=== PATIENT | female | born 1970 | race Caucasian/White ===

== ENCOUNTER → 2018-02-02 | Outpatient (REF) | payer OTHER ==
[2018-02-02 13:44] LABS: APPEARANCE, URINE CLEAR (CLEAR); BACTERIA, URINE AUTO NEGATIVE (NEGATIVE); BILIRUBIN, URINE AUTO NEGATIVE (NEGATIVE); BLOOD, URINE BLOOD 2+ (NEGATIVE); COLOR, URINE STRAW (YELLOW); GLUCOSE, URINE (UA) AUTO NEGATIVE (NEGATIVE); KETONE, URINE AUTO NEGATIVE (NEGATIVE); LEUKOCYTE ESTERASE, URINE AUTO 1+ (NEGATIVE); MUCUS, URINE SMALL (NEGATIVE); NITRITE, URINE AUTO NEGATIVE (NEGATIVE); PROTEIN, URINE AUTO NEGATIVE (NEGATIVE); RBC, URINE AUTO 1 /HPF (0-3); SPECIFIC GRAVITY URINE AUTO 1.004 (1.002-1.035); SQUAMOUS EPITHELIAL CELL UR AU 0 /HPF (0-6); UROBILINOGEN, URINE AUTO 0.2 mg/dL (0.0-2.0); WBC, URINE AUTO 7 /HPF (0-3)
== END ==
LOC: M SMT 13:16
DX: R10.30 Lower abdominal pain, unspecified (principal)

== ENCOUNTER → 2018-09-07 | Outpatient (REF) | payer BC | LOC: M LAB LCGH 15:10 | PROVIDERS: ATTEND Surgery | DX: D50.9 Iron deficiency anemia, unspecified (principal) ==

== ENCOUNTER → 2019-01-19 | Outpatient (REF) | payer BC ==
[2019-01-19 18:24] LABS: APPEARANCE, URINE CLEAR (CLEAR); BACTERIA, URINE AUTO NEGATIVE (NEGATIVE); BILIRUBIN, URINE AUTO NEGATIVE (NEGATIVE); BLOOD, URINE BLOOD 3+ (NEGATIVE); CALCIUM OXALATE CRYSTALS SMALL; COLOR, URINE YELLOW (YELLOW); GLUCOSE, URINE (UA) AUTO NEGATIVE (NEGATIVE); KETONE, URINE AUTO NEGATIVE (NEGATIVE); LEUKOCYTE ESTERASE, URINE AUTO 1+ (NEGATIVE); MUCUS, URINE SMALL (NEGATIVE); NITRITE, URINE AUTO NEGATIVE (NEGATIVE); PROTEIN, URINE AUTO NEGATIVE (NEGATIVE); RBC, URINE AUTO 30 /HPF (0-3); SPECIFIC GRAVITY URINE AUTO 1.006 (1.002-1.035); SQUAMOUS EPITHELIAL CELL UR AU 0 /HPF (0-6); UROBILINOGEN, URINE AUTO 0.2 mg/dL (0.0-2.0); WBC, URINE AUTO 25 /HPF (0-3)
== END ==
LOC: M SMT 16:54
PROVIDERS: ATTEND Nurse Practitioner Family
DX: R10.9 Unspecified abdominal pain (principal)

== ENCOUNTER → 2019-01-26 | Outpatient (CLI) | payer BC ==
--- NOTE | 2019-01-26 09:54 | REP ---
CT abdomen and pelvis without IV or oral contrast: Renal stone protocol. History: Flank pain. History of renal stones. No comparison imaging is available at this point in time. CT findings: Preliminary [facility] radiograph demonstrates an unremarkable bowel gas pattern. Pacemaker wires are noted in the heart. The lung bases are clear on axial CT images. The patient is status post gastric bypass procedure. Or the gallbladder and the uterus are also surgically absent. There is no evidence of focal liver lesion or spleen lesion. The liver is not enlarged. No abnormalities noted in the pancreas. No adrenal lesion is observed. Small and large intestinal bowel loops are unremarkable. No bony lesion is seen. There is no evidence of mass or adenopathy. There are multiple bilateral intrarenal calculi noted. There is hydronephrosis on the left due to a proximal ureteral stone at the level of the lower pole of the left kidney. This calculus measures 8 mm in greatest diameter. There is some periureteral edema. No other ureteral calculus is seen. No right-sided hydronephrosis is noted. The largest intrarenal calculus in the left kidney is in the lower pole measuring 14 mm in diameter. The largest intrarenal calculus in the right kidney is in the lower pole measuring 13 mm in greatest diameter. There are several 1 cm stones in the lower pole on the right. There is a 4 mm calculus in the mid position of the left kidney. There is some mild cortical scarring in the left mid kidney. Impression: Bilateral intrarenal nephrolithiasis. Mild to moderate left-sided hydronephrosis due to a proximal ureteral 8 mm partially obstructive calculus. The patient is status post cholecystectomy, gastric bypass, hysterectomy, and cardiac pacemaker. Electronically Signed by Mani Duque MD 01/26/2019 04:00 P
== END ==
LOC: M RAD 07:40
PROVIDERS: ATTEND Nurse Practitioner Family
DX: N20.0 Calculus of kidney (principal)

== ENCOUNTER 2019-03-16 07:17 | Day surgery (SDC) | payer BC ==
[~2019-03-16] VITALS: Ht 154.9 cm; Wt 76.1 kg
[~2019-03-16 07:17] MED LIST: CARV6.25 PO; CIPROFLOXACIN 400 MG in IV 1 EA IV ONE; FLOM0.4C39 PO; LASI20TA3 PO; LISI10TA4 PO; LR 1,000 ML IV ONE; METF-791 PO; ROSU20TA5 PO; VENTAER INH
[2019-03-16] MEDS ORDERED: ZOFR8TAB24 PO (07:38)
[2019-03-16] MEDS ORDERED: KETO10TAB PO (07:38)
[2019-03-16] MEDS ORDERED: PROPOFOL 200 MG/20 ML VIAL As Ordered ONE (08:03)
[2019-03-16] MEDS ORDERED: LIDOCAINE 2% INJ 100 MG/5 ML SDV (FOR ANES.) As Ordered ONE (08:03)
[2019-03-16] MEDS ORDERED: CONRAY-60 60% 50ML VIAL (Q9961) As Ordered ONE (08:03)
[2019-03-16] MEDS ORDERED: dexameTHASONE 4 MG/ML 1ML VIAL (J1100) As Ordered ONE (08:04)
[2019-03-16] MEDS ORDERED: ONDANSETRON 4MG/2ML VIAL (J2405) As Ordered ONE (08:04)
[2019-03-16] MEDS ORDERED: MIDAZOLAM INJ 2 MG/2 ML VIAL (J2250) As Ordered ONE (08:06)
[2019-03-16] MEDS ORDERED: fentaNYL 100 MCG/2 ML INJECTION (J3010) As Ordered ONE (08:06)
[2019-03-16] MEDS ORDERED: PHENYLephrine HCL 500 MCG/5 ML (100MCG/ML) SYRINGE (J2370) As Ordered ONE (08:42)
[2019-03-16] MEDS ORDERED: ACETAMINOPHEN 1000MG 100ML IV BTL (OFIRMEV) (J0131 PER 10MG) As Ordered ONE (08:47)
[2019-03-16] MEDS ORDERED: ePHEDrine SULFATE 25 MG/5 ML(5MG/ML) SYRINGE As Ordered ONE (08:51)
[2019-03-16] MEDS ORDERED: PERCOCET PO (10:25)
[2019-03-16] MEDS ORDERED: PERCOCET 5MG/325MG TAB PO PRN ×2 (10:30→11:00)
--- NOTE | 2019-03-16 10:34 | ROOPDOC ---
[facility] Report Of Operation Report of Operation DATE OF PROCEDURE: 03/16/19 PREPROCEDURE DIAGNOSES: Left ureteral calculus, bilateral renal calculi. POSTPROCEDURE DIAGNOSES: Same. PROCEDURE: Cystoscopy, left ureteroscopy, left retrograde pyelogram, laser lithotripsy, left double-J stent, right ureteroscopy, right retrograde pyelogram, laser lithotripsy, right double-J stent. SURGEON: Serafin Augustin MD ANESTHESIA: Gen. LMA. ESTIMATED BLOOD LOSS: Approximately less than 20 mL. COMPLICATIONS: None. REMARKS: Bilateral 6 [place] double-J stents. PROCEDURE NOTE: Patient was brought to the operating room and following administration of general anesthesia was placed in the dorsal lithotomy position and prepped and draped in usual sterile fashion. A 22 [place] cystoscope was inserted. The bladder was normal. There were no stones seen. A 5 [place] open-ended catheter was placed into the left ureteral orifice and a 0.038 guidewire was advanced the renal pelvis. The catheter was advanced the renal pelvis and wire was removed. Retrograde pyelogram was performed revealing left hydronephrosis with no filling defects seen. Wire was replaced and the open- ended catheter was removed. A 10 [place] dual-lumen catheter was inserted and a second Glidewire was inserted. A ureteral access sheath was placed over the Glidewire and the Glidewire was removed. A flexible ureteroscope was then introduced into the access sheath and ureteroscopy was performed of the renal collecting system. A stone was present in the lower pole laser lithotripsy was performed utilizing a 274 fiber. Laser lithotripsy was performed between 8 and 14 W and complete fragmentation of the stone was achieved. The stone fragments were small and left to pass spontaneously. The ureteroscope was then removed under direct vision. There was no stones seen in the proximal ureter. However a stone was present in the distal ureter. Using laser lithotripsy the stone was completely fragmented into small fragments to pass spontaneously. The remainder of the ureter was unremarkable no further stones were seen. Ureteroscope was removed with the ureteral access sheath. A 5 [place] opening catheter was reinserted and retrograde pyelogram was repeated. There was no evidence of extravasation. Cystoscope was reinserted over the wire and a 6 [place] double-J stent was inserted under direct vision using fluoroscopy guidance. Once good position was confirmed the wires removed leaving the stent in place. A wire was then placed into the right ureteral orifice and advanced the renal pelvis. A 5 [place] open-ended catheter was inserted over the wire and the wire was removed. Retrograde pyelogram was performed revealing a normal right collecting system with no evidence of hydronephrosis or filling defects. The wire was replaced and the open-ended cath was removed. A 10 [place] dual-lumen catheter was easily passed the renal pelvis. A second Glidewire was inserted in the dual-lumen catheter was removed. Ureteral access sheath was then inserted and the Glidewire was removed. A flexible ureteroscope was inserted into the ureteral access sheath and advanced the renal pelvis. Renal pelvis was unrem arkable with no stones seen. Stones were seen in the lower pole calyx. Laser lithotripsy was performed on the 2 stones seen. Complete fragmentation was achieved. The remainder of the calyces was inspected and no further stones were seen. The ureteroscope was removed under direct vision and the entire ureter was inspected and no stones were seen. The open-ended catheter was inserted over the wire and the wire was removed and retrograde pyelogram was repeated and was no evidence of extravasation. The wires replaced and the open-ended cath was removed. The cystoscope was inserted over the wire and a 6 [place] double-J stent was inserted under direct vision using fluoroscopy guidance. Once good position was confirmed by fluoroscopy the wires removed leaving the stent in place. The bladder was empty and the cystoscope was removed. Patient tolerated procedure well returned to recovery room in satisfactory condition. Serafin Augustin MD Mar 16, 2019 10:34
[2019-03-16 10:46] VITALS: BP 128/78
[2019-03-16] MEDS ORDERED: fentaNYL 100 MCG/2 ML INJECTION (J3010) IV PRN (11:00)
[2019-03-16] MEDS ORDERED: LR 1,000 ML IV SCH (11:00)
[2019-03-16] MEDS ORDERED: ONDANSETRON 4MG/2ML VIAL (J2405) IV PRN (11:00)
[2019-03-16] MEDS ORDERED: HYDROMORPHONE HCL 0.5 MG/ 0.5 ML SYRINGE (J1170 PER 1) IV PRN (11:00)
[2019-03-16] MEDS ORDERED: CIPROFLOXACIN 500 MG TAB PO SCH (18:00)
--- NOTE | 2019-03-16 18:10 | REP ---
Retrograde pyelogram: Five views. History: Cystoscopy. Bilateral laser lithotripsy. Stent. 3 minutes 59 seconds of fluoroscopy time is reported. Findings: A sequence of five last image hold fluoroscopically obtained spot radiographs of the abdomen document ureteral cannulation, contrast injection, and double pigtail stent placement bilaterally. Electronically Signed by Mani Duque MD 03/16/2019 06:01 P
== END 2019-03-16 11:02 | disposition home or self-care (01) ==
LOC: M SDC 07:17
PROVIDERS: ATTEND Urology
DX: N20.2 Calculus of kidney with calculus of ureter (principal); I48.91 Unspecified atrial fibrillation; I10 Essential (primary) hypertension; E78.5 Hyperlipidemia, unspecified; J45.909 Unspecified asthma, uncomplicated; E11.9 Type 2 diabetes mellitus without complications; Z79.84 Long term (current) use of oral hypoglycemic drugs; Z79.899 Other long term (current) drug therapy; Z88.0 Allergy status to penicillin; Z88.8 Allergy status to other drugs, medicaments and biological substances; Z95.810 Presence of automatic (implantable) cardiac defibrillator; Z95.0 Presence of cardiac pacemaker
CPT/HCPCS: 52356; 74420; C1769; C1894; C2617; J0131; J0744; J1100; J2250; J2370; J2405; J3010; Q9961

== ENCOUNTER → 2019-03-22 | Outpatient (REF) | payer BC ==
[~2019-03-22] MED LIST changes: -CIPROFLOXACIN 400 MG in IV 1 EA IV ONE; +KETO10TAB PO; -LR 1,000 ML IV ONE; +PERCOCET PO; +ZOFR8TAB24 PO
== END ==
LOC: M SMT 12:50
PROVIDERS: ATTEND Urology
DX: N20.0 Calculus of kidney (principal)

== ENCOUNTER → 2019-04-19 | Outpatient (CLI) | payer BC ==
--- NOTE | 2019-04-20 09:32 | REP ---
RENAL ULTRASOUND: Real-time sonographic evaluation of the kidneys performed. Kidneys normal in size and echotexture, right kidney measuring 9.9 x 5.2 x 4.5 cm and left kidney 10.5 x 5.1 x 5.3 cm. There is mild to moderate right hydronephrosis with no left hydronephrosis. Right ureter is mildly dilated with mild wall thickening of the ureter. The hydronephrosis on the right does not change after voiding. There is mild prominence of the left renal pelvis which does resolve after voiding. In the lower pole of the right kidney there are three echogenic foci likely representing calculi measuring 8 mm, 9 mm, and 12 mm in maximum diameter respectively. Simple appearing cyst is seen in the upper pole of the left kidney 1 cm in diameter. Urinary bladder demonstrates no definite mass or calculus with bilateral ureteral jets noted with Doppler color evaluation. IMPRESSION: Mild to moderate right hydronephrosis and mild hydroureter. No left hydronephrosis. There appear to be three calculi in the lower pole of the right kidney ranging in size between 8 and 12 mm. Bilateral ureteral jets in the urinary bladder. Electronically Signed by Ronny Duval MD 04/23/2019 09:05 A
== END ==
LOC: M RAD 17:37
PROVIDERS: ATTEND Urology
DX: N20.0 Calculus of kidney (principal); N13.2 Hydronephrosis with renal and ureteral calculous obstruction; N13.4 Hydroureter

== ENCOUNTER → 2019-04-30 | Outpatient (REF) | payer BC ==
[2019-04-30 19:40] LABS: APPEARANCE, URINE CLEAR (CLEAR); BACTERIA, URINE AUTO NEGATIVE (NEGATIVE); BILIRUBIN, URINE AUTO NEGATIVE (NEGATIVE); BLOOD, URINE BLOOD NEGATIVE (NEGATIVE); CALCIUM OXALATE CRYSTALS SMALL; COLOR, URINE STRAW (YELLOW); GLUCOSE, URINE (UA) AUTO NEGATIVE (NEGATIVE); KETONE, URINE AUTO NEGATIVE (NEGATIVE); LEUKOCYTE ESTERASE, URINE AUTO NEGATIVE (NEGATIVE); NITRITE, URINE AUTO NEGATIVE (NEGATIVE); PROTEIN, URINE AUTO NEGATIVE (NEGATIVE); RBC, URINE AUTO 0 /HPF (0-3); SPECIFIC GRAVITY URINE AUTO 1.011 (1.002-1.035); SQUAMOUS EPITHELIAL CELL UR AU 0 /HPF (0-6); UROBILINOGEN, URINE AUTO 0.2 mg/dL (0.0-2.0); WBC, URINE AUTO 2 /HPF (0-3)
== END ==
LOC: M SMT 17:39
PROVIDERS: ATTEND Nurse Practitioner Family
DX: R35.0 Frequency of micturition (principal)

== ENCOUNTER → 2019-12-11 | Outpatient (REF) | payer BC ==
[~2019-12-11] MED LIST changes: -METF-791 PO; +METF-838 PO
[2019-12-11 20:03] LABS: APPEARANCE, URINE CLEAR (CLEAR); BACTERIA, URINE AUTO NEGATIVE (NEGATIVE); BILIRUBIN, URINE AUTO NEGATIVE (NEGATIVE); BLOOD, URINE BLOOD NEGATIVE (NEGATIVE); COLOR, URINE YELLOW (YELLOW); GLUCOSE, URINE (UA) AUTO NEGATIVE (NEGATIVE); KETONE, URINE AUTO NEGATIVE (NEGATIVE); LEUKOCYTE ESTERASE, URINE AUTO TRACE (NEGATIVE); NITRITE, URINE AUTO NEGATIVE (NEGATIVE); PROTEIN, URINE AUTO NEGATIVE (NEGATIVE); RBC, URINE AUTO 0 /HPF (0-3); SPECIFIC GRAVITY URINE AUTO 1.014 (1.002-1.035); SQUAMOUS EPITHELIAL CELL UR AU 0 /HPF (0-6); UROBILINOGEN, URINE AUTO 0.2 mg/dL (0.0-2.0); WBC, URINE AUTO 5 /HPF (0-3)
== END ==
LOC: M SMT 17:08
PROVIDERS: ATTEND Nurse Practitioner Family
DX: N20.0 Calculus of kidney (principal)

== ENCOUNTER 2020-07-07 02:03 | Emergency (ER) | payer BC ==
[~2020-07-07] VITALS: Ht 154.9 cm; Wt 94.8 kg
[~2020-07-07 02:03] MED LIST changes: +LISI10TA22 PO; -LISI10TA4 PO
[2020-07-07] MEDS ORDERED: ARIM1TAB5 PO (02:31)
[2020-07-07] MEDS ORDERED: CALC500T68 PO (02:31)
[2020-07-07] MEDS ORDERED: NEUR100C PO (02:31)
[2020-07-07] MEDS ORDERED: MIRA0.12 PO (02:31)
[2020-07-07] MEDS ORDERED: PROC10TA4 PO (02:31)
[2020-07-07] MEDS ORDERED: POTA10808 PO (02:31)
[2020-07-07] MEDS ORDERED: TUMS500C PO (02:31)
[2020-07-07 04:36] LABS: BASO # 0.1 10^3/uL (0.0-0.2); BASO % 0.8 % (0.0-1.0); EOS # 0.1 10^3/uL (0.0-0.5); EOS % 0.6 % (0.0-3.0); HEMATOCRIT 35.9 % (36.0-47.0); LYMPH # 1.5 10^3/uL (1.5-5.0); LYMPH % 10.5 % (24.0-44.0); MEAN CORPUSCULAR HEMOGLOBIN 24.4 pg (27.0-33.0); MEAN CORPUSCULAR HGB CONC 30.6 g/dl (32.0-36.5); MEAN CORPUSCULAR VOLUME 79.6 fl (80.0-96.0); MONO % 7.2 % (0.0-5.0); NEUTROPHILS # 11.5 10^3/uL (1.5-8.5); NEUTROPHILS % 80.4 % (36.0-66.0); PLATELET COUNT, AUTOMATED 264 10^3/uL (150-450); RED BLOOD COUNT 4.51 10^6/uL (4.00-5.40)
[2020-07-07 04:37] LABS: WHITE BLOOD COUNT 14.2 10^3/uL (4.0-10.0)
[2020-07-07] MEDS ORDERED: MORPHINE 4 MG/ML 1ML VIAL/SYRINGE (J2270) IV PRN (05:00)
[2020-07-07] MEDS ORDERED: ONDANSETRON 4MG/2ML VIAL IV ONE (05:00)
[2020-07-07] MEDS ORDERED: KETOROLAC 30 MG/ML 1ML VIAL IV ONE (05:00)
[2020-07-07 05:06] LABS: ALBUMIN 3.7 GM/DL (3.2-5.2); ALT/SGPT 39 U/L (12-78); BILIRUBIN,DIRECT < 0.1 MG/DL (0.0-0.2); BILIRUBIN,TOTAL 0.3 MG/DL (0.2-1.0); LIPASE 149 U/L (73-393)
--- NOTE | 2020-07-07 05:30 | REPVR ---
PROCEDURE INFORMATION: Exam: CT Abdomen And Pelvis Without Contrast Exam date and time: 07/07/2020 5:06 AM Age: 50 years old Clinical indication: Abdominal pain; Additional info: Right flank pain, HX of stones TECHNIQUE: Imaging protocol: Computed tomography of the abdomen and pelvis without contrast. Radiation optimization: All CT scans at this facility use at least one of these dose optimization techniques: automated exposure control; mA and/or kV adjustment per patient size (includes targeted exams where dose is matched to clinical indication); or iterative reconstruction. COMPARISON: CT ABD PELVIS W/O CONTRAST 01/26/2019 7:55 AM FINDINGS: Lungs: There are partially imaged some peripheral interstitial changes in the upper right middle lobe. Liver: Normal. No mass. Gallbladder and bile ducts: The patient is status post cholecystectomy. There is no biliary ductal dilatation. Pancreas: Normal. No ductal dilation. Spleen: Normal. No splenomegaly. Adrenal glands: Normal. No mass. Kidneys and ureters: There are nonobstructing left renal stones the largest measuring 4 mm. There is no left ureteral stones or hydronephrosis. There is multiple right renal stones including a large early staghorn like calculus formation in the right lower renal pole measuring around 1.4 centimetres. There are multiple stones in the mid to distal right ureter the largest measuring 1 cm with moderate to severe right-sided hydronephrosis and hydroureter with significant surrounding stranding and edema. Stomach and bowel: The patient is status post gastric bypass with grossly intact proximal and distal anastomoses. There are no abnormally dilated small bowel loops to suggest bowel obstruction. Appendix: No evidence of appendicitis. Intraperitoneal space: Unremarkable. No free air. No significant fluid collection. Vasculature: Unremarkable. No abdominal aortic aneurysm. Lymph nodes: There is questionable thickened small bowel loops with small shotty mesenteric lymph nodes. Urinary bladder: Unremarkable as visualized. Reproductive: The patient is status post hysterectomy. There is no adnexal mass. Bones/joints: There is the mid to lower lumbar spine facet arthrosis. Soft tissues: There is thickening of the skin overlying the right breast with overall asymmetric increased stranding in the right breast tissue as compared to the left. IMPRESSION: 1. Multiple mid to distal right ureteral obstructing stones the largest measuring 1 cm with moderate to severe proximal hydronephrosis with significant perinephric stranding and edema. Underlying infection cannot be excluded. 2. Bilateral nephrolithiasis including early small staghorn like calculus formation in the right lower renal pole measuring 1.4 centimetres. 3. Status post cholecystectomy, hysterectomy and gastric bypass. 4. No bowel obstruction seen. 5. Suggestion of small bowel wall thickening with some shotty mesenteric lymph nodes. Correlate clinically for enteritis. 6. Inflammatory changes in the right breast with thickened skin could be secondary to mastitis, radiation changes however underlying inflammatory neoplastic process cannot be excluded. Correlate with patient's clinical history and recent mammography. Electronically signed by: Bruce Stephenson On 07/07/2020 05:29:53 AM
[2020-07-07] MEDS ORDERED: PERC5TAB12 PO (06:22)
[2020-07-07] MEDS ORDERED: PERCOCET 5MG/325MG TAB PO ONE (06:30)
[2020-07-07 07:19] VITALS: BP 127/56
--- NOTE | 2020-07-08 12:01 | ED PDOC ---
Post-Departure Follow-Up dr bullard faxed formal report of c abd/p for fu April Calvo MD Jul 08, 2020 12:01
== END 2020-07-07 07:25 | disposition home or self-care (01) ==
LOC: M ED 02:03
DX: N20.1 Calculus of ureter (principal); I50.9 Heart failure, unspecified; I44.69 Other fascicular block; Z95.0 Presence of cardiac pacemaker; Z79.899 Other long term (current) drug therapy; Z79.84 Long term (current) use of oral hypoglycemic drugs; Z88.0 Allergy status to penicillin; Z88.1 Allergy status to other antibiotic agents; Z88.8 Allergy status to other drugs, medicaments and biological substances; Z91.048 Other nonmedicinal substance allergy status
CPT/HCPCS: 74176; 80047; 80076; 81001; 83690; 85025; 96374; 96375; 99284; J1885; J2405

== ENCOUNTER → 2020-07-16 | Outpatient (CLI) | payer BC ==
[~2020-07-16] MED LIST changes: +ARIM1TAB5 PO; +CALC500T68 PO; +MIRA0.12 PO; +NEUR100C PO; +PERC5TAB12 PO; +POTA10808 PO; +PROC10TA4 PO; +TUMS500C PO
== END ==
LOC: M LABSMTC 12:39
PROVIDERS: ATTEND Anesthesiology
DX: Z01.812 Encounter for preprocedural laboratory examination (principal); Z20.822 Contact with and (suspected) exposure to COVID-19

== ENCOUNTER 2020-07-21 11:40 | Day surgery (SDC) | payer BC ==
[~2020-07-21] VITALS: Ht 154.9 cm; Wt 72.5 kg
[~2020-07-21 11:40] MED LIST changes: +CIPROFLOXACIN 400 MG in IV 1 EA IV ONE; +LR 1,000 ML IV ONE
--- OUTSIDE RECORDS SUMMARY | 2020-07-21 11:47 | CCD ---
Author Author [facility] Organization [facility] Address Unknown Phone Unavailable Care Team Providers Care Bullard Operator Name Role Phone Obinna Dias Unavailable PROBLEMS Type Condition ICD9-CM Code [id number] Code Onset Dates Condition S tatus W/U Status Risk SNOMED Code Notes Problem Lower abdominal pain R10.30 Active confirmed 76900233 Problem Kidney stone N20.0 Active confirmed [id number] ALLERGIES Allergen (clinical drug ingredient) Drug/Non Drug Allergy do cumented on EMR Reaction Allergy Type Onset Date Status sertraline Zoloft([facility] Code:[address]-95) HIVES Drug Allergy Active Penicillin (For Allergies Use Only) HIVES Drug Allerg y Active azithromycin Zithromax([facility] Code:[address]-39) HIVES Drug Allerg y Active ZERO FORM BLISTERS Non Drug Allergy Active clindamycin Clindamycin HCl([facility] Code:[address]-91) HIVES Drug A llergy Active Adhesive Tape HIVES Drug Allergy Active ENCOUNTERS from 1969 to 2020-07-07 Encounter Location Date Provider Diagnosis [facility] Urology [address] [place] [address] Jun Obinna Dias IMMUNIZATIONS No Information SOCIAL HISTORY Tobacco Use: Social History Observation Description Date Details (start date - stop date) Never Smoker Sex Assigned At : Social History Observation Description Sex Assigned At Unknown Education: Question Answer Notes Level of Education: Finished High School Holiness: Question Answer Notes Holiness 21 Latter Day No mu-ism beliefs that would impact health care. Sexual Hx: Question Answer Notes Had sex in the last 12 months (vaginal, oral, or anal)? Yes Have you ever had an STD? No with Men only Use protection? No Alcohol Screening: Question Answer Notes Did you have a drink containing alcohol in the past year? Ye s Points 1 Interpretation Negative How often did you have six or more drinks on one occas ion in the past year? Never (0 points) How many drinks did you have on a typica l day when you were drinking in the past year? 1 or 2 (0 points) How often did you have a drink containing alcohol in t he past year? Monthly or less (1 point) Tobacco Use: Question Answer Notes Are you a: never smoker REASON FOR REFERRAL No Information VITAL SIGNS No information MEDICATIONS Medication SIG (Take, Route, Frequency, Duration) Notes Start Da te End Date Status Hydrocodone-Acetaminophen 5-325 MG 1 tablet as needed Orally every 6 hrs Not-Taking Oxybutynin Chloride 5 MG 1 tablet Orally Twice a day for 30 day( s) Apr, Active Herceptin 150 MG as directed Intravenous Active Zofran 8 MG 1 tablet as needed Orally twice daily as needed for 30 day(s) Jan, Active Metformin 1 tab Oral 1 tab in am 2 tabs pm Active Taxol Active Perjeta 420 MG/14ML as directed Intravenous Active Lisinopril 10 MG 1 tablet Orally Once a day Active Calcium 1000 + D 1000-800 MG-UNIT 1 tablet with a meal Orally Once a day for 30 day(s) Active Hydrocodone-Acetaminophen 5-325 MG 1 tablet as needed Orally every 6 hrs, MDD 4 for 7 days Jan, Active Flomax 0.4 MG 1 capsule Orally Once a day for 30 day(s) Active Advair Diskus 250-50 MCG/DOSE 1 puff Inhalation Twice a day Active Potassium Citrate-Citric Acid 1100-334 MG/5ML [address] meals and at bedtime Orally Four times a day Active Flomax 0.4 MG 1 capsule Orally Once a day for 30 day(s) Active Percocet 5-325 MG 1 tablet as needed Orally every 6 hrs, MDD 4 f or 7 days Jan, Not-Taking Requip 0.5 MG 1 tablet 1 to 3 hours before bedtime Orally QHS Active Urocit-K 10 10 MEQ (1080 MG) 2 tablets with meals Orally bid for 30 day(s) Feb, Active Albuterol Sulfate (2.5 MG/3ML) 0.083% 3 ml as needed I nhalation Three times a day Active Cipro 500 MG 1 tablet Orally every 12 hrs for 10 day(s) Feb, Not-Taking Ketorolac Tromethamine 10 MG 1 tablet with food or mil k as needed Orally every 6 hrs for 5 day(s) Jan, Not-Taking Lasix 20 MG 1 tablet Orally PRN Acti ve Ventolin HFA 108 (90 Base) MCG/ACT 2 puffs as needed Inhalation jodi ry 6 hrs Active Pramipexole Dihydrochloride 0.125 MG 1 tablet Orally Once a day for 30 day(s) Active Cephalexin 500 MG 4 capsule Orally 1 HR PRIOR TO DDS Not-Taking Qvar 80 MCG/ACT 1 puff Inhalation Twice a day Active Vitamin B Complex - as directed Orally Active Anastrozole 1 MG 1 tablet Orally Once a day for 30 day(s) Active Carvedilol 6.25 MG Orally BID Activ e OxyCODONE HCl ER 10 MG 1 tablet Orally every 12 hrs Active Rosuvastatin Calcium 20 MG 1 tablet Orally Once a day Active PROCEDURES No Information RESULTS No Results REASON FOR VISIT ER over weekend MEDICAL (GENERAL) HISTORY Type Description Date Medical History 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 Medical History ESOPHAGEAL REFLUX Medical History ATRIAL FLUTTER Medical History NEPHROLITHIASIS = KIDNEY STONES Medical History CHF Medical History 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 Medical History PACEMAKER ADN DEFIBRILLATOR Medical History ASTHMA Medical History HX DEPRESSION/ANXIETY Medical History VITAMIN D DEFICIENCY Medical History breast cancer Surgical History CHOLECYSTECTOMY 06/2004 Surgical History HYSTERECTOMY 04/2010 Surgical History SALPINGOO-OOPHORECTOMY Surgical History UMBILICAL HERNIA REPAIR 07/2004 Surgical History LEFT URETERAL LITHOTRIPSY 05/2016 Surgical History PACEMAKER AND DEFIBRILLATOR Surgical History APPENDECTOMY Surgical History Surgical History D&C Surgical History BILATERAL KNEE 01/2000 Surgical History GASTRIC BYPASS 01/2014 Surgical History SINUS SX Surgical History ESWL, LITHOTRIPSY, STENT PLACEMENTS, CYS TOSCOPY Surgical History LEFT KNEE REPLACEMENT 09/13/2017 Surgical History cysto with taylor stent removal 03/22/2019 Surgical History breast biopsy Surgical History lumpectomy and 3 lymp nodes removed 02/27 Surgical History port placed 10/2019 Hospitalization History SX RELATED Hospitalization History KIDNEY STONES Hospitalization History CHF YEARS AGO Goals Section No Information Health Concerns No Information MEDICAL EQUIPMENT No Information MENTAL STATUS No Information FUNCTIONAL STATUS No Information ASSESSMENTS No Information PLAN OF TREATMENT No Information Insurance Providers Payer Name Payer Address Payer Phone Insured Name Patient Relati onship to Insured Coverage Start Date Coverage End Date [facility] [address] [facility] [id number] [place]
--- OUTSIDE RECORDS SUMMARY | 2020-07-21 11:47 | CCD ---
Author Author [facility] Organization [facility] Address Unknown Phone Unavailable Care Team Providers Care Assembly Line Leader Name Role Phone Obinna Dias Unavailable PROBLEMS Type Condition ICD9-CM Code [id number] Code Onset Dates Condition S tatus W/U Status Risk SNOMED Code Notes Problem Lower abdominal pain R10.30 Active confirmed 82073220 Problem Kidney stone N20.0 Active confirmed [id number] 7 ALLERGIES Allergen (clinical drug ingredient) Drug/Non Drug Allergy do cumented on EMR Reaction Allergy Type Onset Date Status sertraline Zoloft([facility] Code:[address]-29) HIVES Drug Allergy Active Penicillin (For Allergies Use Only) HIVES Drug Allerg y Active azithromycin Zithromax([facility] Code:[address]-80) HIVES Drug Allerg y Active ZERO FORM BLISTERS Non Drug Allergy Active clindamycin Clindamycin HCl([facility] Code:[address]-19) HIVES Drug A llergy Active Adhesive Tape HIVES Drug Allergy Active ENCOUNTERS from 1969 to 2020-07-01 Encounter Location Date Provider Diagnosis [facility] Urology [address] [place] [address] Jun Obinna Dias IMMUNIZATIONS No Information SOCIAL HISTORY Tobacco Use: Social History Observation Description Date Details (start date - stop date) Never Smoker Sex Assigned At : Social History Observation Description Sex Assigned At Unknown Education: Question Answer Notes Level of Education: Finished High School Restoration: Question Answer Notes Restoration 21 Nondenominational No buddhism beliefs that would impact health care. Sexual [...] Notes Start Da te End Date Status Ventolin HFA 108 (90 Base) MCG/ACT 2 puffs as needed Inhalation jodi ry 6 hrs Not-Taking Ketorolac Tromethamine 10 MG 1 tablet with food or mil k as needed Orally every 6 hrs for 5 day(s) Jan, Not-Taking Percocet 5-325 MG 1 tablet as needed Orally every 6 hrs, MDD 4 f or 7 days Jan, Not-Taking Cipro 500 MG 1 tablet Orally every 12 hrs for 10 day(s) Feb, Not-Taking Hydrocodone-Acetaminophen 5-325 MG 1 tablet as needed Orally every 6 hrs Not-Taking Flomax 0.4 MG 1 capsule Orally Once a day for 30 day(s) Not-Taking Lasix 20 MG 1 tablet Orally PRN Acti ve Hydrocodone-Acetaminophen 5-325 MG 1 tablet as needed Orally every 6 hrs, MDD 4 for 7 days Jan, Not-Taking Calcium 1000 + D 1000-800 MG-UNIT 1 tablet with a meal Orally Once a day for 30 day(s) Active Rosuvastatin Calcium 20 MG 1 tablet Orally Once a day Active Advair Diskus 250-50 MCG/DOSE 1 puff Inhalation Twice a day Active Vitamin B Complex - as directed Orally Active Potassium Citrate-Citric Acid 1100-334 MG/5ML [address] meals and at bedtime Orally Four times a day Not-Taki ng Zofran 8 MG 1 tablet as needed Orally twice daily as needed for 30 day(s) Jan, Not-Taking Herceptin 150 MG as directed Intravenous Active Qvar 80 MCG/ACT 1 puff Inhalation Twice a day Not-Taking Carvedilol 6.25 MG Orally BID Activ e Oxybutynin Chloride 5 MG 1 tablet Orally Twice a day for 30 day( s) Apr, Not-Taking Metformin 1 tab Oral 1 tab in am 2 tabs pm Active Cephalexin 500 MG 4 capsule Orally 1 HR PRIOR TO DDS Not-Taking Requip 0.5 MG 1 tablet 1 to 3 hours before bedtime Orally QHS Not-Taking Perjeta 420 MG/14ML as directed Intravenous Active Albuterol Sulfate (2.5 MG/3ML) 0.083% 3 ml as needed I nhalation Three times a day Not-Taking Urocit-K 10 10 MEQ (1080 MG) 2 tablets with meals Orally bid for 30 day(s) Feb, Active Taxol Not-Taking Flomax 0.4 MG 1 capsule Orally Once a day for 30 day(s) Active Pramipexole Dihydrochloride 0.125 MG 1 tablet Orally Once a day for 30 day(s) Active Anastrozole 1 MG 1 tablet Orally Once a day for 30 day(s) Active Lisinopril 10 MG 1 tablet Orally Once a day Active PROCEDURES No Information RESULTS No Results REASON FOR VISIT kidney stones MEDICAL (GENERAL) HISTORY Type Description Date Medical [...] Information ASSESSMENTS No Information PLAN OF TREATMENT Next Appt Details Provider Name:Obinna Dias, 2020-07-07 03:15:00 PM, [address], [place], [address], Insurance Providers Payer Name Payer Address Payer Phone Insured Name Patient Relati onship to Insured Coverage Start Date Coverage End Date [facility] [address] [facility] [id number] [address]
--- OUTSIDE RECORDS SUMMARY | 2020-07-21 11:47 | CCD ---
Author Author [facility] Organization [facility] Address Unknown Phone Unavailable Care Team Providers Care Millwright Instructor Name Role Phone Obinna Dias Unavailable PROBLEMS Type Condition ICD9-CM Code [id number] Code Onset Dates Condition S tatus W/U Status Risk SNOMED Code Notes Problem Lower abdominal pain R10.30 Active confirmed 40602169 Problem Kidney stone N20.0 Active confirmed [id number] ALLERGIES Allergen (clinical drug ingredient) Drug/Non Drug Allergy do cumented on EMR Reaction Allergy Type Onset Date Status sertraline Zoloft([facility] Code:[address]-21) HIVES Drug Allergy Active Penicillin (For Allergies Use Only) HIVES Drug Allerg y Active azithromycin Zithromax([facility] Code:[address]-84) HIVES Drug Allerg y Active ZERO FORM BLISTERS Non Drug Allergy Active clindamycin Clindamycin HCl([facility] Code:[address]-02) HIVES Drug A llergy Active Adhesive Tape HIVES Drug Allergy Active ENCOUNTERS from 1969 to 2020-07-10 Encounter Location Date Provider Diagnosis [facility] Urology [address] [place] [address] Jun Obinna Dias Kidney stone N20.0 IMMUNIZATIONS No Information SOCIAL HISTORY Tobacco Use: Social History Observation Description Date Details (start date - stop date) Never Smoker Sex Assigned At : Social History Observation Description Sex Assigned At Unknown Education: Question Answer Notes Level of Education: Finished High School Yarsanism: Question Answer Notes Yarsanism 20 Gnosticism No holiness beliefs that would impact health care. Sexual [...] Notes Start Da te End Date Status Tamsulosin HCl 0.4 MG Take 1 capsule by mouth once daily for 30 day s for 30 Active Oxybutynin Chloride 5 MG 1 tablet Orally Twice a day for 30 day( s) Apr, Active Hydrocodone-Acetaminophen 5-325 MG 1 tablet as needed Orally every 6 hrs Not-Taking Zofran 8 MG 1 tablet as needed Orally twice daily as needed for 30 day(s) Jan, Active Ventolin HFA 108 (90 Base) MCG/ACT 2 puffs as needed Inhalation jodi ry 6 hrs Active Metformin 1 tab Oral 1 tab [...] 1 puff Inhalation Twice a day Active Cipro 500 MG 1 tablet Orally every 12 hrs for 10 day(s) Feb, Not-Taking Potassium Citrate-Citric Acid 1100-334 MG/5ML [address] meals and at bedtime Orally Four times a day Active Pramipexole Dihydrochloride 0.125 MG 1 tablet Orally Once a day for 30 day(s) Active Cephalexin 500 MG 4 capsule Orally 1 HR PRIOR TO DDS Not-Taking Urocit-K 10 10 MEQ (1080 MG) 2 tablets with meals Orally bid for 30 day(s) Feb, Active Qvar 80 MCG/ACT 1 puff Inhalation Twice a day Active Requip 0.5 MG 1 tablet 1 to 3 hours before bedtime Orally QHS Active Ketorolac Tromethamine 10 MG 1 tablet with food or mil k as needed Orally every 6 hrs for 5 day(s) Jan, Not-Taking Lasix 20 MG 1 tablet Orally PRN Acti ve Percocet 5-325 MG 1 tablet as needed Orally every 6 hrs, MDD 4 f or 7 days Jun, Active Albuterol Sulfate (2.5 MG/3ML) 0.083% 3 ml as needed I nhalation Three times a day Active Herceptin 150 MG as directed Intravenous Active Flomax 0.4 MG 1 capsule Orally Once a day for 30 day(s) Active Vitamin B Complex - as directed Orally Active Anastrozole 1 MG 1 tablet Orally Once a day for 30 day(s) Active Carvedilol 6.25 MG Orally BID Activ e OxyCODONE HCl ER 10 MG 1 tablet Orally every 12 hrs Active Rosuvastatin Calcium 20 MG 1 tablet Orally Once a day Active PROCEDURES No Information RESULTS No Results REASON FOR VISIT pain meds MEDICAL (GENERAL) HISTORY Type Description Date Medical [...] No Information FUNCTIONAL STATUS No Information ASSESSMENTS Encounter Date Diagnosis Assessment Notes Treatment Notes Treatm ent Clinical Notes Jun, Kidney stone (ICD-10 - N20.0) PLAN OF TREATMENT Medication Medication Name Sig Start Date Stop Date Percocet 5-325 MG 1 tablet as needed Orally every 6 hrs, M DD 4 for 7 days Jun, Tamsulosin HCl 0.4 MG Take 1 capsule by mouth once daily for 30 days for 30 Next Appt Details Provider Name:Shanti Curry Cody, 01:45:00 PM, [address], [place], [address], Insurance Providers Payer Name Payer Address Payer Phone Insured Name Patient Relati onship to Insured Coverage Start Date Coverage End Date [facility] [address] [facility] [id number] [place]
--- OUTSIDE RECORDS SUMMARY | 2020-07-21 11:47 | CCD | Continuity of Care Document ---
Author Author [facility] Address [address] [place] [address] Phone Support Name Relationship Address Phone Patricio BrodyYossi Hung PRS [address] [place] [address] Naman Wells PRS [facility] [address] Hung Justin PRS [address] [place] [address] Cisco Still PRS [address] [place] [address] Naman [place] [address] Kasia Cuevas PRS [address] [place] [address] ANGIE DAVIS PRS [address] [place] [address] Geovanny Mcfadden PRS [address] [place] [address] Allergies, Adverse Reactions, Alerts Allergen Type Severity Reaction Last Updated Verified Status alcohol Allergy Severe Rash February 26, 2020 10:18am Yes Active gum mastic Allergy Severe Rash February 26, 2020 10:18am Yes Active methyl salicylate Allergy Severe Rash February 26, 2020 10:18am Yes Active storax Allergy Severe Rash February 26, 2020 10:18am Yes Active clindamycin Allergy Mode rate Hives February 26, 2020 10:18am Yes Active glimepiride Allergy Mode rate palpitations upset stomach fatigue S eptember 2019 10:18am Yes Active Penicillins Allergy Mode rate Hives February 26, 2020 10:18am Yes Active sertraline Allergy Moder ate Hives February 26, 2020 10:18am Yes Active azithromycin Allergy Unk nown February 26, 2020 10:18am Yes Active Xerofoam Gauze Allergy M ild Erythema, Bullae August 25, 2018 8:46am No Active steri-strips Adverse Reaction August 25, 2018 8:46am No Active Medications Medication Status Dose Units Route Directions Qty Days Start Date End Date Instructions Lisinopril Discontinued PO daily 30 January 03, 2019 3:09pm July 04, 2020 2:45pm Paclitaxel Active IV January 17, 2020 2:57pm Trastuzumab (Herceptin) 150 mg recon soln Active IV January 17, 2020 2: 57pm Pertuzumab (Perjeta) 420 mg/14 mL (30 mg/mL) solution Active IV January 17, 2020 3: 08pm Potassium Citrate (Urocit-K 10) 10 mEq ( 1,080 mg) tablet extended release Active 2160 MG PO 2 Times Per Day May 25, 2019 2:14pm Calcium Carbonate (Tums) 200 mg calcium (500 mg) tablet,chewable Active 200 MG PO 2 Times Per Day May 25, 2019 2:15pm Lisinopril Active 2.5 MG PO daily July 04, 2020 2:45pm Anastrozole (Arimidex) 1 mg tablet Active 1 MG PO daily July 04, 2020 2 :48pm Carvedilol Active 6.25 MG PO 2 Times Per Day December 08, 2013 2:28pm Insulin Glargine (Lantus Insulin) 100 UNITS/ML solutio n Discontinued 70 UNITS SC At Bedtime December 08, 2013 2:28pm March 14, 2016 12:36pm Lisinopril (Prinivil) 20 MG tablet D iscontinued 20 MG PO O nce Per Day December 08, 2013 2:28 pm March 14, 2016 12:36pm Moxifloxacin (Avelox) 400 MG tablet Discontinued 400 MG PO Once Per Day December 08, 2013 2:28 pm March 14, 2016 12:36pm Fenofibrate Micronized Discontinued 134 MG PO Once Per Day December 08, 2013 2:28 pm March 14, 2016 12:36pm Albuterol Sulfate (Proventil Hfa) 6.7 GM HFA aerosol i nhaler Discontinued 1 PUFFS INH NEEDED December 08, 2013 2:28pm June 08, 2017 11:52am Omeprazole-Sodium Bicarbonate (Zegerid 2 0 Mg Capsule) 20-1.1 mg-gram capsule Discontinued 20 MG PO Once Per Day December 08, 2013 2:28pm March 14, 2016 12:36pm Liraglutide (Victoza 2-Morales ^) 0.6 MG/0.1 ML pen inject or Discontinued 1.2 MG SC Once Per Day December 08, 2013 2:28pm March 14, 2016 12:36pm Metformin Discontinued 5 00 MG PO 2 Times Per Day March 14, 2016 12:36pm June 08, 2017 11:52am Potassium Citrate (Urocit-K 10) 10 MEQ t ablet extended release Discontinued 1080 MCG PO Three times a day March 14, 2016 12:36pm August 9:44am Calcium Citrate Discontinued 1 TAB PO Three times a day March 14, 2016 1 2:36pm June 19, 2016 7:14pm Cholecalciferol (Vitamin D3) Discontinued 6000 UNIT PO Once Per Day March 14, 2016 12:36pm June 19, 2016 7:08pm Vitamin S91-Fikma Acid Discontinued 500 MCG PO Once Per Day March 14, 2016 1 2:36pm June 19, 2016 7:18pm Multivitamin (Multi-Day) tablet Disc ontinued 2 TAB PO O nce Per Day June 19, 2016 7 :07pm January 17, 2020 2:56pm Venlafaxine (Effexor Xr) 75 MG capsule,extended releas e 24hr Discontinued 75 MG PO Once Per Day June 19, 2016 7:07pm June 222016 11:42am Cholecalciferol (Vitamin D3) (Vitamin D3) 1,000 UNIT c apsule Discontinued 1000 UNITS PO Once Per Day June 19, 2016 7:07pm August 5:04pm Rosuvastatin Discontinued 20 MG PO Once Per Day June 19, 2016 7:07pm September 13, 2017 7:50am Calcium Citrate-Vitamin D3 (Calcet Cream y Bites) 500 mg calcium -400 unit tablet,chewable Discontinued 1 TAB PO Three times a day June 19, 2016 7 :07pm September 13, 2017 5:04pm Vitamin R40-Cbbpx Acid Discontinued 1 TAB PO Once Per Day June 19, 2016 7 :07pm September 13, 2017 5:04pm Ciprofloxacin Hcl Discontinued 1 TAB PO 2 Times Per Day June 19, 2016 7 :19pm June 22, 2016 11:40am Albuterol Sulfate (Ventolin Hfa) 60 PUFF S/8 GM HFA aerosol inhaler Active 2 PUFFS IH NEEDED June 19, 2016 7:19pm Hydrocodone-Acetaminophen (Vicodin) 5-300 mg tablet Discontinued 1 - 2 TAB PO NEEDED June 19, 2016 7:19pm June 082017 11:52am Linezolid (Zyvox) 600 MG tablet Disc ontinued 600 MG PO Every 12 Hours 14 June 22, 2016 9:21am June 08, 2017 11:52am Furosemide Discontinued 1 TAB PO NEEDED September 12, 2017 9:45am August 11, 2018 8:39am Albuterol Sulfate Active 1 INH IH Q4H September 13, 2017 7:49am Aspirin Discontinued 81 MG PO 2 Times Per Day 40 September 15, 2017 11:28am August 11, 2018 8:39am Tramadol Discontinued 100 MG PO Every 4-6 hours 40 September 15, 2017 11:30am October 06, 2017 9:18am Dr. Jimenez supervising physician Oxycodone-Acetaminophen Discontinued 1 - 2 TAB PO Every 4-6 hours 40 September 15, 2017 11 :30am September 27, 2017 3:57pm Hydrocodone-Acetaminophen Discontinued 1 EACH PO Every 4 hours 40 May 01, 2018 2:24pm July 06, 2018 3:35pm Metformin Hcl Discontinued 1 TAB PO Once Per Day August 11, 2018 8:39am January 17, 2020 2:59pm Metformin Hcl Discontinued 1 TAB PO Once Per Day January 17, 2020 2:55pm July 04, 2020 2:48pm Take one tab in AM and two in PM Metformin Hcl Active 1 TAB PO Once Per Day July 04, 2020 2:45pm Take one tab in AM and two in PM Tamsulosin Discontinued 1 CAP PO Once Per Day June 08, 2017 11:52am September 12, 2017 9:45am Rosuvastatin (Crestor) 20 MG tablet Discontinued 20 MG PO O nce Per Day June 08, 2017 11:52am August 11, 2018 8:35am Conjugated Estrogens (Premarin Vaginal*) 30 GM cream Discontinued 30 GM VG 2 Times Per Week June 08, 2017 12:17pm May 302017 3:36pm Apply chocolate chip sized amount to vul vovaginal area once daily x 1 week, then 2x weekly Estradiol (Estrace*) 0.01% cream Dis continued 1 APPLIC VG 2 Times Per Week June 08, 2017 3:36pm September 13, 2017 5:02pm Apply chocolate chip sized amount to vulvovaginal area daily x 2 weeks, then 2x weekly. Fluconazole Discontinued 150 MG PO ONE TIME June 15, 2017 9:03am September 12, 2017 9:44am Ropinirole Discontinued 0.5 MG PO Once Per Day June 30, 2017 3:12pm July 04, 2020 2:46pm Doxycycline Hyclate Discontinued 100 MG PO 2 Times Per Day September 22, 2017 12 :43pm October 04, 2017 12:14pm Take one pill by mouth twice daily x 10 days Triamcinolone Acetonide Discontinued 1 APPLIC TP 2 Times Per Da y September 22, 2017 12: 43pm October 04, 2017 12:16pm (please dispen se 1lb jar) Apply to affected areas of right leg and trunk twice daily x 2 weeks (avoid incision site) Hydroxyzine Pamoate Discontinued 25 MG PO At Bedtime September 22, 2017 12:43pm August 11, 2018 8:39am Take one pil l nightly as needed for itch Levocetirizine Discontinued 5 MG PO Once Per Day September 22, 2017 12:43pm August 11, 2018 8:39am Take one pill daily Fluconazole Discontinued 150 MG PO ONE TIME September 27, 2017 2:42pm M 2017 12:14pm Take one pill by mouth x 1 Oxycodone-Acetaminophen Discontinued 1 - 2 TAB PO Every 4-6 hours September 27, 2017 3:58p m October 10, 2017 4:03pm Oxycodone-Acetaminophen Discontinued 1 - 2 TAB PO Every 4-6 hours October 10, 2017 4:04 pm October 28, 2017 3:27pm Cephalexin (Keflex) 500 MG capsule D iscontinued 500 MG PO ONE TIME October 20, 2017 10:56 am February 02, 2018 2:14pm Oxycodone-Acetaminophen Discontinued 1 - 2 TAB PO Every 4-6 hours October 28, 2017 3:27 pm December 02, 2017 8:11am Oxycodone-Acetaminophen Discontinued 1 - 2 TAB PO Every 4-6 hours November 09, 2017 7:2 9am January 19, 2018 3:47pm Oxycodone-Acetaminophen Discontinued 1 - 2 TAB PO Every 4-6 hours 40 December 02, 2017 8:15 am January 19, 2018 3:47pm Hydrocodone-Acetaminophen Discontinued 1 TAB PO Every 4 Hours 40 December 21, 2017 1: 56pm January 19, 2018 3:47pm Hydrocodone-Acetaminophen ([place]ays 5-325 Tablet) 1 EACH tablet Discontinued 1 TAB PO Every 6 hours 40 January 16, 2018 10:20am April 292017 2:00pm Tamsulosin (Flomax) 0.4 MG capsule Active 0.4 MG PO Once Per Day August 15, 2018 8: 12am Furosemide (Lasix) 20 MG tablet Active 1 TAB PO Once Per Day August 15, 2018 8: 12am Albuterol Sulfate (Ventolin Hfa) 18 GM HFA aerosol inh aler Active 2 PUFFS IH Every 4 hours August 15, 2018 8:12am Rosuvastatin (Crestor) 20 MG tablet Active 20 MG PO Once Per Day August 15, 2018 8: 12am Problems Active Problems Medical Problem Onset Date Status Acute abdominal pain A ctive Fever Active Anemia Active Breast cancer Active Pyelonephritis Active Asthma Active Procedures Procedure Date Performed Status CT Abd/pel w/o contrast May 12:27pm completed Influenza-Like Illness (PCR) June 02, 2020 completed June 02, 2020 comp leted Bone density (DEXA) May 21 020 10:12am completed Xray Chest One View February 26, 2020 10:30am completed Xray Knee comp 4 or more LT January 15, 2020 2:00pm completed US Breast - Limited Unilat December 9:18am completed 3D DIG MAMMO DIAG DENICE October 12, 2019 8:25a m completed US Breast - Limited Unilat October 12, 2019 8:50am completed Relevant Diagnostic Tests and/or Laboratory Data Laboratory Results Test Date/Time Result Interpretation Reference Range Result Comment Performing Site White Blood Count February 25 10:35am 12.8 10e3/uL 4.45-10.7 1 [facility], [address] [facility] [address] Red Blood Count February 26, 2020 10:35am 4.01 10e6/uL 4.20-5.40 [facility], [address] [place] [address] Hemoglobin February 26, 2020 10:35am 11.5 g/dL 10.7-15.4 [facility], [address] [place] [address] Hematocrit February 26, 2020 10:35am 36.3 % 37-47 [facility], [address] [place] [address] Mean Corpuscular Volume February 252019 10:35am 90.5 fl 80-96 [facility], [address] [place] [address] Mean Corpuscular Hemoglobin Septembe r 2019 10:35am 28.7 pg 27-31 [facility], [address] [place], [place] [id number] Mean Corpuscular Hemoglobin Concent February 26, 2020 10:35am 31.7 g/dl 33-37 [facility], [address] [place] [address] Red Cell Distribution Width Septembe r 2019 10:35am 14 % 11-15 [facility], [address] [place] [address] Platelet Count February 26, 2020 10:35a m 290 10e3/ul 130-472 [facility], [address] [place] [address] Mean Platelet Volume February 26, 2020 10:35am 10.0 fl 9.1-13.1 [facility], [address] [place] [address] Neutrophils (%) (Auto) January 10:35am 61.7 % 41-77 [facility], [address] [place] [address] Absolute Neutrophil February 26, 2020 10:35am 7.9 # 1.7-7.6 [facility], [address] [place] [address] Lymphocytes (%) (Auto) January 10:35am 24.6 % 14-46 [facility], [address] [place] [address] Lymphocytes # (Auto) February 26, 2020 10:35am 3.2 # 0.6-4.6 [facility], [address] [place] [address] Monocytes (%) (Auto) February 26, 2020 10:35am 9.3 % 4-12 [facility], [address] [place] [address] Monocytes # February 26, 2020 10:35am 1.2 # 0.2-1.2 [facility], [address] [place] [address] Eosinophils (%) (Auto) January 10:35am 2.2 % 0-7 [facility], [address] [place] [address] Absolute Eosinophils (CBC) February 26, 2020 10:35am 0.3 # 0.0-0.5 [facility], [address] [place] [address] Basophils (%) (Auto) February 26, 2020 10:35am 1.2 % 0.4-1.3 [facility], [address] [place] [address] Absolute Basophils (CBC) January 292019 10:35am 0.2 # 0.0-0.2 [facility], [address] [place] [address] Immature Granulocyte % (Auto) Sept2019 10:35am 1.0 % 0-2 [facility], [address] [place] [address] Absolute Immature Granulocyte (auto February 26, 2020 10:35am 0.1 # 0-0.1 [facility], [address] [place] [address] Add Manual Differential February 252019 10:35am No [facility], [address] [place] [address] Prothrombin Time February 25 0 10:35am 10.6 SECONDS 9.6-12.3 [facility], [address] [place] [address] INR International Normalized Ratio S 2019 10:35am 1.0 0.9-1.1 THE INR IS OPERATIONALLY DEFINED FOR GAY SH PLASMA FROMPATIENTS STABILIZED ON ORAL ANTICOAGULANTS. ROUTINE ANTICOAGULANT THERAPY 2.0- 3.0RECURRENT SYSTEMIC EMBOLISM/HEART VALVE REPLACEMENT 2.5-3.5 [facility], [address] [place] [address] Partial Thromboplastin Time - [place] S 2019 10:35am 25.4 SECONDS 22.7-31.6 [facility], [address] [place] [address] Blood Urea Nitrogen February 26, 2020 10:35am 9 mg/dL 9-23 [facility], [address] [place] [address] Sodium Level February 26, 2020 10:35am 141 mmol/L 132-146 [facility], [address] [place] [address] Potassium Level February 26, 2020 10:35am 3.5 mmol/L 3.5-5.5 [facility], [address] [place] [address] Chloride Level February 26, 2020 10:35a m 107 mmol/l 99-109 [facility], [address] [place] [address] Carbon Dioxide Level February 26, 2020 10:35am 29 mmol/l 20-31 [facility], [address] [place] [address] Anion Gap February 26, 2020 10:35am 9 mmol/l 8-16 [facility], [address] [place] [address] Glucose Level February 26, 2020 10:35am 121 mg/dL 74-106 [facility], [address] [place] [address] Creatinine February 26, 2020 10:35am 0.6 mg/dL 0.5-1.1 [facility], [address] [place] [address] Glomerular Filtration Rate Calc Sept emb2019 10:35am Greater than 60 ml/min ABOVE 60 [facility], [address] [place] [address] Alanine Aminotransferase (ALT/SGPT) February 26, 2020 10:35am 27 U/L 10-49 [facility], [address] [place] [address] Aspartate Amino Transf (AST/SGOT) Se ptember 2019 10:35am 19 U/L 0-33 [facility], [address] [place] [address] Alkaline Phosphatase February 26, 2020 10:35am 71 U/L 45-129 [facility], [address] [place] [address] Calcium Level February 26, 2020 10:35am 8.3 mg/dL 8.5-10.1 [facility], [address] [place] [address] Total Bilirubin February 26, 2020 10:35am 0.4 mg/dL 0.3-1.2 [facility], [address] [place] [address] Albumin February 26, 2020 10:35am 3.7 g/dL 3.2-4.8 [facility], [address] [place] [address] Serum Total Protein February 26, 2020 10:35am 6.7 g/dL 5.7-8.2 [facility], [address] [place] [address] Troponin I February 26, 2020 10:35am Less than 0.015 ng/mL 0.00-0.09 Less than 0.09 NG/ML Negative0.10 - 0.77 NG/ML High Risk0.78 NG/ML or Greater Positive The WHO defined the cutoff (definition for diagnosis of ND)for this method as 0.78 ng/ml. [facility], [address] [place] [address] Pro-B-Type Natriuretic Peptide Septe [facility] 2019 10:35am 79.00 pg/mL 0.00-175 [facility], [address] [place] [address] Microbiology Results Procedure Source Result Collection Date/Time Result Date/Time Result Comment Performing Site Influenza-Like Illness (PCR) Nasopharyngea l No Organisms Detected June 02, 2020 5:00pm June 02, 2020 8:48pm [facility], [address] [place], [place] [id number] Nasopharyngeal June 02, 2020 5:00pm June 02, 2020 8:48pm [facility], [address] [place] [address] Diagnostic Imaging Reports Report Dictated Date/Time Dictated By Status Radiology Report October 12, 2019 11:05am Master Townsend MD completed [place] [address] [place] [address] [phone] NAME SEX PT STATUS ACCOUNT NUMBER IRMA AVILA REG REF [id number] ORDERING PHYSICIAN LOCATION MEDICAL RECORD NO. Hung Brody MD MAMMO [id number] ATTENDING PHYSICIAN DATE OF DATE OF EXAM/TIME Hung Brody MD 1970 10/12[birth year]1925 TYPE / EXAM 3D DIG MAMMO DIAG DENICE REASON FOR EXAM RT BREAST LUMP LAST CLINICAL BREAST EXAM: 10/02/2019 F[age] YEAR RISK: 1.5% LIFETIME RISK: 13.3% FAMILY HISTORY OF BREAST CARCINOMA: Aunt COMPARISON: September 25, 2018 and August 10, 2017 2D bilateral digital mammogram in the CC and MLO projections was performed with supplemental 3D tomosynthesis of both breasts. FINDINGS: Cardiac pacemaker projects over the axillary region of the left breast. Craniocaudad and oblique lateral views of the breasts were obtained. The breasts are composed of scattered areas of fibroglandular density. Benign type calcifications are seen in both breasts. There is no dominant mass, suspicious clustered microcalcification or architectural distortion. IMPRESSION: No mammographic evidence of malignancy. Specifically, there is no abnormality in the region of lump in the right breast. Yearly screening recommended. OVERALL FINAL ASSESSMENT OF FINDINGS BI-RADS 2 - Benign findings OVERALL FINAL ASSESSMENT OF THE BREAST COMPOSITION Breast Density Classification: B Description: The breasts are composed of scattered areas of fibroglandular density. This mammogram was read with the assistance of M-Vu, an FDA-approved computer- aided detection system for mammography. Reported By Master Townsend MD on 10/12/19 1105 Signed By Master Townsend MD on 10/12/19 1110 Date Time CC: Master Townsend MD; Hung Brody MD Techn: BAKLE Trans Dt/Tm: Trans by: DT Prt Dt/Tm: : Total DLP = 0.00 mGy-cm : Total Radiation Dose = 0.0000 mSv Lifetime Dose: 12.1950 mSv Radiology Report October 12, 2019 11:10am Master Townsend MD completed [facility] [address] [place] [address] [phone] NAME SEX PT STATUS ACCOUNT NUMBER IRMA AVILA REG REF [id number] ORDERING PHYSICIAN LOCATION MEDICAL RECORD NO. Hung Brody MD MAMMO [id number] ATTENDING PHYSICIAN DATE OF DATE OF EXAM/TIME Hung Brody MD 1970 10/12/1951 TYPE / EXAM US Breast - Limited Unilat REASON FOR EXAM RT BREAST LUMP COMPARISON: None Multiple images of the right breast at the periareolar location were obtained, encompassing the area of clinical concern. FINDINGS: At irregularly marginated hypoechoic lesion measuring approximately 2.3 x 1.4 x 1.9 cm is seen in the periareolar right breast at the 11:30 position. Ultrasound-guided breast biopsy advised. IMPRESSION: Irregularly marginated hypoechoic lesion, right breast, as described. Biopsy advised. OVERALL FINAL ASSESSMENT OF FINDINGS BI-RADS 4 - Suspicious Abnormality Reported By Master Townsend MD on 10/12/19 1110 Signed By Master Townsend MD on 10/12/19 1112 Date Time CC: Master Townsend MD; Hung Brody MD Techn: BUSMI Trans Dt/Tm: Trans by: DT Prt Dt/Tm: : Total DLP = 0.00 mGy-cm : Total Radiation Dose = 0.0000 mSv Lifetime Dose: 12.1950 mSv Radiology Report January 01, 2020 2:28pm Master Townsend MD completed [id number] [place] [address] [phone] NAME SEX PT STATUS ACCOUNT NUMBER IRMA AVILA REG REF [id number] ORDERING PHYSICIAN LOCATION MEDICAL RECORD NO. Naman Wells M.D. [id number] ATTENDING PHYSICIAN DATE OF DATE OF EXAM/TIME Hung Brody MD 1970 12/31/19 / 8 TYPE / EXAM US Breast - Limited Unilat REASON FOR EXAM R BREAST CANCER ASSESS RESPONSE TO CHEMO COMPARISON: October 12, 2019 Multiple images of the right breast at the 11:30 location were obtained, encompassing the area of clinical concern. FINDINGS: A heterogeneously hypoechoic lesion is seen in the 11:30 position of the right breast. It measures approximately 1.9 x 0.8 x 1.5 cm. This compares to approximately 2.3 x 1.4 x 1.9 cm, previously. Findings are consistent with response to chemotherapy. The area appears smaller. IMPRESSION: Probable decrease in the size of a heterogeneously hypoechoic lesion in the 11:30 position of the right breast. Find ings consistent with response to chemotherapy. OVERALL FINAL ASSESSMENT OF FINDINGS BI-RADS 3 - Probably benign findings Reported By Master Townsend MD on 01/01/20 1428 Signed By Master Townsend MD on 01/01/20 1431 Date Time CC: Master Townsend MD; Hung Brody MD Techn: BUSMI Trans Dt/Tm: Trans by: DT Prt Dt/Tm: : Total DLP = 0.00 mGy-cm : Total Radiation Dose = 0.0000 mSv Lifetime Dose: 12.1950 mSv Radiology Report January 15, 2020 4:22pm Master Townsend MD completed [facility] [address] [id number] [phone] NAME SEX PT STATUS ACCOUNT NUMBER IRMA AVILA REG REF [id number] ORDERING PHYSICIAN LOCATION MEDICAL RECORD NO. Hung Justin MD RAD [id number] ATTENDING PHYSICIAN DATE OF DATE OF EXAM/TIME Hung Brody MD 1970 01/15/201499 TYPE / EXAM Xray Knee comp 4 or more LT REASON FOR EXAM Post Left knee replacement COMPARISON: January 03, 2019 FINDINGS: The patient is recently post knee arthroplasty on the left. Relatively prominent space between the femoral component and the anterior femoral alignment is seen. Clinical correlation advised for possibility of hardware loosening. This finding is grossly stable compared to the prior study. A small suprapatellar effusion is seen. The tibial prosthesis is normal in appearance. There is no fracture or dislocation. IMPRESSION: 1. Total knee arthroplasty on the left. Possibly increased space between the prosthesis and the anterior tibial line. Clinical correlation advised. 2. Small suprapatellar effusion. Reported By Master Townsend MD on 01/15/20 162 Signed By Master Townsend MD on 01/15/20 162 Date Time CC: Master Townsend MD; Hung Brody MD Techn: BAIAB Trans Dt/Tm: Trans by: DT Prt Dt/Tm: : Total DLP = 0.00 mGy-cm Fluoroscopy Time (in secs): Radiology Report February 25 12:21pm Herberth Majano MD completed [place] [id number] [phone] NAME SEX PT STATUS ACCOUNT NUMBER IRMA AVILA [facility] ER [id number] ORDERING PHYSICIAN LOCATION MEDICAL RECORD NO. Cisco Still MD ER [id number] ATTENDING PHYSICIAN DATE OF DATE OF EXAM/TIME Hung Brody MD 1970 02/26/20 / 1129 TYPE / EXAM Xray Chest One View REASON FOR EXAM L sided chest pain Clinical History/Indication for Exam: L sided chest pain Chest, Single View: Indications: Chest pain Comparison study: None Findings: Lungs: The lung volumes are normal. No focal consolidation. Pulmonary vasculature is within normal limits. Pleura: No pneumothorax. No pleural effusion. Heart and Mediastinum: The cardiomediastinal silhouette is normal in size and contour. The great vessels are normal. Right-sided vascular line tip at the distal SVC. Multiple lead electrical pack, left chest. Osseous structures: Visualized osseous structures are intact. Impression: No acute cardiopulmonary process. REPORT SIGNATURE ON FILE 02/26/2020 (12:21 Eastern Time ) Signed by: Herberth Majano M.D. Reported By Herberth Majano MD on 02/26/20 1221 Signed By Herberth Majano MD on 02/26/20 1221 Date Time CC: Herberth Majano MD; Hung Brody MD Techn: [facility] Trans Dt/Tm: Trans by: DT Prt Dt/Tm: [id number]: Total DLP = 0.00 mGy-cm Fluoroscopy Time (in secs): Radiology Report May 22, 2020 9:01a m Master Townsend MD completed [facility] [address] [facility] [[email or web address]] [place] [id number] [phone] NAME SEX PT STATUS ACCOUNT NUMBER IRMA AVILA REG REF [id number] ORDERING PHYSICIAN LOCATION MEDICAL RECORD NO. Naman Mejia M.D. RAD [id number] ATTENDING PHYSICIAN DATE OF DATE OF EXAM/TIME Hung Brody MD 1970 05/21/201011 TYPE / EXAM Bone density (DEXA) REASON FOR EXAM ASYMPTOMATIC MENOPAUSAL STATE Age: 49 years Evaluation was performed using a Dual Energy X-ray Absorption densitometer. COMPARISON: None FINDINGS: AP Spine BMD as determined from the AP Spine is 1.076g/cm2 with a T-score of -0.9 which is considered normal. Left Femur BMD as determined from the Left Femur Neck is 0.722g/cm2 with a T-Score of -2.3 which is considered osteopenia. Right Femur BMD as determined from the Right Femur Neck is 0.715g/cm2 with a T-score of - 2.3 which is considered osteopenia. IMPRESSION: Osteopenia 10-year Probability of Fracture: Major Osteoporotic: 11.8% Hip: 2.4% Note: * Mild to aggressive therapies are available in the form of Hormone replacement therapy (HRT), Bisphosphonates, Calcitonin, and SERMs. Additionally, all patients should ensure an adequate intake of dietary calcium (1200mg/d) and vitamin D (400-800 IU daily). * People with diagnosed cases of osteoporosis or osteopenia should be regularly tested for bone mineral density. For patients eligible for Medicare, routine testing is allowed once every 2 years. Testing frequency can be increased for patients who have rapidly progressing disease, or for those who are receiving medical therapy to restore bone mass. Reported By Master Townsend MD on 05/22/20900 Signed By Master Townsend MD on 05/22/20906 Date Time CC: Master Townsend MD; Hung Brody MD Techn: [facility] Trans Dt/Tm: Trans by: DT Prt Dt/Tm: [phone]: Total DLP = 0.00 mGy-cm Fluoroscopy Time (in secs): Radiology Report June 27, 2020 1:09pm Chula Kothari MD completed [place] [address] [place] [id number] [phone] NAME SEX PT STATUS ACCOUNT NUMBER IRMA AVILA REG REF [id number] ORDERING PHYSICIAN LOCATION MEDICAL RECORD NO. ANGIE DAVIS CT [id number] ATTENDING PHYSICIAN DATE OF DATE OF EXAM/TIME Hung Brody MD 1970 06/27/201226 TYPE / EXAM CT Abd/pel w/o contrast REASON FOR EXAM KIDNEY STONES COMPARISON: None available. TECHNIQUE: CT images through the abdomen and pelvis obtained without intravenous contrast. FINDINGS: LUNG BASES: Unremarkable LIVER: No focal mass lesions. No intrahepatic biliary ductal dilatation. GALLBLADDER: CT appearance is unremarkable. SPLEEN: Unremarkable. PANCREAS: Normal CT appearance. ADRENALS: No nodules. KIDNEYS: No solid lesions. There is a proximal right-sided ureteral calculus measuring approximately 7.8 x 6.8 cm with moderate right-sided hydronephrosis. Additional spot small calculi are seen within the right-sided collecting system largest measuring approximately 5.46 mm in greatest diameter. Two3 mm upper and left lower pole nonobstructing calculus is also seen. BOWEL: Nondilated. MESENTERY/PERITONEUM: Unremarkable. NODES: Nondilated. PELVIS: Unremarkable. BONE WINDOWS: No aggressive osseous abnormalities. VASCULATURE: Normal, without aneurysm or significant atherosclerotic disease. SOFT TISSUES: Unremarkable. IMPRESSION: There is a nonobstructing right upper ureteral calculus with moderate right- sided hydronephrosis.. Reported By Chula Kothari MD on 06/27/20 1309 Signed By Chula Kothari MD on 06/27/20 1320 Date Time CC: Chula Kothari MD; Hung Brody MD Techn: [facility] Trans Dt/Tm: Trans by: DT Prt Dt/Tm: : Total DLP = 426.00 mGy-cm : Total Radiation Dose = 6.3900 mSv Lifetime Dose: 18.5850 mSv Health Concerns Health Concerns may be documented in an alternate section. Advance Directives Advance Directive Response Recorded Date/Time Advanced Directive No Se ptember 2019 10:13am Advance Directives on File or in chart? No July 04, 2020 2:58pm Does Patient have a DNR? 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-Mammography October 12, 2019 7:55am Hung Brody MD Registered Referred [facility]-Ultrasound December 31, 2019 9:01am Naman Wells Registered Referred [facility]-Radiology January 15, 2020 1:58pm Hung Justin MD Departed Physician/Provider Office Visit [facility] Orthopedics January 17, 2020 2:43pm January 17, 2020 3:24pm Hung lawler MD Departed Emergency [facility]-Emergency Room ER February 26, 2020 9:50am February 26, 2020 11:56am null Registered Referred [facility]-Radiology May 21, 2020 9:01am Naman Mejia Registered Referred [facility]-Lab Drop Off June 02, 2020 5:00pm Kasia Cuevas MD Registered Referred [facility]-Cat Scan June 27, 2020 12:04pm ANGIE DAVIS NP Departed Physician/Provider Office Visit [facility] Women's Health July 04, 2020 2:13pm July 04, 2020 3:39pm Nima Mcfadden MD Assessments No Assessments Information Available Family History Relationship Condition A ge at Onset Recorded Date/Time Not Specified Diabetes mellitus Unknown Cardiac disease Unknown Kidney disorder Unknown Hypertension Unknown Not Specified Cardiac disease Unknown Hyperlipidemia Unknown Hypertension Unknown Functional Status No Functional Status information available Goals Goals may be documented in an alternate section. Immunizations No Immunization Information Available Mental Status Observation Response Eric e Recorded Impairments No impairments or barriers February 26, 2020 9:51am Medical Equipment No Medical Equipment Information available Insurance Providers Guarantor IRMA AVILA Address [address] [place], [place] [address] Contact Info. Home Phone: Payer Policy Id Coverage Id Subscriber's Name Subscriber Id Effective Date Expiration Date BC/BS OTHER [id number] Sheldon Shaffer [place] [id number] BC/BS OF [facility] [id number] Sheldon Edmund Avila [id number] Self Pay Self N/A Plan of Treatment Patient is doing well following left total knee arthroplasty. She has no symptomatic complaints regards to the left knee. X-rays obtained today show excellent position alignme nt of prosthetic components. Patient will continue with activity to tolerance and will follow-up with us on a as needed basis. All questions were answered. Future Tests Future scheduled test information is unavailable Pending Tests Pending diagnostic test information is unavailable Future Visits Future appointment information is unavailable Referrals to Other Providers Referral information is unavailable Future Procedures Future procedure information is unavailable Future Medications Future medication information is unavailable Patient Instructions Patient instructions are unavailable Social History Smoking Status Status Date of Observation Never smoker July 04, 2020 2:58 pm Observation Status Date of Observation Not March 14, 2016 Observation Status Observation Response Eric e of Response Smoking Status Never smoker July 04, 2020 2:58pm Alcohol Use Yes Septembe r 2019 10:27am Substance Use No Septemb er 2019 10:27am Inhalant Use No June 19, 2016 11:57pm Assigned Sex Female Vital Signs Vital Reading Result Ref erence Range Collection Date/Time Height 61 [in_i] January 17, 2020 3:51pm Weight 164.00 [lb_av] January 17, 2020 3:51pm Heart Rate 86 /min 60-100 January 17, 2020 3:51pm Respiratory rate 18 /min 12-January 17, 2020 3:51pm Oxygen saturation by Pulse oximetry 98 % 95- 100 January 17, 2020 3:51pm BP Systolic 112 mm[Hg] January 17, 2020 3:51pm BP Diastolic 78 mm[Hg] January 17, 2020 3:51pm BMI (Body Mass Index) 30.9 kg/m2 January 17, 2020 3:51pm Height 61 [in_i] February 26, 2020 11:13am Weight 161.00 [lb_av] February 26, 2020 11:13am Body Temperature 97.7 [degF] 97.6-99.5 February 26, 2020 10:51am Heart Rate 80 /min 60-100 February 26, 2020 10:51am Respiratory rate 16 /min -February 26, 2020 10:51am Oxygen saturation by Pulse oximetry 100 % 95-100 February 26, 2020 10:51am BP Systolic 123 mm[Hg] February 26, 2020 10:51am BP Diastolic 90 mm[Hg] February 26, 2020 10:51am Height 61 [in_i] July 04, 2020 2:41pm Weight 165.12 [lb_av] July 04, 2020 2:41pm Body Temperature 99 [degF] 97.6-99.5 July 04, 2020 2:41pm Heart Rate 87 /min 60-100 July 04, 2020 2:41pm Respiratory rate 18 /min 12-July 04, 2020 2:41pm Oxygen saturation by Pulse oximetry 99 % 95- 100 July 04, 2020 2:41pm BP Systolic 138 mm[Hg] July 04, 2020 2:41pm BP Diastolic 82 mm[Hg] July 04, 2020 2:41pm BMI (Body Mass Index) 31.1 kg/m2 July 04, 2020 2:41pm
--- OUTSIDE RECORDS SUMMARY | 2020-07-21 11:47 | CCD ---
Author Author [facility] Organization [facility] Address Unknown Phone Unavailable Care Team Providers Care Anchorman Name Role Phone Obinna Dias Unavailable PROBLEMS Type Condition ICD9-CM Code [id number] Code Onset Dates Condition S tatus W/U Status Risk SNOMED Code Notes Problem Lower abdominal pain R10.30 Active confirmed 83152273 Problem Kidney stone N20.0 Active confirmed 0971580 7 ALLERGIES Allergen (clinical drug ingredient) Drug/Non Drug Allergy do cumented on EMR Reaction Allergy Type Onset Date Status sertraline Zoloft([facility] Code:[address]-68) HIVES Drug Allergy Active Penicillin (For Allergies Use Only) HIVES Drug Allerg y Active azithromycin Zithromax([facility] Code:[address]-00) HIVES Drug Allerg y Active ZERO FORM BLISTERS Non Drug Allergy Active clindamycin Clindamycin HCl([facility] Code:[address]-33) HIVES Drug A llergy Active Adhesive Tape HIVES Drug Allergy Active ENCOUNTERS from 1970 to 2020-07-09 Encounter Location Date Provider Diagnosis [facility] Urology [address] [address] Jun Obinna Dias Kidney stone N20.0 and Preop testing Z01 .818 IMMUNIZATIONS No Information SOCIAL HISTORY Tobacco Use: Social History Observation Description Date Details (start date - stop date) Never Smoker Sex Assigned At : Social History Observation Description Sex Assigned At Unknown Education: Question Answer Notes Level of Education: Finished High School Muslim: Question Answer Notes Muslim 21 Judaism No zoroastrianism beliefs that would impact health care. Sexual [...] REASON FOR REFERRAL No Information VITAL SIGNS Weight 163.2 lbs Jun, Height 61 in Jun, BMI 30.83 kg/m2 Jun, Heart Rate 76 /min Jun, Respiratory Rate 18 /min Jun, Oximetry 96 Jun, Blood pressure systolic 114 mm Hg Jun, Blood pressure diastolic 70 mm Hg Jun, MEDICATIONS Medication SIG (Take, Route, Frequency, Duration) Notes Start Da te End Date Status Hydrocodone-Acetaminophen 5-325 MG 1 tablet as needed Orally every 6 hrs Not-Taking Zofran 8 MG 1 tablet as needed Orally twice daily as needed for 30 day(s) Jan, Active Herceptin 150 MG as directed Intravenous Active Lasix 20 MG 1 tablet Orally PRN Acti ve Ventolin HFA 108 (90 Base) MCG/ACT 2 puffs as needed Inhalation jodi ry 6 hrs Active Perjeta 420 MG/14ML as directed Intravenous Active Lisinopril 10 MG 1 tablet Orally Once a day Active Tamsulosin HCl 0.4 MG Take 1 capsule by mouth once daily for 30 day s for 30 Active Oxybutynin Chloride 5 MG 1 tablet Orally Twice a day for 30 day( s) Apr, Active Flomax 0.4 MG 1 capsule Orally Once a day for 30 day(s) Active Metformin 1 tab Oral 1 tab in am 2 tabs pm Active Taxol Active Calcium 1000 + D 1000-800 MG-UNIT 1 tablet with a meal Orally Once a day for 30 day(s) Active Potassium Citrate-Citric Acid 1100-334 MG/5ML 10 [...] 6 hrs for 5 day(s) Jan, Not-Taking Albuterol Sulfate (2.5 MG/3ML) 0.083% 3 ml as needed I nhalation Three times a day Active Cipro 500 MG 1 tablet Orally every 12 hrs for 10 day(s) Feb, Not-Taking Hydrocodone-Acetaminophen 5-325 MG 1 tablet as needed Orally every 6 hrs, MDD 4 for 7 days Jan, Active Urocit-K 10 10 MEQ (1080 MG) 2 tablets with meals Orally bid for 30 day(s) Feb, Active Advair Diskus 250-50 MCG/DOSE 1 puff Inhalation Twice a day Active Pramipexole Dihydrochloride 0.125 MG [...] Information RESULTS No Results REASON FOR VISIT sign consent for sx MEDICAL (GENERAL) HISTORY Type Description Date Medical [...] Notes Jun, Kidney stone (ICD-10 - N20.0) Discussed removing stones with a right ureterscopy. Her two CT's report different size stones in the kidney, discussed if the stone burden is too much she may need a second procedure. Procedure and consent reviewed and signed. She will need preop urine, blood work, chest x-ray, EKG, and medical clearance. Preop orders given to pt today, she will wait to do them until she hears from our office. Continue Percocet and Flomax, call for refills, go back to the ER if Percocet isn't helping. Jun, Preop testing (ICD-10 - Z01.818) PLAN OF TREATMENT Medication Medication Name Sig Start Date Stop Date Tamsulosin HCl 0.4 MG Take 1 capsule by mouth once daily for 30 days for 30 Treatment Notes Assessment Notes Clinical Notes Kidney stone Discussed removing s tones with a right ureterscopy. Her two CT's report different size stones in the kidney, discussed if the stone burden is too much she may need a second procedure. Procedure and consent reviewed and signed. She will need preop urine, blood work, chest x-ray, EKG, and medical clearance. Preop orders given to pt today, she will wait to do them until she hears from our office.Continue Percocet and Flomax, call for refills, go back to the ER if Percocet isn't helping. Treatment Notes Test Name Order Date CBC - Complete Blood Count 2020-07-07 Basic Metabolic Profile (BMP) 2020-07-07 PT & APTT 2020-07-07 UA URINALYSIS 2020-07-07 URINE CULTURE 2020-07-07 Electrocardiogram (EKG) 2020-07-07 [facility] CHEST 2 VIEW 2020-07-07 Next Appt Details OR Reason: Provider Name:Shanti Curry Cody, 01:45:00 PM, [address], [place], [address], Insurance Providers Payer Name Payer Address Payer Phone Insured Name Patient Relati onship to Insured Coverage Start Date Coverage End Date [address] [id number] CEDRICK MOLINA
--- OUTSIDE RECORDS SUMMARY | 2020-07-21 11:47 | CCD ---
Author Author [facility] Organization [facility] Address Unknown Phone Unavailable Care Team Providers Care Backend Python Developer Name Role Phone To, Luis Unavailable PROBLEMS Type Condition ICD9-CM Code [id number] Code Onset Dates Condition S tatus W/U Status Risk SNOMED Code Notes Problem Lower abdominal pain R10.30 Active confirmed 37774581 Problem Kidney stone N20.0 Active confirmed 6069041 7 ALLERGIES Allergen (clinical drug ingredient) Drug/Non Drug Allergy do cumented on EMR Reaction Allergy Type Onset Date Status sertraline Zoloft([facility] Code:[address]-58) HIVES Drug Allergy Active Penicillin (For Allergies Use Only) HIVES Drug Allerg y Active azithromycin Zithromax([facility] Code:[address]-64) HIVES Drug Allerg y Active ZERO FORM BLISTERS Non Drug Allergy Active clindamycin Clindamycin HCl([facility] Code:[address]-75) HIVES Drug A llergy Active Adhesive Tape HIVES Drug Allergy Active ENCOUNTERS from 1970 to 2020-07-08 Encounter Location Date Provider Diagnosis [facility] Urology [address] [place] [address] 08 Jun Luis Ariza IMMUNIZATIONS No Information SOCIAL HISTORY Tobacco Use: Social History Observation Description Date Details (start date - stop date) Never Smoker Sex Assigned At : Social History Observation Description Sex Assigned At Unknown Education: Question Answer Notes Level of Education: Finished High School Roman Catholic: Question Answer Notes Roman Catholic 21 Mosque No judaism beliefs that would impact health care. Sexual [...] Information RESULTS No Results REASON FOR VISIT Surgery DRAKE MEDICAL (GENERAL) HISTORY Type Description Date Medical [...] Insured Coverage Start Date Coverage End Date [facility] [address] [facility] [id number] CEDRICK MOLINA
--- OUTSIDE RECORDS SUMMARY | 2020-07-21 11:48 | CCD ---
Author Author [facility] Organization [facility] Address Unknown Phone Unavailable Care Team Providers Care Reference Librarian Name Role Phone PerezDoreen whitt Unavailable PROBLEMS Type Condition ICD9-CM Code [id number] Code Onset Dates Condition S tatus SNOMED Code Notes Problem Lower abdominal pain R10.30 Active 00094907 Problem Kidney stone N20.0 Active 41021504 ALLERGIES Allergen (clinical drug ingredient) Drug/Non Drug Allergy do cumented on EMR Reaction Allergy Type Onset Date Status sertraline Zoloft([facility] Code:[address]-79) HIVES Drug Allergy Active Penicillin (For Allergies Use Only) HIVES Drug Allerg y Active azithromycin Zithromax([facility] Code:[address]-38) HIVES Drug Allerg y Active ZERO FORM BLISTERS Non Drug Allergy Active clindamycin Clindamycin HCl([facility] Code:[address]-69) HIVES Drug A llergy Active Adhesive Tape HIVES Drug Allergy Active ENCOUNTERS from 1970 to 2020-04-21 Encounter Location Date Provider Diagnosis [facility] Urology [address] [place] [address] Mar Doreen Servin IMMUNIZATIONS No Information SOCIAL HISTORY Tobacco Use: Social History Observation Description Date Details (start date - stop date) Never Smoker Sex Assigned At : Social History Observation Description Sex Assigned At Unknown Education: Question Answer Notes Level of Education: Finished High School Buddhism: Question Answer Notes Buddhism 21 Mosque No synagogue beliefs that would impact health care. Sexual [...] MDD 4 for 7 days Jan, Not-Taking Lasix 20 MG 1 tablet Orally PRN Acti ve Potassium Citrate-Citric Acid 1100-334 MG/5ML [address] meals and at bedtime Orally Four times a day Not-Taki ng Perjeta 420 MG/14ML as directed Intravenous Active Ventolin HFA 108 (90 Base) MCG/ACT 2 puffs as needed Inhalation jodi ry 6 hrs Active Carvedilol 6.25 MG Orally BID Activ e Metformin 1 tab Oral for 14 days Ac tive Albuterol Sulfate (2.5 MG/3ML) 0.083% 3 ml as needed I nhalation Three times a day Not-Taking Oxybutynin Chloride 5 MG 1 tablet Orally Twice a day for 30 day( s) Apr, Active Percocet 5-325 MG 1 tablet as needed Orally every 6 hrs, MDD 4 f or 7 days Jan, Not-Taking Hydrocodone-Acetaminophen 5-325 MG 1 tablet as needed Orally every 6 hrs Not-Taking Lisinopril 20 MG 1 tablet Orally Once a day for 30 day(s) Active Ketorolac Tromethamine 10 MG 1 tablet with food or mil k as needed Orally every 6 hrs for 5 day(s) Jan, Not-Taking Requip 0.5 MG 1 tablet 1 to 3 hours before bedtime Orally QHS Not-Taking Rosuvastatin Calcium 20 MG 1 tablet Orally Once a day Active Qvar 80 MCG/ACT 1 puff Inhalation Twice a day Not-Taking Cephalexin 500 MG 4 capsule Orally 1 HR PRIOR TO DDS Not-Taking Cipro 500 MG 1 tablet Orally every 12 hrs for 10 day(s) Feb, Not-Taking Herceptin 150 MG as directed Intravenous Active Taxol Active Urocit-K 10 10 MEQ (1080 MG) 2 tablets with meals Orally bid for 30 day(s) Feb, Active Zofran 8 MG 1 tablet as needed Orally twice daily as needed for 30 day(s) Jan, Active Flomax 0.4 MG 1 capsule Orally Once a day for 30 day(s) Not-Taking PROCEDURES No Information RESULTS No Results REASON FOR VISIT right flank discomfort MEDICAL (GENERAL) HISTORY Type Description Date Medical [...] stent removal 03/22/2019 Surgical History breast biopsy Hospitalization History SX RELATED Hospitalization History KIDNEY STONES Hospitalization History CHF YEARS AGO Goals Section No Information Health Concerns No Information MEDICAL EQUIPMENT No Information MENTAL STATUS No Information FUNCTIONAL STATUS No Information ASSESSMENTS No Information PLAN OF TREATMENT Next Appt Details Provider Name:Obinna Dias, 2020-06-11 02:45:00 PM, [address], [place], [address], Insurance Providers Payer Name Payer Address Payer Phone Insured Name Patient Relati onship to Insured Coverage Start Date Coverage End Date [facility] [address] [facility] [id number] CEDRICK MOLINA
--- OUTSIDE RECORDS SUMMARY | 2020-07-21 11:48 | CCD | Summary of Care ---
Author Author [facility] Organization [facility] Address Unknown Phone Unavailable Care Team Providers Care Bowling Ball Patcher Name Role Phone Hung Brody MD PCP Encounter Details Care Team Description Date Type Department Sabi Tamayo MD [address] [facility] 1st [place] [address] Cancer of central portion of right breas t (Primary Dx) 04/28/2020 Procedure visit [facility] [address] [place] [address] Allergies Comments Active Allergy Reactions Severity Noted Date Amoxicillin Hives 12/18/2012 Penicillins Hives 12/18/2012 Blister Adhesive Tape 12/18/2012 Azithromycin Hives 12/18/2012 documented as of this encounter (statuses as of 04/28/2020) Medications End Date Status Medication Sig Dispensed Refills Start Date Active LISINOPRIL PO Take by 0 mouth. Active Carvedilol (COREG PO) Take by 0 mouth. Active Furosemide (LASIX PO) Take by 0 mouth. Active Fenofibrate (TRICOR PO) Take by 0 mouth. Active Prochlorperazine Maleate 0 10 MG Oral Tablet 0 (COMPAZINE) Active Tamsulosin HCl 0.4 MG 0 Oral Capsule (Flomax) 0 Active Rosuvastatin Calcium 20 0 MG Oral Tablet (Crestor) 0 Active Pramipexole 0 Dihydrochloride 0.125 MG 0 Oral Tablet (MIRAPEX) Active Potassium Citrate ER 10 0 MEQ (1080 MG) Oral Tablet 0 Extended Release (UROCIT-K) Active metFORMIN HCl 500 MG Oral 0 Tablet (GLUCOPHAGE) 0 Active Loperamide HCl 2 MG Oral 0 07/28/202 Tablet (Imodium A-D) 0 Active Calcium Carbonate Antacid 0 500 MG Oral Tablet 0 Chewable (Tums) Active Albuterol Sulfate HFA 108 0 (90 Base) MCG/ACT 0 Inhalation Aerosol Solution (Proventil HFA) documented as of this encounter (statuses as of 04/28/2020) Active Problems Problem Noted Date Cancer of central portion of right breast 04/14/2020 Cancer Staging: Clinical: cT2, cN0, cM0 , ER+, OH-, HER2+ - Unsigned Pathologic: No Stage Recommended (ypT1c , pN0, cM0, G2, ER+, OH-, HER2+) - Unsigned Acute meniscal tear of knee 12/19/2012 documented as of this encounter (statuses as of 04/28/2020) Social History Date Tobacco Use Types Packs/Day Years Used Never Smoker Smokeless Tobacco: Never Used Drinks/Week oz/Week Comments Alcohol Use OCCATIONALLY Yes Sex Assigned at Date Recorded Not on file Date Recorded COVID-19 Exposure Response 04/28/2020 2:02 PM EST In the last month, have you been in contact with No / Unsure someone who was confirmed or suspected to have Coronavirus / COVID-19? documented as of this encounter Last Filed Vital Signs Not on filedocumented in this encounter Progress Notes * Sabi Tamayo MD - 04/28/2020 2:30 PM EST Radiation Oncology On-Treatment Visit Note Nazia is currently undergoing a course of Radiation Therapy. She was seen by me after treatment today. Image Guided Radiation Therapy imaging reviewed. Diagnosis: Cancer Staging Cancer of central portion of right breast Staging form: Breast, AJCC 8th Edition - Clinical: cT2, cN0, cM0, ER+, OH-, HER2+ - Unsigned - Pathologic: No Stage Recommended (ypT1c, pN0, cM0, G2, ER+, OH-, HER2+) - Unsi gned ECOG Performance Status: 0 - Asymptomatic Prior Therapy: BCT+SN Treatment Site: Right breast Treatment intent: Adjuvant Dose in cGy No. of fractions Current Dose 267 1 Prescribed Dose 5005 19 There is a planned External beam boost boost. She is not receiving concurrent systemic therapy. No flowsheet data found. LABS: No results found for: WBC, HGB, HCT, MCV, PLT No results found for: BICARBONATE, CL, CREATININE, GLUCOSE, K, NA, BUN, ANIONGAP , OSMOLALITY, BCR, CALCIUM, GFRNONAA, GFRAA Vitals: Vitals - 1 value per visit 12/18/2012 04/14/2020 SYSTOLIC 136 - DIASTOLIC 93 - PULSE 82 - Weight (kg) - 75.841 kg HEIGHT 154.9 cm - BODY MASS INDEX - 31.59 kg/m2 PAIN SCALE - SCORE - 0 Some recent data might be hidden Medications: Current Outpatient Medications Medication Sig Dispense Refill Albuterol Sulfate HFA 108 (90 Base) MCG/ACT Inhalation Aerosol Solution ( Proventil HFA) Calcium Carbonate Antacid 500 MG Oral Tablet Chewable (Tums) Carvedilol (COREG PO) Take by mouth. Fenofibrate (TRICOR PO) Take by mouth. Furosemide (LASIX PO) Take by mouth. LISINOPRIL PO Take by mouth. Loperamide HCl 2 MG Oral Tablet (Imodium A-D) metFORMIN HCl 500 MG Oral Tablet (GLUCOPHAGE) Potassium Citrate ER 10 MEQ (1080 MG) Oral Tablet Extended Release (UROCI T-K) Pramipexole Dihydrochloride 0.125 MG Oral Tablet (MIRAPEX) Prochlorperazine Maleate 10 MG Oral Tablet (COMPAZINE) Rosuvastatin Calcium 20 MG Oral Tablet (Crestor) Tamsulosin HCl 0.4 MG Oral Capsule (Flomax) No current facility-administered medications for this visit. Clinical Evaluation: Subjective She is tolerating therapy without difficulty. She reports no reaction to radiat ion therapy. Energy level is good . . Objective Weight is stable. The skin in the irradiated area is in good condition. . Image Review Reviewed images have been satisfactory. Changes made as necessary. Impression and Plan: Nazia is tolerating radiation therapy as expected. We reviewed what to expect from ongoing treatment. She was counseled, encourage d, and questions were addressed. We will continue radiation therapy as planned. Sabi Tamayo M.D. Kindergartners Helper Radiation Oncology documented in this encounter Plan of Treatment Health Maintenance Due Date Last Done Comments Pneumococcal Vaccine: 1975 Pediatrics (0 to 5 Years) and At-Risk Patients (6 to 64 Years) (1 of 3 - PCV13) DTaP,Tdap,and Td Vaccines 1976 (1 - Tdap) HIV Screening 1982 Cervical Cancer Screening 1990 5 years Varicella Vaccines (1 of 02/10/2018 2 - 2-dose childhood series) Colon Cancer Screening 10 2019 yrs Breast Cancer Screening 2 04/16/2022 04/16/2020, years 04/15/2020, 04/14/2020, Additional history exists Pneumococcal Vaccine: 65+ 2034 Years (1 of 1 - PPSV23) MMR Vaccines Completed 01/13/2018 Influenza Vaccine Completed 03/04/2020, 03/30/2019, 03/05/2019, Additional history exists HIB Vaccines Aged Out No longer eligible based on patient's age to complete this topic Hepatitis A Vaccines Aged Out No longer eligibl e based on patient's age to complete this topic Hepatitis B Vaccines Aged Out No longer eligibl e based on patient's age to complete this topic IPV Vaccines Aged Out No longer eligible based on patient's age to complete this topic documented as of this encounter Procedures Comments Procedure Name Priority Date/Time Associated Diag nosis CARDIOLOGY REPORT Routine 04/28/2020 (OUTSIDE/HISTORICAL) documented in this encounter Results Not on filedocumented in this encounter Visit Diagnoses Diagnosis Cancer of central portion of right [place] - Primary documented in this encounter
--- OUTSIDE RECORDS SUMMARY | 2020-07-21 11:48 | CCD | Summary of Care ---
Author Author [facility] Organization [facility] Address Unknown Phone Unavailable Care Team Providers Care Sand Drier Name Role Phone Hung Brody MD PCP Encounter Details Care Team Description Date Type Department Sabi Tamayo MD [address] [facility] 1st [place] [address] Cancer of central portion of right breas t (Primary Dx) 05/12/2020 Procedure visit [facility] [address] [place] [address] Allergies Comments Active Allergy Reactions Severity Noted Date Amoxicillin Hives 12/18/2012 Penicillins Hives 12/18/2012 Blister Adhesive Tape 12/18/2012 Azithromycin Hives 12/18/2012 documented as of this encounter (statuses as of 05/13/2020) Medications End Date Status Medication Sig Dispensed [...] as of this encounter (statuses as of 05/13/2020) Active Problems Problem Noted Date Cancer of central portion of right breast 04/14/2020 Cancer Staging: Clinical: cT2, cN0, cM0 , ER+, [place]-, HER2+ - Unsigned Pathologic: No Stage Recommended (ypT1c , pN0, cM0, G2, ER+, CO-, HER2+) - Unsigned Acute meniscal tear of knee 12/19/2012 documented as of this encounter (statuses as of 05/13/2020) Social History Date Tobacco Use Types Packs/Day Years Used Never Smoker Smokeless Tobacco: Never Used Drinks/Week oz/Week Comments Alcohol Use OCCATIONALLY Yes Sex Assigned at Date Recorded Not on file Date Recorded COVID-19 Exposure Response 05/12/2020 2:17 PM EST In the last month, have you been in contact with No / Unsure someone who was confirmed or suspected to have Coronavirus / COVID-19? documented as of this encounter Last Filed Vital Signs Reading Time Taken Comments Vital Sign - - Blood Pressure - - Pulse - - Temperature - - Respiratory Rate - - Oxygen Saturation - - Inhaled Oxygen Concentration 73.9 kg (163 lb) 05/12/2020 2:24 PM EST Weight - - Height 30.8 12/18/2012 1:26 PM EDT Body Mass Index documented in this encounter Progress Notes * Sabi Tamayo MD - 05/12/2020 2:15 PM EST Radiation Oncology On-Treatment Visit Note Nazia is currently undergoing a course of Radiation Therapy. She was seen by me after treatment today. Image Guided Radiation Therapy imaging reviewed. Diagnosis: Cancer Staging Cancer of central portion of right breast Staging form: Breast, AJCC 8th Edition - Clinical: cT2, cN0, cM0, ER+, [place]-, HER2+ - Unsigned - Pathologic: No Stage Recommended (ypT1c, pN0, cM0, G2, ER+, CO-, HER2+) - Unsi gned ECOG Performance Status: 0 - Asymptomatic Prior Therapy: BCT+SN Treatment Site: Right breast Treatment intent: Adjuvant Dose in cGy No. of fractions Current Dose 2937 11 Prescribed Dose 5005 19 There is a planned External beam boost boost. She is not receiving concurrent systemic therapy. No flowsheet data found. LABS: No results found for: WBC, HGB, HCT, MCV, PLT No results found for: BICARBONATE, CL, CREATININE, GLUCOSE, K, NA, BUN, ANIONGAP , OSMOLALITY, BCR, CALCIUM, GFRNONAA, GFRAA Vitals: Vitals - 1 value per visit 04/14/2020 05/05/2020 05/12/2020 SYSTOLIC - - - DIASTOLIC - - - PULSE - - - Weight (kg) 75.841 kg 76.114 kg 73.936 kg HEIGHT - - - BODY MASS INDEX 31.59 kg/m2 31.71 kg/m2 30.8 kg/m2 PAIN SCALE - SCORE 0 - 0 Some recent data might be [...] radiation therapy as planned. Sabi Tamayo M.D. Automatic Pad Making Machine Operator Radiation Oncology documented in this encounter Nursing Notes * Hugo Grover LPN - 05/12/2020 2:15 PM EST Radiation Oncology Nursing Documentation Skin Reaction: no Fatigue Level: yes Mucositis: no Eating/Drinking: yes Nausea/Vomiting: no Constipation: no Diarrhea: yes Urinary Difficulty: no Recent Falls: no Referral to Nutrition: no Patient Education: Other: Narrative documented in this encounter Plan of Treatment [...] 10 2019 yrs Breast Cancer Screening 2 05/05/2022 05/05/2020, years 04/28/2020, 04/16/2020, Additional history exists Pneumococcal Vaccine: 65+ 2034 [...] this topic documented as of this encounter Results Not on filedocumented in this encounter Visit Diagnoses Diagnosis Cancer of central portion of right [place] - Primary documented in this encounter
--- OUTSIDE RECORDS SUMMARY | 2020-07-21 11:48 | CCD ---
Author Author [facility] Organization [facility] Address Unknown Phone Unavailable Care Team Providers Care Cp Bleacher Operator Name Role Phone Obinna Dias Unavailable PROBLEMS Type Condition ICD9-CM Code CCF91-DS Code Onset Dates Condition S tatus SNOMED Code Notes Problem Lower abdominal pain R10.30 Active 80665228 Problem Kidney stone N20.0 Active 79925935 ALLERGIES Allergen (clinical drug ingredient) Drug/Non Drug Allergy do cumented on EMR Reaction Allergy Type Onset Date Status sertraline Zoloft([facility] Code:[address]-76) HIVES Drug Allergy Active Penicillin (For Allergies Use Only) HIVES Drug Allerg y Active azithromycin Zithromax([facility] Code:[address]-28) HIVES Drug Allerg y Active ZERO FORM BLISTERS Non Drug Allergy Active clindamycin Clindamycin HCl([facility] Code:[address]-31) HIVES Drug A llergy Active Adhesive Tape HIVES Drug Allergy Active ENCOUNTERS from 1969 to 2020-06-16 Encounter Location Date Provider Diagnosis [facility] Urology [address] [place] [address] May Obinna Dias Kidney stone N20.0 IMMUNIZATIONS No Information SOCIAL HISTORY Tobacco Use: Social History Observation Description Date Details (start date - stop date) Never Smoker Sex Assigned At : Social History Observation Description Sex Assigned At Unknown Education: Question Answer Notes Level of Education: Finished High School Presybeterian: Question Answer Notes Presybeterian 20 Presybeterian No anabaptist beliefs that would impact health care. Sexual [...] FOR REFERRAL No Information VITAL SIGNS Weight 163.4 lbs May, Height 61 in May, BMI 30.87 kg/m2 May, Heart Rate 77 /min May, Respiratory Rate 18 /min May, Oximetry 97 May, Blood pressure systolic 112 mm Hg May, Blood pressure diastolic 62 mm Hg May, MEDICATIONS Medication SIG (Take, Route, Frequency, Duration) [...] Notes Treatment Notes Treatm ent Clinical Notes May, Kidney stone (ICD-10 - N20.0) Pt has had intermintent pain in right back, no recent imaging. Will do a CT A/P to better evaluate stones and see if she needs surgery. Of note, ESWL's don't work well the for pt, she always gets ureteroscopies. We will try to add on the CT A/P to her CT of lungs on 06/16 at [facility] in [place], . We will call her with the results. PLAN OF TREATMENT Treatment Notes Assessment Notes Clinical Notes Kidney stone Pt has had intermint ent pain in right back, no recent imaging. Will do a CT A/P to better evaluate stones and see if she needs surgery. Of note, ESWL's don't work well the for pt, she always gets ureteroscopies.We will try to add on the CT A/P to her CT of lungs on 06/16 at [facility] in [place], .We will call her with the results. Treatment Notes Test Name Order Date CT ABD & Pelvis w/o Contrast 2020-06-16 Next Appt Details will call Reason: Insurance Providers Payer Name Payer Address Payer Phone Insured Name Patient Relati onship to Insured Coverage Start Date Coverage End Date [facility] [address] [facility] [id number] [phone] CEDRICK MOLINA
--- OUTSIDE RECORDS SUMMARY | 2020-07-21 11:48 | CCD | Summary of Care ---
Author Author [facility] Organization [facility] Address Unknown Phone Unavailable Care Team Providers Care Manager Audio Name Role Phone Hung Brody MD PCP Encounter Details Care Team Description Date Type Department Sabi Tamayo MD [address] [facility] 1st [place] [address] Cancer of central portion of right breas t (Primary Dx) 05/05/2020 Procedure visit [facility] [address] [place] [address] Allergies Comments Active Allergy Reactions Severity Noted Date Amoxicillin Hives 12/18/2012 Penicillins Hives 12/18/2012 Blister Adhesive Tape 12/18/2012 Azithromycin Hives 12/18/2012 documented as of this encounter (statuses as of 05/05/2020) Medications End Date Status Medication Sig Dispensed [...] Active Loperamide HCl 2 MG Oral 0 Tablet (Imodium A-D) 0 Active Calcium Carbonate Antacid 0 500 MG Oral Tablet 0 Chewable (Tums) Active Albuterol Sulfate HFA 108 0 (90 Base) MCG/ACT 0 Inhalation Aerosol Solution (Proventil HFA) documented as of this encounter (statuses as of 05/05/2020) Active Problems Problem Noted Date Cancer of central portion of right breast 04/14/2020 Cancer Staging: Clinical: cT2, cN0, cM0 , ER+, CT-, HER2+ - Unsigned Pathologic: No Stage Recommended (ypT1c , pN0, cM0, G2, ER+, CT-, HER2+) - Unsigned Acute meniscal tear of knee 12/19/2012 documented as of this encounter (statuses as of 05/05/2020) Social History Date Tobacco Use Types Packs/Day Years Used Never Smoker Smokeless Tobacco: Never Used Drinks/Week oz/Week Comments Alcohol Use OCCATIONALLY Yes Sex Assigned at Date Recorded Not on file Date Recorded COVID-19 Exposure Response 05/05/2020 1:58 PM EST In the last month, have [...] Oxygen Saturation - - Inhaled Oxygen Concentration 76.1 kg (167 lb 12.8 oz) 05/05/2020 2:16 PM EST Weight - - Height 31.71 12/18/2012 1:26 PM EDT Body Mass Index documented in this encounter Progress Notes * Sabi Tamayo MD - 05/05/2020 2:15 PM EST Radiation Oncology On-Treatment Visit Note Nazia is currently undergoing a course of Radiation Therapy. She was seen by me after treatment today. Image Guided Radiation Therapy imaging reviewed. Diagnosis: Cancer Staging Cancer of central portion of right breast Staging form: Breast, AJCC 8th Edition - Clinical: cT2, cN0, cM0, ER+, CT-, HER2+ - Unsigned - Pathologic: No Stage Recommended (ypT1c, pN0, cM0, G2, ER+, CT-, HER2+) - Unsi nate ECOG Performance Status: 0 - Asymptomatic Prior Therapy: BCT+SN Treatment Site: Right breast Treatment intent: Adjuvant Dose in cGy No. of fractions Current Dose 1602 6 Prescribed Dose 5005 19 There is a planned External beam boost boost. She is not receiving concurrent systemic therapy. No flowsheet data found. LABS: No results found for: WBC, HGB, HCT, MCV, PLT No results found for: BICARBONATE, CL, CREATININE, GLUCOSE, K, NA, BUN, ANIONGAP , OSMOLALITY, BCR, CALCIUM, GFRNONAA, GFRAA Vitals: Vitals - 1 value per visit 12/18/2012 04/14/2020 05/05/2020 SYSTOLIC 136 - - DIASTOLIC 93 - - PULSE 82 - - Weight (kg) - 75.841 kg 76.114 kg HEIGHT 154.9 cm - - BODY MASS INDEX - 31.59 kg/m2 31.71 kg/m2 PAIN SCALE - SCORE - 0 - Some recent data might be hidden Medications: [...] radiation therapy as planned. Sabi Tamayo M.D. Power Equipment Mechanics Instructor Radiation Oncology documented in this encounter Nursing Notes * Hugo Grover LPN - 05/05/2020 2:15 PM EST Radiation Oncology Nursing Documentation Skin Reaction: no Fatigue Level: yes Mucositis: no Eating/Drinking: yes Nausea/Vomiting: no Constipation: no Diarrhea: no Urinary Difficulty: no Recent Falls: no Referral [...] 10 2019 yrs Breast Cancer Screening 2 04/28/2022 04/28/2020, years 04/16/2020, 04/15/2020, Additional history exists Pneumococcal Vaccine: 65+ 2034 [...]
--- OUTSIDE RECORDS SUMMARY | 2020-07-21 11:48 | CCD | Summary of Care ---
Author Author [facility] Organization [facility] Address Unknown Phone Unavailable Care Team Providers Care Enterprise Architect Name Role Phone Hung Brody MD PCP Encounter Details Care Team Description Date Type Department Nolan Falcon MD [facility] [place] [address] Cancer of central portion of right breas t (Primary Dx) 05/20/2020 Procedure visit [facility] [address] [place] [address] Allergies Comments Active Allergy Reactions Severity Noted Date Amoxicillin Hives 12/18/2012 Penicillins Hives 12/18/2012 Blister Adhesive Tape 12/18/2012 Azithromycin Hives 12/18/2012 documented as of this encounter (statuses as of 05/20/2020) Medications End Date Status Medication Sig Dispensed [...] as of this encounter (statuses as of 05/20/2020) Active Problems Problem Noted Date Cancer of central portion of right breast 04/14/2020 Cancer Staging: Clinical: cT2, cN0, cM0 , ER+, [place]-, HER2+ - Unsigned Pathologic: No Stage Recommended (ypT1c , pN0, cM0, G2, ER+, [place]-, HER2+) - Unsigned Acute meniscal tear of knee 12/19/2012 documented as of this encounter (statuses as of 05/20/2020) Social History Date Tobacco Use Types Packs/Day Years Used Never Smoker Smokeless Tobacco: Never Used Drinks/Week oz/Week Comments Alcohol Use OCCATIONALLY Yes Sex Assigned at Date Recorded Not on file Date Recorded COVID-19 Exposure Response 05/20/2020 2:03 PM EST In the last month, have [...] Inhaled Oxygen Concentration 73.9 kg (163 lb) 05/20/2020 2:31 PM EST Weight - - Height 30.8 12/18/2012 1:26 PM EDT Body Mass Index documented in this encounter Progress Notes * Nolan Falcon MD - 05/20/2020 2:15 PM EST Radiation Oncology On-Treatment Visit Note Nazia Avila is currently undergoing a course of Radiation Therapy. Diagnosis: Right breast IDC, ypT1 cN0 cM0, s/p NACT followed by BCS/SLNB ECOG Performance Status: 1 - Symptomatic but completely ambulatory Treatment Site: Right breast Treatment intent: PostOp Dose in cGy No. of fractions Current Dose including boost 4505 17 Prescribed Dose including boost 5005 19 She's note receiving concurrent chemotherapy. Vitals: Vitals - 1 value per visit 05/05/2020 05/12/2020 05/20/2020 SYSTOLIC - - - DIASTOLIC - - - PULSE - - - Weight (kg) 76.114 kg 73.936 kg 73.936 kg HEIGHT - - - BODY MASS INDEX 31.71 kg/m2 30.8 kg/m2 30.8 kg/m2 PAIN SCALE - SCORE - 0 0 Some recent data might be hidden [...] facility-administered medications for this visit. Clinical Evaluation: She is tolerating therapy without significant difficulty. She has mild reaction to radiation therapy. Complains of skin discomfort and breast fold. Does not use any creams. Energy level is unchanged. Weight is relatively stable. The s kin in the irradiated area is in good condition. There is mild radiation-induc ed erythema. There is no evidence of dry or moist desquamation IGRT Review Reviewed images have been satisfactory. Changes made as necessary. Impression and Plan: Nazia Avila is tolerating radiation therapy as expec cristy. We reviewed what to expect from ongoing treatment. She was provided with sample s of Aquaphor to use daily and I also prescribed her Lidex. She will area her s kin and can take acetaminophen as needed. She was counseled, encouraged, and qu estions were addressed. We will continue radiation therapy as planned. Maurice Falcon MD, FRCPC documented in this encounter Nursing Notes * Hugo Grover LPN - 05/20/2020 2:15 PM EST Radiation Oncology Nursing Documentation Skin Reaction: yes Fatigue Level: yes Mucositis: no Eating/Drinking: yes Nausea/Vomiting: no Constipation: no Diarrhea: yes Urinary Difficulty: no Recent Falls: no Referral to Nutrition: no Patient Education: Other: Narrative Patient states that she does have a red, sore area under her breast. She is not using any lotion. She is also having diarrhea from the chemo and is t aking imodium. documented in this encounter Plan of Treatment [...] 10 2019 yrs Breast Cancer Screening 2 05/12/2022 05/12/2020, years 05/05/2020, 04/28/2020, Additional history exists Pneumococcal Vaccine: 65+ 2034 [...]
--- OUTSIDE RECORDS SUMMARY | 2020-07-21 11:48 | CCD ---
Author Author [facility] Organization [facility] Address Unknown Phone Unavailable Care Team Providers Care Chromosomal Disorders Counselor Name Role Phone Obinna Dias Unavailable PROBLEMS Type Condition ICD9-CM Code GLT38-HV Code Onset Dates Condition S tatus SNOMED Code Notes Problem Lower abdominal pain R10.30 Active 63075446 Problem Kidney stone N20.0 Active 67030979 ALLERGIES Allergen (clinical drug ingredient) Drug/Non Drug Allergy do cumented on EMR Reaction Allergy Type Onset Date Status sertraline Zoloft([facility] Code:[address]-80) HIVES Drug Allergy Active Penicillin (For Allergies Use Only) HIVES Drug Allerg y Active azithromycin Zithromax([facility] Code:[address]-52) HIVES Drug Allerg y Active ZERO FORM BLISTERS Non Drug Allergy Active clindamycin Clindamycin HCl([facility] Code:[address]-13) HIVES Drug A llergy Active Adhesive Tape HIVES Drug Allergy Active ENCOUNTERS from 1969 to 2020-06-26 Encounter Location Date Provider Diagnosis [facility] Urology [address] [place] [address] May Obinna Dias IMMUNIZATIONS No Information SOCIAL HISTORY Tobacco Use: Social History Observation Description Date Details (start date - stop date) Never Smoker Sex Assigned At : Social History Observation Description Sex Assigned At Unknown Education: Question Answer Notes Level of Education: Finished High School Restorationist: Question Answer Notes Restorationist 21 Mormon No jehovah's witness beliefs that would impact health care. Sexual [...] Information RESULTS No Results REASON FOR VISIT CT auth- issues MEDICAL (GENERAL) HISTORY Type Description Date Medical [...] Insured Coverage Start Date Coverage End Date [facility] [address] [facility] [address] [phone] CEDRICK MOLINA
--- OUTSIDE RECORDS SUMMARY | 2020-07-21 11:49 | CCD ---
Author Author [facility] Address Unknown Phone Unavailable Care Team Providers Care Cell Repairer Name Role Phone Couch Angélica PA Unavailable Unavailable Couch, Angélica PA Unavailable Unavailable Couch, Angélica PA Unavailable Unavailable Couch, Angélica PA Unavailable Unavailable Couch, Angélica PA Unavailable Unavailable Couch, Angélica PA Unavailable Unavailable Couch, Angélica PA Unavailable Unavailable Couch, Angélica PA Unavailable Unavailable Couch, Angélica PA Unavailable Unavailable Couch, Angélica PA Unavailable Unavailable Couch, Angélica PA Unavailable Unavailable Couch, Angélica PA Unavailable Unavailable Couch, Angélica PA Unavailable Unavailable Couch, Angélica PA Unavailable Unavailable Couch, Angélica PA Unavailable Unavailable Couch, Angélica PA Unavailable Unavailable Couch, Angélica PA Unavailable Unavailable Couch, Angélica PA Unavailable Unavailable Couch, Angélica PA Unavailable Unavailable Couch, Angélica PA Unavailable Unavailable Couch, Angélica PA Unavailable Unavailable Couch, Angélica PA Unavailable Unavailable Couch, Angélica PA Unavailable Unavailable Couch, Angélica PA Unavailable Unavailable Couch, Angélica PA Unavailable Unavailable Couch, Angélica PA Unavailable Unavailable Couch, Angélica PA Unavailable Unavailable Couch, Angélica PA Unavailable Unavailable Couch, Angélica PA Unavailable Unavailable Couch, Angélica PA Unavailable Unavailable Couch, Angélica PA Unavailable Unavailable Couch, Angélica PA Unavailable Unavailable Couch, Angélica PA Unavailable Unavailable Couch, Angélica PA Unavailable Unavailable Couch, Angélica PA Unavailable Unavailable Couch, Angélica PA Unavailable Unavailable Couch, Angélica PA Unavailable Unavailable Mai PATEL MD Unavailable Unavailable Mai PATEL MD Unavailable Unavailable Mai PATEL MD Unavailable Unavailable Mai PATEL MD Unavailable Unavailable Mai PATEL MD Unavailable Unavailable Mai PATEL MD Unavailable Unavailable Mai PATEL MD Unavailable Unavailable Mai PATEL MD Unavailable Unavailable Mai PATEL MD Unavailable Unavailable Mai PATEL MD Unavailable Unavailable Mai PATEL MD Unavailable Unavailable Mai PATEL MD Unavailable Unavailable Mai PATEL MD Unavailable Unavailable Mai PATEL MD Unavailable Unavailable Mai PATEL MD Unavailable Unavailable Mai PATEL MD Unavailable Unavailable Mai PATEL MD Unavailable Unavailable Mai PTAEL MD Unavailable Unavailable Mai PATEL MD Unavailable Unavailable Mai PATEL MD Unavailable Unavailable Mai PATEL MD Unavailable Unavailable Mai PATEL MD Unavailable Unavailable Mai PATEL MD Unavailable Unavailable Mai PATEL MD Unavailable Unavailable Mai PATEL MD Unavailable Unavailable Mai PATEL MD Unavailable Unavailable Mai PATEL MD Unavailable Unavailable Mai PATEL MD Unavailable Unavailable Mai PATEL MD Unavailable Unavailable Mai PATEL MD Unavailable Unavailable Mai PATEL MD Unavailable Unavailable Mai PATEL MD Unavailable Unavailable Mai PATEL MD Unavailable Unavailable Mai PATEL MD Unavailable Unavailable Mai PATEL MD Unavailable Unavailable Mai PATEL MD Unavailable Unavailable CHERMai ROMAN MD Unavailable Unavailable CHERMai ROMAN MD Unavailable Unavailable CHERMai ROMAN MD Unavailable Unavailable CHERMai ROMAN MD Unavailable Unavailable CHERMai ROMAN MD Unavailable Unavailable CHERMai ROMAN MD Unavailable Unavailable CHERMai ROMAN MD Unavailable Unavailable CHERMai ROMAN MD Unavailable Unavailable CHERMai ROMAN MD Unavailable Unavailable CHERMai ROMAN MD Unavailable Unavailable CHERMai ROMAN MD Unavailable Unavailable CHERMai ROMAN MD Unavailable Unavailable CHERMai ROMAN MD Unavailable Unavailable CHERMai ROMAN MD Unavailable Unavailable CHERMai ROMAN MD Unavailable Unavailable CHERMai ROMAN MD Unavailable Unavailable CHERMai ROMAN MD Unavailable Unavailable CHERMai ROMAN MD Unavailable Unavailable CHERMai ROMAN MD Unavailable Unavailable CHERMai ROMAN MD Unavailable Unavailable CHERMai ROMAN MD Unavailable Unavailable CHERMai ROMAN MD Unavailable Unavailable CHERMai ROMAN MD Unavailable Unavailable CHERMai ROMAN MD Unavailable Unavailable CHERMai ROMAN MD Unavailable Unavailable CHERMai ROMAN MD Unavailable Unavailable CHERMai ROMAN MD Unavailable Unavailable CHERMai ROMAN MD Unavailable Unavailable CHERMai ROMAN MD Unavailable Unavailable CHERMai ROMAN MD Unavailable Unavailable CHERMai ROMAN MD Unavailable Unavailable CHERMai ROMAN MD Unavailable Unavailable CHERMai ROMAN MD Unavailable Unavailable Mai PATEL MD Unavailable Unavailable Mai PATEL MD Unavailable Unavailable Mai PATEL MD Unavailable Unavailable Mai PATEL MD Unavailable Unavailable Mai PATEL MD Unavailable Unavailable Mai PATEL MD Unavailable Unavailable Mai PATEL MD Unavailable Unavailable Mai PATEL MD Unavailable Unavailable Mai PATEL MD Unavailable Unavailable Mai PATEL MD Unavailable Unavailable Mai PATEL MD Unavailable Unavailable Mai PATEL MD Unavailable Unavailable Mai PATEL MD Unavailable Unavailable Mai PATEL MD Unavailable Unavailable Mai PATEL MD Unavailable Unavailable Mai PATEL MD Unavailable Unavailable Mai PATEL MD Unavailable Unavailable Mai PATEL MD Unavailable Unavailable Mai PATEL MD Unavailable Unavailable Mai PATEL MD Unavailable Unavailable Mai PATEL MD Unavailable Unavailable Mai GOODE MD Unavailable Unavailable Mai GOODE MD Unavailable Unavailable KORMai Butt MD Unavailable Unavailable KORMai Butt MD Unavailable Unavailable KORMai Butt MD Unavailable Unavailable KORT, C AUDREY MD Unavailable Unavailable KORT, C AUDREY MD Unavailable Unavailable KORT, C AUDREY MD Unavailable Unavailable KORT, C AUDREY MD Unavailable Unavailable KORT, C AUDREY MD Unavailable Unavailable KORT, C AUDREY MD Unavailable Unavailable KORT, C AUDREY MD Unavailable Unavailable KORT, C AUDREY MD Unavailable Unavailable KORT, C AUDREY MD Unavailable Unavailable KORT, C AUDREY MD Unavailable Unavailable KORT, C AUDREY MD Unavailable Unavailable KORT, C AUDREY MD Unavailable Unavailable KORT, C AUDREY MD Unavailable Unavailable KORT, C AUDREY MD Unavailable Unavailable KORT, C AUDREY MD Unavailable Unavailable KORT, C AUDREY MD Unavailable Unavailable KORT, C AUDREY MD Unavailable Unavailable KORT, C AUDREY MD Unavailable Unavailable KORT, C AUDREY MD Unavailable Unavailable KORT, C AUDREY MD Unavailable Unavailable KORT, C AUDREY MD Unavailable Unavailable KORT, C AUDREY MD Unavailable Unavailable KORT, C AUDREY MD Unavailable Unavailable KORT, C AUDREY MD Unavailable Unavailable KORT, C AUDREY MD Unavailable Unavailable KORT, C AUDREY MD Unavailable Unavailable KORT, C AUDREY MD Unavailable Unavailable KORT, C AUDREY MD Unavailable Unavailable KORT, C AUDREY MD Unavailable Unavailable KORT, C AUDREY MD Unavailable Unavailable KORT, C AUDREY MD Unavailable Unavailable KORT, C AUDREY MD Unavailable Unavailable KORT, C AUDREY MD Unavailable Unavailable KORT, C AUDREY MD Unavailable Unavailable KORT, C AUDREY MD Unavailable Unavailable KORT, C AUDREY MD Unavailable Unavailable KORT, C AUDREY MD Unavailable Unavailable KORT, C AUDREY MD Unavailable Unavailable KORT, C AUDREY MD Unavailable Unavailable KORT, C AUDREY MD Unavailable Unavailable KORT, C AUDREY MD Unavailable Unavailable KORT, C AUDREY MD Unavailable Unavailable KORT, C AUDREY MD Unavailable Unavailable KORT, C AUDREY MD Unavailable Unavailable KORT, C AUDREY MD Unavailable Unavailable KORT, C AUDREY MD Unavailable Unavailable KORT, C AUDREY MD Unavailable Unavailable KORT, C AUDREY MD Unavailable Unavailable KORT, C AUDREY MD Unavailable Unavailable KORT, C AUDREY MD Unavailable Unavailable KORT, C AUDREY MD Unavailable Unavailable KORT, C AUDREY MD Unavailable Unavailable KORT, C AUDREY MD Unavailable Unavailable KORT, C AUDREY MD Unavailable Unavailable KORT, C AUDREY MD Unavailable Unavailable KORT, C AUDREY MD Unavailable Unavailable KORT, C AUDREY MD Unavailable Unavailable KORT, C AUDREY MD Unavailable Unavailable KORT, C AUDREY MD Unavailable Unavailable KORT, C AUDREY MD Unavailable Unavailable KORT, C AUDREY MD Unavailable Unavailable KORT, C AUDREY MD Unavailable Unavailable KORT, C AUDREY MD Unavailable Unavailable KORT, C AUDREY MD Unavailable Unavailable KORT, C AUDREY MD Unavailable Unavailable KORT, C AUDREY MD Unavailable Unavailable KORT, C AUDREY MD Unavailable Unavailable KORT, C AUDREY MD Unavailable Unavailable KORT, C AUDREY MD Unavailable Unavailable KORT, C AUDREY MD Unavailable Unavailable KORT, C AUDREY MD Unavailable Unavailable KORT, C AUDREY MD Unavailable Unavailable KORT, C AUDREY MD Unavailable Unavailable KORT, C AUDREY MD Unavailable Unavailable KORT, C AUDREY MD Unavailable Unavailable KORT, C AUDREY MD Unavailable Unavailable KORT, C AUDREY MD Unavailable Unavailable KORT, C AUDREY MD Unavailable Unavailable KORT, C AUDREY MD Unavailable Unavailable KORT, C AUDREY MD Unavailable Unavailable KORT, C AUDREY MD Unavailable Unavailable KORT, C AUDREY MD Unavailable Unavailable KORT, C AUDREY MD Unavailable Unavailable KORT, C AUDREY MD Unavailable Unavailable KORT, C AUDREY MD Unavailable Unavailable KORT, C AUDREY MD Unavailable Unavailable KORT, C AUDREY MD Unavailable Unavailable KORT, C AUDREY MD Unavailable Unavailable KORT, C AUDREY MD Unavailable Unavailable KORT, C AUDREY MD Unavailable Unavailable KORT, C AUDREY MD Unavailable Unavailable KORT, C AUDREY MD Unavailable Unavailable KORT, C AUDREY MD Unavailable Unavailable KORT, C AUDREY MD Unavailable Unavailable KORT, C AUDREY MD Unavailable Unavailable KORT, C AUDREY MD Unavailable Unavailable KORT, C AUDREY MD Unavailable Unavailable KORT, C AUDREY MD Unavailable Unavailable KORT, C AUDREY MD Unavailable Unavailable KORT, C AUDREY MD Unavailable Unavailable KORT, C AUDREY MD Unavailable Unavailable KORT, C AUDREY MD Unavailable Unavailable KORT, C AUDREY MD Unavailable Unavailable KORT, C AUDREY MD Unavailable Unavailable KORT, C AUDREY MD Unavailable Unavailable KORT, C AUDREY MD Unavailable Unavailable KORT, C AUDREY MD Unavailable Unavailable KORT, C AUDREY MD Unavailable Unavailable KORT, C AUDREY MD Unavailable Unavailable KORT, C AUDREY MD Unavailable Unavailable KORT, C AUDREY MD Unavailable Unavailable KORT, C AUDREY MD Unavailable Unavailable KORT, C AUDREY MD Unavailable Unavailable KORT, C AUDREY MD Unavailable Unavailable KORT, C AUDREY MD Unavailable Unavailable KORT, C AUDREY MD Unavailable Unavailable KORT, C AUDREY MD Unavailable Unavailable KORT, C AUDREY MD Unavailable Unavailable KORT, C AUDREY MD Unavailable Unavailable KORT, C AUDREY MD Unavailable Unavailable KORT, C AUDREY MD Unavailable Unavailable KORT, C AUDREY MD Unavailable Unavailable KORT, C AUDREY MD Unavailable Unavailable KORT, C AUDREY MD Unavailable Unavailable KORT, C AUDREY MD Unavailable Unavailable KORT, C AUDREY MD Unavailable Unavailable KORT, C AUDREY MD Unavailable Unavailable KORT, C AUDREY MD Unavailable Unavailable KORT, C AUDREY MD Unavailable Unavailable KORT, C AUDREY MD Unavailable Unavailable KORT, C AUDREY MD Unavailable Unavailable KORT, C AUDREY MD Unavailable Unavailable KORT, C AUDREY MD Unavailable Unavailable KORT, C AUDREY MD Unavailable Unavailable KORT, C AUDREY MD Unavailable Unavailable KORT, C AUDREY MD Unavailable Unavailable KORT, C AUDREY MD Unavailable Unavailable KORT, C AUDREY MD Unavailable Unavailable KORT, C AUDREY MD Unavailable Unavailable KORT, C AUDREY MD Unavailable Unavailable KORT, C AUDREY MD Unavailable Unavailable KORT, C AUDREY MD Unavailable Unavailable KORT, C AUDREY MD Unavailable Unavailable KORT, C AUDREY MD Unavailable Unavailable KORT, C AUDREY MD Unavailable Unavailable KORT, C AUDREY MD Unavailable Unavailable KORT, C AUDREY MD Unavailable Unavailable KORT, C AUDREY MD Unavailable Unavailable KORT, C AUDREY MD Unavailable Unavailable KORT, C AUDREY MD Unavailable Unavailable KORT, C AUDREY MD Unavailable Unavailable KORT, C AUDREY MD Unavailable Unavailable KORT, C AUDREY MD Unavailable Unavailable KORT, C AUDREY MD Unavailable Unavailable KORT, C AUDREY MD Unavailable Unavailable KORT, C AUDREY MD Unavailable Unavailable KORT, C AUDREY MD Unavailable Unavailable KORT, C AUDREY MD Unavailable Unavailable KORT, C AUDREY MD Unavailable Unavailable KORT, C AUDREY MD Unavailable Unavailable KORT, C AUDREY MD Unavailable Unavailable KORT, C AUDREY MD Unavailable Unavailable KORT, C AUDREY MD Unavailable Unavailable KORT, C AUDREY MD Unavailable Unavailable KORT, C AUDREY MD Unavailable Unavailable KORT, C AUDREY MD Unavailable Unavailable KORT, C AUDREY MD Unavailable Unavailable KORT, C AUDREY MD Unavailable Unavailable KORT, C AUDREY MD Unavailable Unavailable KORT, C AUDREY MD Unavailable Unavailable KORT, C AUDREY MD Unavailable Unavailable KORT, C AUDREY MD Unavailable Unavailable KORT, C AUDREY MD Unavailable Unavailable KORT, C AUDREY MD Unavailable Unavailable KORT, C AUDREY MD Unavailable Unavailable KORT, C AUDREY MD Unavailable Unavailable KORT, C AUDREY MD Unavailable Unavailable KORT, C AUDREY MD Unavailable Unavailable KORT, C AUDREY MD Unavailable Unavailable KORT, C AUDREY MD Unavailable Unavailable KORT, C AUDREY MD Unavailable Unavailable KORT, C AUDREY MD Unavailable Unavailable KORT, C AUDREY MD Unavailable Unavailable KORT, C AUDREY MD Unavailable Unavailable KORT, C AUDREY MD Unavailable Unavailable Cisco Still MD Unavailable Unavailable Mason, E Kasia MD Unavailable Unavailable Mason, E Kasia MD Unavailable Unavailable Mason, E Kasia MD Unavailable Unavailable Mason, E Kasia MD Unavailable Unavailable Mason, E Kasia MD Unavailable Unavailable Mason, E Kasia MD Unavailable Unavailable Mason, E Kasia MD Unavailable Unavailable aMson, E Kasia MD Unavailable Unavailable Mason, E Kasia MD Unavailable Unavailable Mason, E Kasia MD Unavailable Unavailable Mason, E Kasia MD Unavailable Unavailable Mason, E Kasia MD Unavailable Unavailable Mason, E Kasia MD Unavailable Unavailable Mason, E Kasia MD Unavailable Unavailable Mason, E Kasia MD Unavailable Unavailable Mason, E Kasia MD Unavailable Unavailable Mason, E Kasia MD Unavailable Unavailable Mason, E Kasia MD Unavailable Unavailable Mason, E Kasia MD Unavailable Unavailable Mason, E Kasia MD Unavailable Unavailable Mason, E Kasia MD Unavailable Unavailable Mason, E Kasia MD Unavailable Unavailable Mason, E Kasia MD Unavailable Unavailable Mason, E Kasia MD Unavailable Unavailable Mason, E Kasia MD Unavailable Unavailable Mason, E Kasia MD Unavailable Unavailable Mason, E Kasia MD Unavailable Unavailable Mason, E Kasia MD Unavailable Unavailable Mason, E Kasia MD Unavailable Unavailable Mason, E Kasia MD Unavailable Unavailable Mason, E Kasia MD Unavailable Unavailable Mason, E Kasia MD Unavailable Unavailable Mason, E Kasia MD Unavailable Unavailable Mason, E Kasia MD Unavailable Unavailable Mason, Tavon Pedroza MD Unavailable Unavailable Mason, Tavon Pedroza MD Unavailable Unavailable Mason, E Kasia TREVINO Unavailable Unavailable Mason, E Kasia TREVINO Unavailable Unavailable Mason, E Kasia TREVINO Unavailable Unavailable Mason, Tavon Pedroza MD Unavailable Unavailable Mason, E Kasia TRVEINO Unavailable Unavailable Mason, Tavon Pedroza MD Unavailable Unavailable Mason, E Kasia TREVINO Unavailable Unavailable Mason, E Kasia TREVINO Unavailable Unavailable Mason, E Kasia TREVINO Unavailable Unavailable Mason, Tavon Pedroza MD Unavailable Unavailable LynPatricio bourne MD Unavailable Unavailable LynPatricio bourne MD Unavailable Unavailable LynPatricio bourne MD Unavailable Unavailable LynPatricio bourne MD Unavailable Unavailable LynPatricio bourne MD Unavailable Unavailable Patricio Brody MD Unavailable Unavailable Patricio Brody MD Unavailable Unavailable LynPatricio buorne MD Unavailable Unavailable LynPatricio bourne MD Unavailable Unavailable LynPatricio bourne MD Unavailable Unavailable LynPatricio bourne MD Unavailable Unavailable LynPatricio bourne MD Unavailable Unavailable LynPatricio bourne MD Unavailable Unavailable LynPatricio bourne MD Unavailable Unavailable LynPatricio bourne MD Unavailable Unavailable LynPatricio bourne MD Unavailable Unavailable Patricio Brody MD Unavailable Unavailable LynPatricio bourne MD Unavailable Unavailable Patricio Brody MD Unavailable Unavailable LynPatricio bourne MD Unavailable Unavailable LynPatricio bourne MD Unavailable Unavailable LynPatricio bourne MD Unavailable Unavailable LynPatricio bourne MD Unavailable Unavailable LynPatricio bourne MD Unavailable Unavailable LynPatricio bourne MD Unavailable Unavailable LynPatricio bourne MD Unavailable Unavailable LynPatricio bourne MD Unavailable Unavailable LynPatricio bourne MD Unavailable Unavailable LynPatricio bourne MD Unavailable Unavailable LynPatricio bourne MD Unavailable Unavailable LynPatricio bourne MD Unavailable Unavailable LynPatricio bourne MD Unavailable Unavailable LynPatricio bourne MD Unavailable Unavailable LynPatricio bourne MD Unavailable Unavailable LynPatricio bourne MD Unavailable Unavailable LynPatricio bourne MD Unavailable Unavailable LynPatricio bourne MD Unavailable Unavailable LynPatricio bourne MD Unavailable Unavailable LyndaPatricio rice MD Unavailable Unavailable LyndakerPatricio MD Unavailable Unavailable LyndakerPatricio MD Unavailable Unavailable LyndakerPatricio MD Unavailable Unavailable LyndakerPatricio MD Unavailable Unavailable LyndakerPatricio MD Unavailable Unavailable LyndaPatricio rice MD Unavailable Unavailable LyndakerPatricio MD Unavailable Unavailable LyndaPatricio rice MD Unavailable Unavailable LyndakerPatricio MD Unavailable Unavailable LyndakerPatricio MD Unavailable Unavailable LyndakerPatricio MD Unavailable Unavailable LyndaPatricio rice MD Unavailable Unavailable LyndaPatricio rice MD Unavailable Unavailable LyndaPatricio rice MD Unavailable Unavailable LyndakerPatricio MD Unavailable Unavailable LyndaPatricio rice MD Unavailable Unavailable LyndaPatricio rice MD Unavailable Unavailable LyndaPatricio rice MD Unavailable Unavailable LyndaPatricio rice MD Unavailable Unavailable LyndaPatricio rice MD Unavailable Unavailable LyndaPatricoi rice MD Unavailable Unavailable LyndaPatricio rice MD Unavailable Unavailable LyndaPatricio rice MD Unavailable Unavailable LyndaPatricio rice MD Unavailable Unavailable LyndaPatricio rice MD Unavailable Unavailable LyndaPatricio rice MD Unavailable Unavailable LyndaPatricio rice MD Unavailable Unavailable LyndaPatricio rice MD Unavailable Unavailable LyndaPatricio rice MD Unavailable Unavailable LyndaPatricio rice MD Unavailable Unavailable LyndaPatricio rice MD Unavailable Unavailable LyndaPatricio rice MD Unavailable Unavailable LyndaPatricio rice MD Unavailable Unavailable LyndaPatricio rice MD Unavailable Unavailable LyndaPatricio rice MD Unavailable Unavailable LyndaPatricio rice MD Unavailable Unavailable LyndaPatricio rice MD Unavailable Unavailable LyndaPatricio rice MD Unavailable Unavailable LynPatricio bourne MD Unavailable Unavailable LyndaPatricio rice MD Unavailable Unavailable LyndaPatricio rice MD Unavailable Unavailable LyndaPatricio rice MD Unavailable Unavailable LyndaPatricio rice MD Unavailable Unavailable LyndaPatricio riec MD Unavailable Unavailable LyndaPatricio rice MD Unavailable Unavailable LyndaPatricio rice MD Unavailable Unavailable LyndaPatricio rice MD Unavailable Unavailable LyndaPatricio rice MD Unavailable Unavailable LyndaPatricio rice MD Unavailable Unavailable Lyndaker, L Hung MD Unavailable Unavailable Ronn, Patricio Persaud MD Unavailable Unavailable Patricio Brody MD Unavailable Unavailable Al Mudamgha, Elissa Steven MD Unavailable Unavailable Al Mudamgha, A Tenisha TREVINO Unavailable Unavailable Al Mudamgha, A Tenisha TREVINO Unavailable Unavailable Al Mudamgha, A Tenisha TREVINO Unavailable Unavailable Al Mudamgha, A Tenisha TREVINO Unavailable Unavailable Al Mudamgha, A Tenisha TREVINO Unavailable Unavailable Al Mudamgha, A Tenisha TREVINO Unavailable Unavailable Al Mudamgha, A Tenisha TREVINO Unavailable Unavailable Al Mudamgha, A Tenisha TREVINO Unavailable Unavailable Al Mudamgha, A Tenisha TREVINO Unavailable Unavailable Al Mudamgha, A Tenisha TREVINO Unavailable Unavailable Al Mudamgha, A Tenisha TREVINO Unavailable Unavailable Al Mudamgha, A Tenisha TREVINO Unavailable Unavailable Al Mudamgha, A Tenisha TREVNIO Unavailable Unavailable Al Mudamgha, A Tenisha TREVINO Unavailable Unavailable Al Mudamgha, A Tenisha TREVINO Unavailable Unavailable Al Mudamgha, A Tenisha TREVINO Unavailable Unavailable Al Mudamgha, A Tenisha TREVINO Unavailable Unavailable Al Mudamgha, A Tenisha TREVINO Unavailable Unavailable Al Mudamgha, A Tenisha TREVINO Unavailable Unavailable Al Mudamgha, A Tenisha TREVINO Unavailable Unavailable Al Mudamgha, A Tenisha TREVINO Unavailable Unavailable Al Mudamgha, A Tenisha TREVINO Unavailable Unavailable Al Mudamgha, A Tenisha TREVINO Unavailable Unavailable Al Mudamgha, A Tenisha TREVINO Unavailable Unavailable Al Mudamgha, A Tenisha TREVINO Unavailable Unavailable Al Mudamgha, A Tenisha TREVINO Unavailable Unavailable Al Mudamgha, A Tenisha TREVINO Unavailable Unavailable Al Mudamgha, A Tenisha TREVINO Unavailable Unavailable Al Mudamgha, A Tenisha TREVINO Unavailable Unavailable Al Mudamgha, A Tenisha TREVINO Unavailable Unavailable Al Mudamgha, A Tenisha TREVINO Unavailable Unavailable Al Mudamgha, A Tenisha TREVINO Unavailable Unavailable Al Mudamgha, A Tenisha TREVINO Unavailable Unavailable Al Mudamgha, A Tenisha TREVINO Unavailable Unavailable Al Mudamgha, A Tenisha TREVINO Unavailable Unavailable Al Mudamgha, A Tenisha TREVINO Unavailable Unavailable Al Mudamgha, A Tenisha TREVINO Unavailable Unavailable Al Mudamgha, A Tenisha TREVINO Unavailable Unavailable Al Mudamgha, A Tenisha TREVINO Unavailable Unavailable Al Mudamgha, A Tenisha TREVINO Unavailable Unavailable Al Mudamgha, A Tenisha TREVINO Unavailable Unavailable Al Mudamgha, A Tenisha TREVINO Unavailable Unavailable Al Mudamgha, A Tenisha TREVINO Unavailable Unavailable Al Mudamgha, A Tenisha TREVINO Unavailable Unavailable Al Mudamgha, A Tenisha TREVINO Unavailable Unavailable Al Mudamgha, A Tenisha TREVINO Unavailable Unavailable Al Mudamgha, A Tenisha TREVINO Unavailable Unavailable Al Mudamgha, A Tenisha TREVINO Unavailable Unavailable Al Mudamgha, A Tenisha TREVINO Unavailable Unavailable Al Mudamgha, A Tenisha TREVINO Unavailable Unavailable Al Mudamgha, A Tenisha TREVINO Unavailable Unavailable Al Mudamgha, A Tenisha TREVINO Unavailable Unavailable Al Mudamgha, A Tenisha TREVINO Unavailable Unavailable Al Mudamgha, A Tenisha TREVINO Unavailable Unavailable Al Mudamgha, A Tenisha TREVINO Unavailable Unavailable Al Mudamgha, A Tenisha TREVINO Unavailable Unavailable Al Mudamgha, A Tenisha TREVINO Unavailable Unavailable Al Mudamgha, A Tenisha TREVINO Unavailable Unavailable Al Mudamgha, A Tenisha TREVINO Unavailable Unavailable Al Mudamgha, A Tenisha TREVINO Unavailable Unavailable Al Mudamgha, A Tenisha TREVINO Unavailable Unavailable Al Mudamgha, A Tenisha TREVINO Unavailable Unavailable Al Mudamgha, A Tenisha TREVINO Unavailable Unavailable Al Mudamgha, A Tenisha TREVINO Unavailable Unavailable Al Mudamgha, A Tenisha TREVINO Unavailable Unavailable Al Mudamgha, A Tenisha TREVINO Unavailable Unavailable Al Mudamgha, A Tenisha TREVINO Unavailable Unavailable Al Mudamgha, Elissa Steven MD Unavailable Unavailable Al Mudamgha, A Tenisha TREVINO Unavailable Unavailable Al Mudamgha, A Tenisha TREVINO Unavailable Unavailable Al Mudamgha, A Tenisha TREVINO Unavailable Unavailable Al Mudamgha, A Tenisha TREVINO Unavailable Unavailable Al Mudamgha, Elissa Steven MD Unavailable Unavailable Al Mudamgha, Elissa Steven MD Unavailable Unavailable Al Mudamgha, A Tenisha TREVINO Unavailable Unavailable Al Mudamgha, A Tenisha TREVINO Unavailable Unavailable Al Mudamgha, A Tenisha TREVINO Unavailable Unavailable Al Mudamgha, A Tenisha TREVINO Unavailable Unavailable Al Mudamgha, Elissa Steven MD Unavailable Unavailable Patricio Brody MD Unavailable Unavailable Patricio Brody MD Unavailable Unavailable Patricio Brody MD Unavailable Unavailable Patricio Brody MD Unavailable Unavailable Patricio Brody MD Unavailable Unavailable Patricio Brody MD Unavailable Unavailable Patricio Brody MD Unavailable Unavailable Patricio Brody MD Unavailable Unavailable Patricio Brody MD Unavailable Unavailable LyndaPatricio rice MD Unavailable Unavailable LyndakerPatricio MD Unavailable Unavailable LyndakerPatricio MD Unavailable Unavailable LyndakerPatricio MD Unavailable Unavailable LyndakerPatricio MD Unavailable Unavailable LyndakerPatricio MD Unavailable Unavailable LyndaPatricio rice MD Unavailable Unavailable LyndakerPatricio MD Unavailable Unavailable LyndaPatricio rice MD Unavailable Unavailable LyndakerPatricio MD Unavailable Unavailable LyndakerPatricio MD Unavailable Unavailable LyndakerPatricio MD Unavailable Unavailable LyndaPatricio rice MD Unavailable Unavailable LyndaPatricio rice MD Unavailable Unavailable LyndaPatricio rice MD Unavailable Unavailable LyndakerPatricio MD Unavailable Unavailable LyndaPatricio rice MD Unavailable Unavailable LyndaPatricio rice MD Unavailable Unavailable LyndaPatricio rice MD Unavailable Unavailable LyndaPatricio rice MD Unavailable Unavailable LyndaPatricio rice MD Unavailable Unavailable LyndaPatricio rice MD Unavailable Unavailable LyndaPatricio rice MD Unavailable Unavailable LyndaPatricio rice MD Unavailable Unavailable LyndaPatricio rice MD Unavailable Unavailable LyndaPatricio rice MD Unavailable Unavailable LyndaPatricio rice MD Unavailable Unavailable LyndaPatricio rice MD Unavailable Unavailable LyndaPatricio rice MD Unavailable Unavailable LyndaPatricio rice MD Unavailable Unavailable LyndaPatricio rice MD Unavailable Unavailable LyndaPatricio rice MD Unavailable Unavailable LyndaPatricio rice MD Unavailable Unavailable LyndaPatricio rice MD Unavailable Unavailable LyndaPatricio rice MD Unavailable Unavailable LyndaPatricio rice MD Unavailable Unavailable LyndaPatricio rcie MD Unavailable Unavailable LyndaPatrciio rice MD Unavailable Unavailable LyndaPatricio rice MD Unavailable Unavailable LynPatricio bourne MD Unavailable Unavailable LyndaPatricio rice MD Unavailable Unavailable LyndaPatricio rice MD Unavailable Unavailable LyndaPatricio rice MD Unavailable Unavailable LyndaPatricio rice MD Unavailable Unavailable LyndaPatricio rice MD Unavailable Unavailable LyndaPatricio rice MD Unavailable Unavailable LyndaPatricio rice MD Unavailable Unavailable LyndaPatricio rice MD Unavailable Unavailable LyndaPatricio rice MD Unavailable Unavailable LyndaPatricio rice MD Unavailable Unavailable Lyndaker, L Hung MD Unavailable Unavailable LynPatricio bourne MD Unavailable Unavailable LynPatricio bourne MD Unavailable Unavailable LynPatricio bourne MD Unavailable Unavailable LynPatricio bourne MD Unavailable Unavailable LynPatricio bourne MD Unavailable Unavailable LynPatricio bourne MD Unavailable Unavailable LynPatricio bourne MD Unavailable Unavailable LynPatricio bourne MD Unavailable Unavailable LynPatricio bourne MD Unavailable Unavailable LynPatricio bourne MD Unavailable Unavailable LynPatricio bourne MD Unavailable Unavailable LynPatricio bourne MD Unavailable Unavailable LynPatricio bourne MD Unavailable Unavailable LynPatricio bourne MD Unavailable Unavailable LynPatricio bourne MD Unavailable Unavailable Patricio Brody MD Unavailable Unavailable Patricio Brody MD Unavailable Unavailable Patricio Brody MD Unavailable Unavailable Patricio Brody MD Unavailable Unavailable Patricio Brody MD Unavailable Unavailable Patricio Brody MD Unavailable Unavailable Patricio Brody MD Unavailable Unavailable Patricio Brody MD Unavailable Unavailable Patricio Brody MD Unavailable Unavailable Patricio Brody MD Unavailable Unavailable Patricio Brody MD Unavailable Unavailable Patricio Brody MD Unavailable Unavailable Patricio Brody MD Unavailable Unavailable Patricio Brody MD Unavailable Unavailable Patricio Brody MD Unavailable Unavailable Patricio Brody MD Unavailable Unavailable Mai PATEL MD Unavailable Unavailable Mai PATEL MD Unavailable Unavailable Mai PATEL MD Unavailable Unavailable Mai PATEL MD Unavailable Unavailable Mai PATEL MD Unavailable Unavailable Mai PATEL MD Unavailable Unavailable Mai PATEL MD Unavailable Unavailable Mai PATEL MD Unavailable Unavailable Mai PATEL MD Unavailable Unavailable Mai PATEL MD Unavailable Unavailable Mai PATEL MD Unavailable Unavailable Mai PATEL MD Unavailable Unavailable Mai PATEL MD Unavailable Unavailable Mai PATEL MD Unavailable Unavailable Mai PATEL MD Unavailable Unavailable Mai PATEL MD Unavailable Unavailable Mai PATEL MD Unavailable Unavailable Mai PATEL MD Unavailable Unavailable Mai PATEL MD Unavailable Unavailable Mai PATEL MD Unavailable Unavailable Mai PATEL MD Unavailable Unavailable Mai PATEL MD Unavailable Unavailable Mai PATEL MD Unavailable Unavailable CHERMai ROMAN MD Unavailable Unavailable CHERMai ROMAN MD Unavailable Unavailable CHERMai ROMAN MD Unavailable Unavailable CHERMai ROMAN MD Unavailable Unavailable CHERMai ROMAN MD Unavailable Unavailable CHERMai ROMAN MD Unavailable Unavailable CHERMai ROMAN MD Unavailable Unavailable CHERMai ROMAN MD Unavailable Unavailable CHERMai ROMAN MD Unavailable Unavailable CHERMai ROMAN MD Unavailable Unavailable CHERMai ROMAN MD Unavailable Unavailable CHERNYMai MD Unavailable Unavailable CHERNYMai MD Unavailable Unavailable CHERNYMai MD Unavailable Unavailable CHERNYMai MD Unavailable Unavailable CHERNYMai MD Unavailable Unavailable CHERNYMai MD Unavailable Unavailable CHERNYMai MD Unavailable Unavailable CHERNYMai MD Unavailable Unavailable CHERNYMai MD Unavailable Unavailable CHERNYMai MD Unavailable Unavailable CHERNYMai MD Unavailable Unavailable CHERNYMai MD Unavailable Unavailable CHERMai ROMAN MD Unavailable Unavailable CHERMai ROMAN MD Unavailable Unavailable CHERMai ROMAN MD Unavailable Unavailable CHERMai ROMAN MD Unavailable Unavailable CHERMai ROMAN MD Unavailable Unavailable CHERNYMai MD Unavailable Unavailable CHERMai ROMAN MD Unavailable Unavailable CHERMai ROMAN MD Unavailable Unavailable CHERMai ROMAN MD Unavailable Unavailable CHERaMi ROMAN MD Unavailable Unavailable CHERMai ROMAN MD Unavailable Unavailable CHERMai ROMAN MD Unavailable Unavailable CHERMai ROMAN MD Unavailable Unavailable CHERMai ROMAN MD Unavailable Unavailable CHERMai ROMAN MD Unavailable Unavailable CHERMai ROMAN MD Unavailable Unavailable Mai PATEL MD Unavailable Unavailable Mai PATEL MD Unavailable Unavailable Mai PATEL MD Unavailable Unavailable Mai PATEL MD Unavailable Unavailable Mai PATEL MD Unavailable Unavailable Mai PATEL MD Unavailable Unavailable Mai PATEL MD Unavailable Unavailable Mai PATEL MD Unavailable Unavailable Mai PATEL MD Unavailable Unavailable Mai PATEL MD Unavailable Unavailable Mai PATEL MD Unavailable Unavailable Mai PATEL MD Unavailable Unavailable Mai PATEL MD Unavailable Unavailable Mai PATEL MD Unavailable Unavailable Mai PATEL MD Unavailable Unavailable Mai PATEL MD Unavailable Unavailable Mai PATEL MD Unavailable Unavailable Mai PATEL MD Unavailable Unavailable Mai PATEL MD Unavailable Unavailable Mai PATEL MD Unavailable Unavailable Mai PATEL MD Unavailable Unavailable Mai PATEL MD Unavailable Unavailable Mai PATEL MD Unavailable Unavailable CHERJESSIE C LAURENT MD Unavailable Unavailable Mai PATEL MD Unavailable Unavailable Mai PATEL MD Unavailable Unavailable Mai PATEL MD Unavailable Unavailable Mai PATEL MD Unavailable Unavailable Elissa Justin MD Unavailable Unavailable Elissa Justin MD Unavailable Unavailable Elissa Justin MD Unavailable Unavailable Elissa Justin MD Unavailable Unavailable IFEOMA RICH MD Unavailable Unavailable IFEOMA RICH MD Unavailable Unavailable IFEOMA RICH MD Unavailable Unavailable IFEOMA RICH MD Unavailable Unavailable IFEOMA RICH MD Unavailable Unavailable IFEOMA RICH MD Unavailable Unavailable IFEOMA RICH MD Unavailable Unavailable IFEOMA RICH MD Unavailable Unavailable IFEOMA RICH MD Unavailable Unavailable IFEOMA RICH MD Unavailable Unavailable IFEOMA RICH MD Unavailable Unavailable IFEOMA RICH MD Unavailable Unavailable IFEOMA RICH MD Unavailable Unavailable IFEOMA RICH MD Unavailable Unavailable IFEOMA RICH MD Unavailable Unavailable IFEOMA RICH MD Unavailable Unavailable IFEOMA RICH MD Unavailable Unavailable IFEOMA RICH MD Unavailable Unavailable IFEOMA RICH MD Unavailable Unavailable IFEOMA RICH MD Unavailable Unavailable IFEOMA RICH MD Unavailable Unavailable IFEOMA RICH MD Unavailable Unavailable IFEOMA RICH MD Unavailable Unavailable IFEOMA RICH MD Unavailable Unavailable IFEOMA RICH MD Unavailable Unavailable IFEOMA RICH MD Unavailable Unavailable IFEOMA RICH MD Unavailable Unavailable IFEOMA RICH MD Unavailable Unavailable IFEOMA RICH MD Unavailable Unavailable IFEOMA RICH MD Unavailable Unavailable IFEOMA RICH MD Unavailable Unavailable IFEOMA RICH MD Unavailable Unavailable IFEOMA RICH MD Unavailable Unavailable IFEOMA RICH MD Unavailable Unavailable IEFOMA RICH MD Unavailable Unavailable IFEOMA RICH MD Unavailable Unavailable IFEOMA RICH MD Unavailable Unavailable Seng Suarez MINE ENGINEER Unavailable Unavailable Suarez, D Kelly MINE ENGINEER Unavailable Unavailable Suarez, D Kelly MINE ENGINEER Unavailable Unavailable Suarez, D Kelly MINE ENGINEER Unavailable Unavailable Suarez, D Kelly MINE ENGINEER Unavailable Unavailable Suarez, D Kelly MINE ENGINEER Unavailable Unavailable Suarez, D Kelly MINE ENGINEER Unavailable Unavailable Suarez, D Kelly MINE ENGINEER Unavailable Unavailable Suarez, D Kelly MINE ENGINEER Unavailable Unavailable Suarez, D Kelly MINE ENGINEER Unavailable Unavailable Suarez, D Kelly MINE ENGINEER Unavailable Unavailable Suarez, D Kelly MINE ENGINEER Unavailable Unavailable Suarez, D Kelly MINE ENGINEER Unavailable Unavailable Suarez, D Kelly MINE ENGINEER Unavailable Unavailable Suarez, D Kelly MINE ENGINEER Unavailable Unavailable Suarez, D Kelly MINE ENGINEER Unavailable Unavailable Suarez, D Kelly MINE ENGINEER Unavailable Unavailable Suarez, D Kelly MINE ENGINEER Unavailable Unavailable Suarez, D Kelly MINE ENGINEER Unavailable Unavailable Suarez, D Kelly MINE ENGINEER Unavailable Unavailable Suarez, D Kelly MINE ENGINEER Unavailable Unavailable Suarez, D Kelly MINE ENGINEER Unavailable Unavailable Suarez, D Kelly MINE ENGINEER Unavailable Unavailable Suarez, D Kelly MINE ENGINEER Unavailable Unavailable Suarez, D Kelly MINE ENGINEER Unavailable Unavailable Suarez, D Kelly MINE ENGINEER Unavailable Unavailable Suarez, D Kelly MINE ENGINEER Unavailable Unavailable Suarez, D Kelly MINE ENGINEER Unavailable Unavailable Suarez, D Kelly MINE ENGINEER Unavailable Unavailable Suarez, D Kelly MINE ENGINEER Unavailable Unavailable Suarez, D Kelly MINE ENGINEER Unavailable Unavailable Suarez, D Kelly MINE ENGINEER Unavailable Unavailable Suarez, D Kelly MINE ENGINEER Unavailable Unavailable Suarez, D Kelly MINE ENGINEER Unavailable Unavailable Suarez, D Kelly MINE ENGINEER Unavailable Unavailable Suarez, D Kelly MINE ENGINEER Unavailable Unavailable Suarez, D Kelly MINE ENGINEER Unavailable Unavailable Suarez, D Kelly MINE ENGINEER Unavailable Unavailable Suarez, D Kelly MINE ENGINEER Unavailable Unavailable Suarez, D Kelly MINE ENGINEER Unavailable Unavailable Suarez, D Kelly MINE ENGINEER Unavailable Unavailable Suarez, D Kelly MINE ENGINEER Unavailable Unavailable Suarez, D Kelly MINE ENGINEER Unavailable Unavailable Suarez, D Kelly MINE ENGINEER Unavailable Unavailable Suarez, D Kelly MINE ENGINEER Unavailable Unavailable Suarez, D Kelly MINE ENGINEER Unavailable Unavailable Suarez, D Kelly MINE ENGINEER Unavailable Unavailable Suarez, D Kelly MINE ENGINEER Unavailable Unavailable Suarez, D Kelly MINE ENGINEER Unavailable Unavailable Suarez, D Kelly MINE ENGINEER Unavailable Unavailable Suarez, D Kelly MINE ENGINEER Unavailable Unavailable SUSAN, E ANGIE MINE ENGINEER Unavailable Unavailable SUSAN, E ANGIE MINE ENGINEER Unavailable Unavailable SUSAN, E ANGIE MINE ENGINEER Unavailable Unavailable SUSAN, E ANGIE MINE ENGINEER Unavailable Unavailable SUSAN, E ANGIE MINE ENGINEER Unavailable Unavailable SUSAN, E ANGIE MINE ENGINEER Unavailable Unavailable SUSAN, E ANGIE MINE ENGINEER Unavailable Unavailable SUSAN, E ANGIE MINE ENGINEER Unavailable Unavailable SUSAN, E ANGIE MINE ENGINEER Unavailable Unavailable SUSAN, E ANGIE MINE ENGINEER Unavailable Unavailable SUSAN, E ANGIE MINE ENGINEER Unavailable Unavailable SUSAN, E ANGIE MINE ENGINEER Unavailable Unavailable SUSAN, E ANGIE MINE ENGINEER Unavailable Unavailable SUSAN, E ANGIE MINE ENGINEER Unavailable Unavailable SUSAN, E ANGIE MINE ENGINEER Unavailable Unavailable SUSAN, E ANGIE MINE ENGINEER Unavailable Unavailable SUSAN, E ANGIE MINE ENGINEER Unavailable Unavailable SUSAN, E ANGIE MINE ENGINEER Unavailable Unavailable SUSAN, E ANGIE MINE ENGINEER Unavailable Unavailable SUSAN, E ANGIE MINE ENGINEER Unavailable Unavailable SUSAN, E ANGIE MINE ENGINEER Unavailable Unavailable SUSAN, E ANGIE MINE ENGINEER Unavailable Unavailable SUSAN, E ANGIE MINE ENGINEER Unavailable Unavailable LAURENT MEJIA MD Unavailable Unavailable LAURENT MEJIA MD Unavailable Unavailable LAURENT MEJIA MD Unavailable Unavailable LAURENT MEJIA MD Unavailable Unavailable LAURENT MEJIA MD Unavailable Unavailable LAURENT MEJIA MD Unavailable Unavailable LAURENT MEJIA MD Unavailable Unavailable LAURENT MEJIA MD Unavailable Unavailable LAURENT MEJIA MD Unavailable Unavailable LAURENT MEJIA MD Unavailable Unavailable LAURENT MEJIA MD Unavailable Unavailable LAURENT MEJIA MD Unavailable Unavailable LAURENT MEJIA MD Unavailable Unavailable LAURENT MEJIA MD Unavailable Unavailable LAURENT MEJIA MD Unavailable Unavailable LAURENT MEJIA MD Unavailable Unavailable LAURENT MEJIA MD Unavailable Unavailable LAURENT MEJIA MD Unavailable Unavailable LAURENT MEJIA MD Unavailable Unavailable LAURENT MEJIA MD Unavailable Unavailable LAURENT MEJIA MD Unavailable Unavailable LAURENT MEJIA MD Unavailable Unavailable LAURENT MEJIA MD Unavailable Unavailable LAURENT MEJIA MD Unavailable Unavailable LAURENT MEJIA MD Unavailable Unavailable LAURENT MEJIA MD Unavailable Unavailable LAURENT MEJIA MD Unavailable Unavailable LAURENT MEJIA MD Unavailable Unavailable LAURENT MEJIA MD Unavailable Unavailable LAURENT MEJIA MD Unavailable Unavailable LAURENT MEJIA MD Unavailable Unavailable LAURENT MEJIA MD Unavailable Unavailable LAURENT MEJIA MD Unavailable Unavailable LAURENT MEJIA MD Unavailable Unavailable LAURENT MEJIA MD Unavailable Unavailable LAURENT MEJIA MD Unavailable Unavailable LAURENT MEJIA MD Unavailable Unavailable LAURENT MEJIA MD Unavailable Unavailable LAURENT MEJIA MD Unavailable Unavailable LAURENT MEJIA MD Unavailable Unavailable LAURENT MEJIA MD Unavailable Unavailable LAURENT MEJIA MD Unavailable Unavailable LAURENT MEJIA MD Unavailable Unavailable LAURENT MEJIA MD Unavailable Unavailable LAURENT MEJIA MD Unavailable Unavailable Khai Rodriguez MD Unavailable Unavailable Geovanny Mcfadden MD Unavailable Unavailable Mai PATEL MD Unavailable Unavailable Mai PATEL MD Unavailable Unavailable Mai PATEL MD Unavailable Unavailable Mai PATEL MD Unavailable Unavailable Mai PATEL MD Unavailable Unavailable Mai PATEL MD Unavailable Unavailable Mai PATEL MD Unavailable Unavailable Mai PATEL MD Unavailable Unavailable Mai PATEL MD Unavailable Unavailable Mai PATEL MD Unavailable Unavailable Mai PATEL MD Unavailable Unavailable Mai PATEL MD Unavailable Unavailable Mai PATEL MD Unavailable Unavailable Mai PATEL MD Unavailable Unavailable Mai PATEL MD Unavailable Unavailable Mai PATEL MD Unavailable Unavailable CHERMai ROMAN MD Unavailable Unavailable CHERMai ROMAN MD Unavailable Unavailable CHERMai ROMAN MD Unavailable Unavailable Mai PATEL MD Unavailable Unavailable Mai PATEL MD Unavailable Unavailable Mai PATEL MD Unavailable Unavailable Mai PATEL MD Unavailable Unavailable Mai PATEL MD Unavailable Unavailable Mai PATEL MD Unavailable Unavailable Mai PATEL MD Unavailable Unavailable Mai PATEL MD Unavailable Unavailable Mai PATEL MD Unavailable Unavailable Mai PATEL MD Unavailable Unavailable Mai PATEL MD Unavailable Unavailable Mai PATEL MD Unavailable Unavailable Mai PATEL MD Unavailable Unavailable Mai PATEL MD Unavailable Unavailable Mai PATEL MD Unavailable Unavailable Mai PATEL MD Unavailable Unavailable Mai PATEL MD Unavailable Unavailable Mai PATEL MD Unavailable Unavailable Mai PATEL MD Unavailable Unavailable Mai PATEL MD Unavailable Unavailable Mai PATEL MD Unavailable Unavailable Mai PATEL MD Unavailable Unavailable Mai PATEL MD Unavailable Unavailable Mai PATEL MD Unavailable Unavailable Mai PATEL MD Unavailable Unavailable Mai PATEL MD Unavailable Unavailable Mai PATEL MD Unavailable Unavailable Mai PATEL MD Unavailable Unavailable Mai PATEL MD Unavailable Unavailable Mai PATEL MD Unavailable Unavailable Mai PATEL MD Unavailable Unavailable Mai PATEL MD Unavailable Unavailable Mai PATEL MD Unavailable Unavailable Mai PATEL MD Unavailable Unavailable Mai PATEL MD Unavailable Unavailable Mai PATEL MD Unavailable Unavailable Mai PATEL MD Unavailable Unavailable Mai PATEL MD Unavailable Unavailable Mai PATEL MD Unavailable Unavailable Mai PATEL MD Unavailable Unavailable Mai PATEL MD Unavailable Unavailable Mai PATEL MD Unavailable Unavailable Mai PATEL MD Unavailable Unavailable Mai PATEL MD Unavailable Unavailable Mai PATEL MD Unavailable Unavailable Mai PATEL MD Unavailable Unavailable Mai PATEL MD Unavailable Unavailable Mai PATEL MD Unavailable Unavailable Mai PATEL MD Unavailable Unavailable Mai PATEL MD Unavailable Unavailable Mai PATEL MD Unavailable Unavailable Mai PATEL MD Unavailable Unavailable Mai PATEL MD Unavailable Unavailable Mai PATEL MD Unavailable Unavailable Mai PATEL MD Unavailable Unavailable Mai PATEL MD Unavailable Unavailable Mai PATEL MD Unavailable Unavailable Mai PATEL MD Unavailable Unavailable Mai PATEL MD Unavailable Unavailable Mai PATEL MD Unavailable Unavailable Mai PATEL MD Unavailable Unavailable Mai PATEL MD Unavailable Unavailable Mai PATEL MD Unavailable Unavailable Mai PATEL MD Unavailable Unavailable Mai PATEL MD Unavailable Unavailable Mai PATEL MD Unavailable Unavailable Mai PATEL MD Unavailable Unavailable Mai PATEL MD Unavailable Unavailable Mai PATEL MD Unavailable Unavailable Mai PATEL MD Unavailable Unavailable Mai PATEL MD Unavailable Unavailable Nolan Falcon MD Unavailable Unavailable Nolan Falcon MD Unavailable Unavailable Nolan Falcon MD Unavailable Unavailable Nolan Falcon MD Unavailable Unavailable Nolan Falcon MD Unavailable Unavailable Nolan Falcon MD Unavailable Unavailable Nolan Falcon MD Unavailable Unavailable Nolan Falcon MD Unavailable Unavailable Nolan Falcon MD Unavailable Unavailable Nolan Falcon MD Unavailable Unavailable Nolan Falcon MD Unavailable Unavailable Nolan Falcon MD Unavailable Unavailable Nolan Falcon MD Unavailable Unavailable Nolan Falcon MD Unavailable Unavailable Nloan Falcon MD Unavailable Unavailable Nolan Falcon MD Unavailable Unavailable Nolan Falcon MD Unavailable Unavailable Nolan Falcon MD Unavailable Unavailable Nolan Falcon MD Unavailable Unavailable Nolan Falcon MD Unavailable Unavailable Nolan Falcon MD Unavailable Unavailable Nolan Falcon MD Unavailable Unavailable Nolan Falcon MD Unavailable Unavailable Nolan Falcon MD Unavailable Unavailable Nolan Falcon MD Unavailable Unavailable Nolan Falcon MD Unavailable Unavailable Nolan Falcon MD Unavailable Unavailable Banashkevich, Nolan MD Unavailable Unavailable Banashkevich, Nolan MD Unavailable Unavailable Banashkevich, Nolan MD Unavailable Unavailable Banashkevich, Nolan MD Unavailable Unavailable Banashkevich, Nolan MD Unavailable Unavailable Banashkevich, Nolan MD Unavailable Unavailable Banashkevich, Nolan MD Unavailable Unavailable Banashkevich, Nolan MD Unavailable Unavailable Banvinodkevich, Nolan MD Unavailable Unavailable Banvinodkejaneth, Nolan MD Unavailable Unavailable Banvinodkejaneth, Nolan MD Unavailable Unavailable Banlianeth, Nolan MD Unavailable Unavailable Re-disclosure Warning The records that you are about to access may contain information from federally-assisted alcohol or drug abuse programs. If such information is present, then the following federally mandated warning applies: This information has been disclosed to you from records protected by federal confidentiality rules (42 CFR part 2). The federal rules prohibit you from making any further disclosure of this information unless further disclosure is expressly permitted by the written consent of the person to whom it pertains or as otherwise permitted by 42 CFR part 2. A general authorization for the release of medical or other information is NOT sufficient for this purpose. The Federal rules restrict any use of the information to criminally investigate or prosecute any alcohol or drug abuse patient.The records that you are about to access may contain highly sensitive health information, the redisclosure of which is protected by Article 27-F of the [facility] Public Health law. If you continue you may have access to information: Regarding HIV / AIDS; Provided by facilities licensed or operated by the [facility] Office of Mental Health; or Provided by the [facility] Office for People With Developmental Disabilities. If such information is present, then the following [facility] mandated warning applies: This information has been disclosed to you from confidential records which are protected by state law. State law prohibits you from making any further disclosure of this information without the specific written consent of the person to whom it pertains, or as otherwise permitted by law. Any unauthorized further disclosure in violation of state law may result in a fine or prison sentence or both. A general authorization for the release of medical or other information is NOT sufficient authorization for further disc losure. Allergies and Adverse Reactions Type Description Substance Reaction Status Data Source(s ) Drug allergy gum mastic gum mastic Rash [facility] Drug allergy glimepiride glimepiride palpitations upset stomach fatig ue [facility] Drug allergy storax storax Rash SV [facility] Drug allergy sertraline sertraline Hives MO [facility] Drug allergy azithromycin Azithromycin [facility] Drug allergy clindamycin Clindamycin Hives MO [facility] Drug allergy alcohol alcohol Rash SV [facility] Drug allergy methyl salicylate methyl salicylate Rash SV [facility] Drug allergy Penicillins Penicillin Hives MO [facility] Miscellaneous allergy Steri strips Steri strips Blister SV [facility] Drug allergy Penicillins Penicillins [facility]ematology [facility] Drug allergy azithromycin azithromycin Urticaria Hematolo gy [facility] Drug allergy adhesive tape adhesive tape Blister [facility]emat [facility] Drug intolerance Requip Requip GI upset Active [facility] ([facility]) Drug intolerance Requip Requip GI upset Active [facility] ([facility]) Drug intolerance Requip Requip GI upset Active [facility] ([facility]) Drug intolerance Requip 1 MG Oral Tablet Requip 1MG Oral Tablet GI upset Active [facility] ([facility]) Drug intolerance Requip 1 MG Oral Tablet Requip 1MG Oral Tablet GI upset Active [facility] ([facility]) Family History Family Member Name Family Member Gender Family Member Status Date o f Status Description Data Source(s) Unknown Condition [facility] Unknown Condition [facility] Unknown Condition [facility] Unknown Condition [facility] Unknown Condition [facility] Unknown Condition [facility] Unknown Condition [facility] Unknown Condition [facility] Unknown Condition [facility] Unknown Condition [facility] Unknown Condition [facility] Unknown Condition [facility] Unknown Condition [facility] Unknown Condition [facility] Unknown Condition [facility] Unknown Condition [facility] Encounters Encounter Providers Location Date Indications Data Source(s ) Outpatient Attender: ANGIE DAVIS NP 07/16/2020 03:5 1:00 PM EST PRE OP/N20.0,Z01.818 [facility] PRE OP/N20.0,Z01.818 Outpatient Attender: LAURENT PATEL MDReferrer: AUDREY Ellsworth [id number] 07/15/2020 12:04:24 PM EST [facility] Outpatient Attender: LAURENT PATEL MDReferrer: AUDREY Ellsworth [id number] 07/15/2020 11:28:34 AM EST [facility] Outpatient Attender: LAURENT PATEL MDReferrer: AUDREY Ellsworth [id number] 07/14/2020 10:49:41 AM EST [facility] Outpatient Attender: Tenisha Carpenter MD BF-BF 07/14/2020 12:00:0 0 AM EST [facility] Unknown [address] [facility] [id number] 07/10/2020 12:00:00 AM EST eCW1 ([facility]) Outpatient Attender: LAURENT PATEL MDReferrer: AUDREY Ellsworth [id number] 07/09/2020 04:09:33 PM EST [facility] Outpatient Attender: LAURENT PATEL MDReferrer: AUDREY Ellsworth [id number] 07/08/2020 02:31:08 PM EST [facility] Outpatient Attender: LAURENT PATEL MDReferrer: AUDREY Ellsworth [id number] 07/08/2020 01:51:18 PM EST [facility] Outpatient Attender: LAURENT PATEL MDReferrer: AUDREY Ellsworth [id number] 07/08/2020 01:18:34 PM EST [facility] Outpatient Attender: LAURENT PATEL MDReferrer: AUDREY Ellsworth [id number] 07/07/2020 04:51:34 PM EST [facility] Outpatient [address] [facility] [id number] 07/07/2020 12:00:00 AM EST eCW1 ([facility]) Unknown [address] [facility] [id number] 07/07/2020 12:00:00 AM EST eCW1 ([facility]) Unknown [address] [facility] [phone] 07/07/2020 12:00:00 AM EST eCW1 ([facility]) Outpatient Attender: Nima Mcfadden MD 07/04/2020 05:42: 00 PM EST [facility] Outpatient Attender: Nima Mcfadden MDReferrer: Hung ochoa MD 07/04/2020 02:13:00 PM EST - 07/04/2020 03:39:00 PM EST [facility] Outpatient Attender: LAURENT PATLE MDReferrer: AUDREY Ellsworth [id number] 07/03/2020 06:14:33 AM EST [facility] Unknown [address] [facility] [id number] 06/30/2020 12:00:00 AM EST eCW1 ([facility]) Outpatient Attender: ANGIE DAVIS NP 06/27/2020 12:0 4:00 PM EST FLANK PAIN N20.0 [facility] FLANK PAIN N20.0 Outpatient Attender: LAURENT PATEL MDReferrer: AUDREY Ellsworth [id number] 06/26/2020 12:14:19 PM EST [facility] Outpatient Attender: DAMON RICH MDReferrer: LAURENT ELLIOTT MD 07A-ERICKIDA 06/26/2020 12:00:00 AM EST Malignant neoplasm of central portion of right female breast [facility] Malignant neoplasm of central portion of right female breast Outpatient Attender: LAURENT PATEL MDReferrer: AUDREY Ellsworth [id number] 06/19/2020 08:36:15 AM EST [facility] Outpatient Attender: LAURENT Kocherrer: AUDREY Ellsworth [id number] 06/17/2020 02:12:06 PM EST [facility] Outpatient Attender: LAURENT PATEL MDReferrer: AUDREY Ellsworth [id number] 06/17/2020 01:40:57 PM EST [facility] Outpatient Attender: LAURENT PATEL MDReferrer: AUDREY Ellsworth [id number] 06/17/2020 01:35:58 PM EST [facility] Outpatient Attender: LAURENT PATEL MDReferrer: AUDREY Ellsworth [id number] 06/16/2020 12:32:59 PM EST [facility] Outpatient BF-BF 06/16/2020 10:29:08 AM EST - 021 11:26:13 AM EST [facility] Outpatient Attender: DAMON RICH MD [id number] 06/13/2020 03 :09:50 PM EST [facility] Outpatient Attender: LAURENT PATEL ARISTEOeferrer: AUDREY Ellsworth [id number] 06/13/2020 01:08:04 PM EST [facility] Unknown [address] [place] [phone] 06/13/2020 12:00:00 AM EST eCW1 ([facility]) Outpatient Attender: LAURENT SHEILAJESSIE Augusterrer: AUDREY Ellsworth [id number] 06/11/2020 06:15:45 AM EST [facility] Outpatient [address] [place] [phone] 06/11/2020 12:00:00 AM EST eCW1 ([facility]) Outpatient Attender: LAURENT JORGE MDReferrer: AUDREY Ellsworth [id number] 06/05/2020 10:10:24 AM EST [facility] Outpatient Attender: LAURENT SHEILAJESSIE MDReferrer: AUDREY Ellsworth [id number] 06/03/2020 03:33:45 PM EST [facility] Outpatient Attender: Kasia Cuevas MD 06/02/2020 05:00:00 PM EST J06.9 [facility] J06.9 Outpatient Attender: LAURENT PATEL MDReferrer: AUDREY Ellsworth [id number] 06/02/2020 04:39:31 PM EST [facility] Outpatient Attender: LAURENT PATEL MDReferrer: AUDREY Ellsworth [id number] 05/27/2020 01:26:45 PM EST [facility] Outpatient Attender: LAURENT PATEL MDReferrer: AUDREY Ellsworth [id number] 05/27/2020 12:45:40 PM EST [facility] Outpatient Attender: LAURENT MEJIA MD 05/21/2020 0 9:01:00 AM EST AROMABASE THERAPY C50.111 [facility] AROMABASE THERAPY C50.111 Outpatient Attender: Nolan ALBERTSefer rer: LAURENT PATEL MD IDA 05/20/2020 12:00:00 AM [facility] Outpatient Attender: LAURENT PATEL MD 05/19/2020 12:19:00 PM EST [facility] Outpatient BF-BF.[facility] 05/19/2020 09:50:05 AM EST - 05/19/2020 10:16:24 AM EST [facility] Outpatient Attender: LAURENT PATEL MDReferrer: AUDREY Ellsworth [id number] 05/16/2020 11:00:38 AM EST [facility] Attender: DAMON RICH MDReferrer: LAURENT ELLIOTT MD 05/12/2020 12:00:00 AM [facility] Outpatient Attender: LAURENT PATEL MDReferrer: AUDREY Ellsworth [id number] 05/06/2020 12:52:33 PM EST [facility] Outpatient Attender: DAMON RICH MDReferrer: LAURENT ELLIOTT MD IDA 05/05/2020 12:00:00 AM [facility] Outpatient Attender: LAURENT PATEL MDReferrer: AUDREY Ellsworth [id number] 05/01/2020 06:24:24 AM EST [facility] Outpatient Attender: DAMON RICH MDReferrer: LAURENT ELLIOTT MD lEissaERICKIDA 04/28/2020 12:00:00 AM [facility] Outpatient Attender: DAMON RICH MD 04/22/2020 12:00:00 AM [facility] Unknown [address] [facility] [address] 04/21/2020 12:00:00 AM EST eC ([facility]) Outpatient Attender: DAMON RICH MDReferrer: AUDREY Ellsworth [id number] 04/16/2020 12:00:00 AM EST - 04/16/2020 04:00:34 PM EST Malignant neoplasm of central portion of right female breast [facility] Malignant neoplasm of central portion of right female breast Outpatient Referrer: AUDREY GOODE MD 04/16/2020 12:00:00 AM E [facility] nurse Outpatient Attender: LAURENT PATEL MDReferrer: AUDREY Ellsworth [id number] 04/15/2020 01:11:32 PM EST [facility] Outpatient Attender: DAMON RICH MDReferrer: LAURENT ELLIOTT MD A-ROONEIDA 04/14/2020 12:00:00 AM [facility] Outpatient Attender: LAURENT PATEL MDReferrer: AUDREY Ellsworth [id number] 04/11/2020 12:48:59 PM EST [facility] Outpatient Attender: LAURENT PATEL MDReferrer: AUDREY Ellsworth [id number] 04/11/2020 08:08:16 AM EST [facility] Outpatient Attender: Tenisha Carpenter MD BF-BF 04/08/2020 12:00:0 0 AM EST [facility] Outpatient Attender: Kelly OMHAN-RORY 03/24 10:15:10 AM EDT - 03/24/2020 11:19:55 AM EDT [facility] Outpatient Attender: Kelly CAMPBELL 03/21/2020 0 1:16:07 PM EDT [facility] Outpatient Referrer: AUDREY GOODE MD 03/19/2020 10:06:[address] [facility] Outpatient Attender: AUDREY GOODE MDReferrer: AUDREY GOODE MD NEP EUC-NEPESUR 03/19/2020 09:15:15 AM EDT - 03/19/2020 10:07:06 AM EDT [facility] Outpatient Attender: AUDREY GOODE MDReferrer: AUDREY GOODE MD [facility] -MOB.PAT 03/10/2020 09:32:01 AM EDT - 03/10/2020 10:22:14 AM EDT [facility] Outpatient Referrer: AUDREY GOODE MD [facility].PAT 0 10:54:53 AM EDT - 03/07/2020 10:54:58 AM EDT [facility] Outpatient Referrer: AUDREY GOODE MD 03/06/2020 10:58:[address] [facility] Outpatient Referrer: AUDREY GOODE MD 03/05/2020 09:03:[address] [facility] Outpatient Attender: LAURENT PATEL MDReferrer: AUDREY Ellsworth [id number] 03/04/2020 01:50:55 PM EDT [facility] Outpatient Attender: LAURENT PATEL MDReferrer: AUDREY Ellsworth [id number] 03/04/2020 01:42:20 PM EDT [facility] SDC Attender: AUDREY GOODE MDAdmitter: AUDREY Butt MDReferrer: AUDREY GOODE MD NES-NES.NORMA 02/27/2020 12:30:41 PM EDT - 03/11/2020 01:53:00 PM EDT [facility] Patient discharged. Emergency Attender: Cisco Still MD 01/29 10:50:00 AM EDT - 02/26/2020 12:56:00 PM EDT CHEST PAIN [facility] l CHEST PAIN Patient discharged. Outpatient Attender: Tenisha Chanceerrer: Teinsha Randolph MD BF-BF.[facility] 02/15/2020 01:53:42 PM EDT - 02/15/2020 02:29:09 PM EDT [facility] Outpatient Attender: AUDREY MOHAN-RORY 0 01:06:07 PM EDT - 02/08/2020 01:53:06 PM EDT [facility] Outpatient<td ID="encounterTypeDescripti onID0">Problem visit - not contagious</td><td>Hung Brody MD</td><td>[facility], [facility]</td><td>01/24/2020</td><td>9:43AM</td><td> 10:12AM</td><td><content ID="encounterDiagnosisID0-0">Restless Legs Syndrome</content></td> Attender: Hung Brody MD [facility], [facility] 01/24/2020 09:43:00 AM EDT - 01/24/2020 10:12:00 AM ED T Restless Legs Syndrome [place] ([facility]) Restless Legs Syndrome Outpatient Attender: Hung Justin MDReferrer: Hung rice MD 01/17/2020 03:43:00 PM EDT - 01/17/2020 04:24:00 PM EDT [facility] Outpatient Attender: Hung Justin MD 01/15/2020 02: 58:00 PM EDT POST OP LEFT KNEE REPLACEMENT [facility] POST OP LEFT KNEE REPLACEMENT Outpatient<td ID="encounterTypeDescripti onID1">sick visit</td><td>Hung Brody MD</td><td>[facility]</td><td>01/05/2020</td><td>11:44AM</td><td>12:04PM</td><td><content ID="encounterDiagnosisID1-0">Sore Throat</content></td> Attender: Hung Brody MD [facility] 01/05/2020 11:44:00 A M EDT - 01/05/2020 12:04:00 PM EDT Sore ThroatSore Throat [place] ([facility]) Sore Throat Sore Throat Outpatient Attender: LAURENT PATEL MD 12/31/2019 10 :01:00 AM EDT RT BREAST F/U [facility] RT BREAST F/U Outpatient Attender: Tenisha Carpenter MD BF-BF 12/31/2019 12:00:0 0 AM EDT [facility] Outpatient<td ID="encounterTypeDescripti onID2">followup</td><td>Hung Brody MD</td><td>[facility], [facility]</td><td>12/26/2019</td><td>7:47AM</td><td>8:14AM</td><td><content ID="encounterDiagnosisID2-0">Diabetes Mellitus Type 2 - Uncomplicated, Controlled By Oral Hypoglycemics</content>, <content ID="encounterDiagnosisID2-1">Breast Neoplasm Malignant Female Primary Left</content></td> Attender: Hung Brody MD [facility] 12/26/2019 07:47:00 AM EDT - 12/26/2019 08:14:00 AM ED T Breast Neoplasm Malignant Female Primary LeftBreast Neoplasm Malignant Female Primary LeftBreast Neoplasm Malignant Female Primary LeftDiabetes Mellitus Type 2 - Uncomplicated, Controlled By Oral HypoglycemicsDiabetes Mellitus Type 2 - Uncomplicated, Controlled By Oral HypoglycemicsDiabetes Mellitus Type 2 - Uncomplicated, Controlled By Oral Hypoglycemics [place] ([facility]) Breast Neoplasm Malignant Female Primary Left Breast Neoplasm Malignant Female Primary Left Breast Neoplasm Malignant Female Primary Left Diabetes Mellitus Type 2 - Uncomplicated , Controlled By Oral Hypoglycemics Diabetes Mellitus Type 2 - Uncomplicated , Controlled By Oral Hypoglycemics Diabetes Mellitus Type 2 - Uncomplicated , Controlled By Oral Hypoglycemics Outpatient [address] [facility] [place] [address] 12/10/2019 12:00:00 AM EDT eC1 ([facility]) Outpatient Attender: LAURENT PATEL MD 11/20/2019 10:47:00 AM EDT [facility] Outpatient Attender: LAURENT PATEL MDReferrer: LAURENT ELLIOTT MD BF-BF 11/14/2019 08:08:51 AM EDT [facility] Outpatient Referrer: AUDREY GOODE MD 11/12/2019 10:24:40 AM E DT [facility] Outpatient Referrer: AUDREY GOODE MD 11/05/2019 01:28:[address] [facility] SDC Attender: AUDREY GOODE MDAdmitter: AUDREY GOODE MD JOSE ARMANDO C-NESC.NORMA 11/05/2019 11:55:01 AM EDT [facility] [address] [place] [phone] 11/05/2019 12:00:00 AM EDT eCW1 ([facility]) SDC Attender: AUDREY GOODE MDAdmitter: AUDREY Butt MDReferrer: AUDREY GOODE MD [email or web address].PERIOP 10/31/2019 03:19:54 PM EDT - 11/02/2019 02:44:00 PM EDT [facility] Patient discharged. 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</content></td> Attender: Hung Brody MD [facility], [facility] 10/25/2019 03:12:00 PM EDT - 10/25/2019 04:10:00 PM ED T Breast Neoplasm Malignant Female Upper Inner Quadrant PrimaryBreast Neoplasm Malignant Female Upper Inner Quadrant PrimaryBreast Neoplasm Malignant Female Upper Inner Quadrant PrimaryBreast Neoplasm Malignant Female Upper Inner Quadrant Primary [place] ([facility]) Breast Neoplasm Malignant Female Upper I nner Quadrant Primary Breast Neoplasm Malignant Female Upper I nner Quadrant Primary Breast Neoplasm Malignant Female Upper I nner Quadrant Primary Breast Neoplasm Malignant Female Upper I nner Quadrant Primary Outpatient Attender: Hung Brody MD 10/12/2019 0 8:55:00 AM EDT RIGHT BREAST MASS [facility] RIGHT BREAST MASS Outpatient<td ID="encounterTypeDescripti onID4">[Patient Encounter]</td><td>Hung Brody MD</td><td></td><td>10/11/2019</td><td>10/02/2019 9:27AM</td><td>10/02/2019 11:59PM</td><td></td> Attender: Hung Brody MD 0 09:27:00 AM EDT - 10/02/2019 11:59:00 PM EDT [place] ([facility]) Outpatient<td ID="encounterTypeDescripti onID5">ANNUAL PE-followup exam</td><td>Hung Brody MD</td><td>[facility], [facility]</td><td>10/02/2019</td><td>8:23AM</td><td>9:24AM</td><td><content ID="encounterDiagnosisID5-0">Breast Mass</content>, <content ID="encounterDiagnosisID5-1">Diabetes Mellitus Type 2 - Uncomplicated, Controlled By Oral Hypoglycemics</content>, <content ID="encounterDiagnosisID5- 2">Hyperlipoproteinemia Mixed</content>, <content ID="encounterDiagnosisID5- 3">Routine History and Physical Adult (18 - 64 Yrs)</content></td> Attender: Hung Brody MD [facility] 10/02/2019 08:23:00 A M EDT - 10/02/2019 09:24:00 AM EDT Routine History and Physical Adult (18 - 64 Yrs)Hyperlipoproteinemia MixedBreast MassRoutine History and Physical Adult (18 - 64 Yrs)Hyperlipoproteinemia MixedBreast MassRoutine History and Physical Adult (18 - 64 Yrs)Hyperlipoproteinemia MixedBreast MassRoutine History and Physical Adult (18 - 64 Yrs)Hyperlipoproteinemia MixedBreast MassRoutine History and Physical Adult (18 - 64 Yrs)Hyperlipoproteinemia MixedBreast MassDiabetes Mellitus Type 2 - Uncomplicated, Controlled By Oral HypoglycemicsDiabetes Mellitus Type 2 - Uncomplicated, Controlled By Oral HypoglycemicsDiabetes Mellitus Type 2 - Uncomplicated, Controlled By Oral HypoglycemicsDiabetes Mellitus Type 2 - Uncomplicated, Controlled By Oral HypoglycemicsDiabetes Mellitus Type 2 - Uncomplicated, Controlled By Oral Hypoglycemics [place] ([facility]) Routine History and Physical Adult (18 - 64 Yrs) Hyperlipoproteinemia Mixed Breast Mass Routine History and Physical Adult (18 - 64 Yrs) Hyperlipoproteinemia Mixed Breast Mass Routine History and Physical Adult (18 - 64 Yrs) Hyperlipoproteinemia Mixed Breast Mass Routine History and Physical Adult (18 - 64 Yrs) Hyperlipoproteinemia Mixed Breast Mass Routine History and Physical Adult (18 - 64 Yrs) Hyperlipoproteinemia Mixed Breast Mass Diabetes Mellitus Type 2 - Uncomplicated , Controlled By Oral Hypoglycemics Diabetes Mellitus Type 2 - Uncomplicated , Controlled By Oral Hypoglycemics Diabetes Mellitus Type 2 - Uncomplicated , Controlled By Oral Hypoglycemics Diabetes Mellitus Type 2 - Uncomplicated , Controlled By Oral Hypoglycemics Diabetes Mellitus Type 2 - Uncomplicated , Controlled By Oral Hypoglycemics Outpatient Attender: Tenisha HALEY-BF 09/19/2019 12:00:0 0 AM EDT [facility] Outpatient<td ID="encounterTypeDescripti onID6">sick visit</td><td>Angélica Couch [facility]</td><td>[facility]</td><td>08/17/2019</td><td>2:55PM</td><td>3:48PM</td><td><content ID="encounterDiagnosisID6-0">Acute Bronchitis</content></td> Attender: Angélica LUIS [facility] LLAmanda 08/17/2019 02:55:00 P M EDT - 08/17/2019 03:48:03 PM EDT Acute BronchitisAcute BronchitisAcute Br onchitisAcute BronchitisAcute BronchitisAcute Bronchitis [place] ([facility]) Acute Bronchitis Acute Bronchitis Acute Bronchitis Acute Bronchitis Acute Bronchitis Acute Bronchitis Outpatient<td ID="encounterTypeDescripti onID7">[Patient Encounter]</td><td>Hung Brody MD</td><td></td><td>07/24/2019</td><td>03/30/2019 9:32AM</td><td>03/30/2019 11:59PM</td><td></td> Attender: Hung Brody MD 0 09:32:00 AM EST - 03/30/2019 11:59:00 PM EDT [place] ([facility]) Outpatient Attender: Tenisha Carpenter MD BF-BF 06/11/2019 12:00:0 0 AM EST [facility] Outpatient Attender: Khai ALBERTSeferrer: Hung wallace MD 05/25/2019 01:56:00 PM EST - 05/25/2019 02:38:00 PM EST [facility] Medications Medication Brand Name Start Date Product Form Dose Route Admi nistrative Instructions Pharmacy Instructions Status Indications Reaction Description Data Source(s) Acetaminophen 325 MG / Oxycodone Hydroch loride 5 MG Oral Tablet [Percocet] Percocet 5-325 MG Percocet 5-325 MG 07/10/2020 12:00:00 AM EST 1 .0 {tablet_as_needed} active Percocet 5-32 5 MG eCW1 ([facility]) anastrozole 1 MG Oral Tablet Anastrozole (Arimidex) 1 mg tablet Anastrozole (Arimidex) 1 mg tablet 07/04/2020 02:48:31 PM EST 1 MG completed [facility] Metformin hydrochloride 500 MG Oral Tablet Metformin Hcl Met formin Hcl 07/04/2020 02:45:35 PM EST 1 TAB [facility] Lisinopril 2.5 MG Oral Tablet Lisinopril 07/04/2020 02:45:16 PM EST 2.5 MG completed [facility] Pramipexole dihydrochloride 0.125 MG Ora l Tablet Pramipexole Dihydrochloride 0.125 MG Oral Tablet (MIRAPEX) Pramipexole Dihydrochloride 0.125 MG Ora l Tablet (MIRAPEX) 01/29/2020 12:00:00 AM EDT active [facility] Pramipexole dihydrochloride 0.125 MG Ora l Tablet Pramipexole Dihydrochloride 0.125 MG Oral Tablet Pramipexole Dihydrochloride 0.125 MG Oral Tablet 01/23 12:00:00 AM EDT 1 active pramipexole dihydrochloride 0.125 MG Oral Tablet [place] ([facility]) 14 ML pertuzumab 30 MG/ML Injection Pert uzumab (Perjeta) 420 mg/14 mL (30 mg/mL) solution Pertuzumab (Perjeta) 420 mg/14 mL (30 mg/mL) solution 01/17/2020 04:08:49 PM EDT active [facility] 14 ML pertuzumab 30 MG/ML Injection Pert uzumab (Perjeta) 420 mg/14 mL (30 mg/mL) solution Pertuzumab (Perjeta) 420 mg/14 mL (30 mg/mL) solution 01/17/2020 04:08:49 PM EDT active [facility] 14 ML pertuzumab 30 MG/ML Injection Pert uzumab (Perjeta) 420 mg/14 mL (30 mg/mL) solution Pertuzumab (Perjeta) 420 mg/14 mL (30 mg/mL) solution 01/17/2020 04:08:49 PM EDT completed [facility] trastuzumab Trastuzumab (Herceptin) 150 mg recon soln Trastuzumab (Herceptin) 150 mg recon soln 01/17/2020 03:57:38 PM EDT activ e [facility] trastuzumab Trastuzumab (Herceptin) 150 mg recon soln Trastuzumab (Herceptin) 150 mg recon soln 01/17/2020 03:57:38 PM EDT compl eted [facility] trastuzumab Trastuzumab (Herceptin) 150 mg recon soln Trastuzumab (Herceptin) 150 mg recon soln 01/17/2020 03:57:38 PM EDT activ e [facility] Paclitaxel 6 MG/ML Injectable Solution Paclitaxel 01/17/2020 03:5 7:[address] [facility] Paclitaxel 6 MG/ML Injectable Solution Paclitaxel 01/17/2020 03:5 7:[address] [facility] Paclitaxel 6 MG/ML Injectable Solution Paclitaxel 01/17/2020 03:5 7:03 PM EDT completed [facility] Metformin hydrochloride 500 MG Oral Tablet Metformin Hcl Met formin Hcl 01/17/2020 03:55:59 PM EDT 1 TAB completed [facility] Metformin hydrochloride 500 MG Oral Tablet Metformin Hcl Met formin Hcl 01/17/2020 03:55:59 PM EDT 1 TAB active [facility] Metformin hydrochloride 500 MG Oral Tablet Metformin Hcl Met formin Hcl 01/17/2020 03:55:59 PM EDT 1 TAB completed [facility] Lisinopril 10 MG Oral Tablet Lisinopril 10 MG Oral Tablet 12:00:00 AM EDT 1 active lisinopril 10 MG Oral Tablet [place] ([facility]) potassium citrate 10 MEQ Extended Releas e Oral Tablet [Urocit-K] Urocit-K 10 10 MEQ (1080 MG) Oral Tablet Extended Release Urocit-K 10 10 MEQ (1080 MG) Oral Tablet Extended Release 12/28/2019 12:00:00 AM EDT 1 active potassium citrate 10 MEQ Extended Release Oral Tablet [Urocit-K] [place] ([facility]) Lisinopril 10 MG Oral Tablet Lisinopril 10 MG Oral Tablet 12:00:00 AM EDT 1 aborted lisinopril 10 MG Oral Tablet [place] ([facility]) Loperamide Hydrochloride 2 MG Oral Table t Loperamide HCl 2 MG Oral Tablet (Imodium A-D) Loperamide HCl 2 MG Oral Tablet (Imodium A-D) 12/25/19 12:00:[address] [facility] Tamsulosin hydrochloride 0.4 MG Oral Cap malachi Tamsulosin HCl 0.4 MG Oral Capsule (Flomax) Tamsulosin HCl 0.4 MG Oral Capsule (Flomax) 11/20/2019 12:00 :00 AM EDT active [facility] potassium citrate 10 MEQ Extended Releas e Oral Tablet Potassium Citrate ER 10 MEQ (1080 MG) Oral Tablet Extended Release (UROCIT-K) Potassium Citrate ER 10 MEQ (1080 MG) Oral Tablet Extended Release (UROCIT-K) 11/20/2019 12:00:[address] [facility] alginic acid 200 MG / Calcium Carbonate 80 MG / magnesium trisilicate 20 MG / Sodium Bicarbonate 70 MG Oral Tablet Calcium Carbonate Antacid 500 MG Oral Tablet Chewable (Tums) Calcium Carbonate Antacid 500 MG Oral Ta blet Chewable (Tums) 11/20/2019 12:00:00 AM EDT [facility] Prochlorperazine 10 MG Oral Tablet Proch lorperazine Maleate 10 MG Oral Tablet (COMPAZINE) Prochlorperazine Maleate 10 MG Oral Tablet (COMPAZINE) 11/09/2019 12:00:00 AM EDT [facility] Rosuvastatin calcium 20 MG Oral Tablet R osuvastatin Calcium 20 MG Oral Tablet (Crestor) Rosuvastatin Calcium 20 MG Oral Tablet (Crestor) 11/05 12:00:00 AM EDT [facility] Ondansetron 4 MG Disintegrating Oral Tab let Ondansetron 4 MG Oral Tablet Disintegrating (ZOFRAN-ODT) Ondansetron 4 MG Oral Tablet Disintegrat ing (ZOFRAN-ODT) 11/06/2019 12:00:00 AM EDT [facility] Metformin hydrochloride 500 MG Oral Tabl et metFORMIN HCl 500 MG Oral Tablet (GLUCOPHAGE) metFORMIN HCl 500 MG Oral Tablet (GLUCOPHAGE) 11/06/19 12:00:[address] [facility] Albuterol Sulfate HFA 108 (90 Base) MCG/ ACT Inhalation Aerosol Solution (Proventil HFA) [id number] 11/06/2019 12:00:00 AM EDT [facility] Acetaminophen 325 MG Oral Tablet acetaminophen (TYLENO L) 325 MG tablet 650 mg acetaminophen (TYLENOL) 325 MG tablet 650 mg 11/02/2019 02:25:11 PM EDT 650 mg Oral active 650 mg, Or al, Every 4 hours PRN, mild pain (1-3), Starting Tue11/02/19 at 1425
"Maximum dose of acetaminophen is 4,000 mg from all sources in 24 hours."
[facility] Medication administered onsite Acetaminophen 325 MG / Oxycodone Hydroch loride 5 MG Oral Tablet oxyCODONE- acetaminophen (PERCOCET) 5-325 MG 1 tablet oxyCODONE-acetaminophen (PERCOCET) 5- 325 MG 1 tablet 11/02/2019 02:25:01 PM EDT 1 {tbl} Oral a ctive 1 tablet, Oral, Every 4 hours PRN, severe pain (7-10), Starting Tue11/02/19 at 1425, For 7 days [facility] Medication administered onsite normal saline flush 0.9 % injection 3 mL [id number] 11/02/2019 02:00:00 PM EDT 3 mL Intravenous active 3 mL , Intravenous, Every 8 hours (scheduled), First dose on Tue11/02/19 at 1400, Pre-op
Rapid push positive pressure flushing shall be performed with a 10 cc normal saline syringe to check the PATENCY of a PIV site prior to any infusion therapy initiation unless resistance is met.
[facility] Medication administered onsite normal saline flush 0.9 % injection 3 mL [id number] 11/02/2019 02:00:00 PM EDT 3 mL Intravenous active 3 mL , Intravenous, Every 8 hours (scheduled), First dose on Tue11/02/19 at 1400, PACU (only)
flush per protocol, D/C Main IV fluid if appropriate
[facility] Medication administered onsite Magnesium Chloride 0.90238 MEQ/ML / Pota ssium Chloride 0.0497 MEQ/ML / Sodium Acetate 0.0163 MEQ/ML / Sodium Chloride 0.0899 MEQ/ML / Sodium gluconate 5.02 MG/ML Injectable Solution [Normosol-R] electrolyte-R (NORMOSOL-R/PLASMALYTE-R) solution electrolyte-R (NORMOSOL-R/PLASMALYTE-R) solution 11/01 01:00:00 PM EDT Intravenous active at 1 00 mL/hr, Intravenous, Continuous, Starting Tue11/02/19 at 1300, PACU (only) [facility] Medication administered onsite ondansetron (ZOFRAN) injection 4 mg [id number] 11/02/2019 12:28:5 5 PM EDT 4 mg Intravenous active 4 mg, In travenous, Once as needed, nausea, vomiting, if not given in last 4 hours, Starting Tue11/02/19 at 1228, For 1 dose, PACU & Post-op [facility] Medication administered onsite Albuterol 0.833 MG/ML / Ipratropium Brom bola 0.167 MG/ML Inhalant Solution ipratropium-albuterol (DUO-NEB) 0.5-2.5 mg/mL nebulizer solution 3 mL ipratropium-albuterol (DUO-NEB) 0.5-2.5 mg/mL nebulizer solution 3 mL 11/02/2019 12:28:50 PM EDT 3 mL Inhalation active 3 mL, Inhalation, Once as needed, shortness of breath, Starting Tue11/02/19 at 1228, For 1 dose, PACU (only) [facility] Medication administered onsite fentaNYL Citrate (PF) (SUBLIMAZE) injection 25 mcg [id number] 11/02/2019 12:28:50 PM EDT 25 ug Intravenous active 25 mcg, Intravenous, Every 5 min PRN, moderate pain (4 to 6), Starting Tue11/02/19 at 1228, For 8 doses, PACU (only) [facility] Medication administered onsite 10 ML Atropine Sulfate 0.1 MG/ML Prefill ed Syringe atropine sulfate injection 0.5 mg atropine sulfate injection 0.5 mg 11/02/2019 12:28:49 PM EDT 0.5 mg active 0.5 mg, Intrave nous Push, Every 5 min PRN, other, As needed, for heart rate less than 60 BPM and the patient is hemodynamically unstable and/or SBP is less than 90mmHg, Starting Tue11/02/19 at 1228, For 1 day, PACU (only)
Not to exceed a total of 3 mg or 0.04 mg/kg. Max of 6 doses
[facility] Medication administered onsite Magnesium Chloride 0.19825 MEQ/ML / Pota ssium Chloride 0.0497 MEQ/ML / Sodium Acetate 0.0163 MEQ/ML / Sodium Chloride 0.0899 MEQ/ML / Sodium gluconate 5.02 MG/ML Injectable Solution [Normosol-R] electrolyte-R (NORMOSOL-R/PLASMALYTE-R) solution electrolyte-R (NORMOSOL-R/PLASMALYTE-R) solution 11/01 12:00:00 PM EDT Intravenous active at 1 00 mL/hr, Intravenous, Continuous, Starting Tue11/02/19 at 1200, Pre-op [facility] Medication administered onsite 60 ACTUAT Fluticasone propionate 0.1 MG/ ACTUAT / salmeterol 0.05 MG/ACTUAT Dry Powder Inhaler [Advair] Advair Diskus 100-50 MCG/DOSE Inhalation Aerosol Powder Breath Activated Advair Diskus 100-50 MCG/DOSE Inhalation Aerosol Powder Breath Activated 10/11/2019 12:00:00 AM EDT 1 active 60 ACTUAT fluticasone propionate 0.1 MG/ACTUAT / salmeterol 0.05 MG/ACTUAT Dry Powder Inhaler [Advair] [place] ([facility]) 200 ACTUAT Albuterol 0.09 MG/ACTUAT Mete red Dose Inhaler [Ventolin] Ventolin HFA 108 (90 Base) MCG/ACT Inhalation Aerosol Solution Ventolin HFA 108 (90 Base) MCG/ACT Inhalation Aerosol Solution 10/02/2019 12:00:00 AM EDT 2 active [id number] 200 ACTUAT albuter ol 0.09 MG/ACTUAT Metered Dose Inhaler [Ventolin] [place] ([facility]) 24 HR Metformin hydrochloride 500 MG Ext ended Release Oral Tablet metFORMIN HCl ER 500 MG Oral Tablet Extended Release 24 Hour metFORMIN HCl ER 500 MG Oral Tablet Extended Release 24 Hour 10/02/2019 12:00:00 AM EDT active 24 HR metformin hydrochloride 500 MG Extended Release Oral Tablet [place] ([facility]) Furosemide 20 MG Oral Tablet Furosemide 20 MG Oral Tablet 12:00:00 AM EDT active furosemide 20 MG Oral Tablet [place] ([facility]) carvedilol 6.25 MG Oral Tablet Carvedilol 6.25 MG Oral Tablet Carvedilol 6.25 MG Oral Tablet 09/17/2019 12:00:00 AM EDT 1 activ e carvedilol 6.25 MG Oral Tablet [facility]) Lisinopril 10 MG Oral Tablet Lisinopril 10 MG Oral Tablet 12:00:00 AM EDT 1 aborted lisinopril 10 MG Oral Tablet [place] ([facility]) 12 HR CHLORPHENIRAMINE POLISTIREX 1.6 MG /ML / HYDROCODONE POLISTIREX 2 MG/ML Extended Release Suspension Hydrocod Polst-CPM Polst ER 10-8 MG/5ML Oral Suspension Extended Release Hydrocod Polst-CPM Polst ER 10-8 MG/5ML Oral Suspension Extended Release 08/17/2019 12:00:00 AM EDT aborted 12 HR chlorpheniramine polistirex 1.6 MG/ML / hydrocodone polistirex 2 MG/ML Extended Release Suspension [place] ([facility]) Levofloxacin 500 MG Oral Tablet [Levaquin] Levaquin 50 0 MG Oral Tablet Levaquin 500 MG Oral Tablet 08/17/2019 12:00:00 AM EDT 1 aborted levofloxacin 500 MG Oral Tablet [Levaquin] [facility]) Prednisone 20 MG Oral Tablet predniSONE 20 MG Oral Tab let predniSONE 20 MG Oral Tablet 08/17/2019 12:00:00 AM EDT 2 aborted prednisone 20 MG Oral Tablet [place] ([facility]) 24 HR Metformin hydrochloride 500 MG Ext ended Release Oral Tablet metFORMIN HCl ER 500 MG Oral Tablet Extended Release 24 Hour metFORMIN HCl ER 500 MG Oral Tablet Extended Release 24 Hour 07/31/2019 12:00:00 AM EST 2 aborted 24 HR metformin hydrochloride 500 MG Extended Release Oral Tablet [place] ([facility]) Rosuvastatin calcium 20 MG Oral Tablet Rosuvastatin Ca lcium 20 MG Oral Tablet Rosuvastatin Calcium 20 MG Oral Tablet 07/24/2019 12:00:00 AM EST 1 active rosuvastatin calcium 20 MG Oral Tablet [facility]) 24 HR Metformin hydrochloride 500 MG Ext ended Release Oral Tablet metFORMIN HCl ER 500 MG Oral Tablet Extended Release 24 Hour metFORMIN HCl ER 500 MG Oral Tablet Extended Release 24 Hour 07/18/2019 12:00:00 AM EST 2 aborted 24 HR metformin hydrochloride 500 MG Extended Release Oral Tablet [place] ([facility]) Calcium Carbonate 500 MG Chewable Tablet Calcium Carbonate (Tums) 200 mg calcium (500 mg) tablet,chewable Calcium Carbonate (Tums) 200 mg calcium (500 mg) tablet,chewable 05/25/2019 02:15:26 PM EST 200 MG comple cristy [facility] Calcium Carbonate 500 MG Chewable Tablet Calcium Carbonate (Tums) 200 mg calcium (500 mg) tablet,chewable Calcium Carbonate (Tums) 200 mg calcium (500 mg) tablet,chewable 05/25/2019 02:15:26 PM EST 200 MG active [facility] Calcium Carbonate 500 MG Chewable Tablet Calcium Carbonate (Tums) 200 mg calcium (500 mg) tablet,chewable Calcium Carbonate (Tums) 200 mg calcium (500 mg) tablet,chewable 05/25/2019 02:15:26 PM EST 200 MG active [facility] potassium citrate 10 MEQ Extended Releas e Oral Tablet Potassium Citrate (Urocit- K 10) 10 mEq (1,080 mg) tablet extended release Potassium Citrate (Urocit-K 10) 10 mEq (1,080 mg) tablet extended release 05/25/2019 02:14:53 PM EST 2160 MG active [facility] potassium citrate 10 MEQ Extended Releas e Oral Tablet Potassium Citrate (Urocit- K 10) 10 mEq (1,080 mg) tablet extended release Potassium Citrate (Urocit-K 10) 10 mEq (1,080 mg) tablet extended release 05/25/2019 02:14:53 PM EST 2160 MG active [facility] potassium citrate 10 MEQ Extended Releas e Oral Tablet Potassium Citrate (Urocit- K 10) 10 mEq (1,080 mg) tablet extended release Potassium Citrate (Urocit-K 10) 10 mEq (1,080 mg) tablet extended release 05/25/2019 02:14:53 PM EST 2160 MG completed [facility] carvedilol 6.25 MG Oral Tablet Carvedilol 6.25MG Oral Tablet Carvedilol 6.25MG Oral Tablet 01/30/2019 12:00:00 AM EDT 1 aborte d carvedilol 6.25 MG Oral Tablet [facility] ([facility]) Lisinopril 10 MG Oral Tablet Lisinopril 01/03/2019 04:09:[address] [facility] Lisinopril 10 MG Oral Tablet Lisinopril 10MG Oral Tabl et Lisinopril 10MG Oral Tablet 11/27/2018 12:00:00 AM EDT 1 aborted lisinopril 10 MG Oral Tablet [facility] ([facility]) Rosuvastatin calcium 20 MG Oral Tablet Rosuvastatin Ca lcium 20MG Oral Tablet Rosuvastatin Calcium 20MG Oral Tablet 11/27/2018 12:00:00 AM EDT 1 aborted rosuvastatin calcium 20 MG Oral Tablet [facility]) Furosemide 20 MG Oral Tablet Furosemide 20MG Oral Tabl et Furosemide 20MG Oral Tablet 11/27/2018 12:00:00 AM EDT aborted furosemide 20 MG Oral Tablet [facility]) 200 ACTUAT Albuterol 0.09 MG/ACTUAT Mete red Dose Inhaler [Ventolin] Ventolin HFA 108 (90 Base)MCG/ACT Inhalation Aerosol Solution Ventolin HFA 108 (90 Base)MCG/ACT Inhalation Aerosol Solution 10/24/2018 12:00:00 AM EDT 2 aborted [id number] 200 ACTUAT albuterol 0.09 MG/ACTUAT Metered Dose Inhaler [Ventolin] [facility]) Metformin hydrochloride 500 MG Oral Tablet Metformin Hcl Met formin Hcl 08/11/2018 09:39:31 AM EDT 1 TAB completed [facility] Metformin hydrochloride 500 MG Oral Tablet Metformin Hcl Met formin Hcl 08/11/2018 09:39:31 AM EDT 1 TAB completed [facility] Metformin hydrochloride 500 MG Oral Tablet Metformin Hcl Met formin Hcl 08/11/2018 09:39:31 AM EDT 1 TAB completed [facility] ropinirole 1 MG Oral Tablet [Requip] Requip 1MG Oral T ablet Requip 1MG Oral Tablet 04/27/2018 12:00:00 AM EST aborted ropinirole 1 MG Oral Tablet [Requip] [facility]) ropinirole 0.25 MG Oral Tablet Ropinirole Ropinirole 2017 03:12:00 PM EST 0.5 MG completed [facility] Multivitamin (Multi-Day) tablet 06/19/2016 07:07:17 PM EST [address] [facility] Multivitamin (Multi-Day) tablet 06/19/2016 07:07:17 PM EST [address] [facility] Multivitamin (Multi-Day) tablet 06/19/2016 07:07:17 PM EST [address] [facility] Liraglutide (VICTOZA SC) Subcutaneous aborted Inject into the skin. [facility] OMEPRAZOLE PO Oral aborted Take by mouth. [facility] Aspirin 325 MG Oral Tablet aspirin 325 MG tablet aspirin 325 MG tab let 325 mg Oral aborted Take 325 mg by mouth ryan saucedo. [facility] Acetaminophen 325 MG / Hydrocodone Claudia trate 7.5 MG Oral Tablet hydrocodone- acetaminophen (NORCO) 7.5-325 MG per tablet hydrocodone-acetaminophen (NORCO) 7.5-325 MG per tablet 1 {tbl} Oral aborted Take 1 tablet by mouth every 6 (six) hours as needed. [facility] Insurance Providers Payer name Policy type / Coverage type Policy ID Covered green party ID Covered green party's relationship to noyola Policy [place]ola Plan Information BC BS HIGHMARK [id number] [id number] BC BS HIGHMARK [id number] HU2 [id number] Blue Shield Out Of Area Primary [id number] INSURANCE COVID-19 COVID Nicole C OVID EXCELLUS BCBS [id number] Spo [id number] BCBS GENERIC C [id number] Spouse H [id number] EXCELLUS H [id number] Self [id number] BCBS of [facility] Other 0 Famil y Dependent Cedrick Rowsam 0 [facility] Other 0 Famil y Dependent Cedrick Rowsam 0 INSURANCE COVID-19 COVID [id number] Nicole COVID [id number] [facility] Other 0 Famil y Dependent Cedrick Rowsam 0 EXCELLUS BCBS BCBS of [facility] Other 0 Famil y Dependent Cedrick Rowsam 0 [facility] Other 0 Famil y Dependent Cedrick Rowsam 0 [facility] Other 0 Famil y Dependent Cedrick Rowsam 0 EXCELLUS BCBS B [id number] S H [id number] BC[facility] of [facility] Other 0 Famil y Dependent Cedrick Rowsam 0 EXCELLUS BCBS B [id number] P [id number] BCBS of [place] Other 0 Famil y Dependent Cedrick Rowsam 0 [facility] [id number] Spo [id number] BCBS of [place] Other 0 Famil y Dependent Cedrick Rowsam 0 [facility] [place] Other 0 Famil y Dependent Cedrick Rowsam 0 [facility] [place] Other 0 Famil y Dependent Cedrick Rowsam 0 [facility] [place] Other 0 Famil y Dependent Cedrick Rowsam 0 [facility] [facility] [place] Other 0 Famil y Dependent Cedrick Rowsam 0 ANSI-Commercial [id number] [facility] Health Plan Commercial Family Dependent BCBS [place] Medigap Part B Self ANSI-Commercial [id number] [employer] Other 0 Family Dependent Cedrick Rowsam 0 [facility] [id number] HU2 [id number] [facility] [id number] Spo [id number] [facility] [id number] Commerci al Insurance Co. [id number] [facility] [id number] HU2 [id number] ANSI-Commercial [id number] [employer] Other 0 Family Dependent Cedrick Rowsam 0 ANSI-Commercial [id number] ANSI-Commercial [id number] SELF PAY ONLY SP ANSI-Commercial [id number] [facility] [id number] HU2 [id number] BCBS [place] Medigap Part B [id number] Self [id number] [id number] [facility] Health Plan Commercial [id number] Family Dependent [id number] [employer] Other 0 Family Dependent Cedrick Rowsam 0 [employer] Other 0 Family Dependent Cedrick Rowsam 0 [employer] Other 0 Family Dependent Cedrick Rowsam 0 BCBS [place] Medigap Part B [id number] Self [id number] [id number] [facility] Health Plan Commercial [id number] Family Dependent [id number] [facility] [id number] SPOUSE [id number] [facility] [id number] SPOUSE [id number] [employer] Other 0 Family Dependent Cedrick Rowsam 0 [employer] Other 0 Family Dependent Cedrick Rowsam 0 [employer] Other 0 Family Dependent Cedrick Rowsam 0 [facility] [id number] Spouse [id number] BCBS [place] Medigap Part B [id number] Self VY [id number] [facility] Health Plan Commercial [id number] Family Dependent [id number] Excellus HMO/PPO [id number] Patient [id number] [facility] Health Maintenance Organization (HMO) Family Dependent EXCELLUS BCBS [id number] Nicole VYE [id number] [employer] [place] [id number] SELF [id number] BCBS Of [place] Commercial Self AETNA - NEIC [id number] SP [id number] EXCELLUS PPO [id number] PT [id number] Problems, Conditions, and Diagnoses Code Display Name Description Problem Type Effective Dates Data Source(s) 333.94 Restless Legs Syndrome Restless Legs Syndrome Problem 01/26/2020 12:00:00 AM EDT [facility] ([facility]) [id number] Breast Neoplasm Malignant Female Primary Left Breast Neoplasm Malignant Female Primary Left Problem 12/26/2019 07:57:00 AM EDT [facility] ([facility]) 6057172 Breast Neoplasm Malignant Female Primary Left Breast Neoplasm Malignant Female Primary Left Problem [facility] [id number] Breast Neoplasm Malignant Female Primary Left Breast Neoplasm Malignant Female Primary Left Problem 12/26/2019 07:57:00 AM [facility] ([facility]) C50.911 Breast carcinoma, female, right Breast carcinoma , female, right [id number] 10/30/2019 12:00:00 AM EDT [facility] [id number] Breast lump (finding) Breast Lump Subareolar Right Fin ding 10/02/2019 12:00:00 AM EDT [place] ([facility]) [id number] Breast lump (finding) Breast Lump Subareolar Right Fin ding 10/02/2019 12:00:00 AM EDT [place] ([facility]) [id number] Breast lump (finding) Breast Lump Subareolar Right Fin ding 10/02/2019 [facility] [id number] Breast lump (finding) Breast Lump Subareolar Right Fin ding 10/02/2019 12:00:00 AM EDT [facility] ([facility]) [id number] Breast lump (finding) Breast Lump Subareolar Right Fin ding 10/02/2019 12:00:00 AM [facility] ([facility]) I47.2 Ventricular tachycardia Ventricular tachycardia Diagno sis 07/14/2020 11:04:02 AM [facility] C50.911 Malignant neoplasm of unspecified site o f right female breast Malignant neoplasm of unspecified site o Diagnosis 06/16/2020 10:29:08 AM [facility] I10 Essential (primary) hypertension Essential (primary) h ypertension Diagnosis 06/16/2020 10:29:08 AM [facility] C50.919 Malignant neoplasm of unspecified site o f unspecified female breast Malignant neoplasm of unspecified site o Diagnosis 05/19/2020 09:50:05 AM [facility] nurse nurse Diagnosis 04/16/2020 09:56:12 AM [facility] sim sim Diagnosis 04/16/2020 08:33:41 AM [facility] C50.111 Malignant neoplasm of central portion of right female breast Malignant neoplasm of central portion of right female breast Diagnosis 07:02:36 PM [facility] I42.9 Cardiomyopathy, unspecified Cardiomyopathy, unspecifie d Diagnosis 04/08/2020 02:43:27 PM [facility] Z09 Encounter for follow-up exam ination after completed treatment for conditions other than malignant neoplasm Encounter for follow-up examination afte Diagnosis 03/24/2020 10:15:10 AM EDT [facility] U07.1 COVID-19 COVID-19 Diagnosis 03/07/2020 10:54:53 AM ED T [facility] C50.111 Malignant neoplasm of central portion of right female breast Malignant neoplasm of central portion of Diagnosis 11/14/2019 08:08:[address] [facility] C50.111 Malignant neoplasm of central portion of right female breast Malignant neoplasm of central portion of right female breast Diagnosis 12:00:00 AM EDT [facility] Surgeries/Procedures Procedure Description Date Indications Data Source(s) CT Abd/pel w/o contrast 06/27/2020 12:27:00 PM [facility] 06/02/2020 12:00:00 AM [facility] Influenza-Like Illness (PCR) 06/02/2020 12:00:00 AM [facility] Dual energy X-ray photon absorptiometry (procedure) 05/21/2020 10:12:[facility] (OUTSIDE/HISTORICAL) CARDIOLOGY REPORT (O UTSIDE/HISTORICAL) Routine 04/28/2020 04/28/2020 12:00:00 AM [facility] THER RAD SIMULAJ-AIDED FIELD SETTING COMPLEX CT SIMUL ATION AT RAD ONC (IN OFFICE) Routine 04/16/2020 9:15 AM EST Cancer of central portion of right breast 04/16/2020 09:15:0 0 AM EST Cancer of central portion of right breast [facility] Cancer of central portion of right breas t PATHOLOGY REPORT (OUTSIDE/HISTORICAL) PATHOLOGY REPORT (OUT SIDE/HISTORICAL) Routine 03/11/2020 03/11/2020 12:00:00 AM [facility] chest X-ray (procedure) 02/26/2020 11:30:00 AM E DT [facility] Plain chest X-ray (procedure) 02/26/2020 11:30:00 AM E [facility] X-ray of left knee (procedure) 01/15/2020 03:00:29 PM EDT [facility] X-ray of left knee (procedure) 01/15/2020 03:00:29 PM EDT [facility] X-ray of left knee (procedure) 01/15/2020 03:00:29 PM EDT [facility] Ultrasonography of breast (procedure) 12/31/2019 10:18 :00 AM EDT [facility] Ultrasonography of breast (procedure) 12/31/2019 10:18 :00 AM EDT [facility] Ultrasonography of breast (procedure) 12/31/2019 10:18 :00 AM [facility] ULTRASOUND REPORT (OUTSIDE/HISTORICAL) ULTRASOUND REPORT (O UTSIDE/HISTORICAL) Routine 12/31/2019 12/31/2019 12:00:[address] [facility] CT SCAN REPORT (OUTSIDE/HISTORICAL) CT SCAN REPORT (OUTSIDE /HISTORICAL) Routine 11/20/2019 11/20/2019 12:00:00 AM [facility] ULTRASOUND REPORT (OUTSIDE/HISTORICAL) ULTRASOUND REPORT (O UTSIDE/HISTORICAL) Routine 11/14/2019 11/14/2019 12:00:00 AM [facility] XR CHEST PORTABLE XR CHEST PORTABLE STAT 11/02/2019 1:04 PM EDT 11/02/2019 05:04:29 PM EDT [facility] FLUORO CENTRAL VENOUS ACCESS DEV PLACEMENT XR OR FLUORO MITCHEL OUS ACCESS DEVICE STAT 11/02/2019 12:47 PM EDT 11/02/2019 04:47:09 PM EDT [facility] GLUC BLD GLUC MNTR DEV CLEARED FDA SPEC HOME USE POCT GLUCOSE Routine 11/02/2019 12:36 PM EDT 11/02/2019 04:36:00 PM EDT [facility] GLUC BLD GLUC MNTR DEV CLEARED FDA SPEC HOME USE POCT GLUCOSE Routine 11/02/2019 10:11 AM EDT 11/02/2019 02:11:00 PM EDT [facility] PATHOLOGY REPORT (OUTSIDE/HISTORICAL) PATHOLOGY REPORT (OUT SIDE/HISTORICAL) Routine 11/01/2019 11/01/2019 12:00:00 AM [facility] History of a subareolar mass was found i n the right breast 1.5 cm in width and 2.5 cm in length. This is a clarification from previous note 10/02/19 History of a subareolar mass was found in the right breast 1.5 cm in width and 2.5 cm in length. This is a clarification from previous note 10/02/19 10/26/2019 12:00:00 AM [facility] MOLECULAR DIAGNOSTIC/GENETIC TESTING (OUTSIDE/HISTORIC AL) MOLECULAR DIAGNOSTIC/GENETIC TESTING (OUTSIDE/HISTORICAL) Routine 10/23/2019 10/23/2019 12:00:00 AM [facility] PATHOLOGY REPORT (OUTSIDE/HISTORICAL) PATHOLOGY REPORT (OUT SIDE/HISTORICAL) Routine 10/23/2019 10/23/2019 12:00:00 AM [facility] Ultrasonography of breast (procedure) 10/12/2019 09:50 :00 AM [facility] Ultrasonography of breast (procedure) 10/12/2019 09:50 :00 AM [facility] Ultrasonography of breast (procedure) 10/12/2019 09:50 :00 AM [facility] 3D DIG MAMMO DIAG DENICE 10/12/2019 09:25:00 AM [facility] 3D DIG MAMMO DIAG DENICE 10/12/2019 09:25:00 AM [facility] 3D DIG MAMMO DIAG DENICE 10/12/2019 09:25:00 AM [facility] MAMMOGRAM REPORT (OUTSIDE/HISTORICAL) MAMMOGRAM REPORT (OUT SIDE/HISTORICAL) Routine 10/12/2019 10/12/2019 12:00:00 AM [facility] ULTRASOUND REPORT (OUTSIDE/HISTORICAL) ULTRASOUND REPORT (O UTSIDE/HISTORICAL) Routine 10/12/2019 10/12/2019 12:00:00 AM [facility] Venipuncture (routine) Venipuncture (routine) 10/02/2019 12:00:00 A M ARVIND [place] ([facility]) CBC CBC 10/02/2019 12:00:00 AM ARVIND JONES ([facility]) CMP-Complete Metabolic Profile CMP-Complete Metabolic Profil e 10/02/2019 12:00:00 AM [facility] Fasting Lipid Profile Fasting Lipid Profile 10/02/2019 12:00:00 AM EDT [facility] ([facility]) HgbA1C HgbA1C 10/02/2019 12:00:00 AM EDT Delfina JONES ([facility]) Results ID Date Data Source [id number] 07/19/2020 01:26:30 PM EST [facility] INFORMATIONPatient MRN Name Date of Age Gend*PT [id number] Nazia Avila 1970 50 years F ---PT Location Admission Date/Time Visit ID Attending Provider --- --- --- --- EPI ID CSN Admitting Provider [id number] ---Name: Nazia AvilaDOB: 1970Date: 07/19/20CIED Remote CheckImplanted Device 09/19/2019Device Tissue Specialist MedtronicDevice type Bi-Ventricular ICDMRI Conditional Device -Device was remotely interrogated and the following were evaluated:Battery statusSummary arrhythmia logsNew observationsFidelity of the EGM signalIntegrity of leads and lead impendence were reevaluatedConclusion:Normal ICD function.No significant changes continue to monitor.Signature: Tenisha Cisneros MD, [facility], RSCardiac Electrophysiology and Arrhythmia ServiceDate: July 19, 2020Time: 1:26 PMThis document or parts of this document, were dictated using [employer]. A reasonable attempt at proofreading has been made to minimize errors.Please call with any questions or corrections. Name Value Range Interpretation Code Description Data Maribell rce(s) Supporting Document(s) ID Date Data Source [id number] 07/16/2020 04:37:00 PM EST [facility] [address] [place] [address] [phone] NAME SEX PT STATUS ACCOUNT NUMBER NAZIA AVILA REG REF [id number] ORDERING PHYSICIAN LOCATION MEDICAL RECORD NO. 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 A left-sided dual-chamber AICD is appreciated. A third lead is seen in the coronary sinus. The cardiac and mediastinal silhouettes are within normal limits. Lungs are essentially clear. There is no acute osseous mallet. IMPRESSION: No acute cardiopulmonary disease. Reported By Master Townsend MD on 07/16/201636 Signed By Master Townsend MD on 07/16/20 1640 Date Time CC: Master Townsend MD; Hung Brody MD Techn: CUMME Trans Dt/Tm: Trans by: DT Prt Dt/Tm: [id number]: Total DLP = 0.00 mGy-cm Fluoroscopy Time (in secs): Name Value Range Interpretation Code Description Data Maribell rce(s) Supporting Document(s) ID Date Data Source [id number] 07/16/2020 04:55:00 PM EST [facility] @07/16/20 1634: UA W/ MICRO added. RFLXG = UMIC.Method of Collection:: Clean Catch @07/16/20 1634: UA W/ MICRO added. RFLXG = UMIC.Method of Collection:: Clean Catch Name Value Range Interpretation Code Description Data Maribell rce(s) Supporting Document(s) Color of Urine [facility] Appearance of Urine CLEAR [facility] pH of Urine by Test strip 6.0 5-8 [facility] Specific gravity of Urine by Refractometry 1.017 1.005-1.030 [facility] Leukocyte esterase [Presence] in Urine by Test strip NEGATIVE Above high normal [facility] @DO MICRO!!!! Nitrite [Presence] in Urine by Test strip NEGATIVE [facility] Protein [Presence] in Urine by Test strip NEGATIVE [facility] Glucose [Mass/volume] in Urine by Automated test strip NEGATIVE NEG ATIVE [facility] Ketones [Presence] in Urine by Test strip NEGATIVE [facility] Urobilinogen [Presence] in Urine 0.2-1 EU/dl [facility] Bilirubin.total [Presence] in Urine by Automated test strip NEGATIVE [facility] Erythrocytes [#/volume] in Urine by Test strip NON-HEMOLYZED TRA CE NEGATIVE Above high normal [facility] @DO MICRO!!!! URINE MICROSCOPIC ADDED Microscopic Added [facility] ID Date Data Source [id number] 07/17/2020 01:28:00 PM EST [facility] @07/16/20 1634: UA W/ MICRO added. RFLXG = UMIC.Method of Collection:: Clean Catch @07/16/20 1634: UA W/ MICRO added. RFLXG = UMIC.Method of Collection:: Clean Catch Name Value Range Interpretation Code Description Data Maribell rce(s) Supporting Document(s) Bacteria identified in Urine by Culture [facility] ID Date Data Source [id number] 07/16/2020 04:55:00 PM EST [facility] @07/16/20 1634: UA W/ MICRO added. RFLXG = UMIC.Method of Collection:: Clean Catch @07/16/20 1634: UA W/ MICRO added. RFLXG = UMIC.Method of Collection:: Clean Catch Name Value Range Interpretation Code Description Data Maribell rce(s) Supporting Document(s) Erythrocytes [#/volume] in Urine by Manual count 3-5 /hpf 0-5 [facility] Leukocytes [#/volume] in Urine by Manual count 1-2 /hpf 0-5 [facility] Cells [Type] in Urine sediment by Light microscopy [facility] Bacteria [Presence] in Urine sediment by Light microscopy NEGATIVE Above high normal [facility] ID Date Data Source [id number] 07/16/2020 04:45:00 PM EST [facility] @07/16/20 1633: MANUAL DIFF added. RFLXG = DIFF. @07/16/20 1633: MANUAL DIFF added. RFLXG = DIFF. Name Value Range Interpretation Code Description Data Maribell rce(s) Supporting Document(s) Prothrombin Time (Patient) 10.6 s 9.6-12.3 N [facility] INR 1.0 0.9-1.1 N [facility] THE INR IS OPERATIONALLY DEFINED FOR GAY SH PLASMA FROMPATIENTS STABILIZED ON ORAL ANTICOAGULANTS.ROUTINE ANTICOAGULANT THERAPY 2.0-3.0RECURRENT SYSTEMIC EMBOLISM/HEART VALVE REPLACEMENT 2.5-3.5 aPTT.lupus sensitive (LA screen) 25.6 s 22.7-31.6 N [facility] ID Date Data Source [id number] 07/16/2020 04:50:00 PM EST [facility] @07/16/20 1633: MANUAL DIFF added. RFLXG = DIFF. @07/16/20 1633: MANUAL DIFF added. RFLXG = DIFF. Name Value Range Interpretation Code Description Data Maribell rce(s) Supporting Document(s) Leukocytes [#/volume] in Blood by Automated count 12.2 10*3/uL 4.45-10.71 Above high normal [facility] Erythrocytes [#/volume] in Blood by Automated count 4.26 10*6/uL 4.20 -5.40 [facility] Hemoglobin [Moles/volume] in Blood 10.4 g/dL 10.7-15.4 Below low no rmal [facility] Hematocrit [Volume Fraction] of Blood by Automated count 34.5 % 37-47 Below low normal [facility] Erythrocyte mean corpuscular volume [Ent itic volume] in Cord blood by Automated count 81.0 fL 80-96 [facility] ital Erythrocyte mean corpuscular hemoglobin [Entitic mass] by Automated count 24.4 pg 27-31 Below low normal [facility] pital Erythrocyte mean corpuscular hemoglobin concentration [Mass/volume] in Cord blood 30.1 g/dL 33-37 Below low normal [facility] Erythrocyte distribution width [Entitic volume] by Automated cou nt 16 % 11-15 Above high normal [facility] Platelets [#/volume] in Blood by Automated count 312 10*3/uL 130-472 [facility] Platelet mean volume [Entitic volume] in Blood 9.7 fL 9.1-13.1 [facility] Neutrophils/100 leukocytes in Blood by Automated count 73.1 % 41- 77 [facility] Neutrophils [#/volume] in Blood by Automated count 8.9 U 1.7-7.6 Above high normal [facility] Lymphocytes/100 leukocytes in Blood by Automated count 13.3 % 14-46 Below low normal [facility] Lymphocytes [#/volume] in Blood by Automated count 1.6 U 0.6-4.6 N [facility] Monocytes/100 leukocytes in Blood by Automated count 9.1 % 4-12 N [facility] Monocytes [#/volume] in Blood by Automated count 1.1 U 0.2-1.2 N [facility] Eosinophils/100 leukocytes in Blood by Automated count 3.0 % 0-7 N [facility] Eosinophils [#/volume] in Blood by Automated count 0.4 U 0.0-0.5 N [facility] Basophils/100 leukocytes in Blood by Automated count 1.0 % 0.4-1 .3 N [facility] Basophils [#/volume] in Blood by Automated count 0.1 U 0.0-0.2 N [facility] NUCLEATED RED BLOOD CELL 0 % [facility] NUCLEATED RED BLOOD CELL# 0 U [facility] Immature granulocytes [Presence] in Blood by Automated count 0-2 N [facility] Immature granulocytes [#/volume] in Blood by Automated count 0.1 U 0-0.1 N [facility] Manual Differential panel - Blood Manual Diff Added [facility] ID Date Data Source [id number] 07/16/2020 04:50:00 PM EST [facility] @07/16/20 1633: MANUAL DIFF added. RFLXG = DIFF. @07/16/20 1633: MANUAL DIFF added. RFLXG = DIFF. Name Value Range Interpretation Code Description Data Maribell rce(s) Supporting Document(s) Urea nitrogen [Mass/volume] in Serum or Plasma 14 mg/dL 9-23 N [facility] Sodium [Moles/volume] in Serum or Plasma 138 mmol/L 132-146 [facility] Potassium [Moles/volume] in Serum or Plasma 3.9 mmol/L 3.5-5.5 N [facility] Chloride [Moles/volume] in Serum or Plasma 101 mmol/L 99-109 [facility] Carbon dioxide, total [Moles/volume] in Serum or Plasma 30 mmol/L 20 -31 N [facility] Anion gap in Serum or Plasma 11 mmol/L 8-16 N [facility] Glucose [Mass/volume] in Serum or Plasma 174 mg/dL 74-106 Above high normal [facility] Creatinine 1.0 mg/dL 0.5-1.1 [facility] Glomerular filtration rate/1.73 sq M.pre dicted [Volume Rate/Area] in Serum or Plasma 58 ml/min ABOVE 60 [facility] ital Calcium [Mass/volume] in Serum or Plasma 8.6 mg/dL 8.5-10.1 N [facility] ID Date Data Source [id number] 07/16/2020 04:50:00 PM EST [facility] @07/16/20 1633: MANUAL DIFF added. RFLXG = DIFF. @07/16/20 1633: MANUAL DIFF added. RFLXG = DIFF. Name Value Range Interpretation Code Description Data Maribell rce(s) Supporting Document(s) Cells counted [#] 100 [facility] Neutrophils [#/volume] in Blood by Manual count 76 % 41-77 N [facility] Lymphocytes [#/volume] in Blood by Manual count 18 % 14-46 N [facility] Monocytes [#/volume] in Blood by Manual count 3 % 4-12 B elow low normal [facility] Eosinophils [#/volume] in Blood by Manual count 3 % 0-7 N [facility] Platelets [#/volume] in Blood by Estimate APPEARS NORMAL NORMAL [facility] Hypochromia [Presence] in Blood by Light microscopy NO RMAL Above high normal [facility] Poikilocytosis [Presence] in Blood by Light microscopy NORMAL Above high normal [facility] Anisocytosis [Presence] in Blood by Light microscopy N ORMAL Above high normal [facility] Microcytes [Presence] in Blood by Light microscopy NORMAL Above high normal [facility] Ovalocytes [Presence] in Blood by Light microscopy NORMAL Above high normal [facility] ID Date Data Source [id number] 07/16/2020 12:20:00 PM EST [facility] Name Value Range Interpretation Code Description Data Maribell rce(s) Supporting Document(s) SARS coronavirus 2 RNA Not Detected [facility] This lab was ordered by [facility] and reported by [facility]. ID Date Data Source [id number] 07/07/2020 10:52:00 AM EST [facility] Name Value Range Interpretation Code Description Data Maribell rce(s) Supporting Document(s) Trichomonas DNA Probe NOT DETECTED NOT DETECTED [facility] Gardnerella DNA Probe NOT DETECTED NOT DETECTED [facility] Vero species DNA Probe NOT DETECTED NOT DETECTED [facility] THIS TEST WAS PERFORMED AT:[email or web address] [address] [id number] MERATI,MD ID Date Data Source [id number] 07/04/2020 02:41:00 PM EST [facility] Patient Name: NAZIA AVILA : 1970 Sex: F Pt Unit #: [id number] Location:[facility] Provider: Visit Date/Time: 07/04/20 Primary Insurance: /[facility] Secondary Insurance: Self Pay Intake Vital Signs 07/04/20 14:41 Current Height 5 ft 1 in Current Weight 165 lb 2 oz Weight Measurement Method Standing Scale BMI 31.1 BP 138/82 Blood Pressure Location Lt brachial Position Sitting Respiration 18 Pulse 87 Pulse Strength Normal Pulse Source Pulse Oximeter Temp 99 F Temp Source Tympanic Pulse Oximetry (%) 99 Oxygen Delivery Method room air 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 She is here for painful intercourse. She had hysterectomy in 2009 for heavy bleeding. She has breast cancer and is on chemotherapy. She does havevaginal dryness. no other questions or concerns. 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 Accompanied by: Self / Same as Patient Is patient in pain?: No Allergies alcohol [From Mastisol Liquid Adhesive] Allergy (Severe, Verified 02/26/20 11:18) Rash gum mastic [From Mastisol Liquid Adhesive] Allergy (Severe, Verified 02/26/20 11:18) Rash methyl salicylate [From Mastisol Liquid Adhesive] Allergy (Severe, Verified 02/26/20 11:18) Rash storax [From Mastisol Liquid Adhesive] Allergy (Severe, Verified 02/26/20 11:18) Rash clindamycin Allergy (Intermediate, Verified 02/26/20 11:18) Hives glimepiride [From Amaryl] Allergy (Intermediate, Verified 02/26/20 11:18) palpitations upset stomach fatigue Penicillins Allergy (Intermediate, Verified 02/26/20 11:18) Hives sertraline Allergy (Intermediate, Verified 02/26/20 11:18) Hives azithromycin [Azithromycin] Allergy (Unknown, Verified 02/26/20 11:18) Xerofoam Gauze Allergy (Mild, Uncoded 08/25/18 09:46) Erythema, Bullae steri-strips Adverse Reaction (Uncoded 08/25/18 09:46) Is last menstrual period known: No Post menopausal: Yes (hysterectomy 2010) Patient : No Vision Wearing glasses?: Yes Fall Risk History of falls: No Ambulatory Aid:: None Gait/Transferring:: Normal Medications:: Antihypertensives HIV Testing Offer - ages 13-64 HIV testing Offer: No Requirement for HIV testing offer been met?: Patient reports past refusal SBIRT Annual Questionnaire Are you currently in recovery for alcohol or substance use?: No How many times in the past year have you had 4 or more drinks in a day?: None How many times in the past year have you used a recreational drug or used a prescription medication for nonmedical reasons?: None Do you need a note to return Do you need a note to return to daycare/school/sports/work: No Coronavirus Screening Screening Are you currently positive or on isolation for COVID ?: No Do you have any NEW signs of one or more of the following?: no symptoms Do you have NEW signs of at least two of the following?: no symptoms 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 Menstrual History Hx Age of Menarche: 8 Perimenopause/Menopause Menopause type: surgical (hysterectomy in 2010) Menopause concerns/symptoms: Reports vaginal dryness Urogynecologic symptoms: Reports continence Contraception control method: none Previous methods tried?: none Cervical and Vaginal Cytology Ever treated for STI: No STD Screening: No Data to Display HIV risk evaluation: low risk Hepatitis B risk evaluation: low risk Sexual History Sexually active: Yes Do you think of yourself as: straight/heterosexual Number of partners in last 3 months [.AM.PEHCOMP]: 1 Condom use: never Sexual concerns: Pain with intercourse Sexual abuse: No Ever a victim of rape/sexual assault: no History History 1 Number of Living Children 0 Hx # Term Pregnancies 1 Hx # Pregnancies 0 Hx Total # of Abortions (Spontaneous Elective) 0 Ectopic pregnancies 0 PFSH Medical History Asthma Diabetes Heart disease Hyperlipidemia Kidney stones Surgical History Appendectomy section Cholecystectomy H/O hernia repair History of - surgery History of - surgery History of gastric bypass History of hysterectomy History of lumpectomy of right breast Hx of sinus surgery kindey stone removal Presence of implantable cardioverter-defibrillator (ICD) Family History Mother Diabetes Heart disease Kidney disease Hypertension Father Heart disease Hyperlipidemia Hypertension Social History Does the Patient have a Hea lthcare Proxy: No Does Patient have a DNR?: No Does Patient have a Living Will?: No Advance Directives on File or in chart?: No adopted: No household members: spouse housing: house marital status: lives independently: Yes number of children: 1 number of grandchildren: 0 highest education level completed: high school graduate current occupational status: employed current occupation: [employer] in [place] pets and animals: Yes pets and animals: cat(s) Hx Recent Travel (where): No sexually active: Yes do you think of yourself as: straight/heterosexual current gender identity: female Smoking Status: Never smoker alcohol intake: current alcohol intake frequency: holidays/special occasions only substance use type: does not use angy/yarsanism: Baptist seatbelt use: always do you feel safe at home: Yes victim of physical abuse: No victim of emotional abuse: No victim of sexual abuse: No Female Reproductive History Menstrual Age of Menarche: 8 control method: none Menopause type: surgical (hysterectomy in 2010) Total pregnancies: 1 Full term: 1 Premature: 0 Ab induced: 0 Ab spontaneous: 0 Ectopics: 0 Multiple births: 0 HPI Additional HPI HPI Details: Painful intercourse 10 years post hysterectomy and now also status post breast cancer with with treatment ongoing with monoclonal's. 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 Review of Systems Const Reports system reviewed and no additional complaints, except as documented, Denies chills, Denies fever(s) and Denies headache(s) Eyes Denies blurry vision and Denies spots in vision ENT Denies dizziness and Denies headache(s) Card Denies chest pain and Denies palpitations Resp Denies cough and Denies wheezing GI Denies constipation, Denies diarrhea, Denies nausea and Denies vomiting Genitourinary: Reports vaginal dryness; Denies nipple discharge Details: Histo ry of prior yeast vaginoses. Musc Denies back pain and Denies arthralgias Skin/Breast Denies hirsutism, Denies alopecia, Denies nipple discharge and Denies rash Details: Trastuzumab and pertuzumab for breast ca managed at [facility]. Neuro Denies dizziness and Denies headache(s) Psych Denies anxiety and Denies depression Endo Denies cold intolerance, Denies heat intolerance and Denies palpitations Details: On metformin for DM II Kvng/Lymph Denies easy bleeding and Denies easy bruising Aller/Immun Denies wheezing Exam Const General: cooperative, healthy appearing, comfortable, no acute distress and well groomed Nutritional Appearance: overweight Orientation: alert and oriented x3 HENPR Head: normocephalic and atraumatic Eyes General: appearance normal, both eyes and all related structures Conjunctivae: conjunctivae normal Sclera: sclerae normal Neck Neck: full ROM and trachea midline Resp Effort Inspection: normal respiratory effort, able to speak in complete sentences, no audible wheezes and no cough Cardio Jugular venous pressure: no JVD Rate: regular rate Other: The patient was allowed privacy to drape for an exam, after which the physician returned to the room accompanied by a nursing physical therapist clinic director. The patient was assisted into lithotomy position. A lighted and lubricated speculum was then used to perform a gentle exam. Somewhat surprisingly we noted that the patient has a cervix. This despite the fact that she was under the impression she had a complete hysterectomy and BSO 10 years ago. Swabs were taken for affirm test and for microscopy. In office wet mount revealed possible isolated yeast cells although there were no budding forms and no hyphae. This was all well-tolerated by the patient. [facility] Cervical Spine: cervical ROM normal Thoracic/Lumbar Spine: thoraco-lumbar ROM normal Skin Lesions: no lesions Rashes: no rashes Hair: normal Neuro General: patient alert and patient oriented x3 Cognition: normal cognition Speech: speech normal Gait: normal gait Sensory Exam: no sensory deficits noted Extrem General: normal to inspection, full ROM, no clubbing, cyanosis or edema and normal gait Psych Mental Status: mental status grossly normal Speech and Movement: speech and movement normal Mood: congruent mood Affect: normal affect Attitude: cooperative Thought Process: normal Thought Content: normal Insight: insight good Judgment: judgment good Assessment Plan Assessment Plan (1) Encounter to establish care with new doctor: Code(s): Z76.89 - Persons encountering health services in other specified circumstances Plan - Nima Mcfadden MD: Based on her history symptoms and provisional wet mount diagnosis the patient probably has yeast vaginosis exacerbating her dyspareunia. She has a degree of atrophy with pale flat tissue vaginally and a small urethral carbuncle developing. I spent a fair amount of time discussing the fact that if yeast is confirmed on PCR we can treat with a vaginal preparation rather than oral Diflucan and possibly provide some lubrication and vaginal relief while treating the yeast. If there is no yeast we can also provide recommendations for some nonhormonal lubricants and vaginal creams. Finally with the participation of her oncologist selected patients can certainly trial vaginal estrogen as long as they understand whether or not there is a risk of feeding a tumor promoter in an estrogen responsive breast tumor. There is literature supporting vaginal estrogen with and without monitoring for levels of estradiol in the bloodstream. I am currently unfamiliar with what the threshold level would be but that would be easily discovered. I suggested that we defer further discussion of this until after we know whether there is a vaginosis present that we can treat rather simply. Orders Other Orders: Orders: Vaginitis DNA Probe - Affirm Today N89.8 [place] [address] New Pt Extended Comp Patient Type New History Detailed Exam Detailed Medical Decision Making Moderate Complexity Diagnoses Encounter to establish care with new doctor Z76.89 Time Spent (min) 40 Comment >50% counseling <Electronically signed by Nima Mcfadden MD> 07/04/20 1659 Name Value Range Interpretation Code Description Data Maribell rce(s) Supporting Document(s) ID Date Data Source [id number] 06/27/2020 01:09:00 PM EST [facility] [address] [place] [address] [phone] NAME SEX PT STATUS ACCOUNT NUMBER NAZIA AVILA REG REF [id number] ORDERING PHYSICIAN LOCATION MEDICAL RECORD NO. ANGIE DAVIS CT [id number] ATTENDING PHYSICIAN DATE OF DATE OF EXAM/TIME Hung Brody MD 1970 06/27/20 / 1227 TYPE / EXAM CT Abd/pel w/o contrast [...] nonobstructing right upper ureteral calculus with moderate right-sided hydronephrosis.. Reported By Chula Kothari MD on 06/27/20 1309 Signed By Chula Kothari MD on 06/27/20 1320 Date Time CC: Chula Kothari MD; Hung Brody MD Techn: CUMME Trans Dt/Tm: Trans by: DT Prt Dt/Tm: : Total DLP = 426.00 mGy-cm : Total Radiation Dose = 6.3900 mSv Lifetime Dose: 18.5850 mSv Name Value Range Interpretation Code Description Data Maribell rce(s) Supporting Document(s) ID Date Data Source [id number] 06/26/2020 06:00:27 PM [facility] Name Value Range Interpretation Code Description Data Maribell rce(s) Supporting Document(s) Progress Note [facility] EZGNPx1bRgEGYxRv83/JTWlsXIEfq8UpLFvnTHn8REjvEKUxZ9XvHDK7rR1gUQH8XWkOOjVpAqOuBOQ7 lbm [file] YwYTMwZGJjYTFkNzkzMzlhZTNjMjBiMmZlYWVkYmY+ GUwjMbZiNnBoCiDzRGX6OCFxERVzK4IiUIRbEvHpCOZgMg1vKOTGWl7+SAszjSUxgBgwVCYREvW9QjGd YXxpSCPUQv3U ID Date Data Source [id number] 06/16/2020 02:59:00 PM EST [facility] CHEST WITHOUT IV CONTRAST INDICATION: Follow-up incidental left lower lobe noduleCOMPARISON: None. Correlation with CT 11/20/2019CONTRAST: none One or more of the following dose reduction techniques were utilized in effectively lowering the radiation dose for this examination: Automated Exposure Control, Adjustment of the mA and/or kV according to patient size, or Iterative reconstruction. FINDINGS: LUNGS: The 3 mm left lower lobe nodule prompting the follow-up likely has some degree of calcification favoring granuloma. Punctate right upper lobe granuloma is also noted. Punctate left lower lobe solid noncalcified costophrenic angle nodule on series 3 image 232. Solid noncalcified right lower lobe fissural margin nodule on image 86. This is above the area previously scanned. PLEURA AND PERICARDIUM: No pleural or pericardial effusions. MEDIASTINUM AND LISA: No adenopathy. Right chest port and left-sided pacing system. Coronary artery calcification. CHEST WALL: Heterogeneous thyroid not fully included. This may represent multiple small nodules. Consider also diffusely coarsened thyroid parenchyma such as with Mikaela's thyroiditis. There is asymmetric skin thickening of the right breast. No axillary adenopathy. Scarring in the right axilla. Mild degenerative disc change. UPPER ABDOMEN:Gastric bypass. IMPRESSION: Although the nodule prompting this exam is probably a granuloma there are additional small noncalcified lung nodules largest in the right lower lobe 3 mm. Follow-up should be determined based on clinical parameters given the chest findings suggestive of a breast cancer history. Professional interpretation performed at [facility] . Name Value Range Interpretation Code Description Data Maribell rce(s) Supporting Document(s) ID Date Data Source [id number] 06/16/2020 11:54:58 AM EST [facility] Name Value Range Interpretation Code Description Data Maribell rce(s) Supporting Document(s) &PDF [facility] DMEMAl5nFvNMGwTt23/QNGrtHFJzx5RnKPakLFn1UNdyTQAkR3JapQmrRJSGH5OORYiLEO5RUGAHJELH 0b3 [file] ICAgICAgICAgICAgICAgICAgICAgICAgICAgICAgIC RkGGHrCZWoLNEaMWQqBWCqVFNtSLBvPATiBNGnOMJdQCDjCKSkNLCbKOFiGJVuNOFxHXOaBDKoHC0MOH AgICAgICAgICAgICAgICAgICAgICAgICAgICAgICAgICAgICAgICAgICAgICAgICAgICAgICAgICAgIC AgICAgICAgICAgICAgICAgICAgICAgICAgICAgICAg DBGkDIMsBN7CXEJiSTDnDPRsCMEiCFCdLEUzBISlYRDaASBuHSDcHULtOWGlWWBvLOPxTIHoSAPlGFWc DUAjXUPfOGCaCCEcEZEvTJDxUQFkBJGaHPTuTZMnLEFbKZVyKILgZLNiFMKqLSZzXG7TQHPeNKIxPFQr ICAgICAgICAgICAgICAgICAgICAgICAgICAgICAgIC AgICAgICAgICAgICAgICAgICAgICAgICAgICAgICAgICAgICAgICAgICAgICAgICAgICAgICAgICAgIA 0KICAgICAgICAgICAgICAgICAgICAgICAgICAgICAgICAgICAgICAgICAgICAgICAgICAgICAgICAgIC AgICAgICAgICAgICAgICAgICAgICAgICAgICAgICAg REMdECMaLVPeWK4ZRVInUCPtRBJsXYNdSYExZJTfHPPcGHPwJITjSFNaPFVkMJVxYPNkHSMhXNQgLXMk QIHkRQIiQZDzYAZcCHKrJXKbMSKjFQKsNGOmGFSkOYLkWYVeERHbHIFwNLVfFUDeBBYdDA5GAZAmXJLu ICAgICAgICAgICAgICAgICAgICAgICAgICAgICAgIC AgICAgICAgICAgICAgICAgICAgICAgICAgICAgICAgICAgICAgICAgICAgICAgICAgICAgICAgICAgIC QmPK2OCVXuQOIoNFObRNGdUVFrNSWbIRYrYIMaCEGjNCUlNNAfUBVlQKLeJEQaQDTdXSQpGVZdIVBpWS AgICAgICAgICAgICAgICAgICAgICAgICAgICAgICAg ZUMaEKOlAKCuXXMsMQ8OWTZhNYReCUAsCVBxIHStXMVvETDcKUMjIMXoRDDrJHXjLQYzGNTaUVRzOGTo YJAlQDEgLSXsIJBiVIQtSSKsZIOmVCKxAUGmHTNzWFLwBFTxJIQkOUHjOJCeJJPcHNHqYBMbZK2HVJ25 oDTbw1K7ODRuMM7vaaj/Rh2ESHxnglLryJWcKH8DEe FdGQ4sfo9UBgGrFH4yas1WQCbLVbDkP1R5cFXrSXXcNGRNYsWtX71zWEtfUi74DYmjTFPeCrUeKEe3Ns 2DBsMmB6gpWBQxObX2OKChCcP2VHTcPsV0OXPmPoYfERgiYI6Ma3AvmPZmIMx+Sb7RCN4lt9QxHRbiCr BjRO2taj7BGYmHAuVvL8H4hRMbQ4F9EHbvNg1TZSMj EEPzUwJiKHICZUgfMY3LZD4lakG7UL0UwBRpFLMjUENvfLFxLEk8N18ogOUkTYwfET9MRMY+Rehan+Pg0K CIPwLLNsEQIsSzWtYPYOSdDzO40tnPWyXSGuPROnFGJtNv7LUTPkH7VcwjZqdNwtwfLaOARqXIBKGO7V CUaqlmYfrKRpbZcnXY62uKpwJW1IPn6JLfQvSK1ait 1FlDLxAs5MYZNaSD2OMCBoZVXjKXSzRIJ2WVSiRjCnDNgyTPQhGNCyPJK2GSXdOWPnSU2QQlMzGRDsHi Q6IsMqQXBxRTIsgi4BLPRcNYClGvP0YXQaOEFvOHYySEezHYPwQOHsEIe4RJWbRNEtJY2OJbRqQMCoLR D4LkBpCMQaNIOlsi3CLLUgRNGoQoO3ZQRxMUQdLDZo IIljLPPkZLS4Gbr7RZHzOCIoNE9KLuOhVZKbZMR1HBZhRSDlPAMqnz6MHWPyFIMuNjw2FaIiDZOuEXKy ODxrXPOrVON5IAjoZABdUCNdQV5NBiRcQOKoMHsbUaJoCOHrTWVfmj6OHFJwWDRqXYNzWgEjKLIrCXGf KDljNNDaRSS0EEPcANSuHSClSC3ZAmPnLHCwNOBcPz niAFOvTXMkur5NWXCsAPBaLWG2CMSgPQMeHLIdSGdfRSPeIQIsPrM4HUAbARJmLF2JRkIyBXLwBOD0RR skPLKeIMMitm2DVUHpFGXlQZcwEEHuRTWzOZRgGZubTLSuGEKaKCSwORJuUTSzMA0JGsSzRAAoSGd2XQ IgDVPdCHTaap1DKMSuADXwUGqvAYExDAKrLGFxDJhx JSJjYKHiOrJdQFDzVWTeYR5SYoEiZSVrEkR7ZZBoPTCnXAAejl2DvYPqzJsurx8XLVcOZd8NbLrjQXU1 XZxxFe6hlRTeDiIcOFAJIf2PalWrPMEcGFSBVNbpJBEhAHr8HXO9VVH8SnSmCzL5EBpxUphzOTmnTRDr GEenDgGjAzD7VRukQZztYlMkGQY6NkuiADWcKXUuFL S4SNEmEJD5SZI+PH8aTGe+Ww4De6HdruD3gxVzWIvwObn1UR4ZJGFAY2NBCt== ID Date Data Source [id number] 06/13/2020 03:09:50 PM [facility] Name Value Range Interpretation Code Description Data Maribell rce(s) Supporting Document(s) Progress Note [facility] TDKOLo7rHlDVVbZc58/SLMsaSUEbm7IuBBhnUPv0ILinEORkF6JeNQA0tT7xSNT3ZOxEIrAjOvEtPOW6 lbm [file] AgICAgICAgICAgICAgICAgICAgICAgICAgICAgICAgICAgICAgICAgICAgICAgICAgICAgICAgICAgIC AgICAgICAgICAgICAgICAgICANCiAgICAgICAgICAgICAgICAgICAgICAgICAgICAgICAgICAgICAgIC AgICAgICAgICAgICAgICAgICAgICAgICAgICAgICAg ICAgICAgICAgICAgICAgICAgICAgICAgICAgICANCiAgICAgICAgICAgICAgICAgICAgICAgICAgICAg ICAgICAgICAgICAgICAgICAgICAgICAgICAgICAgICAgICAgICAgICAgICAgICAgICAgICAgICAgICAg ICAgICAgICAgICANCiAgICAgICAgICAgICAgICAgIC AgICAgICAgICAgICAgICAgICAgICAgICAgICAgICAgICAgICAgICAgICAgICAgICAgICAgICAgICAgIC AgICAgICAgICAgICAgICAgICAgICANCiAgICAgICAgICAgICAgICAgICAgICAgICAgICAgICAgICAgIC AgICAgICAgICAgICAgICAgICAgICAgICAgICAgICAg ICAgICAgICAgICAgICAgICAgICAgICAgICAgICAgICANCiAgICAgICAgICAgICAgICAgICAgICAgICAg ICAgICAgICAgICAgICAgICAgICAgICAgICAgICAgICAgICAgICAgICAgICAgICAgICAgICAgICAgICAg ICAgICAgICAgICAgICANCiAgICAgICAgICAgICAgIC AgICAgICAgICAgICAgICAgICAgICAgICAgICAgICAgICAgICAgICAgICAgICAgICAgICAgICAgICAgIC AgICAgICAgICAgICAgICAgICAgICAgICANCiAgICAgICAgICAgICAgICAgICAgICAgICAgICAgICAgIC AgICAgICAgICAgICAgICAgICAgICAgICAgICAgICAg ICAgICAgICAgICAgICAgICAgICAgICAgICAgICAgICAgICANCiAgICAgICAgICAgICAgICAgICAgICAg ICAgICAgICAgICAgICAgICAgICAgICAgICAgICAgICAgICAgICAgICAgICAgICAgICAgICAgICAgICAg ICAgICAgICAgICAgICAgICANCiAgICAgICAgICAgIC AgICAgICAgICAgICAgICAgICAgICAgICAgICAgICAgICAgICAgICAgICAgICAgICAgICAgICAgICAgIC AgICAgICAgICAgICAgICAgICAgICAgICAgICANCjw/uEXmM2kxfUUrzwM3G2mcJl8LOs7OVX1gi3IrTO KsLYonykPfJywUXvPeBCYlIrtBBqz9AYtiQB4FrWCa P4PzR3RcPHhdWT4AKTSfFQTcoRIoCZDlFXFyQuC0TWDvMMqeQH1LoFVhKMlyUPZtUXQpEWJlCSUkBN0Y VJTsH670zzEpOj1LEb6KWlWvPU0mnb7DLbYtHQAgRlnQGan4XAvgIR6IrKRwxTEuJwVtWSKXKpWlZ1cl g2GmXgKvNXREKZnxEG6Mp0UflFJkRMz+Wh0QNB4rr0 TjQPesVhMzNO3mgg7DVTiZPtIlW1XkaEimFPQum6bzNEJjDF9yhKCzGFF5UBxejfJzVVqmO2WzwNVaLD ClAX5HVGO7GXYvHgI9EcNhDzXfXKF0OEfaZQ7lWQvhZO7KULE4JGbsQYKuMYYnE8lUEzNiIDUwMEPstW sfXS2ZXyZfZ3NsefOovHEyQAAmWVDPNn5+DQplbmRv OqzPEmYyTYIiNvpFBim1DGyzDJ1EeLLrWE2Lzf3ebLVvG2DvxKxsOCBnAWgwlvExDh1iUDNwDHejLTLg GI7bV8gqQ2tyM3OzKOVEEuYrI3OsZ4GzXdUuQLC5NYMmRElhPQH4Sl5uHRowOO8WLNl2B7VmZ2LYMDTg WTHXEBGqdEG6IETMQx6JA8LMQeuVWMCEUs1DCqDsD8 BNS1uIJ85TNY3PZLD+PiANCj4+VPqaorMdQowJUgH8XXLwy2IfXHw4NH8XYGEbSYgnII0GDEXltQ8yAS nwVA7PSfCnUeXbGHSIQbRuL08thVJfBWj4U9EsOlAgPXLeRvgbGQLfLVqoQsJvMFYcXbMuFHaqRY2+ID 4+CBhxFU9XOGqwgeQqXQDqTl9UJKLiKUMzOE0lEGGo CGQkE6P9gUmzXLGPEsLuV8badwtkIF1gAPXwS908jJrlhoZdUPA3FZTgCm4XXHFsWZB0LVYbjHMtXhYp UTUVGAxzOL8YcXFhNBR9rU2uHVjqAGQsSFPkB2nJCnNgqGzxLV80oBqogfByaRVwJDp+Hr0QVO6wa7Pe NTa0wlIuZKltRXV2ADueOFAaAUKtRDZoMGV8HTZ0EM BLEmFbLVRlYCAbEQtkAKTaYCZyev4PYEDmOYEgHSj2VVZrXRYfDBWqTJbiYEIvARRwIdH7ZPGuOPTyLT 9WFdVsAKJcPKQuYVozKGFvSLYdns0VFEHxYRKzUgqcPuGtTDUuUVLlTCsgIOVnIMBtKVIuSGBcZNKfYT 7SExErVDBmCCPnBcWeVTVuILFzfw6UMVDkPXXwUWP8 TEByDPFfPGNhQUurDJPsYRM5Lbl9MLOgWFWaAS0BJiKiJUVcEUU7DLaqQWIsXKNrep0BYNFzSVPsHXv8 KPVyQRMuJMZuDFceOYMrNHU3MML0XIEkCROkUJ3GBkQkNNSgQRY9KUSxQKQxSBWzgm1BJKXfMYTrMgZ1 VIRjDVJxXOLzOEzoBSUuCPK0Mva4ATNjAFZqJG9CKo FsDNXlJZj4MJVpBDNvLYIagw0OZWSxPMFpPOC1ScEuKTZfUFPnRDjlWLBwHNG9DfK0SDXoKWImEL9ZSp MpDKZwEFi4KPEaWXNgPRPhjh7SZNRzYIJiHDE0NmSnWHAnESJqJMtlLMYhUONoKIm3LIHbSPXhNG3GRs JmNJTeOaA7PeaaPXTpRONxvy7GHEFfMJQuXXs6GVSi LMKlUUBdZNbeOZRkFHMwZnP5YRRkWXQfMS2AUxZuNJIxKpV6WKlnLLIyNUEvvx3BHUZkFJZaBmy4VVYc UINrRSLjOQmuCKAwLYIyRvS2NIPiWXRvAJ4YGpHkBBiiPSREXta8XXxiQ9m4LNWyWB7IC4Gcs8FpVnpv CUDQQQcnCH8yucZtTVTsUc4DO6uSYla6D8W3RuN0S2 B9BWacXTE7MoU2XfljSzokMHA7GBIxJi4uWWVrDBArWgLsZGj8I0S2DdN7RKlzPME5RAWbICd6ZXGsQs TiBL9PWe4XNjB7BMG6qNPqWh3DCjB6ASETVqVhPI5MFTl= ID Date Data Source [id number] 06/02/2020 08:48:00 PM [facility] Katie Tj is a rapid, automated qualita tive anddifferentiation of Influenza type A,B and OLUE-QSD-9ILTJ-RT-PCR testNORMAL VALUE IS "NOT DETECTED".Limitations of the katie tj Influenza A/B & OPET-UQB-8oecvb method.Modifications to manufacturers recommendation and proceduresmay alter performance of the test.Negative results do not preclude Influenza A,B or SARS- BZG4gmifbeoxqt and should not be used as the sole basis fortreatment or other management decisions. Results from theCob[facility] T[facility] Influenza A/B & COV2 should be interpeted inconjunction with other laboratory and clinical dataavailable to the clinician.False negative results may occur if a specimen is improperlycollected, transported or handled. False negatives may occurif inadequate numbers of organisms are present in thespecimen.This test has not been evaluated for patients without signsand systoms of influenza and SARS-COV-2 infection.This assay has not been evaluated for patients receivingintranasal administered influenza vaccine.This assay has not been evaluated for immunocompromisedindividuals.This test cannot rule out diseases caused by other bacterialor viral pathogens.SARS-CoV-2 RNA Resp Ql [facility] Name Value Range Interpretation Code Description Data Maribell rce(s) Supporting Document(s) ID Date Data Source [id number] 06/02/2020 08:48:00 PM EST [facility] Katie Tj is a rapid, automated qualita tive anddifferentiation of Influenza type A,B and PGHE-AFH-3FRYK-RT-PCR testNORMAL VALUE IS "NOT DETECTED".Limitations of the katie tj Influenza A/B & YIMD-JLI-5svudp method.Modifications to manufacturers recommendation and proceduresmay alter performance of the test.Negative results do not preclude Influenza A,B or SARS- KFM3nwtspbdvgl and should not be used as the sole basis fortreatment or other management decisions. Results from the[facility] Influenza A/B & COV2 should be interpeted inconjunction with other laboratory and clinical dataavailable to the clinician.False negative results may occur if a specimen is improperlycollected, transported or handled. False negatives may occurif inadequate numbers of organisms are present in thespecimen.This test has not been evaluated for patients without signsand systoms of influenza and SARS-COV-2 infection.This assay has not been evaluated for patients receivingintranasal administered influenza vaccine.This assay has not been evaluated for immunocompromisedindividuals.This test cannot rule out diseases caused by other bacterialor viral pathogens.SARS-CoV-2 RNA Resp Ql [facility] Name Value Range Interpretation Code Description Data Maribell rce(s) Supporting Document(s) Extended hours FLU/COV2 NAAT L [facility] ID Date Data Source [id number] 06/02/2020 12:00:00 AM EST [facility] Name Value Range Interpretation Code Description Data [facility] rce(s) Supporting Document(s) SARS-CoV2 Rapid PCR [facility] This lab was ordered by [facility] kevin - YOANNA and reported by [facility]. ID Date Data Source [id number] 05/22/2020 09:01:00 AM [facility] [address] [place] [address] [phone] NAME SEX PT STATUS ACCOUNT NUMBER NAZIA AVILA REG REF [id number] ORDERING PHYSICIAN LOCATION MEDICAL RECORD NO. Laurent Mejia M.D. RAD [id number] ATTENDING PHYSICIAN DATE OF DATE OF EXAM/TIME [...] with a T-Score of -2.3 which is consideredosteopenia. Right Femur BMD as determined from the Right Femur Neck is 0.715g/cm2 with a T-score of -2.3 which is considered osteopenia. IMPRESSION: Osteopenia 10-year [...] Trans Dt/Tm: Trans by: DT Prt Dt/Tm: 4351-5284: Total DLP = 0.00 mGy-cm Fluoroscopy Time (in secs): Name Value Range Interpretation Code Description Data Maribell rce(s) Supporting Document(s) ID Date Data Source [id number] 05/20/2020 02:47:45 PM EST [facility] Name Value Range Interpretation Code Description Data Maribell rce(s) Supporting Document(s) Progress Note [facility] LLRKAp7vOkDXAnPg73/KAKmjVRNhs4PxLXzzXYb1WUxwYGTtP1DnRTZ5xH1fLPH0ZItUKrMfTgDgBiZv lbm [file] 1wPWTB/U5pmTw54+wn6pAtOxUAe7SbiErOeJfKakZed9g5FqLmoBn6lRTgzVYIlHxqOrx2s8w/0K+personal companion [file] nmGfYAmqZytwRs6VBEFAA4PRKu== ID Date Data Source [id number] 05/19/2020 10:54:18 AM EST [facility] Name Value Range Interpretation Code Description Data Maribell rce(s) Supporting Document(s) &PDF [facility] OJNPAb9wRpQWJlWt65/SRFugFYBpn8IaTEltEFt0YNzpMXMdW7BlpZpaXXVZA1HJYNyUOX8VBGGZGWMR hdG [file] uialdWBBJHU7X7R1GLT+EakcyJ7IDJiSC7UmkIk+MINE ENGINEER [file] /linux support engineer/KY1QTUJBTlbDRQjQXVO01VwQMOpRLlGkMZAaOpBP+gRg6EWOMXxBIhIKrNStcMR9ODbs0Z7/WI/h [file] AgICAgICAgICAgICAgICAgICAgICAgICAgICAgICAgICAgICAgICAgICAgICAgICAgICAgICAgICAgIC SiDWPjEVGhDXNvJCPbMF1MCEDwEOEgIRNeKWUtYDXsKDHjBQHcRSNcRVSsLZTuSACiGPDvAMChVXTvFE AgICAgICAgICAgICAgICAgICAgICAgICAgICAgICAg IHAhMOBxKGJxGBJpTJPsHNPnDEJbZJUqXZ0JARTaDPVbPXPdNQBdKQEgLODmLSTqPLMaVIDrTBVvAHAu ICAgICAgICAgICAgICAgICAgICAgICAgICAgICAgICAgICAgICAgICAgICAgICAgICAgICAgICAgICAg MJSoWRZdTF1MKVVlYVIiXYLbDKWgPQIyZIDqQGOeIR AgICAgICAgICAgICAgICAgICAgICAgICAgICAgICAgICAgICAgICAgICAgICAgICAgICAgICAgICAgIC WsSKLyACQuFRYmTNUyMAEhGA4STLRfTQHiZZSoCYJzVBMpAKVhEPUcKGKtBKWyOHJaUKZeFHXzHONdWP AgICAgICAgICAgICAgICAgICAgICAgICAgICAgICAg RIOdTKUfNBHtHGLpFBChPROsWUJaXJUxLZOxVR5TSXIbDCFrMYCzTPCvRXEpORGrPMPzMYCvVAMgEJIi ICAgICAgICAgICAgICAgICAgICAgICAgICAgICAgICAgICAgICAgICAgICAgICAgICAgICAgICAgICAg OANzAGAbCDAgXV8BLJMfRSOpUIIvEFOiHFAaGDBtUX AgICAgICAgICAgICAgICAgICAgICAgICAgICAgICAgICAgICAgICAgICAgICAgICAgICAgICAgICAgIC OrWVVcBFQwECKvQOObPAPhTVVxBQ7YPYZiEVVdMLQwTULfHVJfPDXtHCJpFJUzDKUhIFKhTZRmDAWsLU AgICAgICAgICAgICAgICAgICAgICAgICAgICAgICAg RHZtQOVaIFQwNAZhVNWlLEQsNKAsOCLzDBJxFVCmLX0KBLSbJIImPSIqVKUsAFTxYKAgCLXmDWIgODOy ICAgICAgICAgICAgICAgICAgICAgICAgICAgICAgICAgICAgICAgICAgICAgICAgICAgICAgICAgICAg QQVhRSVwXJYfOYUvHB6EGAQmQZXqCIAcLUUvGFZwAC AgICAgICAgICAgICAgICAgICAgICAgICAgICAgICAgICAgICAgICAgICAgICAgICAgICAgICAgICAgIC IwNBHqJOIaZXWvUWNxAWTzGSFfRVSwKL8YFB12oFNic2F3EDGgQY1ibod/Jx9ZTFppehUooPJhPH5NWz KwVO4yia2TIvYaZH5bsu3ZIXkXUyEpP0G8cTOqAHAu BRHKKuEvM38dNOgwEv72NBmpGQEhXyAbAKk8Bx4PJmEhQ8ylZQWvPzH7RAVePtQ0DBVxGhE6VOXoKsNm YAZpQRYjDU4KDQFpJ981ppLgPW4PNi2BRlWpAY8qxb6BQQYwYFWqMxaGIem7BDckRL2RaQPrB9IjkCJj z0jNAuEvP1UYZZJbGKEnQt6TRAEmUdZaKKGiBNyoVQ 2tJWDeDRWDxSzpldR5VB3TTQ6dhmOcWX8SXyWvRa5kWo0BIfOdJ4VfT1SfAKPnRQEKMDqoEV2ZGLQfCC S8EON1UKItHFQGHuCwD31dJO4RJ1Ptl60gGwJ2AFAfDiYmALxbTR02mPlazfRamIXqtZnaEA3WUr9+DQ plbmRvYmoNCnhyZWYNCjAgNDMNCjAwMDAwMDAwMDAg AxT0NtWuVe1UNGXeYGLrEWMxOvQbNUDmBNZwHAknRHSqHZA3ZLGbYEKeULOvXV9ZPaJmDTPhSbb9JHXo LAGdWOHdyx4IMYPxRYQkBDK0LXDiNPYaXXLjVXfhTWPcPUGfVHG9HUOgLFVoSJ1TYyEkJJXbQDL9YTFg CBOgEGNazz0WUPObKBVxTBNlURReVJGsJWQsDVktDU WvTUW9OWQlTDVjKKHgJB7IRwHhYSTsYLp4DhYdEECcAUWmqq1OFQVzKXLhWlp9BUCcOJYhYARhWRsaXE DvQGN9Ysn4ALTxXVGgTE4FWmMkLLFiAXpoFGNsXLXzROIrpd1KFCEhSWIlUYm1DnEnFVZpVILxGHccBE MhFMCpPAYvQDLhCPZtPT7RHcMmWBKlXBQfMWUeHHXe NKMeyi1ZPBTdPAOyOSFoVbDuCPRbNYEnIGgsRIDlQFYwBFE2ONPiNSMdPN4MDvSjAOXePUG4JDOxNBSx EHKpmr8BXAUoKBLfLiV7YYCbDDZqHUPaFWelQSNeCHPyBWR9ZADhAOMaSY0ZUoAoJXZeCEEbApHoONUa DTStuj9OFKZeIMWxGkl6PGQbLLTzZUUlBGlfYKWnYP Z3DUv3GRAyLUZrEQ8LJaIlHNBiBCYeIMOuMRHaWFAemg6UYBFdXNJnTHY5DiLnCCSfSXLwWFzkGQDdJK UjJZs1PLDdPWJyRZ6ZSiNvKFSnRqW4RcKnBFPuGSVuwy0VHYFaKUEdAqZ9HfXeFVPnZGVmMDktJTVzRU R8YuJ6SDKzYDRxKR2ARyIpTEIgExZiDKKiMNWnCMJa yh3AOMNdGLIdKLK9RIBzFUPzRNCkIPmgGGMqHTM3WOK9KHRgCUIxPZ7JZzSsIVEgMTX7RvAdWLZaLYMb zg9RRRByLCG0NbVeYlVoFWNrOZGzGPnkPLPmFRE5DNthAHNfQEIqVU5SMvCqMMGoPECeFEwxONRuGIMb qd3OGYBaRES0NUCuFQAhIDWbZYVlCNbeZMYwPFF8FT Q9QJWrTYCaWQ2NXhBcBKIySbS8YgWaGDIrMVXwbv8ZUKQnZNL6FVCvNZMbKTJjBTBgMDrdWHHoQMK4Xh C3MCKePSSmJM5NVlLuGTEyDgq4LsMtIXJgHFFafq2BeYQiaTrajk7ODIgYEj7UoPjoHJHvEAycOf5qnW N6YbOkJNOPZw2EetGqKZNwPAVLCYnwBXVmWAU4TIT3 PJF2WBXwVmL0QDL4XgN9MhB5AUviW4QbFsTyRqU7MRb9FmZlZiB6EOPhWNAhGppeNEjhXvx6CCQdTCWm M2U+UW8tGKi+Ws1Bj0BoklQ6idCjHRs5Yfa9MX7XUNCIO3EJNx== ID Date Data Source [id number] 05/13/2020 03:44:52 PM [facility] Name Value Range Interpretation Code Description Data [facility] rce(s) Supporting Document(s) Progress Note [facility] YEIWIu2zMpQBOgPd67/BEWqeWSNcw9XdGHkkXAl5NXzcZPOjG3BrFDA1kL7pPHB3ZYbKAbLmYvYkIhR8 lbm [file] YeyEObRdKI0ZLTx= ID Date Data Source [id number] 05/05/2020 04:50:20 PM [facility] Name Value Range Interpretation Code Description Data Maribell rce(s) Supporting Document(s) Progress Note [facility] UDXXYj4lJpQREmCw96/OYTcmBWOlk1IlFUkoAVg9BYczHFZhJ3ScAMS9pK1xNOI6UEyOGwCvRxNpZnD0 lbm [file] WVQFGzT8GMs5AZeuSWKQUr9Y ID Date Data Source [id number] 04/28/2020 03:18:26 PM EST [facility] Name Value Range Interpretation Code Description Data Maribell rce(s) Supporting Document(s) Progress Note [facility] HULECq3kPmSEHdGl33/VGFnwNAEkj0GzLYzfDWk8HDxbSXYmY0BeFEV1uR0sUIT5NGqUOkQeEgTiJGNl lbm [file] Parker/YlYkI2+9s9Vg5MiegJ36X3YR3uOA5/clNwEy4/w 5gPj/7L5UaUGkB/byvcnP1YWo+4SC0haK4vw9g/LxIuWCwAMnR0dbnEjDv/XxU7bYccAG/4/Io628kXk ItKPMkSd1qRb1cvl7ab3lelg9IaRRS8/7D0mW2fnqa3gGNDV/E4itVf76+lh3fMaFdHZa3BriIrViZuQ piBjw4p6TgWthJf3bQWisKXYeInjVzx3t0l/0K+personal companion [file] ICAgICAgICAgICAgICAgICAgICAgICAgICAgICAgICAgICAgICAgICAgICAgICAgICAgICAgICAgICAg ICAgICAgICAgICAgICAgICAgICAgICAgICAgDQogICAgICAgICAgICAgICAgICAgICAgICAgICAgICAg ICAgICAgICAgICAgICAgICAgICAgICAgICAgICAgIC AgICAgICAgICAgICAgICAgICAgICAgICAgICAgICAgICAgICAgDQogICAgICAgICAgICAgICAgICAgIC AgICAgICAgICAgICAgICAgICAgICAgICAgICAgICAgICAgICAgICAgICAgICAgICAgICAgICAgICAgIC AgICAgICAgICAgICAgICAgICAgDQogICAgICAgICAg ICAgICAgICAgICAgICAgICAgICAgICAgICAgICAgICAgICAgICAgICAgICAgICAgICAgICAgICAgICAg ICAgICAgICAgICAgICAgICAgICAgICAgICAgICAgDQogICAgICAgICAgICAgICAgICAgICAgICAgICAg ICAgICAgICAgICAgICAgICAgICAgICAgICAgICAgIC AgICAgICAgICAgICAgICAgICAgICAgICAgICAgICAgICAgICAgICAgDQogICAgICAgICAgICAgICAgIC AgICAgICAgICAgICAgICAgICAgICAgICAgICAgICAgICAgICAgICAgICAgICAgICAgICAgICAgICAgIC AgICAgICAgICAgICAgICAgICAgICAgDQogICAgICAg ICAgICAgICAgICAgICAgICAgICAgICAgICAgICAgICAgICAgICAgICAgICAgICAgICAgICAgICAgICAg ICAgICAgICAgICAgICAgICAgICAgICAgICAgICAgICAgDQogICAgICAgICAgICAgICAgICAgICAgICAg ICAgICAgICAgICAgICAgICAgICAgICAgICAgICAgIC AgICAgICAgICAgICAgICAgICAgICAgICAgICAgICAgICAgICAgICAgICAgDQogICAgICAgICAgICAgIC AgICAgICAgICAgICAgICAgICAgICAgICAgICAgICAgICAgICAgICAgICAgICAgICAgICAgICAgICAgIC AgICAgICAgICAgICAgICAgICAgICAgICAgDQogICAg ICAgICAgICAgICAgICAgICAgICAgICAgICAgICAgICAgICAgICAgICAgICAgICAgICAgICAgICAgICAg ZMKaADAlAAVkHXGqNICePDLfMMStPSLjPMPsSQRaWXSbLVMsAMx0Q9ddAWJdXCGrYX5fURj8Kx9+DQoN JdZzKUQ8jqRktP7IJZ6ef5ViRCtxIAReb4CaRMc5ZJ 7WLCWaRIbiYV5TOQhvye1IVYZoXLKqwJKAk1pkCiSgTEK1EUPvEobrDI5ZBYBeJ1gjuaSgRCMbUSBVOS pqFDPJADQpNOAnSnWaXBofBD3Ho7LjzELtUIh+Qd7CML5bl4XyTTztQERzZB0euu1OGLfDPyMcI6Uphz I5TCYiDLDzXc6VCOWoBPNblKRvWEPfLWANXaQbN6Ah tY32WBJEKx7+ZGzyblGrFtmAWmXqVVXpt2YtLJb7AK0XSBZhXVv8pCMtLRWiI8Vih1EdIj79KQBnVjkw ZLlgKXYcCLMDP4ijK1gzbzerQFWyLKPyTIWeClRcQcFdRIPzRjabXLEQVQfKKzTwE4Qyj9WyHrK2TRTq HkHtCUevZXHkCqG6AU67zBqxBF8DAPByDYXuRN85PY CrIZZeVw5QHt9KMeJoRK7syz9BZtJtCG7qyz0KLKmHZyDuR6F1dQIkB1Ogop70LC4MdEG8sYOsSH8ElU 1hYA1Dd4YrOVYoVuDoRYOnCZKsYRWsVUFiQtPtGK5XVHQpPnCcgZAwQRXhUWL1SXNgCsJ8ESBqHO6FJD PzZMU5II6ABI1YUlmsP7VTWIoauVrdNaYSGMR/QUNU YQAONNppAJJrS72MQ1URVUcRRuphOJrDSiyqVb1eCNq+Id0MXW6vx3XiDLosBnSvYG4mjp4LEKrVToVo G2E7pIDjM0G2EIicHy3XYYJfAUDdAngfNZAIWUerEG5ZFC2ajuW8JY9HtFYiPRZtHJWfsUFcFMt2R09p dCItQVwmKB9SBHN+Rehan+Rw4KFHZqWGQcASWpFyRcBG RULcJjX5EaT6LDg9CkE1RvFA83fIhgebNcGZkyFI3JDO3zIPBbRCVJEN3StDQyjP0qtyPeNYKzXLBVUi SvK92qmBUoRYZcKTJ9HSMkZq6CQEKsI9RuehSeoTjwyxSaTQMcLHPYKD9SDHtldhKoaMAqwAovPX98hA prYV5INv3KUpSdUE8rex3HmLCwHe3DXLYuDo5MMRPj HHSnVRFuFEU6QTQzXbYbYObwAMOkWTSjTUB5HLErYYGbAJ4YOpVjEVUsPoV2HxIoGYOuCIOory1BALRk YYBcLwvfZcOrKJQwFKGnIVfuTGGpGQYuVBH2JLExTIHgAY1CMuYrNWDmKQPmXzFcPRHxPMUqnc1KAKEh GNLmMGW5OhHnKNUpMVImNVwmFZClBPAiVaQ6WBTpBM QqOZ6KUyOeMXGlQPY5ViReFUYzPMHkfu2REECjBYSsMhqmVBPwGUWtNLSaGRkhVXMlOPY9SRylXYWwPX OgKG5LFcKdKIKtYTsvPIDbXCWdGKSloa1SPCGmJUOxOPN5ELInEGPuRZWuDAvqFZOvILM6NGPeLAWrSD VaAT5LIpGkQYMwUWr0QhGvBUYzHQEiqa4AHOWaQXPa ZSR8DOJdTIIwPMXjYPkbMYHqKQCrUfe4QRUeWMNzUZ2OLbFtJXTaKCU7UuSwUGHsUEMpmx3URWZkZQSj EiZxHPOzUYJjBILsKHjcQVDhHJTvQuQ6OEVbQCIfZZ1BKaYoZAKdQkC1WrvjFQIhJVSgtz1ELJUuDOUv GyR6ACEkFTUpQFVuUXkqCCPdGZGcDmX8SBAtTFScBF 8PSqMeXFTiZhZaNrsgVDTaBSVwge2FELKqUTMdAWG9QZLwEAYwDNGfAOnlEHGzKFP5RtPhRENyWHSgUQ 0TNwCjLDRkLmT8TiYfLMKtWPEesl9KKZIjBKNnAVp8VyHlOYYnCAUnDKytBQZqLGP9VBGvARGkBOVxBE 7VIhDnVVHcEkFyWmWyFKAlYQVqoi7YWBDiARMeDtvm KRFjUIHxHDImPQawCGFuAAG4MYy3KASvGDOnZE6NPpYxPLHwEbgkVmRsJYVzXAYxkc4BbXSwyWbinf5W CSiLQl4LvIvtTBUlEXbhMq1xyJQsFcPlSTMAAb6TcwMeUEYqIJYXINitWDUuFFylTeQdQeQyALS5QHHs YuqbUrJsECG1NUMzAKy2YNC9RnI4VgWwLyT9PhGvZK QsFJB3CESgKXW3NPl5OZJ4DnTlYwJ+VT3xXIh+De0Jn8FzbbZ4csHfPUevSYE4Ry6TBBFYJ0KSMi== ID Date Data Source [id number] 04/16/2020 03:11:27 PM [facility] Name Value Range Interpretation Code Description Data Maribell rce(s) Supporting Document(s) Progress Note [facility] BTUKGw9zNpCOLmAq25/HQUkyDPShg6PnIUxgHVx7QWljLBXjP9AhWNW7fI3uARI9MBnTAkXxJaCuFMS7 lbm WvYixBDiVrDQIsTtrLIpOoWLylIbjpoDOqRF7CnUP1CDNxP23nKJVxNBKhH4WtOXL3IBO+Pu9YDEJxjC DiGA6GEohU3Nrpk0uLTi5vpB2tvOA6LQXQ6ME7VDUDKBZamweePe88yOckvKq33PjWO0xC/p48rPX5dt xtKcYxTuZaC4oFRZ1oko1FUVpG2y8QpZuSqbDW3H/6 ZxRLMZqKr/4v5xufQQ+ym4LC7SPxQRbcVmG/PffpA6+GYv/DRNqeAF3vuUjeYy+7hO2QJYqG9k2Oq9+E 6/t1YJPmPfXqVwhWX5aUmVCqtQPLzcZyXPXnwfqIvvPCZBqdcEa0QOoIkUmPm4KCaxLYMRKqZnnDSMfx 4TDAYuSVAia7fBN8yBnmcN5MbZJDlF1TjmPy0KnKWZ 0+z+HXQ/War9K9Tsd2v0m9N59GTVP445eoOnwmH7XQmgqB83ijUUiZEaf1Ae+EBztkjTxqfyUyxMg8Gw kOXBbe0wNBxWWNGFjiKRGjTB1psb7WzBFZ/drpKT1e5Yf7CWdjfOcS9hvA9S71VionVxzTA0EMe0AZ36 ASZ9omXOEEOiX0y2AKGlTKKLolUQUohqJMkUj/uEym L8SPk+fIpaw4KII+VzKMeo3x2JJ1ed1BOnPhCVbvKOqolLYMOqUQMzJSRT25cxtNgufIjb9J/+PIOno/ GZuJ1RbeesTnfMhYvOgFkxS6rQLpwnh4VEc5+1aEPh25mDIfc+/Cayden/E0eD4+BJfobecgod2WLYa621E [file] AgICAgICAgICAgICAgICAgICAgICAgICAgICAgICAgICAgICAgICAgICAgICAgICAgICAgICAgICAgIC AgICAgICAgICAgICAgICAgICAgICAgICAgICAgDQogICAgICAgICAgICAgICAgICAgICAgICAgICAgIC AgICAgICAgICAgICAgICAgICAgICAgICAgICAgICAg ICAgICAgICAgICAgICAgICAgICAgICAgICAgICAgICAgICAgICAgDQogICAgICAgICAgICAgICAgICAg ICAgICAgICAgICAgICAgICAgICAgICAgICAgICAgICAgICAgICAgICAgICAgICAgICAgICAgICAgICAg ICAgICAgICAgICAgICAgICAgICAgDQogICAgICAgIC AgICAgICAgICAgICAgICAgICAgICAgICAgICAgICAgICAgICAgICAgICAgICAgICAgICAgICAgICAgIC AgICAgICAgICAgICAgICAgICAgICAgICAgICAgICAgDQogICAgICAgICAgICAgICAgICAgICAgICAgIC AgICAgICAgICAgICAgICAgICAgICAgICAgICAgICAg ICAgICAgICAgICAgICAgICAgICAgICAgICAgICAgICAgICAgICAgICAgDQogICAgICAgICAgICAgICAg ICAgICAgICAgICAgICAgICAgICAgICAgICAgICAgICAgICAgICAgICAgICAgICAgICAgICAgICAgICAg ICAgICAgICAgICAgICAgICAgICAgICAgDQogICAgIC AgICAgICAgICAgICAgICAgICAgICAgICAgICAgICAgICAgICAgICAgICAgICAgICAgICAgICAgICAgIC AgICAgICAgICAgICAgICAgICAgICAgICAgICAgICAgICAgDQogICAgICAgICAgICAgICAgICAgICAgIC AgICAgICAgICAgICAgICAgICAgICAgICAgICAgICAg ICAgICAgICAgICAgICAgICAgICAgICAgICAgICAgICAgICAgICAgICAgICAgDQogICAgICAgICAgICAg ICAgICAgICAgICAgICAgICAgICAgICAgICAgICAgICAgICAgICAgICAgICAgICAgICAgICAgICAgICAg ICAgICAgICAgICAgICAgICAgICAgICAgICAgDQogIC AgICAgICAgICAgICAgICAgICAgICAgICAgICAgICAgICAgICAgICAgICAgICAgICAgICAgICAgICAgIC MlVOGfEJWgZBMqXWUfOSFcYEFqPUJqXRZmJAFvUNUbDIPbITAjPQn8K4wtFYTiPDXhYW1nEKx8Ka4+DQ bKUiXdXVW6iyPyzU5CKR3og3LjKXkxGPUoc4ElPMx7 EM2TVYJsGAlmLG7KHPvmwh1SYGAvNFBlnHGVn6fhYnDdUQO1NWJpUjfzBS9ERVRsH0mcbkRsVMWbAFFN TQ7CBlWqP0FlmY97BTKNFz7+UVfkbjPtXvzLVtJ4LFTjj5GrYTo6EQ9WRWTuOtiht5GlGrYbTXTZAVef EM5JHDI1PUNsWBOnBy6ALEIoS316ifZxDF6BDk8WIc TlNN6zyn7PYzZzTOAoUjkBLxv3KDemQT3NrPQkEGpXan5tolYvqeCGr7TbeyQjmEPTwZ0rSQVPWWXasG cbi3QoIGMEJIIxbOFsBK4tKD2hAFRlBLU2UmYfDAFIWD3RVYWrVWUrxYYjSDYxHBEYIO1QUVsmUTI7AK AqmeYspOSzUByeHG9EKBHvtkAuKUmsKJMHASt+Pg0K NU9ft7UbNDjvOAWmHY0hat0BREjQGgFrY7Z5qLNrT7V5GWphGx7ANGScONRvQGxiFMINPPuqRF6XFE0z xuH3TO3ExLZaHOJrEXDghWVxVVu5T52zgWOdNHepNY2PCBM+Rehan+He0SOXGhDBAnTJFnSvCnTWIZInMg B4QmH6XJx9FrG6GzMS90zEafshKdIEgtWP8CXV8bHU UuJXTCUO0AaXCdzZ8hkaWiBKDcDVWNTnXfC08scMBhDVQoPSA0DBDmVc3BXEIyM7GawiPirPutouCyMG QeLUOQZJ9VWTiyfeWopYGijIsyXZ15wXvqNB4KUx6YSuMcUS6wto4WgSYbMw4XNJEzZe7PCAMcVTGvYQ BuHHN4XKSmXgXtIDspUBKyHFXuPXZ8FCVkEGYtPH6X FtFvOKLnXJn4QbzaDFKuTLVwsy5PILKuXRWzPVG0OTApFARdOYSnCFxgUVCfWWRqQDP5RRCsATQvFQ0U YkWbKWDdFRY5NUNyUKLmZVWixy3FLWBsISOyOsz9UsCuMBHiIQUvWNvgWTVnYQWvCTO0LHIrYWRrAV6T JmIkIDTuWTPiLTWpFOPeLLClqq9XRTVdMTJoREXbNw ZsTXXaXZIbLTaaXJIrWIV6JihqQQFzOLFeNR1WAfUxFHSdQUL0UBNfFYKqPPSasm6BWFFtSJLfOFC1SO FaBVKsJVKfEXwdDCTcEMO4QQS6VVHxHGAxJY1PJaUzNEZyUCjyVYDxPIHfFWNxlg1DBZSyINQqSfA5RQ QwLYAaWXRdPMhvPGVwJRD2Img2JLFbKHKpHL7UFcYm QSLgEVd3UQJwSBXrUYEuvs1JCJQrWJFdQTG3ZAQuKOEzQBMhEXxzJVGnPIG2XqbeKAPbNLQpFX3EItNw MKHzWZk0RFVtOKAfOTZnoi4ZNHFhBDXgTSQzTxKpDHJzLKQcKVo2urNmzYExZRu1ZD5OJ0GxskHaLbHM Kz7Wa413GGCiZBLyZx1KB2neMt0tETMmIUHLBx9ERU t2TgL6MkY4TOHwGUD7RlCfA1PaYMM8IWM1OpoyWACmUYO+TMk5HFbhVJQ1YvL1TSmuHLC7WmQ8YAEeHU AtALR1GHUwZg1qXHYJEn1+FZdtgMOumXeoTRLKRiChRfErCLkfOIYFRw0D ID Date Data Source [id number] 04/14/2020 07:42:19 PM [facility] Name Value Range Interpretation Code Description Data Maribell rce(s) Supporting Document(s) Progress Note [facility] SHNVVm9qOkGMOpYb79/GZTnqNSBzw0RsPThqNGo2YKkiXBPlQ0FlSXX6hZ1nIQY1ILzFPpZaInPzLFP3 lbm [file] kZmt+DEFENSE ATTORNEY++jcoehObzG27tnVJSeQXyvmZ0Ta/9o97Hq oUAhflyNqjnLeTKHsM0uznG8I6EA1cf1OqVgItUG1wQ8dgnM8HlUIAtvdgFyEd3AbdViXJYpq1fT6nlB TdFcNGETTcDB/SyahthtHxb1UHYhvAqwWkMesqCSBrA+0nc6jsu81fhAHonZFagG6BQV0oiygZcmMB06 Hq3UvXim6OVZm5evB8feUqVwoTTVm//SmJIkLxUw3Z AoZbiVHtrHYGvKRdTMG1ARMZJIm0GJF53WRV3jErZmcDOyQPYb2zvaWaExSIi9DArYCvUGS/cQ/EMUdM VJZulyy3cviT9cXMpegaPMZfKzlG/NcbDAdE1BGyJvxSY2ClzPQTMPHlFgzElwxbguiRjAVyFRMkqDKb U28VuutLKlUlojU7gMrEVZaglRBF6kc+53Tsx5VYJa 1eDEm98elOpYmS247jkVE5cTQ6TRBzBfgRzBfoUWkjTjfOrUStjEhPDB4lkgmOElA2yI39kia5eOpIdF Ax1pdeWtb44tsNN6IqoSoczeR5y3xzghYCr0TFj7DNv6WTlaAW+wthvo7XlqSzHtZore3gITrsWwA7bA bZb11oBvXSVMiMJNoSAIKtScbkNPDNlxIhTTEUFlY1 jf0y6Mgdga8hdZpT97uRO00h1CacHKlzIa4BS24iDuVqTeZwcuPLgNqWapMozC+GMGWXtfYOYJVrrMIb XWpeDVR/f1cTNSCdpXLhxlQzjBHXMyLDvx1cO2i7xCqI9dxq13wvVbSsaKPOo4+oveISPcDf66y9ZNIu tx7iqRCS15UtOCajxSnkRRJHiUot0RxPGJz81htNDp /k1MIlLj+p3JmArcqWMKV1qZeY2FB8OIf/0C20/uJoxm5PG1G5KeA7+9rnmHpwFyV3+o+RLbQ67M42x6 5XTZmHS0c4wI+It1FOChB8VewY8VWz6ET+2hkNGVOEGEU+8lW9E+I3ajyvk8CiwIeHLioegfFuUYjR6f pJkgJmX9m0s0TMPEvGNBK9416bMEwgOnUtgOufyoQP tDREY07nxh+L15a8Gy/oMg6eoQvbFxwq5dy5dRh0JF0/sv3MmYl+fNLkZK2he5up89YP2Qq51I+5rHg5 LgQp5QlinLFC3U6LrAy+T3QU83G5qXMWfK9Zaden/sFyhJUMZHEAGM78trRNMl58QICgUffbfChn0BIL u+Valencia+4PzSF9Uh3IJdiYG+vJJ412yVKHuKVhv+K+Carlos [file] AgICAgICAgICAgICAgICAgICAgICAgICAgICAgICAg ICAgICAgICAgICAgICAgICAgICAgICAgICAgICAgICAgICAgICAgICAgICAgICAgICAgICAgICAgICAg OEJuYLBzQR8JXAKwQFStZSFcWEYlNMFdOLTlSZEgLQMxMKDuQMVfNRDaIDBhIKSgSAQsWLTaJBYaFFHq ICAgICAgICAgICAgICAgICAgICAgICAgICAgICAgIC XfFAAmEKQkGYSoLMMhTAKlVN9DQXPjMEHdYQKdUZOjDOTfUAZbFEWjBAIfKFHkNVEjHWMpVKKrBJHsCH AgICAgICAgICAgICAgICAgICAgICAgICAgICAgICAgICAgICAgICAgICAgICAgICAgICAgICAgICAgIA 0KICAgICAgICAgICAgICAgICAgICAgICAgICAgICAg ICAgICAgICAgICAgICAgICAgICAgICAgICAgICAgICAgICAgICAgICAgICAgICAgICAgICAgICAgICAg GJToESUmRTVpFE0UVVQoNKBfWCTiENWcAYVgUNEpMQGoFKPqYZJdIFLqGRVxWZFsQBQpWTNyBFCmPIXw ICAgICAgICAgICAgICAgICAgICAgICAgICAgICAgIC XbHZPcBMHoNOInBEYvIVXqUKHyJF8LARPbZHEvOVDoNCEcHBZzMIGjDVUmAWDiLXVkSUFyJZWkNPXyFV AgICAgICAgICAgICAgICAgICAgICAgICAgICAgICAgICAgICAgICAgICAgICAgICAgICAgICAgICAgIC CyVW5QNLWgVLMyWGKvCUKpWGDfZJCqIBGlWTIxJHKm ICAgICAgICAgICAgICAgICAgICAgICAgICAgICAgICAgICAgICAgICAgICAgICAgICAgICAgICAgICAg EHYhAFBaDDCdGMEtVE1PXGSlGUQmWSTsWYDoDBItGJGgLYGoELMrIAVmFDHyMNPbQGMgBRBlNFDbXIPc ICAgICAgICAgICAgICAgICAgICAgICAgICAgICAgIC DqEJIdDXLxIIFaIFIeFQPrWKOsTHFxYF0PZKUrECPcLRClYGGjFXPaSCHvXUDmJJYrJTRgOKGiOXCiRN AgICAgICAgICAgICAgICAgICAgICAgICAgICAgICAgICAgICAgICAgICAgICAgICAgICAgICAgICAgIC EfSXUsGA8NUDKkCEQfNUBpBXFvORCjOMDfCKYfMQPk ICAgICAgICAgICAgICAgICAgICAgICAgICAgICAgICAgICAgICAgICAgICAgICAgICAgICAgICAgICAg CPPeDXLfGFRqILRzRADrEV7HWD59nYHqa6P0FOQiEW1lgjr/Wc6VEEvnyjTjwCCrXG0TToGmPP9sez7P PxFnCE9zwz9TPRqCNwQoZ4D7eQRkHOPxLKWPMnHlZ3 0qLHasQn86MCisUANtCtPtXRn7Jv1AAjZwD9ylQPTpPlW5PWUaMsE6XAEsHqQmKHEiNAXaLBLyAZDCHV 0XQoExB0IayM66BVIXVj7+ZKtkdzJwLbgNGkJ6AMLzr3JyQAq5UF3HBZUkLzgjo8DeXquwAKCIFBryDR 7TYED9IQZ2LNJqHy3EQQEhB331wiLhBA2OVg0RRkEx KR6izq4RPwjxUIFnLrhODww9OBbiBM1DxBHmMJtZam2zaaDlovDLz2PyqkPqyNDYzU0yBJEHTUVlxGsc i4JiSHYQPFUmeAFmJL4nBm7yECSsCYP5TeQxGRFQHW2APMNfARBqzYDfPJYkAODDTW5AVThzHHB7ETQb jyBkeFLgKGeoQE7DNFZentZdMeHgLDQNUTq+Pg0KZW 0ux1JqUUe5AQNbw3LaQPt9CA0NCYXkWZtpNHPhMR1sc9IbW5T4FpU4pWYjV9uuyzvyI8EdtdUlbvUrZL YiGAOmNQ3MVL8XBH3EYCPpHMqfPH8CODT9FHseLNBsSQZkUGG2FOB0KUZmLJ4SJGMdXND1CK4EHH2XCr hvG6HRECbpfDjgFpANXAP/YICSTBKNUUjeUZWsF24W B4OJYCnACdhmSRkBSlqrXs7nAFp+Tt1MWW7is5QkCBxuKWOzQD5bpx5MTJgWUqJdB3M0yHFrL3O0MZak Tm1GZPWbQFKmMwWpSYTIEBauPC3VDZ7vjqQ4UV3RzJDsRCVgAZMntEFrFNu7Y01ufDHwXGskOL0MFAL+ Rehan+Ja0ZNDFhAOSeCWSgIxDsESHHDzMxZ2XmM1HSo4 QfW8IjDB96gTiaomVxJMahFI7IRV0kYCNrVKLXGA9VlVTshL8fskEqPcKiABMWCpNoC13seSMgHSXhZD J9RHGtQl4QHOIjB5EhdyDwqBrucnLvIWYfLHULNN1MYXjkfpJyqDNmbDwhFL08iOnoTF3XWz8MHzSvDI 7rdf7BtXDkZc0VSSNqOU8AESIvFBUqBGXoZFX0YPUs KdNsIUjfVBBqAGAgAGQ7PIEjBBKcTA2DEeHdIFDuJpxeTBSgQLXqHAPnae8LAIUeIZMkAIxgGzUsWAFc HLEkRPmsHUMcWCBuLBQ0JTDnNPHhTK8YFfDvZNBiZSV9JCumEVBqFXWdij7XNOVpEIFjUII5MJMnCOQu ZYKlIYilTIXuYSN4ObV4ZIRrUPSuCX9CJvUhYYMkMV z1KcLvXPElVDMiey3ZNOVhDHJuHns4IxLzOGOuSJCmCZobGIWaIMFbIpB2HVIxNAZdBU6UUmMmSXHjOV J4BpCnSGJhCWSfcl2ZLDUwXPAgHadxQbYqRMCpCEWtPGleUVIsUCJdJGEqEYQoFMBiPU9FGyIsENLcWP Y2UZBlIQFkKIFxon2DQAXsGGCbFMT0ICBlMVRsKDTj NNqqJIMePRF6LeaiPCAzSODiAU3TLzGsGEGrXHTaJrJuIBXqEZPjkh4LLHGlHXDkIeHgODBjJSQnRQGq UMwcROSgLEE6KoYqKJYdZEKoBA3NAiKpCPNiYdblFRQbXUSsIDEiyx6FIQThOAPzOHL3GgEtOIUfMNSu WIicZULqGJR1OIg2YUZbVVOcLL5HVjKzTFUqLnd0Ux IbUHFgIYFecs4WQMJwNUWuXJp0XkEbBITdSMUmKRhiUIUuJCF2YyjxEXUuOZTbHK5JWgNlCBXhKdE4TR MfLUZbKNCqyu0MBOSyHCFiJEruJgPzCRQbRLRbBOnbJSNuYCIaRaYgXCRkXFBeFK5QZlNuFVblGOAQSh u9NGzpZ1t5BPKvZC0UV4Ewe6ZwVibvOCTENIenRM7u kuZyMXHeFg1ZR2fQImoaDaA2GRL9EzV4LFM2BTMnPLX8OqV8M2A9HjAfQQRjNW4eTJKaIMt0XhxrDXvg Usk1KONiNrtoAsIwOcMfLKHaSfUsFgHfUD6KId9AGtX1DQW6bEKwCz5ZUwG8GXFXBnFbNJ6IQXb= ID Date Data Source [id number] 04/12/2020 04:35:27 PM EST [facility] Name Value Range Interpretation Code Description Data Maribell rce(s) Supporting Document(s) *Follow Up Visit DANI v1 [facility] FUKNUy7lHjHGJxIea7ryJTcfGVXyk8SuXAw0BC8ON1G3wXSlH7BwxQByl0cBGg9FxHLzkSAIkxOsyfIk KL1 [file] sh0iptD6ms3Pf5qHwlf3V2wm+Oy02ymhwP+bl+rqU7MydptrO+NKIcGr8jIfj+huf7125t/amandeep/6Upip9 n57qPqBZ3+xi4ba8/bz5tcEk+lPG70m3o61is4ju3p F+NgFSbeyAI+xhXBtrUKp8BcFCSDCkda6Clo3jyJn6f0e3NKZ6kjBgnyr2o/eucQuBsNEghI0x8x4sbr 3yqM9X5JfYD+8yQhrfODeKEIcfK1Zwoqo3uYPwHck+JyzvGt5c37rmO+fsO9nX13xu8i48qqsz/z9r3q U/o31kZlk1ud2flAYqGIuYu2URdbFy6oWkvvCc87F2 vM4ruaXnZInK3aBqEC0ArJv49kuf1EnIi7NwRTctC8XlGEI02TvbZ3azWD4FY7ftZB3jFI7Hf/ar25K8 21evxbKrmqmTI+zZtbYSFQvfL+Xq9SYd/bhS/yx01U6i8sCb2asjvcmXPuqEoTKZv6jK/uuMpc+pHI1y cbkX535M/owz/n0i/ntgSfqQbWxQkW3vZr131tB/lb h7/a918HTq1aol/qJ5/+4WR05XthbmDbiJYZy6r4W1QTPyeBDlrxYZYZGSPkT8N1o60b9kEBb8EMXsBP n31exC3AzKI3q9u+2X27m9dj7/RcLTQ+Na8xqQf7KYZ0Tzy13rmA3+/eNO37z0tpJ/Zwg0QW81Foy6uy Y8SbGDu4KKSA4Z/5rGj9Hyt3DEy6TWCF0gCgYXZD/s 6sNWWEDLzhv7cUst/hrc62m2b10fRD9jZ/kXQmG476auJP/mqHFsudjO/sKyiqwNknDs8f5DB3cXqUmt +TzrImwygt+wqOdNC49u5y1vxeEPn0+mLXjcj+3lM2d3jnpDm75h+ExSniSib9ArxvUl3ZIrZK7jw/j+ WxXaWzpOsV4p7f2HIejePXWSxiCAtb0KF1rFoOmb2g Jke5040Y9iPMdADNtjGmVNaxpdFtar7bJ7ImKUjkveImnfD5KUwyRik73nQY3Ah2u62wcrRNwgYSm5c8 1rx1Epk6jdIb0/NoUHBj7u/Wk+4sCudN5GKWW/lk+case management coordinator/H7MNub1e0n4gYy+dp+qlH+fJlwNUj0yJS77 [file] yNO+B9uUtxmFdK8nnmup/[facility]+zfv1dYUCh8 [file] lOCcn0QPtf7CzLj325FJxda8hw+KR1ojG8e1YF+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 [file] oczjzjrpjjOghbtyKfuipFhv8Zr8jF10/zGbTdETrqu0kMMJM4tuna8hppsnyKPTyBEMLdw+6plSsvvf 9IkHtXv67u6tXQ5MJSgvVCcV+wZNSYjUUXyPuazgzs+vEec08jAxaf2fbNjBkf1cotXLmQ8ReeiklMif 1BYX9GJ76FbnGdHnjShc3XemUFLZwcQPal2DAyW9w3 cwA75ByDg4tjZ1823nKf4hiNjNPt1aYaHOsM80B9iIEhK9lAmNEA7SKNuzsT3lW9tUa1gHuj8khquImU HyGkttFpnZSnQ3kSQsC6V6EqAYY2AJGHbyhBaC88wgRLoKYIwu3oQYq4ENMUUNqa9szXXieszxdzEe3w mylUFM816Ancj6vpAexzHF62mzjM1KtEDN8+IyTqKs dugVRh2VWxW9GAgQWbMEiCqyXPCwNxZliU1lSslolwjBj1gHb3kibYu6i39OI4EZaHkZ25aUYPANs4M+ qsUHhgRX0vd5ZoUQT5fCUhELkZhtvh1k5Dd2kkTx8dv0s4YaFIhg+vm9ID3vxQ/oSX47qYbdo9ACXE/t 1LonnRd22f4tFLOQUM0P3OtIpHzm5ddLc1V2Bc4Vcc Shingle Cutter/7qBJn0y+2JzIL4Q772V6O88/EwOW77S5Q2j3Ywpu72qLN8393dpwIDJI56wOq42tuDa21JRGo/K0P e3pa/bQ4g25olJb9m1/hO+iR2IPtKt6H5hetAlHTY7PorS2alCkOsYvGQWDq8trDkuCooIUKijPLujj+ fMzuvgcBy8OGGLvC64VxOglvcHRNpHEPkeXKQJTEtD GJRKy6JwneSrQOfFQKS6uwArzQexLLUZstA2V4BQy+/d7/VCqD7qO7d/DE71SM/dKSMTiQE7sJaeXQ [file] W3NruNOpvkdqkfniJQybgo25loXIwTwrFjsVzltthD BE57nUbxhmx/0a7J5Hrl2NQJ0tz1EqLLUnUSoAWoMiMR4fwj1CfEPyDu3UJMY7PD3TSZNmYGApRLBnBD B1PPWhYAKeQKkoSVWsYIOeSCZ2PARfZFSdMX3HRoRtCPAqGYJ8UAZhAQKuEKJpgo1VEVEpEQYbXMU3QF QjFDGuFOPxNMxiJYClGXRoPcFnLGXcUTDuTD0EZjMd BGScTPJ8CLJwOSDcZZDczs1VHQBfULVwXPXfQlUqMQDaRQUsNLdnUGXmXKIqUZkbFMQoOORvXK5MRnUw DBItWOE7UONiSCAcMWXbap3WKCYnIXLzAGI3ZZSqAMZaIVAgCHjzWBFdXKR1BrJ8RVWvZICkAA7NVlQe VHEhZTD2RkBlIUYjFOVfuy4RUYFnNUPoPzT1VbDyUN AdFIMrZRraBMHqKWChPdAxTCBgPHVqRF8OQmEmHKTrSPZtXJQrIRSnTXKkeu3CECQpLCAaGXt5PlJxVS BtANImXNyfNGAxRYWmLPL7COZkGCDbFH7TEhIbIBVgEYE9ElRvIUOcHZRmua1TIVTiFFJlRfSoVtPuAS RjLRRqGDjaIKPaFJN8Crd5UXXgFEEeNN2RKvOwHTXg KuB2KlZeZNIaCPPmoe9KHZQjLXVcUtrqSiQvTKNbFVEeIRbaDGIiMLX0INFwNWXhDMHfEZ2RRrSdVWEo RiQaLbkeCZIaQEYpmp4ULYEbYPFmNQn5AXCpXGTbQRTzEDbmVUCfSRO8UJe7QSKdZDLeIW9NXlClYNCe SYBbWACdJKIzRNNzmc9MHLPwSZEsZDtyTUWjPSZnGF OeTLwpTDQwYIF7GGG2IDJeDXNmKS4ZZnUnQAYrZRn0QDKwLPOqRNKubv6MVOCmSVCfMfp4CEAxVHIfEC FgSIfyYKJxNPP5KPchYSXnTKDxXH4TKzRuIDTbMSYoOIikZLAhQHZtcv3OLBExFBStDLI8KESbCQPtVG KhJRltTQEaVHL4WZgoATYbZXUwYT3MSqHtHEXsQCpv WPzfDGFzHOCwhc4VSTQrQSDqJJZ6RRYnPCEzBZKmBEybVDYyHJX1LUX6YMHsILZpEL5SGcVqPCBaCCR7 UNZiCYEvKPIzvu0QWGMzBLWfMRJqOgRzEHWdYGUfFUvaKDWvKZM2RKokQFXhBSRiSD9GSfGrWYCeVjF4 XPAsPKGhNFVimf2DOZCtWIQeDNJoWTTbALPgAPJqCJ rqQNIzZCGdVZJ7LEGeHZFlST5JJnQlWUDuCcP8ZUfyMBTbZTOuox0ASUHtLTEgLmV4BOKkTVYdMBRuGJ vsGTGoOGQpFqE0ZPVeVCNtUS1XLiXwLMMvKyA2QFrrQJCeXOHtdk2GDPTiXTAqTBM3LwFjTBXvUXAaQS fiANRaDSA5CPN9TTHxACIdEX4ENmVdKOOrKfS6NYZn NCAyKUMkph4TLUHnHNMiWZQrAdNjJKJxZITrMAhoUIZmJFWaDHF0DKXvVRFsAA0YTkUiPGSiNKEjVAOl HQDjRZVqlh8BXQBuUPLcMGBjMtFkBRHeOZVkSFt2xdDtbDDfAPz1UU2RN7pgIp5yBRidHVVOCHcbF4v8 GDO4LG0EG4Mtw3RzIZJvEDFFKa0+MSqVPdB8TJC8iUMnDx8EBmEwDwlnSBoeIMEREz4V ID Date Data Source [id number] 04/10/2020 03:50:24 PM EST [facility] NT INFORMATIONPatient MRN Name Date of Age Gend*PT [id number] Nazia Avila 1970 49 years F ---PT Location Admission Date/Time Visit ID Attending Provider --- --- --- --- EPI ID CSN Admitting Provider [id number] ---Name: Nazia AvilaDOB: 1970Date: 04/10/20CIED Remote CheckImplanted Device 09/19/2019Device Tissue Specialist MedtronicDevice type Bi-Ventricular ICDMRI Conditional Device -Device was remotely interrogated and the following were evaluated:Battery statusSummary arrhythmia logsNew observationsFidelity of the EGM signalIntegrity of leads and lead impendence were reevaluatedConclusion:Normal ICD function.No significant changes continue to monitor.Signature: Tenisha Cisneros MD, [facility], [facility]ICCardiac Electrophysiology and Arrhythmia ServiceDate: April 10, 2020Time: 3:50 PMThis document or parts of this document, were dictated using [employer]. A reasonable attempt at proofreading has been made to minimize errors.Please call with any questions or corrections. Name Value Range Interpretation Code Description Data Maribell rce(s) Supporting Document(s) ID Date Data Source [id number] 04/10/2020 03:50:24 PM EST [facility] NT INFORMATIONPatient MRN Name Date of Age Gend*PT [id number] Nazia Avila 1970 49 years F ---PT Location Admission Date/Time Visit ID Attending Provider --- --- --- --- EPI ID CSN Admitting Provider [id number] ---Heart Failure Management ReportPatient has a history of dilated cardiomyopathy. According to this report,patient has not had VT/VF. There is not evidence of AT/AF. In regards toOptivol, patient has not crossed fluid threshold. Average ventricular responseat night is 60.Angel Smith document or parts of this document, were dictated using [employer]. A reasonable attempt at proofreading has been made to minimize errors.Please call with any questions or corrections. Name Value Range Interpretation Code Description Data Maribell rce(s) Supporting Document(s) ID Date Data Source [id number] 03/24/2020 12:36:45 PM EDT [facility] NT INFORMATIONPatient MRN Name Date of Age Gend*PT [id number] Nazia Avila 1970 49 years F ---PT Location Admission Date/Time Visit ID Attending Provider --- --- --- --- EPI ID CSN Admitting Provider [id number] ---03/24/20 Nazia Avila [id number] female 49 yearsKimberly Elissa Avila is a patient of Dr. Goode, who comes in today for a woundcheck. She was seen on Tuesday and had an axillary seroma drained, 90ccs. Shestates it filled up and is uncomfortable.Current Meds:Current Outpatient Medications: acetaminophen (TYLENOL) 500 MG tablet, Take 1,000 mg by mouth daily as neededfor pain , Disp: , Rfl: albuterol (PROVENTIL HFA;VENTOLIN HFA) 108 (90 BASE) MCG/ACT inhaler, Inhale2 puffs every 4 (four) hours as needed for shortness of breath , Disp: , Rfl: Calcium Carbonate Antacid (TUMS CALCIUM FOR LIFE BONE PO), Take 2 tablets bymouth 2 (two) times a day as needed, Disp: , Rfl: carvedilol (COREG) 6.25 MG tablet, Take 6.25 mg by mouth 2 (two) times a day,Disp: , Rfl: fluticasone-salmeterol (ADVAIR) 100-50 MCG/DOSE DISKUS, Inhale 1 puff 2 (two)times a day as needed (for shortness of breath), Disp: , Rfl: furosemide (LASIX) 20 MG tablet, Take 20 mg by mouth daily as needed (forswelling) , Disp: , Rfl: 3 lisinopril (PRINIVIL,ZESTRIL) 10 MG tablet, Take 10 mg by mouth nightly ,Disp: , Rfl: 11 loperamide (IMODIUM) 2 MG capsule, Take 4 mg by mouth 2 (two) times a day asneeded for diarrhea, Disp: , Rfl: loratadine (CLARITIN) 10 MG tablet, Take 10 mg by mouth daily as needed forallergies, Disp: , Rfl: metFORMIN (GLUCOPHATE-XR) 500 MG 24 hr tablet, Take 500 mg by mouth everymorning , Disp: , Rfl: 11 metFORMIN (GLUCOPHATE-XR) 500 MG 24 hr tablet, Take 1,000 mg by arcelia thnightly, Disp: , Rfl: PACLitaxel (TAXOL IV), Infuse into a venous catheter, Disp: , Rfl: PERTUZUMAB IV, Infuse into a venous catheter, Disp: , Rfl: potassium citrate (UROCIT-K) 10 MEQ (1080 MG) SR tablet, Take 10 mEq by mouth2 (two) times a day, Disp: , Rfl: pramipexole (MIRAPEX) 0.125 MG tablet, Take 0.125 mg by mouth nightly , Disp:, Rfl: pramipexole (MIRAPEX) 0.125 MG tablet, Take 0.125 mg by mouth nightly asneeded (for restless legs), Disp: , Rfl: prochlorperazine (COMPAZINE) 10 MG tablet, Take 10 mg by mouth every 6 (six)hours as needed (for nausea) , Disp: , Rfl: rosuvastatin (CRESTOR) 20 MG tablet, Take 20 mg by mouth nightly , Disp: ,Rfl: 11 TRASTUZUMAB IV, Infuse into a venous catheter, Disp: , Rfl:Allergies:AllergiesAllergen Reactions Adhesive Tape Other (See Comments) Blister Azithromycin Hives Other Steri strips - severe blisters Penicillins Hives Reaction occurred within 24 hours of first dose in 2014Exam:Const: Appears pleasant. No signs of acute distress present. Alert and oriented.Patient is a good historian.Head/Face: Atraumatic, normocephalic and no lesions or masses.Eyes: Conjunctivae clear. Sclerae are anicteric.Post-Op wound: Right axillary incision is/are well approximated. Erythema isnot present. Induration is not present. Drainage is not present. She has asignificant area of ballotable fluid extending high into her axilla. The patienthas a seroma. Using aseptic technique, a seroma cath was placed and secured inplace with tegaderm. She had 90cc of clear yellow fluid drain prior to leavingthe office. The patient tolerated it well.Skin: No jaundice, rash.Neuro: No focal deficits noted.Assessment: Patient has a well approximated incision, without signs or symptomsof infection. She had a successful seroma drainage.Plan:We told her she can pull it out after the drainage subsides. She will callif there are any problems or concerns. Name Value Range Interpretation Code Description Data Maribell rce(s) Supporting Document(s) ID Date Data Source [id number] 03/21/2020 01:32:29 PM [facility]T [facility] INFORMATIONPatient MRN Name Date of Age Gend*PT [id number] AustinAna RosaNazia A 1970 49 years F ---PT Location Admission Date/Time Visit ID Attending Provider --- --- --- --- EPI ID CSN Admitting Provider [id number] ---03/21/20 Nazia Avila [id number] female 49 yearsKizairaersheryl Avila is a patient of Dr. Goode, who comes in today for a woundcheck. She was seen on Tuesday and had an axillary seroma drained. She statesit filled up and is uncomfortable.Current Meds:Current Outpatient Medications: acetaminophen (TYLENOL) 500 MG tablet, Take 1,000 mg by mouth daily as neededfor pain , Disp: , Rfl: albuterol (PROVENTIL HFA;VENTOLIN HFA) 108 (90 BASE) MCG/ACT inhaler, Inhale2 puffs every 4 (four) hours as needed for shortness of breath , Disp: , Rfl: Calcium Carbonate Antacid (TUMS CALCIUM FOR LIFE BONE PO), Take 2 tablets bymouth 2 (two) times a day as needed, Disp: , Rfl: carvedilol (COREG) 6.25 MG tablet, Take 6.25 mg by mouth 2 (two) times a day,Disp: , Rfl: fluticasone-salmeterol (ADVAIR) 100-50 MCG/DOSE DISKUS, Inhale 1 puff 2 (two)times a day as needed (for shortness of breath), Disp: , Rfl: furosemide (LASIX) 20 MG tablet, Take 20 mg by mouth daily as needed (forswelling) , Disp: , Rfl: 3 lisinopril (PRINIVIL,ZESTRIL) 10 MG tablet, Take 10 mg by mouth nightly ,Disp: , Rfl: 11 loperamide (IMODIUM) 2 MG capsule, Take 4 mg by mouth 2 (two) times a day asneeded for diarrhea, Disp: , Rfl: loratadine (CLARITIN) 10 MG tablet, Take 10 mg by mouth daily as needed forallergies, Disp: , Rfl: metFORMIN (GLUCOPHATE-XR) 500 MG 24 hr tablet, Take 500 mg by mouth everymorning , Disp: , Rfl: 11 metFORMIN (GLUCOPHATE-XR) 500 MG 24 hr tablet, Take 1,000 mg by mouthya fatima, Disp: , Rfl: PACLitaxel (TAXOL IV), Infuse into a venous catheter, Disp: , Rfl: PERTUZUMAB IV, Infuse into a venous catheter, Disp: , Rfl: potassium citrate (UROCIT-K) 10 MEQ (1080 MG) SR tablet, Take 10 mEq by mouth2 (two) times a day, Disp: , Rfl: pramipexole (MIRAPEX) 0.125 MG tablet, Take 0.125 mg by mouth nightly , Disp:, Rfl: pramipexole (MIRAPEX) 0.125 MG tablet, Take 0.125 mg by mouth nightly asneeded (for restless legs), Disp: , Rfl: prochlorperazine (COMPAZINE) 10 MG tablet, Take 10 mg by mouth every 6 (six)hours as needed (for nausea) , Disp: , Rfl: rosuvastatin (CRESTOR) 20 MG tablet, Take 20 mg by mouth nightly , Disp: ,Rfl: 11 TRASTUZUMAB IV, Infuse into a venous catheter, Disp: , Rfl:Allergies:AllergiesAllergen Reactions Adhesive Tape Other (See Comments) Blister Azithromycin Hives Other Steri strips - severe blisters Penicillins Hives Reaction occurred within 24 hours of first dose in 2014Exam:Const: Appears pleasant. No signs of acute distress present. Alert and oriented.Patient is a good historian.Head/Face: Atraumatic, normocephalic and no lesions or masses.Eyes: Conjunctivae clear. Sclerae are anicteric.Post-Op wound: Right breast incision is/are well approximated. Erythema is notpresent. Induration is not present. Drainage is not present. Right axillaryincision has some ballotable fluid. The patient has a seroma. Using aseptictechnique, a 18 gauge needle and a 60cc syring was inserted and 90ccs of clearfluid was aspirated. The patient tolerated it well.Skin: No jaundice, rash.Neuro: No focal deficits noted.Assessment: She had a successful aspiration today in the office.Plan:The patient will follow up as scheduled. Name Value Range Interpretation Code Description Data Maribell rce(s) Supporting Document(s) ID Date Data Source [id number] 03/19/2020 05:43:09 PM EDT [facility]Patient MRN Name Date of Age Gend*PT [id number] Nazia Avila 1970 49 years F ---PT Location Admission Date/Time Visit ID Attending Provider --- --- --- --- EPI ID CSN Admitting Provider [id number] ---Breast cancer postoperative visitKimbersheryl returns as a postoperative visit this is a aissatou 49-year-old femalewho had been referred to me with a new diagnosis of a right breast carcinoma.It looked to be a T2 lesion. Her lesion was located in the subareolar positionshe had some puckering although be it subtle near the nipple her tumor wasestrogen positive the HER-2 had been pending for a while we thought it was go mesfin negative but it ended up being positive and so with that we discussed theconsideration of neoadjuvant chemotherapy to de crease the size of the primary [id number] in the hopes that she could undergo successful breast conservation.She received chemotherapy with my colleague Dr. Laurent N[place] did pretty well with it as noted below her final pathology shows negativenodes and a lesion that definitely decreased in size although obviously stillresidual diseaseShe returns today she is doing well she has some pain and swelling in her rightaxilla she has a seroma I said we would drain thatOther than that we discussed her follow-up from here no doubt she will go on toradiotherapy within the next month and then complete Herceptin and possiblyPerjeta. That is up to medical oncologyHer pathology from below states that the HER-2 was negative it was actuallypositive that is an error I will have them correct thatOther than that she is pleased with her outcome again to bring her back in 1years time with a bilateral diagnostic mammogramAccession #:[id number](s) ReceivedA: Right breast sentinel nodesB: Right breast needle localization (green - anterior, blue - inferior,orange - lateral, yellow - medial, black - posterior, red - superior)Clinical Diagnosis and HistoryBreast carcinoma female rightDIAGNOSISA. SENTINEL LYMPH NODES (3), RIGHT AXILLA, EXCISION: THREE BENIGN REACTIVE LYMPH NODES NEGATIVE FOR METASTASIS PANCYTOKERATIN IMMUNOSTAINS NEGATIVE ON BLOCKS A1, A2, A3, A4, A5,AND A6B. RIGHT BREAST, NEEDLE LOCALIZATION LUMPECTOMY: INVASIVE DUCTAL CARCINOMA, GRADE 2, 1.2 X 1.0 X 0.5 CM (PT1c) (SEE COMMENT AND SUMMARY)CommentsThe sections of the sentinel node show dermatopathic changes and foci oftattoo pigment. Dermatopathic changes are present but there is noevidence of metastasis, morphologically or by immunostain. The needlelocalization biopsy shows a central core with biopsy site changes andmarker with residual moderately differentiated ductal carcinoma, 12 x 10 x5 mm in dimension. Minimum clearance is 1 mm at anterior and inferiorinked margins. Calponin immunostains were performed on blocks B3 and B5and show no myoepithelial staining in association with tumor. Amyosin/p63 immunostain was performed on block B7 and shows nomyoepithelial staining in association with tumor. An S100 immunostain wasalso performed on block B7 and highlights nerve fascicles but noperineural invasion is demonstrated.Microscopic DescriptionPATHOLOGIC SUMMARY: 1. TUMOR SIZE: 12 x 10 x 5 mm (measured microscopically)2. HISTOLOGIC TYPE OF INVASIVE CARCINOMA: Invasive ductal carcinoma (nototherwise specified)3. HISTOLOGIC GRADE: Overall grade: Grade 2 Glandular (acinar)/tubular differentiation: Score: 3 Nuclear pleomorphism: Score: 3 Mitotic rate: Score: 14. DUCTAL CARCINOMA IN SITU: No DCIS present5. MICROCALCIFICATIONS: Present in non-neoplastic tissue6. ANGIOLYMPHATIC INVASION: Not identified7. MARGINS: Invasive carcinoma: Margins negative for invasive carcinoma Distance from closest margin: 1 mm (anterior and inferiormargins) 3 mm (superior margin) DCIS: DCIS not present8. LYMPH NODES: Number of sentinel nodes examined: 3 Total number of nodes (sentinel and non-sentinel): 3 Number with macrometastasis (> 2 mm): 0 Number with micrometastasis (> 0.2 mm to 2 mm or > 200 cells): 0 Number with isolated tumor cells (d 0.2 mm and d 200 cells): 0 Number of negative nodes: 39. ER/[place]J/HER2: Previously performed on core biopsy [id number] A. ESTROGEN RECEPTOR (ER): Positive (percentage of cells with nuclear positivity: 95%) Average intensity of staining: Strong B. PROGESTERONE RECEPTOR ([place]): Negative Internal controls present and stain as expected C. HER2 (by immunohistochemistry): (By FISH method) Not amplified(per outside report) Name Value Range Interpretation Code Description Data Maribell rce(s) Supporting Document(s) ID Date Data Source [id number] 05/06/2020 10:12:53 AM EST [facility] Name Value Range Interpretation Code Description Data Maribell rce(s) Supporting Document(s) CASE NUMBER [facility] Y [id number] RESULT [facility] PER[facility] [address] [place], [place] [address] ID Date Data Source [id number] 03/11/2020 12:40:26 PM EDT [facility] NT INFORMATIONPatient MRN Name Date of Age Gend*PT [id number] Nazia Avila 1970 49 years F SDCPT Location Admission Date/Time Visit ID Attending ProviderASNE AMBULATO* 03/11/20 0910 --- Audrey Goode MD([id number]) EPI ID CSN Admitting Provider [id number] Audrey Goode MD([id number])Needle Guided Breast Lumpectomy with Sentinal Node Biopsy Procedure Note RIGHTAttending Surgeon - Audrey Goode MDAssisting Resident or Physician Recruitment Advertising Manager - Fermin Spearsthesia - GeneralIndications: This patient presents with history of right breast cancer withclinically negative axillary lymph node exam. She presented with a subareolarbreast mass biopsy-proven estrogen positive invasive ductal carcinoma but it wasalso HER-2/batsheva positive and so that made us consider neoadjuvant chemotherapyher tumor was at least 2 cm episode of right under the nipple I thought thatbreast conservation was possible but would likely cause significant cosmeticdeformity and given the biologic nature of her tumor we thought neoadjuvanttreatment was not unreasonable she never had evidence of teresa disease withinthe axilla her tumor seems to have responded very nicely to neoadjuvanttreatment and so plan now is for breast conservationPre-operative Diagnosis: right breast cancer, as noted above estrogen positiveand HER-2/batsheva positivePost-operative Diagnosis: right breast cancerSurgeon: AUDREY GOODE MDAssistants: See aboveAnesthesia: General LMA anesthesiaASA Class: 2Procedure DetailsThe patient was seen in the Holding Room. The risks, benefits, complications,treatment options, were discussed with the patient in our initial consultationin the office in full detail . The patient concurred with the proposed plan,giving informed consent. The site of surgery properly noted/marked. The patientwas taken to Operating Room # 2, identified as Nazia Avila and theprocedure verified as Breast Lumpectomy and Sentinal Node Biopsy. A Time Out washeld and the above information confirmed.After induction of anesthesia, the right arm, breast, and chest were prepped anddraped in standard fashion. Using a hand-held gamma probe, axillary sentinelnodes were identified transcutaneously. A small oblique incision was createdbelow the axillary hairline in a natural skin crease . Dissection was carriedthrough the clavipectoral fascia. She had been injected earlier in the morningwith radiocolloid and so the Neoprobe was used once in the true axilla toidentify the sentinel node(s) . She has had 2 sentinel nodes. One was veryvery hot and the other one a little less so but clearly these were both sentinelnodes they were slightly enlarged did not really look malignant.The lumpectomy was performed by creating an oblique incision in front of thewire and then beginning to dissect down to the wire . I actually made acircumareolar incision given the almost subareolar location of the tumor oncethe wire was identified we pulled it out into the wound thru the incisionalopening . From here the breast tissue on either side of the wire was graspedwith 2 Kings[place] clamps and then the tissue surrounding the wire widely excisedusing all sharp dissection with a 10 scalpel . I literally dissected rightunderneath the skin of the areolar region.This specimen was then oriented in 6 planes for pathology. Specimen mammographywas obtained confirming the presence of the clip and lesion .From here we obtained perfect hemostasis with the Bovie and the wound was closedin 2 layers with vicryl and monocryl .Sterile dressings were applied. At the end of the operation, all sponge,instrument, and needle counts were correct.Findings:gross ly clear surgical margins, no adenopathy and Specimen x-ray showed the clipin the lesionEstimated Blood Loss: MinimalTotal IV Fluids: See the anesthesia record for fluids administeredSpecimens: Excised breast tissue and sentinel node(s)Complications: :none , patient tolerated the procedure well with no difficultiesDisposition: PACU - hemodynamically stable.Condition: stableAttending Attestation: I was present and scrubbed for the entire procedure. Name Value Range Interpretation Code Description Data Maribell rce(s) Supporting Document(s) ID Date Data Source [id number] 03/11/2020 11:30:00 AM EDT [facility] SENTINEL NODE INJECTION ONLYCLINICAL HISTORY: [place] node for breast cancerCOMPARISON: None available.TECHNIQUE: Informed written consent was obtained. Procedure as well as potential complications were explained to the patient.The right periareolar region was prepped in the usual sterile fashion. Local anesthesia was achieved using 1% lidocaine. 495 uCi of technetium 99 M filtered sulfur colloid was then injected intradermally without difficulty. No immediate complications.FINDINGS: Right sentinel node injection as described above.IMPRESSION: Right sentinel node injection as described above.During this public health emergency, we are using enhanced sterilization techniques and PPE for your protection.Dictated by: LATONIA CALI M.D. on 03/11/2020 Transcribed by: emely <<TranscriptionDateTime1>>CDS G Code: , ,CDS Modifier: , ,cc: Name Value Range Interpretation Code Description Data Maribell rce(s) Supporting Document(s) ID Date Data Source [id number] 03/11/2020 11:15:03 AM EDT [facility]FORMATIONPatient MRN Name Date of Age Gend*PT [id number] Nazia Avila 1970 49 years F SDCPT Location Admission Date/Time Visit ID Attending ProviderASNE AMBULATO* 03/11/20 0910 --- Audrey Goode MD([id number]) EPI ID CSN Admitting Provider [id number] Audrey Goode MD([id number])H&P reviewed. The patient was examined and there are no changes to the H&P.AUDREY GOODE MD11:14 AM Name Value Range Interpretation Code Description Data Maribell rce(s) Supporting Document(s) ID Date Data Source [id number] 03/11/2020 10:33:00 AM EDT [facility]HY LOCALIZATION PRE OP RIGHTCLINICAL HISTORY: [place] node for breast cancerCOMPARISON: 10/12/2019 and 09/25/2018.FINDINGS: The patient's prior 2-view mammogram was reviewed. A stereotactic clip is in place in the upper-outer retroareolar position of the right breast. It was decided to perform the localization from the lateral approach.PROCEDURESide and site protocol was utilized. The procedure, risks and benefits were explained to the patient. Material risks include, but are not limited to, bleeding and infection. The patient understood, her questions were answered and informed consent was obtained.MAMMOGRAPHIC LOCALIZATIONWith the compression grid in place, review of the images was performed and the appropriate coordinates were selected from the monitor and confirmed on the mammography unit and patient's breast. The skin was prepped in a sterile fashion. Local anesthesia was obtained utilizing lidocaine with sodium bicarbonate. An Argon needle and hook wire was used to localize the clip. Breast localization images demonstrate satisfactory placement with the clip adjacent to the mid to distal Argon needle. The patient tolerated the procedure well with no immediate post-procedure complication.Specimen radiograph demonstrates the clip and wire in place along with the adjacent tissue for which the localization was performed.The patient left in stable condition.IMPRESSION: Status-post successful mammographic localization with the specimen radiograph confirming the biopsy clip.During this public health emergency, we are using enhanced sterilization techniques and PPE for your protection.Dictated by: LATONIA CALI M.D. on 03/11/2020 Transcribed by: emely <<TranscriptionDateTime1>>CDS G Code: , ,CDS Modifier: , ,cc: Name Value Range Interpretation Code Description Data Maribell rce(s) Supporting Document(s) ID Date Data Source [id number] 03/11/2020 10:03:26 AM EDT [facility] Name Value Range Interpretation Code Description Data Maribell rce(s) Supporting Document(s) POC NOVA GLU 104 mg/dL (70-99) H [facility] PERFORMED BY [facility] CLINICAL STAFF ID Date Data Source [id number] 03/19/2020 12:42:08 PM EDT [facility] [place], [place] [address]Tel# Surgical Pathology Report* Amended * ReceivedA: Right breast sentinel nodesB: Right breast needle localization (green - anterior, blue - inferior,orange - lateral, yellow - medial, black - posterior, red - superior)Clinical Diagnosis and HistoryBreast carcinoma female rightDIAGNOSISA. SENTINEL LYMPH NODES (3), RIGHT AXILLA, EXCISION: THREE BENIGN REACTIVE LYMPH NODES NEGATIVE FOR METASTASIS PANCYTOKERATIN IMMUNOSTAINS NEGATIVE ON BLOCKS A1, A2, A3, A4, A5,AND A6B. RIGHT BREAST, NEEDLE LOCALIZATION LUMPECTOMY: INVASIVE DUCTAL CARCINOMA, GRADE 2, 1.2 X 1.0 X 0.5 CM (PT1c) (SEE COMMENT AND SUMMARY)CommentsThe sections of the sentinel node show dermatopathic changes and foci oftattoo pigment. Dermatopathic changes are present but there is noevidence of metastasis, morphologically or by immunostain. The needlelocalization biopsy shows a central core with biopsy site changes andmarker with residual moderately differentiated ductal carcinoma, 12 x 10 x5 mm in dimension. Minimum clearance is 1 mm at anterior and infer iorinked margins. Calponin immunostains were performed on blocks B3 and B5and show no myoepithelial staining in association with tumor. Amyosin/p63 immunostain was performed on block B7 and shows nomyoepithelial staining in association with tumor. An S100 immunostain wasalso performed on block B7 and highlights nerve fascicles but noperineural invasion is demonstrated.AmendmentsAmended: 03/19/2020 by Elsie Middleton: Typographical Error - Micro. descriptionPrevious Signout Date: 03/17/2020Microscopic DescriptionPATHOLOGIC SUMMARY: 1. TUMOR SIZE: 12 x 10 x 5 mm (measured microscopically)2. HISTOLOGIC TYPE OF INVASIVE CARCINOMA: Invasive ductal carcinoma (nototherwise specified)3. HISTOLOGIC GRADE: Overall grade: Grade 2 Glandular (acinar)/tubular differentiation: Score: 3 Nuclear pleomorphism: Score: 3 Mitotic rate: Score: 14. DUCTAL CARCINOMA IN SITU: No DCIS present5. MICROCALCIFICATIONS: Present in non-neoplastic tissue6. ANGIOLYMPHATIC INVASION: Not identified7. MARGINS: Invasive carcinoma: Margins negative for invasive carcinoma Distance from closest margin: 1 mm (anterior and inferiormargins) 3 mm (superior margin) DCIS: DCIS not present8. LYMPH NODES: Number of sentinel nodes examined: 3 Total number of nodes (sentinel and non-sentinel): 3 Number with macrometastasis (> 2 mm): 0 Number with micrometastasis (> 0.2 mm to 2 mm or > 200 cells): 0 Number with isolated tumor cells (d 0.2 mm and d 200 cells): 0 Number of negative nodes: 39. ER/[place]/HER2: Previously performed on core biopsy [id number] A. ESTROGEN RECEPTOR (ER): Positive (percentage of cells with nuclear positivity: 95%) Average intensity of staining: Strong B. PROGESTERONE RECEPTOR ([place]): Negative Internal controls present and stain as expected C. HER2 (by FISH method): Amplified (per outside report) HER 2 result scored using the ASCO/CAP guideline optimal scoringalgorithm. METHODS:Estrogen receptor: Primary antibody: SP1- Food and Drug Administration(FDA) Status: IVD Source: SemaConnectProgesterone receptor: Primary antibody: 1E2- Food and DrugAdministration (FDA) Status: IVD. Source: [place]/ZoopHER2 (by immunohistochemistry): Laboratory developed test Primaryantibody: SP3- Food and Drug Administration (FDA) Status: ASR (analytespecific reagent) Source: [facility] COLD ISCHEMIA TIME MEETS THE REQUIREMENTS SPECIFIED IN THE LATEST VERSIONOF THE ASCO/CAP GUIDELINES:Yes FIXATION TIME MEETS THE REQUIREMENTS SPECIFIED IN THE LATEST VERSION OFTHE ASCO/CAP GUIDELINES (6 to 72 hrs):Yes10. PATHOLOGIC STAGING: pT1cN0(i-)11. Oncotype Dx: Ordered on block B3 per NCCN Guidelines. A separate report will be issued by [facility]. Gross DescriptionPart A. Received in formalin labeled "right breast sentinel nodes" is a5.0 x 3.9 x 2.1 cm fragment of yellow lobulated adipose tissue containingthree alvarado-pink lymph nodes ranging from 2.0 x 1.2 x 0.5 cm to 3.2 x 2.2 x1.5 cm. Sectioning through the lymph nodes show alvarado-pink glistening cutsurfaces with moderate fat replacement. The lymph nodes are entirelysubmitted as labeled: A1. Smallest lymph node serially sectioned step level forpancytokeratin A2-A3. Second smallest lymph node serially sectioned step level forpancytokeratin each A4-A6. Largest serially sectioned lymph node step level forpancytokeratin each Part B. Received pinned to a wax block with accompanying radiographs informalin labeled "right breast needle localization see markings" is a 4.9cm medial to lateral x 3.8 cm anterior to posterior x 2.4 cm superior toinferior ovoid fragment of yellow lobulated fibrofatty tissue. Thespecimen displays a rivers flagged needle embedded within the superioraspect and a rivers metal guide wire embedded within the anterior aspect. The specimen is inked by the surgeon as follows: anterior green,posterior black, superior red, inferior blue, medial yellow, andlateral orange. The specimen is serially sectioned from lateral tomedial to show a 0.5 x 0.5 x 0.4 cm rivers-white focally hemorrhagicslightly stellate biopsy site centrally located within the specimen. Thisbiopsy site does display an embedded rivers metal clip. The biopsy site is0.3 cm from the anterior margin, 0.6 cm from the inferior margin, 1.2 cmfrom the posterior margin, 1.0 cm from the superior margin, 2.5 cm fromthe lateral margin, and 2.0 cm from the medial margin. No discrete massis grossly identified adjacent to the biopsy site however there isapproximately 40% rivers-white dense fibrous tissue admixed with 60% yellowlobulated fatty tissue. No additional lesions are identified. [employer] sections are submitted as labeled: B1. Lateral margin shaved submitted inked true margin down B2. Medial margin shaved submitted inked true margin down B3-B6. Biopsy cavity entirely submitted with nearest margin B7. Tissue immediately medial to biopsy cavity B8- B9. Tissue immediately lateral to biopsy cavity jgllmr/skl Reported: 03/19/2020Electronically Signed Out By Torsten Ulrich MD [facility] [place] [address] 53790vorDbfduhiwz component performed at [facility], Histopathology, [address] [place] [address], [phone].Reported at [facility], [address] [place] [address], [phone]. This report may includeimmunohistochemical or in-situ hybridization results. Testing wasdeveloped and the performance characteristics determined by [facility] as required by CLIA '88. The FDA hasdetermined that approval for specific use is not necessary for clinicaluse. The quality of Hematoxylin and Eosin stains and as applicable, forall immunohistochemical and/or special stains, including positive andnegative controls, were reviewed and considered appropriate.ICD codes C50.911CPT codesA: 33921U, 59011lY: 62103R, 63340r, 14728, 72619B Name Value Range Interpretation Code Description Data Maribell rce(s) Supporting Document(s) ID Date Data Source [id number] 03/10/2020 11:22:54 AM EDT [facility] NT INFORMATIONPatient MRN Name Date of Age Gend*PT [id number] [place] Nazia Bowers 1970 49 years F OPPT Location Admission Date/Time Visit ID Attending Provider --- --- --- Audrey Goode MD([id number]) EPI ID CSN Admitting Provider [id number] ---OUTPATIENT / OBSERVATIONAL SURGICAL OR INVASIVE PROCEDUREName: Nazia Avila : 1970 Sex: female Care Provider: [facility] Physician: Dr. Goode.HISTORY OF PRESENT ILLNESS: 49 years old white female who discovered a rightbreast lump in September. She has since undergone diopsy and was diagnosed with rightbreast cancer. Patient began chemotherapy on November 23, 2019 and completed 12weeks. She states she now gets chemo every 3 weeks[address] Patient met with Dr. Goode,options were discussed, and she has now elected to undergo surgicalintervention.PAST MEDICAL HISTORY:Past Medical History:Diagnosis Date Asthma Breast carcinoma, female, right 10/30/2019 Added automatically from request for surgery [id number] CHF (congestive heart failure) Diabetes mellitus, type II Insulin-dependent prior to gastric bypass. Currently on Metformin. Dilated cardiomyopathy Followed by Dr Cisneros Heart block Hypertension Implantable cardioverter-defibrillator (ICD) generator end of life 03/18/2015 Kidney stone PONV (postoperative nausea and vomiting) Presence of almond huller-recalled implantable cardioverter-defibrillator (ICD)lead 03/18/2015 VT (ventricular tachycardia) 01/26/2017PAST SURGICAL HISTORY:Past Surgical History:Procedure Laterality Date APPENDECTOMY CENTRAL VENOUS CATHETER INSERTION Left 11/02/2019 Procedure: RIGHT INSERTION, CENTRAL VENOUS ACCESS DEVICE, TUNNELED; Surgeon:Audrey Goode MD; Laterality: Left; SECTION CHOLECYSTECTOMY ep study EXTRACTION LEAD N/A 03/18/2015 Procedure: LASER-EXTRACT CARDIOVERTER DEFIB LEAD PROLONG INSERTION OFIMPLANTABLE CARDIOVERTER DEFIBRILLATOR; Surgeon: Tenisha Cisneros MD, [facility]; Location: [facility]; Service: Pacemakers; Laterality: N/A; GASTRIC BYPASS N/A 01/30/2014 Procedure: [id number]-WWZZRN-[id number]-Y LAPARSCOPIC, LIVER BIOPSY; Surgeon:Ryan Casas MD; Location: [facility] [place]; Service: Bariatric; Laterality:N/A; HYSTERECTOMY INSERT / REPLACE / REMOVE PACEMAKER INSERT / REPLACE AICD LEAD KIDNEY STONE SURGERY N/A mulitple KNEE ARTHROPLASTY Left KNEE ARTHROSCOPY Bilateral SINUS SURGERY UMBILICAL HERNIA REPAIR with meshALLERGIES:AllergiesAllergen Reactions Adhesive Tape Other (See Comments) Blister Azithromycin Hives Other Steri strips - severe blisters Penicillins Hives Reaction occurred within 24 hours of first dose in 2014MEDICATIONS:Prior to Admission medicationsMedication Sig Start Date End Date Taking? Authorizing Provideracetaminophen (TYLENOL) 500 MG tablet Take 1,000 mg by mouth daily as needed forpain Historical Provider, Jaswinderlbuterol (PROVENTIL HFA;VENTOLIN HFA) 108 (90 BASE) MCG/ACT inhaler Inhale 2puffs every 4 (four) hours as needed for shortness of breath HistoricalProvider, KIMBERLYalciu m Carbonate Antacid (TUMS CALCIUM FOR LIFE BONE PO) Take 2 tablets bymouth 2 (two) times a day as needed Historical Provider, Kimberlyarvedilol (COREG) 6.25 MG tablet Take 6.25 mg by mouth 2 (two) times a dayHistorical Provider, fluticasone-salmeterol (ADVAIR) 100-50 MCG/DOSE DISKUS Inhale 1 puff 2 (two)times a day as needed (for shortness of breath) Historical Provider, furosemide (LASIX) 20 MG tablet Take 20 mg by mouth daily as needed (forswelling) 12/25/18 Historical Provider, lisinopril (PRINIVIL,ZESTRIL) 10 MG tablet Take 10 mg by mouth nightly 12/25/18Historical Provider, loperamide (IMODIUM) 2 MG capsule Take 4 mg by mouth 2 (two) times a day asneeded for diarrhea Historical Provider, loratadine (CLARITIN) 10 MG tablet Take 10 mg by mouth daily as needed forallergies Historical Provider, MDmetFORMIN (GLUCOPHATE-XR) 500 MG 24 hr tablet Take 500 mg by mouth every morning12/25/18 Historical Provider, MDmetFORMIN (GLUCOPHATE-XR) 500 MG 24 hr tablet Take 1,000 mg by mouth nightlyHistorical Provider, MDPACLitaxel (TAXOL IV) Infuse into a venous catheter Historical Provider, MDPERTUZUMAB IV Infuse into a venous catheter Historical Provider, MDpotassium citrate (UROCIT-K) 10 MEQ (1080 MG) SR tablet Take 10 mEq by mouth 2(two) times a day Historical Provider, MDpramipexole (MIRAPEX) 0.125 MG tablet Take 0.125 mg by mouth nightly 01/24/20Historical Provider, MDpramipexole (MIRAPEX) 0.125 MG tablet Take 0.125 mg by mouth nightly as needed(for restless legs) Historical Provider, MDprochlorperazine (COMPAZINE) 10 MG tablet Take 10 mg by mouth every 6 (six)hours as needed (for nausea) 11/09/19 Historical Provider, MDrosuvastatin (CRESTOR) 20 MG tablet Take 20 mg by mouth nightly 12/25/18Historical Provider, TRASTUZUMAB IV Infuse into a venous catheter Historical Provider, Kimberlyarvedilol (COREG CR) 80 MG 24 hr capsule TAKE 1 CAPSULE EVERY MORNING WITHFOOD. 05/02/07 03/10/20 Historical Provider, HYDROcodone-acetaminophen (NORCO) 5-325 MG per tablet 02/05/19 03/10/20Historical Provider, ondansetron (ZOFRAN) 8 MG tablet 02/27/19 03/10/20 Historical Provider, tamsulosin (FLOMAX) 0.4 MG CAPS TAKE 1 CAPSULE BY MOUTH ONCE DAILY FOR 30 DAYS02/15/19 03/10/20 Historical Provider, MDSocial HistoryTobacco Use Smoking status: Never Smoker Smokeless tobacco: Never UsedSubstance Use Topics Alcohol use: Yes Comment: 0-1/month Drug use: NoFamily HistoryProblem Relation Age of Onset Heart disease Mother Heart disease Father Malig Hyperthermia Neg HxREVIEW OF SYSTEMS:Testing Based on Symptoms:In the last six (6) weeks, has the patient experienced any of the followingsymptoms?Chest Pain? Yes (Need EKG & PCP or Curve Saw Operator Note) Seen by ER in [facility].Was found to have low calcium.Shortness of Breath? NoPalp itations? NoChange in ADLs (Frailty Scale)? NoHospitalization? NoChange in cardiac, respiratory or Neuro medications? NoAcute Antibiotic Therapy? NoRespiratory: Denies any shortness of breath, cough, yellow sputum production orwheezing.Cardiovascular: Denies any chest pain, pressure or tightness. Denies anyparoxysmal nocturnal dyspnea or orthopnea.GI: Denies nausea, vomiting, diarrhea, constipation or melena.Neurologic: Bilateral hand numbness. Denies any tremors or syncope.Vascular: Denies any edema. Denies claudication.PHYSICAL EXAM:GENERAL: She is a 49 years old, pleasant white female, in no acute distress attime of examination. Vitals on arrival to the office are BP 108/65 (BP Location:Left upper arm, Patient Position: Sitting) | Pulse 78 | Temp 96.6 F(Temporal) | Ht 1.588 m (5' 2.5") | Wt 75.2 kg (165 lb 12.8 oz) | SpO2 98% |BMI 29.84 kg/m Body mass index is 29.84 kg/m ..Skin is pink, warm, and dry.NECK: She has a grade 1 airway. Neck is supple, midline, without cervicaladenopathy. No thyromegaly. No carotid bruits.MENTAL / NEUROLOGICAL STATUS: [id number]: Clear to auscultation. No wheezes, rhonchi or crackles.HEART: Rate rhythm regular. S1, S2. No murmur, rub or gallop.ABDOMEN: Bowel sounds positive times four. Soft, non tender. No reboundtenderness. No hepatosplenomegaly. Negative CVAT.EXTREMITIES: Pulses are symmetrical. No edema.OPERATIVE SITE: Denies rash or lesion.Anesthesia complications: NauseaCSHA Frailty Scale :: 4/10 Vulnerable (while not dependent on others for dailyhelp, often symptoms limit activities. A common complaint is being "slowed up",and /or being tired during the day).Stop Bang Questionnaire - Total Score:STOP-Bang Total Score: 3ASSESSMENT: Primary Diagnosis/Indication: Breast carcinoma female right.PLAN: Procedure: Lumpectomy breast with needle localization with sentinel lymphnode biopsy with axillary lymphadenectomy if indicated right.03/10/2020 11:22 AMAngel Jacob document or parts of this document, were dictated using Jascha software. A reasonable attempt at proofreading has beenmade to minimize errors. Please call with any questions or corrections.* Name Value Range Interpretation Code Description Data Maribell rce(s) Supporting Document(s) ID Date Data Source [id number] 03/10/2020 10:49:22 AM EDT [facility] Name Value Range Interpretation Code Description Data Maribell rce(s) Supporting Document(s) EKG [facility] IFAZOp2aKfFFIaVqc3HvFuUcFENsQY2ojnw9M0X0zNAyK7ZhcCFio2uiE1CrQ7JbIHKtPNXVNI9QtVHa jb2 [file] SReJOIqdd8xyQVb6lN1qY3/Hhi7JNybb2FI9/m71c841/7n+tyv/ALIDA+hdgVoyGFblMFm1lqw/i0Dipqr 0S0Jp46lUbe2ra0Fjb89GZ/l0flPWYZ73ewoo+i+uJjeF1nq+k45v7jMiB2Jl5Mv+u1kmHS83v+V7qgD rmJ9t9Qfdl5bz0Ad+Rx81B7RlBUor4/TYLjiMqDn9F [id number]Cpdt2k/WQ4mOf0EZ9t12VLJUKoQ8rn35G0Ky4MNm8B3tqnzw+ q/SA0Uo1Gj2I6nlbiRak+T2nQ7gHbRbtjEt/6esUk7woD3jg5niKcL9Et6N0qKm9qGpTU+att15xd/r8 c13u+35Gmh4rvoETsqEeqfT05bqIjas5+44ig1PNs1 s06asi+xH4nuPpKr9mESul5QB/2l3n+3X8Cn/wbA6cRJ3fxwUWLYFU3+Vu4+yd38Tr7UN8R9/auubwq/ Mem/fBq4n5k8mGC5H08GgWDmW51gPzdZbWS6C0OvfUZ/3w2ONJ+POw768HZ43jc239yyNT3A9Wd8Qw6Y Dtpri40PIAVoD7xDfxh75dr7/bF3r45Cn4aHd+78d5 4LnUasffB+024gyCZuDDa73gXe6TX7LOfZ4SsrolWQvm+vWunWZ+nv0wm4f15dsBJ2I+cjAJwd26tFcL r4x2e+9WFr8iM+2C5KOSR9B/N5UXHdcyvm18/KOIQu9YvG+v74XoEq3kVd79uvXpoFpehFNo2d+PT+BY iI8C9rhvBZ+6nZFtchv0yMlNv8Xjcu3vP82u6ImV/K qJX/k+E/KCnPvfttHuLpADcoWc+wvn1U7odt6pUP6vkUNC9c0N/6+c399j+Pf7PXb/L6546M+cV/1Jnt Of1M9d/Mp/z/BrT00LurX4nD/3puiULsqirf8EG4/qZeL+C/rN1thktE8Iv2T/za/AuqUENi8dmmpLTK EyTiFxek6CM+XMSk66dcxmf7RmT7758cQ3S25UVI+y nzW/w20dhfkGL61f/bb8/xkF615zE+Meli/3arai5VjFudtV6v04l1qk8ix19718H1/Wi1etasn19rkm8 S1/73tre4l926Zoq9tpgnrI/G7lmVFxcs8r2VqZswzK5/Mjn16y5cPS/E/P37TtG+7/z9P2pc4hvi3/c X5Uyzq0ltzsw7swl4OnswS/xK7ljdhNt0Sm/6iv3+3 8h9qiwEM1Vq9XAJchp4At5Ig/fM5rCK2+OLB4Apg2Q4+kb73fj/v4GPPm672iUi+KeuS/rO/dlQ/yqST 4wHkhSZK3cfu3oj0HVJkzbhA1gN+qzJyCfQA27+zhRn6OuFkjqtUraolVe0ertJZ789FjdEUycG0aJSs 66QweCpu0Fa2keW66S196+6mdsh+hFP1iFYXP61iZf SYLk4ohh6/WvmXzy8uhxk/jS9op2oJy4X/hr2X7vbnvgZqlle4UUd19gJB9Vwxq5fQ07giOCl7XagKY9 MwzpqzMnh/SV+dE1LkyUWkkUavVmCB/IE3J+f0fL/iWTlnLeYTm9t/T87o+btsLD5k3uc5yM0+0Lctrb h/KL7gY8lgNNYMQ4f7uu61Bgq24bNG99LN/KG9Lqn2 Bw2CgL3k/91ml3RY2jfQEsgA0rgqXZ3bseF/n8/jKhWgdVNnaMptV11mPvcwkWqPl10MOEqsjr97UYtD ywv0O9HqntOK2z28QrtzW02cUobMMBox3vuH33r+dV98Y6HVBEcJTHdiq71Ydg4ae9UK8/bremtk9yOl 34eX9qmqw+zhKQK+MH7xZdy/EIhqH2wFpWkfBU+q2m /GG5YiFw/VFsAc3jqRcveB/IYKedJRanjX7pFiPez07azo5mAM/tkF2t5g9sctjAZi0lRnimiMv2u0Ql lXJvnw4pKardP31+R40xC3BjKPxy/IPT/aTMrdkl5K6P7PxVjXLypiu6s7QukfsFfC8C94nmD39TchGh kCvkBrlDHpDTLzlHfhfmwDqaD+SSzyV+petnxTVpN5 lm4psjEwkr5iQ4t7Ux80kdaN+V/t283t49Cz+asF/Adey6tLctyHyL/u6d33YguP+Salbador/cLU/Mpn1yfrP vtzxP+wSl+6JOJytwC8bsbt+3XFwUGnziJvVh11dJam/nb9l08cx4atpcH3WrqQMe/Tbbk+Vxt1FuOzD 21lebQL297fk/8qp13t+QfPGtniV+bc4HdFnx/XJfb /GqJX6k/1qgaKEa9ivv5c2ntYjbgvthr+JV+K/+fnnFhQ7pbjzrXAyij/FJb6k+IT+l26RiwxXn+hf3g trgOVkPkOFemHACwuttlv3gNyr0IKrVGholxMte00Yrzy1M/bElf+xtFcmPgQSpcPsXHucG51ivYL930 ieLupRij47tOmQbcG9jlwyZIi/iesfwB4E2dfW8A6b yl/fOJ19WQhCPiq26fCJ9sQkzsgeT0GcoHPDAJ3SfGhJwLZI17wB+WnrokF49gM9vuBt/bOqooj18vt0 OvyFqoc7DM6pF8O+0GnkYc7maa62J0l7nu3OJx/W68X/DakhKi24Z6LYZY3JAqKVe/+f8cM3hsGAk/E/ WRqPyytbzplWjHN5J0Y1AwUTEPx4/Niab2IjX+akfa j3ufKpZipkefEsi+rzk3Fx1Q5pS/2vWBnDxnI/7uE79vc042l/F1FG0974F0NPF5Scqxcfbvj1MM25K6 i54FQ9YkhEMxdeAqfcUgSI21L+HWi9qiIMOzd0vQbbH01iU33Fg5C4/X4S4n2Xe50qYw+8GN/eCWvrLc Iae+5qVoln1s5We94h9Fy/zsEzcTqlM82Prv8Ip683 Francisco J+nmv/G9bxeiIaQDkBzpNei9HQahB3ZvPkyXW5VSi6P2+vK9EadLFsv8k9myd0+21Te2d/qMN+9XeE/ [file] 9G ID Date Data Source [id number] 03/07/2020 09:45:00 AM EDT [facility] Name Value Range Interpretation Code Description Data Maribell rce(s) Supporting Document(s) SARS coronavirus 2 RNA [facility] This lab was ordered by [facility] and reported by [facility]. ID Date Data Source [id number] 03/08/2020 09:10:30 AM EDT [facility] Name Value Range Interpretation Code Description Data Maribell rce(s) Supporting Document(s) SARS-COV-2 BRUNIDLA [facility] Not DetectedReference range: Not Detecte d This nucleic acid amplification test was developed and its performance characteristics determined by [email or web address]. Nucleic acid amplification tests include PCR and TMA. This test has not been FDA cleared or approved. This test has been authorized by FDA under an Emergency Use Authorization (EUA). This test is only authorized for the duration of time the declaration that circumstances exist justifying the authorization of the emergency use of in vitro diagnostic tests for detection of SARS-CoV-2 virus and/or diagnosis of COVID-19 infection under section 564(b)(1) of the Act, 21 U.S.C. 360bbb-3(b) (1), unless the authorization is terminated or revoked sooner. When diagnostic testing is negative, the possibility of a false negative result should be considered in the context of a patient's recent exposures and the presence of clinical signs and symptoms consistent with COVID- 19. An individual without symptoms of COVID- 19 and who is not shedding SARS -CoV-2 virus would expect to have a negative (not detected) result in this assay. Performed At: [facility] [id number] Stanley Ponce MD Ph:[phone] ID Date Data Source [id number] 02/26/2020 12:21:00 PM EDT [facility] [address] [place] [address] [id number] [phone] NAME SEX PT STATUS ACCOUNT NUMBER NAZIA AVILA [facility] ER [id number] ORDERING PHYSICIAN LOCATION MEDICAL RECORD NO. Cisco Still MD ER [id number] ATTENDING PHYSICIAN DATE OF DATE OF EXAM/TIME Hung Brody MD 1970 02/26/201129 TYPE / EXAM Xray Chest One View [...] Reported By Herberth Majano MD on 02/26/20 122 Signed By Herberth Majano MD on 02/26/20 1221 Date Time CC: Herberth Majano MD; Hung Brody MD Techn: CARR Trans Dt/Tm: Trans by: DT Prt Dt/Tm: : Total DLP = 0.00 mGy-cm Fluoroscopy Time (in secs): Name Value Range Interpretation Code Description Data Maribell rce(s) Supporting Document(s) ID Date Data Source [id number] 02/26/2020 12:21:00 PM EDT [facility] Name Value Range Interpretation Code Description Data Maribell rce(s) Supporting Document(s) Troponin I.cardiac [Mass/volume] in Serum or Plasma Less Than 0.015 0.00-0.09 [facility] Less than 0.09 NG/ML Negative0.10 - 0.77 NG/ML High Risk0.78 NG/ML or Greater PositiveThe WHO defined the cutoff (definition for diagnosis of RI)for this method as 0.78 ng/ml. ID Date Data Source [id number] 02/26/2020 12:21:00 PM EDT [facility] Name Value Range Interpretation Code Description Data Maribell rce(s) Supporting Document(s) Natriuretic peptide.B prohormone N-Terminal [Mass/volu me] in Serum or Plasma 79.00 pg/mL 0.00-175 N [facility] l ID Date Data Source [id number] 02/26/2020 11:40:00 AM [facility] Name Value Range Interpretation Code Description Data Maribell rce(s) Supporting Document(s) Leukocytes [#/volume] in Blood by Automated count 12.8 10*3/uL 4.45-10.71 Above high normal [facility] Erythrocytes [#/volume] in Blood by Automated count 4.01 10*6/uL 4.20-5.40 Below low normal [facility] Hemoglobin [Moles/volume] in Blood 11.5 g/dL 10.7-15.4 N [facility] Hematocrit [Volume Fraction] of Blood by Automated count 36.3 % 37-47 Below low normal [facility] Erythrocyte mean corpuscular volume [Ent itic volume] in Cord blood by Automated count 90.5 fL 80-[address] [facility] Erythrocyte mean corpuscular hemoglobin [Entitic mass] by Automated count 28.7 pg 27-31 N [facility] Erythrocyte mean corpuscular hemoglobin concentration [Mass/volume] in Cord blood 31.7 g/dL 33-37 Below low normal [facility] Erythrocyte distribution width [Entitic volume] by Automated count 14 % 11-15 N [facility] Platelets [#/volume] in Blood by Automated count 290 10*3/uL 130-472 N [facility] Platelet mean volume [Entitic volume] in Blood 10.0 fL 9.1-13.1 N [facility] Neutrophils/100 leukocytes in Blood by Automated count 61.7 % 41- 77 N [facility] Neutrophils [#/volume] in Blood by Automated count 7.9 U 1.7-7.6 Above high normal [facility] Lymphocytes/100 leukocytes in Blood by Automated count 24.6 % 14- 46 N [facility] Lymphocytes [#/volume] in Blood by Automated count 3.2 U 0.6-4.6 N [facility] Monocytes/100 leukocytes in Blood by Automated count 9.3 % 4-12 N [facility] Monocytes [#/volume] in Blood by Automated count 1.2 U 0.2-1.2 N [facility] Eosinophils/100 leukocytes in Blood by Automated count 2.2 % 0-7 N [facility] Eosinophils [#/volume] in Blood by Automated count 0.3 U 0.0-0.5 N [facility] Basophils/100 leukocytes in Blood by Automated count 1.2 % 0.4-1 .3 N [facility] Basophils [#/volume] in Blood by Automated count 0.2 U 0.0-0.2 N [facility] NUCLEATED RED BLOOD CELL 0 % [facility] NUCLEATED RED BLOOD CELL# 0 [facility] Immature granulocytes [Presence] in Blood by Automated count 0-2 N [facility] Immature granulocytes [#/volume] in Blood by Automated count 0.1 U 0-0.1 N [facility] Manual Differential panel - Blood NO [facility] ID Date Data Source [id number] 02/26/2020 12:01:00 PM EDT [facility] Name Value Range Interpretation Code Description Data Maribell rce(s) Supporting Document(s) Urea nitrogen [Mass/volume] in Serum or Plasma 9 mg/dL 9-23 [facility] Sodium [Moles/volume] in Serum or Plasma 141 mmol/L 132-146 [facility] Potassium [Moles/volume] in Serum or Plasma 3.5 mmol/L 3.5-5.5 [facility] Chloride [Moles/volume] in Serum or Plasma 107 mmol/L 99-109 [facility] Carbon dioxide, total [Moles/volume] in Serum or Plasma 29 mmol/L 20 -31 [facility] Anion gap in Serum or Plasma 9 mmol/L 8-16 [facility] Glucose [Mass/volume] in Serum or Plasma 121 mg/dL 74-106 Above high normal [facility] Creatinine 0.6 mg/dL 0.5-1.1 [facility] Glomerular filtration rate/1.73 sq M.pre dicted [Volume Rate/Area] in Serum or Plasma Greater Than 60 ABOVE 60 [facility] Alanine aminotransferase [Enzymatic acti vity/volume] in Serum or Plasma by With P-5'-P 27 U/L 10-49 [facility] ital Aspartate aminotransferase [Enzymatic ac tivity/volume] in Serum or Plasma by With P-5'-P 19 U/L 0-33 [facility] pital Alkaline phosphatase [Enzymatic activity/volume] in Serum or Plasma 71 U/L 45-129 [facility] Calcium [Mass/volume] in Serum or Plasma 8.3 mg/dL 8.5-10.1 Below low normal [facility] Bilirubin.total [Mass/volume] in Serum or Plasma 0.4 mg/dL 0.3-1.2 [facility] Albumin [Mass/volume] in Serum or Plasma by Bromocresol purple (BCP) dye binding method 3.7 g/dL 3.2-4.8 [facility] ital Protein [Mass/volume] in Serum or Plasma 6.7 g/dL 5.7-8.2 [facility] ID Date Data Source [id number] 02/26/2020 12:13:00 PM EDT [facility] Name Value Range Interpretation Code Description Data Maribell rce(s) Supporting Document(s) Prothrombin Time (Patient) 10.6 s 9.6-12.3 N [facility] INR 1.0 0.9-1.1 [facility] THE INR IS OPERATIONALLY DEFINED FOR GAY SH PLASMA FROMPATIENTS STABILIZED ON ORAL ANTICOAGULANTS.ROUTINE ANTICOAGULANT THERAPY 2.0-3.0RECURRENT SYSTEMIC EMBOLISM/HEART VALVE REPLACEMENT 2.5-3.5 aPTT.lupus sensitive (LA screen) 25.4 s 22.7-31.6 [facility] ID Date Data Source [id number] 02/26/2020 11:26:00 AM EDT [facility] ED Physician Documentation NAME: NAZIA AVILA : 1970 AGE: 49 MR#: [id number] SERVICE DATE: 02/26/[address]: Cisco Still MD PRIMARY CARE DR: Hung Brody MD ROOM#: [facility] (Adult, General) General Chief Complaint: Cardiovascular Stated Complaint: CHEST PAIN Resident [facility], travel outisde home, exposure to hot tubs:: No Time Seen by Provider: 02/26/20 11:00 Source: patient Exam Limitations: no limitations History of Present Illness Narrative: 49 yo woman with h/o breast cancer, currently receiving chemotherapy, h/o cardiomyopathy, h/o PPM and defibrillator after ablation treatment for [id number] years ago, presents with multiple episodes of sharp L sided chest pain that occurred at rest while at work this morning. The episodes last 1-2 seconds each time. No trouble breathing, no fevers or chills, no cough. Allergies/Home Meds Allergies Allergy/AdvReac Type Severity Reaction Status Date / Time alcohol Allergy Severe Rash Verified 02/26/20 11:18 [From Mastisol Liquid Adhesive] gum mastic Allergy Severe Rash Verified 02/26/20 11:18 [From Mastisol Liquid Adhesive] methyl salicylate Allergy Severe Rash Verified 02/26/20 11:18 [From Mastisol Liquid Adhesive] storax Allergy Severe Rash Verified 02/26/20 11:18 [From Mastisol Liquid Adhesive] clindamycin Allergy Intermediate Hives Verified 02/26/20 11:18 glimepiride [From Amaryl] Allergy Intermediate palpitations Verified 02/26/20 11:18 upset stomach fatigue Penicillins Allergy Intermediate Hives Verified 02/26/20 11:18 sertraline Allergy Intermediate Hives Verified 02/26/20 11:18 azithromycin [Azithromycin] Allergy Unknown Verified 02/26/20 11:18 Xerofoam Gauze Allergy Mild Erythema, Uncoded 08/25/18 09:46 Bullae steri-strips AdvReac Uncoded 08/25/18 09:46 Home Medications Medication Instructions Recorded Confirmed Last Taken Type carvedilol 6.25 mg PO BID 12/08/13 01/17/20 09/07/18 07:00 History albuterol sulfate [Ventolin HFA] 2 puff INHALATION PRN PRN 06/19/16 01/17/20 09/05/18 07:00 History ropinirole 0.5 mg PO DAILY tab 06/30/17 01/17/20 09/05/18 07:00 History albuterol sulfate 1 inh INHALATION Q4H PRN 09/13/17 01/17/20 09/05/18 07:00 History albuterol sulfate [Ventolin HFA] 2 puff INHALATION Q4HPRN #1 ih 08/15/18 01/17/20 09/05/18 07:00 History furosemide [Lasix] 1 tab PO DAILY #30 tab 08/15/18 01/17/20 09/05/18 07:00 History rosuvastatin [Crestor] 20 mg PO DAILY #30 tab 08/15/18 01/17/20 09/05/18 07:00 History tamsulosin [Flomax] 0.4 mg PO DAILY #30 cap 08/15/18 01/17/20 09/05/18 07:00 History lisinopril 10 mg tablet PO QDAY #30 tab 01/03/19 01/17/20 Unknown History calcium carbonate 200 mg calcium 200 mg PO BID 05/25/19 01/17/20 Unknown History (500 mg) chewable tablet potassium citrate 10 mEq (1,080 2,160 mg PO BID 05/25/19 Unknown History mg) tablet,extended release Metformin Hcl 1 tab PO DAILY 01/17/20 01/17/20 Unknown History paclitaxel 6 mg/mL IV 01/17/20 01/17/20 Unknown History concentrate,intravenous pertuzumab 420 mg/14 mL (30 mg/mL) IV 01/17/20 01/17/20 Unknown History intravenous solution trastuzumab 150 mg intravenous IV 01/17/20 01/17/20 Unknown History solution PMH (from Triage) Patient Medical History PMH Reviewed/Updated as Needed: Yes PMH/PSH from Triage: Medical History (Updated 01/17/20 @ 16:00 by Karin Iverson) Asthma (Medical) Heart disease (Medical) Hyperlipidemia (Medical) Kidney stones (Medical) Surgical History (Updated 11/21/18 @ 11:50 by Teracent PR) Appendectomy (Surgical) 1991 section (Surgical) 1999 Cholecystectomy (Surgical) 2004 History of - surgery (Surgical) 2013- History of - surgery (Surgical) both knees rt 93, lt 2013 History of g astric bypass (Surgical) History of hysterectomy (Surgical) 2010 kindey stone removal (Surgical) several dates. Presence of implantable cardioverter-defibrillator (ICD) (Surgical) Hx Drug Resistant Infections Hx MRSA: (Methicillin-resistant Staphylococcus aureus): No Hx VRE (Vancomycin- resistant enterococci): No Hx C.Diff: No Hx CRKP: No Hx Other Resistant Infection?: No Isolation: Standard precautions Hx Recent Travel Out of the country within 10 days (where): No Hx Fever: No Hx Fever with a rash?: No Nurse screening for coronavirus: Recent Travel outside the No country (where) Has patient experienced No coronavirus symptoms Social History Does patient have suicidal/homicidal thoughts or ideation?: No Are you in a relationship with/Does anyone hit you, yell/swear at you, steal from you?: No Substance Use Hx Alcohol Use: Yes Hx Substance Use: No Hx Substance Use Treatment: No Second Hand Smoke Exposure: No Smoking Status: Never smoker Tobacco Use Hx Chewing Tobacco Use: No Vaccination History Hx/Date of Tetanus, Diphtheria Vaccination: No Hx/Date of Influenza Vaccination: Yes Hx/Date of Pneumococcal Vaccination: Yes Immunizations Up to Date: No PFSH Medical History Asthma Heart disease Hyperlipidemia Kidney stones Surgical History Appendectomy section Cholecystectomy History of - surgery History of - surgery History of gastric bypass History of hysterectomy kindey stone removal Presence of implantable cardioverter- defibrillator (ICD) Family History Mother Diabetes Heart disease Kidney disease Hypertension Father Heart disease Hyperlipidemia Hypertension Social History Does the Patient have a Healthcare Proxy: No Does Patient have a DNR?: No Does Patient have a Living Will?: No Advance Directives on File or in chart?: No marital status: Hx Recent Travel (where): No Smoking Status: Never smoker alcohol intake: current alcohol intake frequency: holidays/special occasions only ROS Review of Systems Constitutional: Denies fever, chills, sweats, weakness and malaise Eyes: Denies vision change and eye discharge/drng ENT: Denies nasal discharge and throat pain Respiratory: Denies cough and SOB Cardiovascular: Reports chest pain; Denies palpitations and orthopnea Gastrointestinal: Denies nausea, vomiting, abdominal pain and diarrhea Musculoskeletal: Denies muscle pain and joint pain Skin/Breasts: Denies rash Neurologic: Denies weakness and numbness Endocrine: Denies Loss of appetite Hematological/Lymphatic: Denies easy bleeding and easy bruising Allergic/Immunologic: Denies rash Physical Exam General Physical Exam Narrative: wd woman, awake and alert, appears comfortable Limitations: no limitations General appearance: alert and in no apparent distress Head Head exam: Absent atraumatic, normocephalic (alopecia) and normal inspection Eye Eye exam: Present normal apperance and EOMI; Absent conjunctival injection ENT ENT exam: Present normal exam, normal orophraynx and mucous membranes moist Neck Neck exam: Present normal inspection and full ROM; Absent tenderness Respiratory Respiratory exam: Present normal lung sounds bilaterally; Absent respiratory distress Cardiovascular Cardiovascular Exam: Present regular rate, irregular rhythm and systolic murmur GI/Abdominal GI/Abdominal exam: Present Abd soft, bowel sounds present all quadrents; Absent tenderness Extremities Exam Extremities exam: Present normal inspection and full ROM; Absent tenderness Back Exam Back exam: Present normal inspection and full ROM; Absent tenderness Neurological Exam Neurological exam: Present alert; Absent motor sensory deficit Psychiatric Psychiatric exam: Present normal affect and normal mood Skin Skin exam: Present warm, dry, intact and normal color Vital Signs Vital Signs: Vital Signs 02/26/20 10:51 Temperature 97.7 F Pulse Rate 80 Respiratory Rate 16 Blood Pressure 123/90 O2 Sat by Pulse Oximetry 100 MDM (comprehensive) Lab Data Labs: 02/26/20 11:35 02/26/20 11:35 Laboratory Results Last 24 hours 02/26/20 11:35: WBC 12.8 H, RBC 4.01 L, Hgb 11.5, Hct 36.3 L, MCV 90.5, MCH 28.7, MCHC 31.7 L, RDW 14, Plt Count 290, MPV 10.0, Immature Gran % (Auto) 1.0, Neut % (Auto) 61.7, Lymph % (Auto) 24.6, Dundy % (Auto) 9.3, Eos % (Auto) 2.2, Baso % (Auto) 1.2, Lymph # (Auto) 3.2, Abs Immat Gran (auto) 0.1, Add Manual Diff No, Absolute Neutrophils 7.9 H, Monocytes # 1.2, Absolute Eosinophils 0.3, Absolute Basophils 0.2 02/26/20 11:35: PT 10.6, INR 1.0, PTT (Schley) 25.4 02/26/20 11:35: Sodium 141, Potassium 3.5, Chloride 107, Carbon Dioxide 29, Anion Gap 9, BUN 9, Creatinine 0.6, GFR Calculation Greater than 60, Glucose 121 H, Calcium 8.3 L, Total Bilirubin 0.4, AST 19, ALT 27, Alkaline Phosphatase 71, Serum Total Protein 6.7, Albumin 3.7 02/26/20 11:35: Troponin I Less than 0.015, Mxo-Z-Zgwpjkxecqi Pept 79.00 EKG Data -: EKG Interpreted by [facility] Data Radiology results: report reviewed Medical Decision Making Free Text/Narative:: The patient was evaluated for sharp L sided chest pain lasting for seconds thismorning. The PE was significant for an irregular heart rhythm with no respiratory distress. The labs are significant for low Ca++ and normal CXR. Plan Plan Plan: d/c home Plan of care: Plan of care discussed with patient and or family, Patient encouraged to ask questionsabout plan and Patient agrees with plan of care Discharge Plan Admission/Discharge Dx Primary DC Diagnosis: Non-cardiac chest pain; Hypocalcemia ED Provider: Cisco Still ED Status: Discharged Time Seen by Provider: 02/26/20 11:00 Triaged At: 02/26/20 10:51 Condition Condition: Good Discharge Detail Disposition: Home, Self-Care Med Rec New Prescriptions: No Action lisinopril 10 mg tablet PO QDAY Qty: 30 RF: 0 paclitaxel 6 mg/mL concentrate IV RF: 0 Herceptin 150 mg recon soln IV RF: 0 Perjeta 420 mg/14 mL (30 mg/mL) solution IV RF: 0 potassium citrate [Urocit-K 10] 10 mEq (1,080 mg) tablet extended release 2,160 mg PO BID RF: 0 calcium carbonate [Tums] 200 mg calcium (500 mg) tablet,chewable 200 mg PO BID RF: 0 carvedilol 12.5 MG tablet 6.25 mg PO BID RF: 0 albuterol sulfate [Ventolin HFA] 60 PUFFS/8 GM HFA aerosol inhaler 2 puff Inhalation PRN PRN (Reason: Shortness Of Breath) RF: 0 albuterol sulfate 2.5 MG/3 ML solution for nebulization 1 inh Inhalation Q4H PRN (Reason: ASTHMA) RF: 0 Metformin Hcl 500 MG tablet 1 tab PO DAILY RF: 0 ropinirole 0.25 MG tablet 0.5 mg PO DAILY RF: 0 tamsulosin [Flomax] 0.4 MG capsule 0.4 mg PO DAILY Qty: 30 RF: 11 furosemide [Lasix] 20 MG tablet 1 tab PO DAILY Qty: 30 RF: 11 albuterol sulfate [Ventolin HFA] 18 GM HFA aerosol inhaler 2 puff Inhalation Q4HPRN Qty: 1 RF: 0 rosuvastatin [Crestor] 20 MG tablet 20 mg PO DAILY Qty: 30 RF: 11 Medications Medication reconciliation performed by provider at discharge: Yes Follow Up Care/Instructions Diet/Activity/Wound Care..: continue with current care and follow-up, continue with oral calcium supplement *Discharge Patient* Discharge Orders: Discharge Order (Routine); Ordered 02/26/20 Ordered By: Cisco Still Discharge Date/Time: 02/26/20 12:56 Interventions Interventions: ED Discharge Instructions Last Done: 02/26/20 12:57 Report Signers: <Electronically signed by Cisco Still MD> Cisco Still MD 02/26/20 1611 __ Cisco Still MD SIGNATURE DA Report Cosigners: D: DARCI 02/26/20 1126 T: DARCI 02/26/20 1126 CC: Hung Brody MD Name Value Range Interpretation Code Description Data Maribell rce(s) Supporting Document(s) ID Date Data Source [id number] 02/15/2020 03:29:13 PM EDT [facility] Name Value Range Interpretation Code Description Data Maribell rce(s) Supporting Document(s) &PDF [facility] KFDKFe5rStXTVaTu27/QVSwiQWNhs7LaTEnwCRm4TLhfQTDoU7ZufJivDDICC5KRYBpVJK3FADLIKLMH 0b3 [file] josr/U8GPCuDqopNiwbBOAjvqrTV84veX7CmitJCjcY +Ob3/LzC8AX5TwrjcBxcwRiIwmbLpl1ekGAfSA8Kq0x+IML9lPU6AJQxX463i2CBC+WSQVxTDIJ8sNQf hsz2Olc0Bxv4WyDbaM37++u0gX2s6o9TIx/Pn9Fz5HqrqwZGdERvuhA1a9/k3EiStBUEL+G/bRNFUVi3 2Hmktw0PkZlFfnfgQ0VKDGq54Vh5DSFrEyaasJWRK0 ip/dJ5JXttCb0mNWoihnB+dhVBy3iORs48cRVYIzZKjAtQgr31xQuLNsczn5XBqJtpeqWCZ/Zv912/G/ n39I5cK/VQOxMvYcYY2nL1sePSjfMUMf8VCJSsaYumPyRqkVr9wmLjTaXBau3IIqoTmsWCEDyWYB+b/A sdlZmr1Z+YnkXK+mM3HJer6vrW5DsB2hh2DYuaaOcb cjCsHF6SS1b0n+CamR++LV5PHhSpjw4y1jjBio7+uEVfK0U5uZmQuEi3H+Ft90Hii2sk96tirgHWi2OT [facility]wakVO2q3QR7gEJwiW5xXtMXA68H7juCrUS051i+544CMOF3J0mO1MsCmrL3rkKSvm94YZdnrtA [file] ICAgICAgICAgICAgICAgICAgICAgICAgICAgICAgIC ReLQLgYTWeQFXuANOhJNUbTLCyPXArJIAbZTPyWBIfFTOpNZNhWARjEF0FGNBzINLjRHNrAOTaNDPpXK AgICAgICAgICAgICAgICAgICAgICAgICAgICAgICAgICAgICAgICAgICAgICAgICAgICAgICAgICAgIC AuFDPoHQGlYSEmRVYdAFDvOVKdEENqRS5SBMLeBWJz ICAgICAgICAgICAgICAgICAgICAgICAgICAgICAgICAgICAgICAgICAgICAgICAgICAgICAgICAgICAg QRMfHZJuBHHkLBVdYOGxQJZwDXIdZUYwYOAuBJVlLAVbJG3DREAoOQXzPWLpRGEbNMByJUWbRJWpOJRh ICAgICAgICAgICAgICAgICAgICAgICAgICAgICAgIC OhKWGpNBNaRLPpVMDxZZAsBKEhKEFxXAMqMOGyIUXtUNYqFHSyCUNdQTZpVE9IKWInIOLqNAJsHBIfYK AgICAgICAgICAgICAgICAgICAgICAgICAgICAgICAgICAgICAgICAgICAgICAgICAgICAgICAgICAgIC TgNFYjMMOaEBZeAXGlYOZkIGJnLMIePELnKL1AVVTu ICAgICAgICAgICAgICAgICAgICAgICAgICAgICAgICAgICAgICAgICAgICAgICAgICAgICAgICAgICAg YXCfYVIaNDUaMSFdOFIkKVFdBXEzHOHrYPXjGZNcMEHiKBGpZA2YOIDyRZPjGIFpTOEhVTOuRLYiWASb ICAgICAgICAgICAgICAgICAgICAgICAgICAgICAgIC FtDPImJQBmEEJeUJCcVMLuPCHcWNXtJWAgDIEmWMQsWQHoSAOvMXYxQYFjVSYxNR6NHBVyCCJkCWBhDF AgICAgICAgICAgICAgICAgICAgICAgICAgICAgICAgICAgICAgICAgICAgICAgICAgICAgICAgICAgIC AlWEFvEKPpYTIuODOaVPUwICSiQOGkBMNkIQReRL8F ICAgICAgICAgICAgICAgICAgICAgICAgICAgICAgICAgICAgICAgICAgICAgICAgICAgICAgICAgICAg VHVrOWMoNMYdUSFdTBMuFDLdVORuVRYxVWTvQEIrGJZdIMElLFZqNP9BOMBuKNGdBNPwMZJnRYWiWXQv ICAgICAgICAgICAgICAgICAgICAgICAgICAgICAgIC QwGJJuRQBpJLXxRCRlDYNfNTCdTXDvQPLkNFKmMTXdGRBtAOXpTZMrIWHbVSJyQWMiQN1FEV74wTBmr5 B0HOPmHQ8zhze/Lx7GRIajlcLgvNJeWV5XXrRrPS9huv5GZkUrYH8qlu0WAOlDIpShY8H3sLNpRYViGU JKKzYjO76gYTycZd92QMcdJEGuQwUjMXx1Op4SIsZm J0xrXEJlMvX4RCRtCfA6ACBrWlD9XOGhXmKsKEVdMJUpHJ2ESDInT506aaIbEJ9MWq8NIuPyZQ2uby8Q DzqiGSKhVcpFPxa6XAweNT9VkSBkK6WmyYLia6vQGbWmO2LJFGD2JEBfUy5LLHRtSaJvABAsNRscTO6w IMPsZYNYbNlazrG4WR2QTZ2xdfOnQO6JRbKaPi9gAx 0RTqZsU5VwA0FwUEDiRFAYQCbxKK3UYRBaHYT3IGHvXvMvYLZCUiBlG78zPF1ST8Ymu52fRnS6EMKiNr DlKRdgOH58rGoaunZarQGpaJcbKS5EAw8+DQplbmRvYmoNCnhyZWYNCjAgMzgNCjAwMDAwMDAwMDAgNj G6EkIoAa9BIOTsJVDeDCFcCiXeERBqCKMnWHojHGVi FPPrAuN7QRQdCFPqYA3LDbCfJOCvRBO1JzMjVDVnGVQzbd1NKNIwCDEyIGL8RGOfSMOyWUPgYFzlOBOq KAFeHjZ9TXMeVKFhOY2KHqUgXXDiOHM4ZPNqLLStHOErbg2XXTQwSXCcDWq9FTObYJPgTGBtIMcwINOq EKX1TNn5FBQuNUHhUK2AOfEvTELfGIrwPNRySGXjLT Xjwq1AVSFzDOUjIYB8TMRtPBQxJQLgGNmqMAZcTDI3MBT2TOAiEKKjIM9AUpQyBGKjQWYqJwElBTGrTX Rnnn3FCCUaIGQoNIz4KBAuAQGaFNEsGOiiOXRcMSEwDYj1IBCnRORyIR9SHtHoWEKnQEPcPyZqVFNyOL Ktrx7BCBOsVPKwRdRbLBGsREWqJIUiGNlgZJOjBPHs TLZrGBWeBIFfMB4LZlUrSFYcHRR3BvWfCIZlURVxez6DGQDkEWDhHtK9JcGbKBPuILMxTHjrWKGwOTR4 JHlfSHFzBDYjSD3TCxRjTDSyHLrgOLAvNRBxODYjyg2WCHXnBTSfXGW9OTNdYDLvYNDeKRsjGZKgKSV5 ADxnNNApHTKmJY9NEhZmWUEpDUa5MwAwPKNcLXWvum 0WRCVvHQRmQBSjYRVuUMBgCKBeFJuoVMZbAII5DmplUDHxBXAoLZ0RYrJjJNDfDjK9TaRuBWLuVYBgvk 0XAIMkPAPzSGK4POHbTNQwHYZrZMwqBBNqONT1TnElJFLsMHBzWZ3VSzRiTERtYYF4PApsZHWaXDItns 2RQDGlKWK2Ifx7ZcYfDBJuPNRaKXjkPTAbGGV3IFD6 TWGsCMYcVF2FSuLdTVYwQfa1ABEhDRLeJWVloo1CCULkXVP2SUW7MxDgCIKyOCGfXRbmZZNgDTLxDfT3 WKIvNZAkBG0BYvTaZGXfXZAuIkMwRUGxZRQrsy3IZVXlEPZwJao7FxPjKMMbWEDqSNh8dpFhkTPhXMo9 XU4GX6GnvxFiAxeLVv7Tx915KHP4FJXqGv4PQ9tqWb 3kPAOrCGZJSw2SBSc9KqC2OUW6CFRwAyL6YYTkVYIdUFGhSRT2QTJ2A7UbBAl+BJr8DBi1Ixg6HhVqMy yuXGBjQeW1TNH8ANV5OCP6XDF2VZ7fINQLZr6+MJtzrZUynSqhJKYOXtRePwj0GQ6SDONSL8BUPg== ID Date Data Source [id number] 02/08/2020 06:15:26 PM EDT [facility]FORMATIONPatient MRN Name Date of Age Gend*PT [id number] Nazia Avila 1970 49 years F ---PT Location Admission Date/Time Visit ID Attending Provider --- --- --- --- EPI ID CSN Admitting Provider [id number] ---Breast cancer follow-upKimberly returns today now to discuss surgery having undergone neoadjuvantchemotherapy. This is someone I met for the first time about 3 months ago shepresented with a palpable mass and some subtle nipple puckering. Her mammogramwas unremarkable but ultrasound clearly showed an over 2 cm suspicious irregularmass.Indeed it was an invasive ductal carcinoma estrogen and progesterone positivethe HER-2/batsheva status I thought was going to be negative and end up beingpositive so she went on to neoadjuvant treatment with Taxol Perjeta andHerceptin.And so she returns today - she has finished her Taxol and Perjeta - last onelast Tuesdayshe tells me it wasn't badJust fatigueWeight stableAppetite backHer initial story is as follows :The patient states that this abnormality was found on her own exam she selfdetected a palpable right breast mass. As noted she had imaging mammogramshowed nothing even despite pointing out the area of palpable concern butfocused ultrasound notes a 2.1 x 1.3 x 2 cm suspicious irregularly spiculatedmass specifically they state the mass is immediately adjacent and potentiallyinvolving the right nipple areole or complex. She reports that she doesusually obtain routine annual screening mammography . Her last study was theyear prior and that was unremarkable she says even then she thought she felt abit of a mass and she was noticing that her nipple was starting to becomeretracted ever so suddenly not as much as it is now but her imaging wasunremarkable. This year when it was more obvious she pointed it out to Miguel Angel who clearly noted the nipple inversion and she was sent forultrasonography as well as mammographyShe then went on to second opinion imaging at [facility] in [facility].Past Medical History:Diagnosis Date Asthma Diabetes mellitus Insulin-dependent prior to gastric bypass. No longer takes any medications fordiabetes Dilated cardiomyopathy Hypertension Implantable cardioverter-defibrillator (ICD) generator end of life 03/18/2015 Kidney stone Presence of almond huller-recalled implantable cardioverter-defibrillator (ICD)lead 03/18/2015Past Surgical History:Procedure Laterality Date APPENDECTOMY CENTRAL VENOUS CATHETER INSERTION Left 11/02/2019 Procedure: RIGHT INSERTION, CENTRAL VENOUS ACCESS DEVICE, TUNNELED; Surgeon:Audrey Goode MD; Laterality: Left; CHOLECYSTECTOMY ep study EXTRACTION LEAD N/A 03/18/2015 Procedure: LASER-EXTRACT CARDIOVERTER DEFIB LEAD PROLONG INSERTION OFIMPLANTABLE CARDIOVERTER DEFIBRILLATOR; Surgeon: Tenisha Cisneros MD, [facility]; Location: [facility]; Service: Pacemakers; Laterality: N/A; GASTRIC BYPASS N/A 01/30/2014 Procedure: YYVFSOX-MOASKA-MZAE-EN-Y LAPARSCOPIC, LIVER BIOPSY; Surgeon:Ryan Casas MD; Location: [facility]; Service: Bariatric; Laterality:N/A; HERNIA REPAIR HYSTERECTOMY INSERT / REPLACE / REMOVE PACEMAKER INSERT / REPLACE AICD LEAD KIDNEY STONE SURGERY N/A KNEE ARTHROSCOPY Bilateral SINUS SURGERYCurrent Outpatient Medications: acetaminophen (TYLENOL) 325 MG tablet, Take 650 mg by mouth every 4 (four)hours as needed for pain , Disp: , Rfl: albuterol (PROVENTIL HFA;VENTOLIN HFA) 108 (90 BASE) MCG/ACT inhaler, Inhale2 puffs every 4 (four) hours as needed for shortness of breath , Disp: , Rfl: carvedilol (COREG CR) 80 MG 24 hr capsule, TAKE 1 CAPSULE EVERY MORNING WITHFOOD., Disp: , Rfl: carvedilol (COREG) 6.25 MG tablet, Take 6.25 mg by mouth 2 (two) times a day,Disp: , Rfl: furosemide (LASIX) 20 MG tablet, TAKE 1 TABLET BY MOUTH ONCE DAILY NEEDEDFOR SWELLING, Disp: , Rfl: 3 lisinopril (PRINIVIL,ZESTRIL) 10 MG tablet, Take 10 mg by mouth daily, Disp:, Rfl: 11 metFORMIN (GLUCOPHATE-XR) 500 MG 24 hr tablet, Take 500 mg by mouth, Disp: ,Rfl: 11 potassium citrate (UROCIT-K) 10 MEQ (1080 MG) SR tablet, Take 10 mEq by mouth2 (two) times a day, Disp: , Rfl: pramipexole (MIRAPEX) 0.125 MG tablet, TAKE 1 TO 2 TABLETS BY MOUTH EVERY DAYAT BEDTIME, Disp: , Rfl: prochlorperazine (COMPAZINE) 10 MG tablet, Take 10 mg by mouth, Disp: , Rfl: rosuvastatin (CRESTOR) 20 MG tablet, Take 20 mg by mouth, Disp: , Rfl: 11 tamsulosin (FLOMAX) 0.4 MG CAPS, TAKE 1 CAPSULE BY MOUTH ONCE DAILY FOR 30DAYS, Disp: , Rfl: 5 HYDROcodone-acetaminophen (NORCO) 5-325 MG per tablet, , Disp: , Rfl: ondansetron (ZOFRAN) 8 MG tablet, , Disp: , Rfl:. On physical exam her le ft breast is unremarkable the right breast the tumoris no longer palpable she still has an inverted nipple that did not changeThe nipple became inverted many months ago upon her diagnosis again the tumor isno longer palpable but she still has the inversionThere is no axillary adenopathy there never wasAssessment planAssessment plan this very nice 49-year-old female who I met over 3 months agowhen she presented with a palpable right subareolar breast lesion she had somemild nipple inversion it was new associated with the primary tumor her diseasewas estrogen progesterone positive but was also HER-2/batsheva positive and so weopted to proceed with neoadjuvant chemotherapy. Clinically the tumor respondedwell [place] thatbut they said it shrunk nicelyI will get that but I do think she is still a candidate for breast conservationagain her original tumor was just over 2 or so centimeters again it subareolarbut she still prefers that to mastectomy and I agree. She recalls discussingsurgery with wire localization we discussed a sentinel node again herpreoperative imaging did not show any suspicious adenopathyHer last systemic treatment was Tuesday so we will plan her surgery for roughly4 weeks Name Value Range Interpretation Code Description Data Maribell rce(s) Supporting Document(s) ID Date Data Source [id number] 01/17/2020 03:47:00 PM EDT [facility] Patient Name: NAZIA AVILA : 1970 Sex: F Pt Unit #: [id number] Location:AMB.ORTHO Provider: Visit Date/Time: 01/17/20 Primary Insurance: BC/BS [facility] Secondary Insurance: Self Pay Intake Vital Signs 01/17/20 15:51 Current Height 5 ft 1 in Current Weight 164 lb Weight Measurement Method Standing Scale BMI 30.9 BP 112/78 Blood Pressure Location Lt brachial Position Sitting Respiration 18 Pulse 86 Pulse Oximetry (%) 98 Oxygen Delivery Method room air Intake Visit Reasons: Post op visit (orthopedics) Is patient in pain?: No Allergies alcohol [From Mastisol Liquid Adhesive] Allergy (Severe, Verified 08/25/18 09:46) Rash gum mastic [From Mastisol Liquid Adhesive] Allergy (Severe, Verified 08/25/18 09:46) Rash methyl salicylate [From Mastisol Liquid Adhesive] Allergy (Severe, Verified 08/25/18 09:46) Rash storax [From Mastisol Liquid Adhesive] Allergy (Severe, Verified 08/25/18 09:46) Rash clindamycin Allergy (Intermediate, Verified 08/25/18 09:46) Hives glimepiride [From Amaryl] Allergy (Intermediate, Verified 08/25/18 09:46) palpitations upset stomach fatigue Penicillins Allergy (Intermediate, Verified 08/25/18 09:46) Hives sertraline Allergy (Intermediate, Verified 08/25/18 09:46) Hives azithromycin [Azithromycin] Allergy (Unknown, Verified 08/25/18 09:46) Xerofoam Gauze Allergy (Mild, Uncoded 08/25/18 09:46) Erythema, Bullae steri-strips Adverse Reaction (Uncoded 08/25/18 09:46) HIV Testing Offer - ages 13-64 Requirement for HIV testing offer been met?: Declines today. Pretest education received and acknowledged Coronavirus Screening Screening Have you traveled outside of [facility] or [facility] in the last 14 days.: Yes Has patient experienced coronavirus symptoms: No PFSH Medical History Asthma Heart disease Hyperlipidemia Kidney stones Surgical History Appendectomy section Cholecystectomy History of - surgery History of - surgery History of gastric bypass History of hysterectomy kindey stone removal Presence of implantable cardioverter-defibrillator (ICD) Family History Mother Diabetes Heart disease Kidney disease Hypertension Father Heart disease Hyperlipidemia Hypertension Social History Does the Patient have a Healthcare Proxy: No Does Patient have a DNR?: No Does Patient have a Living Will?: No Advance Directives on File or in chart?: No Hx Recent Travel (where): No alcohol intake: current alcohol intake frequency: holidays/special occasions only HPI Additional HPI HPI Details: Patient is a 49 year old female here for Post op total left knee surgery performed on 09/13/2017. Patient has no symptomatic complaints regards to her left knee. Her postoperative course was complicated with an inability to regain flexion that l georger required an arthroscopic lysis of adhesions. She no longer has any difficulties with left knee flexion or extension and has no other joint complaints. She was recently diagnosed with breast cancer and is presently undergoing chemotherapy for the same. Orthopedic General Post-Op History of Present lllness Current symptoms: Denies fever(s) or limited range of motion Review of Systems Const Denies anorexia, Denies excessive sweating, Denies fatigue, Denies fever(s), Denies headache(s), Denies weight gain and Denies weight loss Eyes Denies blurry vision, Denies change in vision, Denies dry eyes, Denies irritation, Denies itchy eyes and Denies loss of vision ENT Denies abnormal hearing, Denies dysphagia, Denies dizziness, Denies headache(s), Denies lip swelling, Denies nasal congestion, Denies nasal discharge, Denies disequilibrium, Denies sinus pain, Denies sore throat and Denies throat swelling Card Denies chest pain, Denies pedal edema, Denies lightheadedness, Denies palpitations and Denies dyspnea Resp Denies cough, Denies excessive phlegm production, Denies pain on inspiration, Denies dyspnea and Denies wheezing GI Denies abdominal pain, Denies change in bowel habits, Denies dysphagia, Denies early satiety, Denies heartburn, Denies diarrhea, Denies nausea and Denies vomiting Musc Denies back pain, Reports arthralgias (left knee), Denies limited range of motion, Denies muscle cramps and Denies muscle weakness Skin/Breast Denies breast pain, Denies change in pigmentation, Denies lesions, Denies nail changes, Denies rash and Denies unusual bruising Neuro Denies abnormal hearing, Denies dizziness, Denies headache(s), Denies loss of vision, Denies memory loss, Denies paresthesias and Denies disequilibrium Psych Denies abnormal sleep pattern, Denies anxiety, Denies change in appetite, Denies depression, Denies irritability and Denies memory loss Endo Denies cold intolerance, Denies excessive sweating, Denies fatigue, Denies polyphagia, Denies polydipsia, Denies polyuria and Denies palpitations Kvng/Lymph Denies easy bleeding, Denies easy bruising and Denies lymphadenopathy Aller/Immun Denies urticaria, Denies itchy eyes, Denies lip swelling, Denies seasonal rhinorrhea, Denies throat swelling and Denies wheezing Exam Const General: cooperative, healthy appearing, comfortable, well developed and well groomed Nutritional Appearance: average body habitus Orientation: alert, awake and oriented x3 [facility] Head: normal to inspection, normocephalic and atraumatic Eyes General: appearance normal, both eyes and all related structures Pupils: PERRL Neck Neck: normal visual inspection, full ROM and nontender Chest Chest: normal inspection of the chest Resp Effort Inspection: normal respiratory effort Skin Lesions: no lesions Rashes: no rashes Trauma: no lacerations or abrasions Neuro General: patient alert, patient awake and patient oriented x3 Cognition: normal cognition Speech: speech normal Motor: muscle tone normal throughout Extrem Other: Examination reveals a well-healed incision overlying the anterior aspect of her left knee. She has range of motion from full left knee extension to 110 degrees of left knee flexion. She has no left knee effusion and no soft tissue swelling about the left knee joint. Collateral ligament stress testing is normal. Extensor tone and strength are excellent. She does not have instability of the knee with posterior drawer at 90 degrees of flexion. Peripheral pulses on the affected side are intact. Patellofemoral tracking is normal. Ipsilateral left hip exam is normal. There is no evidence for calf tenderness. Homans test is negative. She has no muscle atrophy on the affected side. She ambulates with a normal gait without crutch or cane support. Psych Appearance: grossly normal Thought Process: normal Thought Content: normal Insight: insight good Assessment Plan Assessment Plan (1) Encounter for orthopedic follow-up care: Code(s): Z47.89 - Encounter for other orthopedic aftercare (2) Total knee replacement status: Code(s): Z96.659 - Presence of unspecified artificial knee joint Plan - Hung Justin MD: Patient is doing well following left total knee arthroplasty. She has no symptomatic complaints regards to the left knee. X-rays obtained today show excellent position alignment of prosthetic components. Patient will continue with activity to tolerance and will follow-up with us on a as needed basis. All questions were answered. Electronically Signed By: <Electronically signed by Hung Justin MD> Date/Time Signed: 01/17/20 1628 Name Value Range Interpretation Code Description Data Maribell rce(s) Supporting Document(s) ID Date Data Source [id number] 01/15/2020 04:22:00 PM EDT [facility] [address] [place] [address] [phone] NAME SEX PT STATUS ACCOUNT NUMBER NAZIA AVILA REG REF [id number] ORDERING PHYSICIAN LOCATION MEDICAL RECORD NO. Hung Justin MD [employer] [id number] ATTENDING PHYSICIAN DATE OF DATE OF EXAM/TIME Hung Brody MD 1970 01/15/20 / 1499 TYPE / EXAM Xray Knee comp 4 [...] effusion. Reported By Master Townsend MD on 01/15/201621 Signed By Master Townsend MD on 01/15/20 162 Date Time CC: Master Townsend MD; Hung Brody MD Techn: BAIAB Trans Dt/Tm: Trans by: DT Prt Dt/Tm: 2081-0818: Total DLP = 0.00 mGy-cm Fluoroscopy Time (in secs): Name Value Range Interpretation Code Description Data Maribell rce(s) Supporting Document(s) ID Date Data Source [id number] 01/02/2020 04:14:14 PM EDT [facility] INFORMATIONPatient MRN Name Date of Age Gend*PT [id number] Nazia Avila 1970 49 years F ---PT Location Admission Date/Time Visit ID Attending Provider --- --- --- --- EPI ID CSN Admitting Provider [id number] ---Name: Nazia Elissa AustinDOB: 1970Date: 01/02/20CIED Remote CheckImplanted Device 09/19/2019Device Tissue Specialist MedtronicDevice type Bi-Ventricular ICDMRI Conditional Device -Device was remotely interrogated and the following were evaluated:Battery statusSummary arrhythmia logsNew observationsFidelity of the EGM signalIntegrity of leads and lead impendence were reevaluatedConclusion:Normal ICD function.No significant changes continue to monitor.Signature: Tenisha Cisneros MD, FACC, RSCardiac Electrophysiology and Arrhythmia ServiceDate: January 02, 2020Time: 4:14 PMThis document or parts of this document, were dictated using M Modal speakingsoftware. A reasonable attempt at proofreading has been made to minimize errors.Please call with any questions or corrections. Name Value Range Interpretation Code Description Data Maribell rce(s) Supporting Document(s) ID Date Data Source [id number] 01/01/2020 02:28:00 PM EDT [facility] [address] [place] [address] [phone] NAME SEX PT STATUS ACCOUNT NUMBER NAZAI AVILA REG REF [id number] ORDERING PHYSICIAN LOCATION MEDICAL RECORD NO. Laurent Patel M.D. [id number] ATTENDING PHYSICIAN DATE OF DATE OF EXAM/TIME Hung Brody MD 1970 12/31/191017 TYPE / EXAM US Breast - Limited [...] the 11:30 position of the right breast. Findings consistent with response to chemotherapy. OVERALL FINAL [...] = 0.0000 mSv Lifetime Dose: 12.1950 mSv Name Value Range Interpretation Code Description Data Maribell rce(s) Supporting Document(s) ID Date Data Source [id number] 11/29/2019 07:53:43 AM EDT [facility] - CORE SPECIMEN DESCRIPTION URINE, COLLE CTION METHOD NOT SPECIFIEDCULTURE RESULTS NO GROWTHREPORT STATUS FINAL 11/29/2019 Name Value Range Interpretation Code Description Data Maribell rce(s) Supporting Document(s) ID Date Data Source [id number] 11/20/2019 11:54:00 AM EDT [facility] EXAMINATION: CT Abdomen, and Pelvis ANGI CATION: Right renal colic COMPARISON: None TECHNIQUE: Axial images are obtained without oral or intravenous contrast.. Thin section reformatted images are obtained in the sagital and coronal planes. One or more of the following dose reduction techniques were utilized in effectively lowering the radiation dose for this examination: Automated Exposure Control, Adjustment of the mA and/or kV according to patient size, or Iterative reconstruction. FINDINGS: There is a 3 mm solid nodule within the visualized portion of the left lower lobe on image seven. Follow-up is as per Fleischner Society guidelines below. The visualized lung bases are otherwise unremarkable. There is no pleural fluid. No focal lesions are demonstrated in the liver. There is no intrahepatic biliary dilatation. There are numerous surgical clips in the gallbladder fossa status post cholecystectomy. The spleen is unremarkable. The pancreas is unremarkable. The adrenal glands are unremarkable. There are multiple subcentimeter nonobstructive nephroliths within the mid and lower pole collecting system of the right kidney. The largest measures approximately 5 mm in diameter. There is no hydronephrosis. The kidneys are otherwise unremarkable. There is no intra-abdominal adenopathy. There are postsurgical changes of bariatric surgery/gastric sleeve procedure. The small bowel and mesentery are unremarkable. There are no dilated loops of bowel. There is no ascites. There is no free intraperitoneal air. The abdominal aorta is normal in caliber. There is no para-aortic adenopathy. There is no colonic wall thickening. There are no pericolonic inflammatory changes. The uterus is surgically absent. There is no pelvic free fluid, adenopathy, or mass. The urinary bladder is unremarkable. There are no bladder calculi.> The inguinal regions are unremarkable. The osseous structures demonstrate no suspicious lesions. IMPRESSION: Nonobstructive right nephroliths. There is no evidence of obstructive uropathy. No evidence of acute intra-abdominal process. Professional interpretation performed at [facility] . Name Value Range Interpretation Code Description Data Maribell rce(s) Supporting Document(s) ID Date Data Source [id number] 11/21/2019 11:05:40 AM EDT [facility] - CORE SPECIMEN DESCRIPTION MIDSTREAM UR INE,CLEAN CATCHCULTURE RESULTS NO GROWTHREPORT STATUS FINAL 11/21/2019 Name Value Range Interpretation Code Description Data Maribell rce(s) Supporting Document(s) ID Date Data Source [id number] 11/14/2019 01:32:00 PM [facility]T [facility] RT AXILLA ROUTINECLINICAL HISTORY: Right breast cancer, assess lymph nodes for metastatic disease.COMPARISON: 10/12/2019 targeted ultrasound right breast and diagnostic mammogram.TECHNIQUE: Targeted ultrasound exam was performed of the right axilla.FINDINGS: Two insignificant lymph nodes are seen measuring up to 19 mm in size with a 1.6 mm cortex. No suspicious cystic or solid abnormality is seen.IMPRESSION: Targeted ultrasound exam of the right axilla demonstrating two insignificant lymph nodes.Dictated by: SHERIDAN PATEL M.D. on 11/14/2019Electronic ally Signed by: SHERIDAN PATEL M.D. on 11/14/2019 02:55 PMTranscribed by: on 11/14/2019 02:34 PMcc: Name Value Range Interpretation Code Description Data [facility] rce(s) Supporting Document(s) ID Date Data Source [id number] 11/14/2019 09:34:34 AM EDT [facility] Name Value Range Interpretation Code Description Data [facility] rce(s) Supporting Document(s) &PDF [facility] XQAUNm1sRtOWMrDa78/FZScmYBNgy8PvVCgdXUi0LVgkCCCmN0ZpoGlxTTNXD2RPOCdITY8WCLPNOGQW 0b3 [file] DEFENSE ATTORNEY/PcYoKFouEaZyF7Nqz/qj+XLuV+hAawircru1duFbKP2fFgtBtFjLU/OMydBCmuzWVqVAJbrryqVTh [file] IE7+LONG TERM+13DfU+W6HGml4LpW3xLlvqZTh3nfDuFNZf [file] ICAgICAgICAgICAgICAgICAgICAgICAgICAgICAgICAgICAgICAgICAgICAgICAgICAgICAgICAgICAg ICANCiAgICAgICAgICAgICAgICAgICAgICAgICAgIC AgICAgICAgICAgICAgICAgICAgICAgICAgICAgICAgICAgICAgICAgICAgICAgICAgICAgICAgICAgIC AgICAgICAgICAgICANCiAgICAgICAgICAgICAgICAgICAgICAgICAgICAgICAgICAgICAgICAgICAgIC AgICAgICAgICAgICAgICAgICAgICAgICAgICAgICAg ICAgICAgICAgICAgICAgICAgICAgICANCiAgICAgICAgICAgICAgICAgICAgICAgICAgICAgICAgICAg ICAgICAgICAgICAgICAgICAgICAgICAgICAgICAgICAgICAgICAgICAgICAgICAgICAgICAgICAgICAg ICAgICANCiAgICAgICAgICAgICAgICAgICAgICAgIC AgICAgICAgICAgICAgICAgICAgICAgICAgICAgICAgICAgICAgICAgICAgICAgICAgICAgICAgICAgIC AgICAgICAgICAgICAgICANCiAgICAgICAgICAgICAgICAgICAgICAgICAgICAgICAgICAgICAgICAgIC AgICAgICAgICAgICAgICAgICAgICAgICAgICAgICAg ICAgICAgICAgICAgICAgICAgICAgICAgICANCiAgICAgICAgICAgICAgICAgICAgICAgICAgICAgICAg ICAgICAgICAgICAgICAgICAgICAgICAgICAgICAgICAgICAgICAgICAgICAgICAgICAgICAgICAgICAg ICAgICAgICANCiAgICAgICAgICAgICAgICAgICAgIC AgICAgICAgICAgICAgICAgICAgICAgICAgICAgICAgICAgICAgICAgICAgICAgICAgICAgICAgICAgIC AgICAgICAgICAgICAgICAgICANCiAgICAgICAgICAgICAgICAgICAgICAgICAgICAgICAgICAgICAgIC AgICAgICAgICAgICAgICAgICAgICAgICAgICAgICAg ICAgICAgICAgICAgICAgICAgICAgICAgICAgICANCiAgICAgICAgICAgICAgICAgICAgICAgICAgICAg ICAgICAgICAgICAgICAgICAgICAgICAgICAgICAgICAgICAgICAgICAgICAgICAgICAgICAgICAgICAg ICAgICAgICAgICANCjw/rCXwU3iuiVXwlkZ6J0oxZp 8QOz2XRU7vp0YuLMWeKYqstfZxOtsGUjXzIRFeRayMCsq1MMriJD2NjODaX2HhK6ShZQxiRH5VWVRaLD LfkUCsVJZkONKpWzT8JAAbTWhnMH9HiNJgHNkhOXAxACGdEiGzHDXgPQYgPGFnOKZfCWWMIN7LPlAgR7 XcfP26ZSMUAa7+OKxmzfIjAboNIrL5WWIoj6EyCMj0 WA5LEUZvTMpbPB8CCBWtjU0xIDkkPH7YPqP1MxFfZKCWNrJjZ19zqCFwZYj4U0LlBoOgAAOcBoiqNTOn PDwvTmFtZXMgWyBdDQogID4+ID4+MEqfKE0IMIqcsvKtNRUzMb2VUKHhVDA8GGMhkAExFBXpBEUHESgg BB7LkMYaDWU2eO1kQAhsQNPmDKRlK3uTBbNkeTkbEP 51bGwgbnVsbCBdDQo+Zr2NTS8vk5GmWIl1reEdTKgdXFO0GJpvTRQiGGDwHVKfXZS4XKX6CEWZDxSzNJ HtBEHeLIuqZPLkOAHnnc3ECCUcABT3SRl4DuOySLOgVMLnMUkpTRRyHVqgRQp9NPQdTIAzQZ7ANuJuVM TcBQDmJAMqHXNaKYUuue9RXPQdYWNvGfQ2DsWwPBLs NIZzMNbdDPPrBZJsVxO6ABKkKZZwDB1YNqCoMJRwJMS5HGvtFEAzQLUtay6KTANhRYMiFNgeBrNiBEXt JWZkWCcyVPXmHEQ2NaG0SUGlEGEyAU7UPmVfFZEzBAg1TIcjSRMqZQOfdd0DPJYjUAUaMCW0UTAzEOQw ZQJsOQnlCUYnDFB2AOPvOWFtFNWtPM3SJcYpINCwYJ A0RzKkWMJfCCEiqe7CXJXiTHLxJUGdKfDxSLIqULSfGZxsOUVaZFVsMaYkPKXoOWZnRA0PJaUaBTEtHE DeLKkbFJQjGVFlkt3AMWFhTBSpGsV5VZTjETSnBGRzHFbsUONwOKIsMKW4PGIyHXCaSA9ZSjQsZCNcVP z7EAClWHLhJHBlfa4RHBAlKOMxUlsbDnZvDAYtUCKx SNxsPSJjHES7BTN5DEYiBIFzHT6QDvGzJXMyNFacVtQyRFOjYCJgxn4CNPTmECStZPAyCUPcHFIkSXRb AEkoUTZwOVE6QkPbOGEiLVFqCK1HHgJjZQUyZMf0VKpsCHKrWGYmxy7HBWYjNBLbEFYxRJGaHNMeSDQq GQbrRJZgFTP8WdK0XMGiBOJvKR9QTdJcPSSaSptgHj CxJXYvTXYfku6LNOKrHLYyMCzdYHQaJQFkMFFzUVhiAMXlIIMoTus9MRWtRWLmOC7EFzYjIOClKsF0Nw tgFMMoLJXvmo7TAJHcBKWhLiA3HlNsVNFuIGKhSGzmIOQvFMYbSEG1DDTwVNEjCG4RTdCjXWAxSLVnYw jrFOJjFWDzqh2FQFDqKBP7VtN4TZTxLXXlMSLcAYyz WZPkLNV0IWU4IPFqLREyUS5AIqRhEPEsONWhMpIoQGKyEYRfkj8QVCElVYW0NwE1LDXfVZZjVKKbRNmd OGZbNKRtFFN7MBHlYBDoEE1CDjVgYLTyDmKbAVddFZUmMUKsni1OFWFbBMB6Iro9CYAiKOIeAXFbFJwy HNMxYBywYXYtKENrVEWnVL9IGaMrNBQlLxD8VPJbKS FrPBXgwt0VBWImVLL3WePxToFsOOJgYNBqDSh5smOfrQFgINz2MC5NJ7ElbvSiFWIYCo4As990OYY0VB XaXt7GA5bxMx9vRTYrSCYSVu8JWGz9IvC2D0UvKBLjXxJ8VaX4OGVkKSB7PvZqSlI6XuB4KTL+IDw3ND y3YqR9AfAuLtakNDX2S3AkPsd8ULP5CHsvVsksPs6r XSANCj4+OVpinEEdcApgZOTPBlfiLTm8PUefOAIKWc3R ID Date Data Source [id number] 11/02/2019 01:28:54 PM EDT [address] [address]vdzedh Name: NAZIA AVILADOB: 1970ex: FOrdering Provider: AUDREY Mccoy Prov: AUDREY Tierney Provider: Procedure Performed: XR OR FLUORO VENOUS ACCESS DEVICEExam Date: 11/02/2019 12:47MRN: [id number] Number: [id number] Class: OutpatientAccount #: [id number] for Exam: Breast carcinoma, female, right [C50.911]Technique: Fluoroscopy with no digital spot images obtained.Fluoroscopy time: 12 SecondsNumber of Spot Images: 0Comparison: Chest x-ray 03/18/2015Findings: 2 fluoroscopic images of the right chest demonstrate placement of a chest port with catheter tip at lower SVC.IMPRESSION: Fluoroscopic guidance for right chest port placement.Report electronically signed by: Antonio Richards On 11/02/2019 1:28 PMWorkstation ID: [id number] Name Value Range Interpretation Code Description Data Maribell rce(s) Supporting Document(s) ID Date Data Source [id number] 11/02/2019 01:20:26 PM EDT [address] [address]Zduyq[address] Name: NAZIA AVILADOB: 1970ex: FOrdering Provider: AUDREY Mccoy Prov: AUDREY Tierney Provider: Procedure Performed: XR CHEST PORTABLEExam Date: 11/02/2019 13:04MRN: [id number] Number: [id number] Class: OutpatientAccount #: [id number] for Exam: new right portTechnique: AP portable view obtained.Comparison: Chest x-ray 03/18/2015Findings: Interval placement of a right-sided chest port with catheter tip at SVC/right atrial junction. No pneumothorax. Left chest wall pacemaker/AICD is unchanged. No consolidation, edema or effusions. Cardiomediastinal contours are normal. Osseous structures intact.IMPRESSION: Right chest port, catheter tip at SVC/right atrial junction. No pneumothorax.Report electronically signed by: Antonio Richards On 11/02/2019 1:20 PMWorkstation ID: [id number] Name Value Range Interpretation Code Description Data Maribell rce(s) Supporting Document(s) ID Date Data Source [id number] 11/02/2019 12:38:19 PM EDT [facility] Name Value Range Interpretation Code Description Data Maribell rce(s) Supporting Document(s) POC NOVA GLU 109 mg/dL (70-99) H [facility] [place] PERFORMED BY [facility] CLINICAL STAFF ID Date Data Source [id number] 11/02/2019 12:28:37 PM EDT [facility] NT INFORMATIONPatient MRN Name Date of Age Gend*PT [id number] Nazia Avila 1970 49 years F SDCPT Location Admission Date/Time Visit ID [facility] 0929 --- Audrey Goode MD([id number]) EPI ID CSN Admitting Provider [id number] Audrey Goode MD([id number])OPERATIVE REPORT : CENTRAL VENOUS SINGLE LUMEN INFUSAPORTSITE : SUBCLAVIAN Right 8 FrenchAttending Surgeon : Audrey Goode MDAssisting Resident : FINN - minimalAnesthesia - GeneralComplications - noneFlouro used - yesIndication for surgery - need for systemic therapy for breast cancerProcedure :The patient was taken to the operating room and placed in the supine position .She underwent general anesthesia with no difficulty at all . From here weprepped the Rightneck and chest . I often put the port on the opposite side ofthe cancer but she has A large defibrillator on the left chestAfter TIME OUT procedure we then accessed the subclavian vein with a large gaugeneedle . From here we passed the guidewire thru the needle and checked itsposotion under flouroscopy . This confirmed we were in the right heart sysytem .After this we fashioned a small pocket for the Port and then made sure it fitwell. Our catheter was then tunelled from the pocket to the exit site of thewire and cut to the appropriate length .From here we carefully placed the peel away device and dilator over the wireunder fluoro . The wire was removed and the catheter carefully placed thru thepeel away device as it was removed .This all went well - fluoro showed the catheter in good poition .I then flushed the catheter with heparainized saline . It fluhed and withdrewwell.I injected the surgical site with about 10 cc of 0.5% Marcaine for post op painreliefThe pocket was closed in 2 layers with 3-0 vicryl and 4-0 Monocryl . Name Value Range Interpretation Code Description Data Maribell rce(s) Supporting Document(s) ID Date Data Source [id number] 11/02/2019 12:05:21 PM EDT [facility] NT INFORMATIONPatient MRN Name Date of Age Gend*PT [id number] MariuszNazia ribeiro 1970 49 years F SDCPT Location Admission Date/Time Visit ID Attending Provider --- --- --- --- EPI ID CSN Admitting Provider [id number] ---AirwayPatient location during procedure: ORUrgency: electiveDifficult airway: noAdvanced airway equipment used: noStaffingPerformed by: Maggi Welch CRNAAnesthesiologist: Estevan Arrieta MDIndications and Patient ConditionIndications for airway management: anesthesiaPreoxygenated: yesPatient position: supineIn-line stabilization: noMask ventilation: 0 - not attemptedFinal Airway/ApproachesFinal airway type: LMANumber of attempts at final approach: 1Number of other approaches attempted: 0Final Airway DetailsFinal LMA airway: uniqueLMA size 4 Name Value Range Interpretation Code Description Data Maribell rce(s) Supporting Document(s) ID Date Data Source [id number] 11/02/2019 11:09:56 AM EDT [facility] NT INFORMATIONPatient MRN Name Date of Age Gend*PT [id number] Nazia Avila 1970 49 years F SDCPT Location Admission Date/Time Visit ID [facility]/02[facility]19 0929 --- Audrey Goode MD([id number]) EPI ID CSN Admitting Provider [id number] Audrey Goode MD([id number])H&P reviewed. The patient was examined and there are no changes to the H&P. Willplace a PORT for pre op chemotherapyAUDREY GOODE MD11:09 AM Name Value Range Interpretation Code Description Data Maribell rce(s) Supporting Document(s) ID Date Data Source [id number] 11/02/2019 10:13:28 AM EDT [facility] [place] Name Value Range Interpretation Code Description Data Maribell rce(s) Supporting Document(s) POC NOVA GLU 107 mg/dL (70-99) H [facility] [place] [facility] [place] PERFORMED BY [facility] CLINICAL STAFF ID Date Data Source [id number] 10/29/2019 05:10:46 PM EDT [facility] NT INFORMATIONPatient MRN Name Date of Age Gend*PT [id number] Nazia Avila 1970 49 years F ---PT Location Admission Date/Time Visit ID Attending Provider --- --- --- --- EPI ID CSN Admitting Provider [id number] ---NEW CONSULTATION FOR BREAST CANCER :Attending Surgeon : Audrey Goode MDHistory of Present Illness :Nazia is a aissatou 49 years female who is referred by Dr Brody to me todaywith unfortunately a new diagnosis of infiltrating ductal carcinoma of theright breast . Specifically her pathology shows a Grade 2, Estrogen receptorpositive , Progesterone receptor negative and Her 2 Batsheva equivocal, 2+ FISHanalysis is pending.She presents today accompanied by her husbandHer story is as follows :The patient states that this abnormality was fo und on her own exam she selfdetected a palpable right breast mass. As noted she had imaging mammogramshowed nothing even despite pointing out the area of palpable concern butfocused ultrasound notes a 2.1 x 1.3 x 2 cm suspicious irregularly spiculatedmass specifically they state the mass is immediately adjacent and potentiallyinvolving the right nipple areole or complex. She reports that she doesusually obtain routine annual screening mammography . Her last study was theyear prior and that was unremarkable she says even then she thought she felt abit of a mass and she was noticing that her nipple was starting to becomeretracted ever so suddenly not as much as it is now but her imaging wasunremarkable. This year when it was more obvious she pointed it out to Miguel Angel who clearly noted the nipple inversion and she was sent forultrasonography as well as mammographyShe then went on to second opinion imaging at [facility].In speaking with the patient today , she states that they did note a new orunusual mass in the affected breast .REVIEW OF SYSTEMS:On Review of systems they specifically deny any new or unusual bone pain , ornew shortness of breath or unexplained weight loss that would suggest distantdisease .On a full and complete review of systems they report the followingNo major cardiac or pulmonary issues she has a previous history ofcardiomyopathy and has a defibrillator in place. She has not required it in awhile she is followed very closely by my colleague Dr. Robertson is not losing weight. She had lost a lot of weight with bariatric surgeryoverall losing about 65-70 but ultimately putting 40 pounds back onShe is not overly anxious or depressedNo major endocrine complaintsSpecifically with regard to breast or ovarian cancer family history issignificant . 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 No longer takes any medications fordiabetes Dilated cardiomyopathy Hypertension Implantable cardioverter-defibrillator (ICD) generator end of life 03/18/2015 Kidney stone Presence of almond huller-recalled implantable cardioverter-defibrillator (ICD)lead 03/18/2015Past Surgical History:Procedure Laterality Date APPENDECTOMY CHOLECYSTECTOMY ep study EXTRACTION LEAD N/A 03/18/2015 Procedure: LASER-EXTRACT CARDIOVERTER DEFIB LEAD PROLONG INSERTION OFIMPLANTABLE CARDIOVERTER DEFIBRILLATOR; Surgeon: Tenisha Cisneros MD, [facility]; Location: [facility]; Service: Pacemakers; Laterality: N/A; GASTRIC BYPASS N/A 01/30/2014 Procedure: [id number] LAPARSCOPIC, LIVER BIOPSY; Surgeon:Ryan Casas MD; Location: [facility] [place]; Service: Bariatric; Laterality:N/A; HERNIA REPAIR HYSTERECTOMY INSERT / REPLACE / REMOVE PACEMAKER INSERT / REPLACE AICD LEAD KIDNEY STONE SURGERY N/A KNEE ARTHROSCOPY Bilateral SINUS SURGERYPrior to Admission medicationsMedication Sig Start Date End Date Taking? Authorizing Provideracetaminophen (TYLENOL) 325 MG tablet Take 650 mg by mouth every 4 (four) hoursas needed for pain Yes Historical Provider, Jaswinderlbuterol (PROVENTIL HFA;VENTOLIN HFA) 108 (90 BASE) MCG/ACT inhaler Inhale 2puffs every 4 (four) hours as needed for shortness of breath Yes HistoricalProvider, MDcarvedilol (COREG) 6.25 MG tablet Take 6.25 mg by mouth 2 (two) times a dayYes Historical Provider, furosemide (LASIX) 20 MG tablet TAKE 1 TABLET BY MOUTH ONCE DAILY NEEDED FORSWELLING 12/25/18 Yes Historical Provider, lisinopril (PRINIVIL,ZESTRIL) 10 MG tablet Take 10 mg by mouth daily 12/25/18Yes Historical Provider, MDmetFORMIN (GLUCOPHATE-XR) 500 MG 24 hr tablet Take 500 mg by mouth 12/25/18 YesHistorical Provider, ondansetron (ZOFRAN) 8 MG tablet 02/27/19 Yes Historical Provider, MDrosuvastatin (CRESTOR) 20 MG tablet Take 20 mg by mouth 12/25/18 Yes HistoricalProvider, tamsulosin ( FLOMAX) 0.4 MG CAPS TAKE 1 CAPSULE BY MOUTH ONCE DAILY FOR 30 DAYS02/15/19 Yes Historical Provider, HYDROcodone-acetaminophen (NORCO) 5-325 MG per tablet 02/05/19 HistoricalProvider, SpringergiesAllergen Reactions Adhesive Tape Blister Azithromycin Hives Other Steri strips - severe blisters Penicillins HivesSocial HistoryTobacco Use Smoking status: Never Smoker Smokeless tobacco: Never UsedSubstance Use Topics Alcohol use: Yes Comment: rare Drug use: NoFamily HistoryProblem Relation Age of Onset Heart disease Mother Heart disease FatherSocial historyShe is she has 1 daughter she does not smoke rarely drinks alcoholMENSTRUAL/ HISTORYFirst Menses at age 9Age at the time of first live childbirth age 29Age at menopause if applicable Surgically at 39She is not taking hormone replacement therapyCURRENT BREAST IMAGINGMammography: Mammography was completely unremarkable despite pointing out thearea of palpable concern nothing is visualizedUltrasound: See above 2.1 x 2.0 cm mass irregular spiculated hypoechoicMRI if obtained :PHYSICAL EXAMINATION :Patient is very pleasant , she is not upset/anxious here in the office . She isappropriately distressedTemperature 98 F.Breast Exam:Left Breast reveals no masses or abnormalities, there is not any obviousaxillary or supraclavicular adenopathy in the upright or supine positionRight Breast reveals an obvious mass bruising lateral to it there is a firm massright adjacent to the area Zaki, there is not any obvious axillary orsupraclavicular adenopathy in the upright or supine position the nipple isslightly invertedNeck reveals no masses or adenopathy , no thyroid nodulesAbdomen is benign with no evidence of organomegaly, no tendernessASSESSMENT AND PLAN :Today I had a lengthy discussion today with Nazia and her spouse regardingher disease and treatment options. We spent approximately 45 minutes togetherand the vast majority of this was spent in counseling . In addition, their caseand full recommendations for further work up and treatment will likely bediscussed with our entire multidisciplinary team in our conferencing session aspart of our participation with [facility] .I began by going over her imaging findings and explaining the area of concern.We then went over their specific cancer pathology in detail and I explainedthrough the use of diagrams exactly what infiltrating ductal carcinoma is andhow it differs from pathology such as infiltrating lobular carcinoma.We also went over all of the prognostic features of their specific tumor an dreceptors, I explained what all of this meant and it s significance with regardto other adjuvant therapies . In this case the disease is Grade II, Estrogenreceptor positive Progesterone receptor negative and Her 2 Batsheva Was equivocal andthe FISH analysis is pending. Clinically this would be a Stage 1-2, T 1-2 NxMxI then talked about the standard options for breast cancer surgery with thepatient and their spouse. I explained the long standing data and follow up inthe medical literature noting the equivalency of breast conserving surgery withradiation therapy and mastectomy. I explained that there is NO long termsurvival benefit to having a mastectomy over lumpectomy when both are an option. If it is chosen and / or appropriate I explained the need for lumpectomymargins to be negative for carcinoma ,and the necessity for postoperativeradiation therapy after breast conservation in most cases .I also explained thatthere is an approximate 20-25% chance of close or positive surgical marginsafter lumpectomy requiring possible further surgery to clean things up . Iexplained how if breast conserving therapy ( lumpectomy ) is done for a nonpalpable tumor that we use a special thin guide wire that is placed beforesurgery by the radiologist and this serves as our guide for surgery to get thecorrect area . I think in her case it is tough. It is only about a 2 cmlesion or so it seems but it is right adjacent to the nipple. By the sametokenif she had a mastectomy it could not be nipple sparing and so I think it isnot unreasonable to attempt breast conservation if she so desired understan dingthat there may be a little bit of a deformity. By the same token I couldpotentially place a BioZorb radiation marker device and that could potentiallyhelp with cosmesisGiven the choice she would lean toward breast conservationThe only other thing we discussed was the HER-2 status that is still pending Itold her that if her HER-2/batsheva was positive then I may lean toward neoadjuvantchemotherapy to shrink this significantly and then proceed with surgery. My gutfeeling is it will be HER-2 negative. I do think this may be longstandingdisease given the story she tells that she noticed this last year again hermammogram was completely negative this yearNonetheless they understood what I meant by neoadjuvant hopefully her receptorswill be back in the next few Kell also explained what a sentinel node is and how it is done . I explained thatusually when we do a lumpectomy and check sentinel nodes we simply send them topathology and get the results in a few days . We usually do not have to takemore lymph nodes even if the sentinel node had cancer . With a mastectomysurgery we routinely still check the lymph nodes with the pathologist at thetime of surgery and take more with a node dissection if cancer is found in thesentinel lymph node.( This is based on the findings of the ACOSOG Z-11 study showing this did notchange outcomes with the lumpectomy patients )The risk of the potential for arm lymphedema was discussed which I explained isnot common but can be a life long problem . As always we will have her seen forlymphedema prevention and consultation if necessary .I also briefly touched upon the role of medical oncology and the use of systemicchemotherapy versus hormonal therapy or both . In this case the disease isestrogen positive and the HER-2 is pending and so therefore much of it willdepend on the final receptor status I did briefly talk about what Oncotypegenomic analysis is and how we utilize that they seem to understand she donesome reading herself. I did touch upon the role of radiation therapy and it s timing with regard tosurgery etc. They seemed to understand .We will make those referrals post operatively as necessary when we get herpathology back . She met also with our Breast Cancer nurse navigator Sadi explained how she will take care of setting all of this up at theappropriate time after surgery . In her case a plan will be for breast conservation. We will get the HER-2status back in the next couple of days I do think I may use wire localizationbecause I can feel the tumor but might be best to localize it to be sure.In the end I think we had a nice discussion . Our plan at present is as follows:We will plan on surgery if the HER-2 returns is positive I will stop, regroupand send her on to medical oncologyWe did briefly discuss genetic counseling. She is 49 years of age she does havea bit of a familial history with multiple aunts with breast carcinoma 1 of whomis of metastatic disease she would be interested in so we will arrangethat at some junctionThis document or parts of this document, were dictated using ChatStatware. A reasonable attempt at proofreading has been made to minimizeerrors. Please call with any questions or corrections. Name Value Range Interpretation Code Description Data Maribell rce(s) Supporting Document(s) ID Date Data Source [id number] 10/12/2019 11:10:00 AM EDT [facility] [address] [place] [id number] [phone] NAME SEX PT STATUS ACCOUNT NUMBER NAZIA AVILA REG REF [id number] ORDERING PHYSICIAN LOCATION MEDICAL RECORD NO. Hung Brody MD MAMMO [id number] ATTENDING PHYSICIAN DATE OF DATE OF EXAM/TIME [...] Reported By Master Townsend MD on 10/12/19 111 Signed By Master Townsend MD on 10/12/19 111 Date Time CC: Master Townsend MD; Hung Brody MD Techn: BUSMI Trans Dt/Tm: Trans by: DT Prt Dt/Tm: 6: Total DLP = 0.00 mGy-cm : Total Radiation Dose = 0.0000 mSv Lifetime Dose: 12.1950 mSv Name Value Range Interpretation Code Description Data Maribell rce(s) Supporting Document(s) ID Date Data Source [id number] 10/12/2019 11:05:00 AM EDT [facility] [address] [place], [place] [id number] [phone] NAME SEX PT STATUS ACCOUNT NUMBER NAZIA AVILA REG REF [id number] ORDERING PHYSICIAN LOCATION MEDICAL RECORD NO. Hung Brody MD MAMMO [id number] ATTENDING PHYSICIAN DATE OF DATE OF EXAM/TIME Hung Brody MD 1970 10/[birth year]/19924 TYPE / EXAM 3D DIG MAMMO DIAG [...] is no abnormality in the region of lumpin the right breast. Yearly screening recommended. OVERALL FINAL ASSESSMENT OF FINDINGS BI-RADS 2 - Benign findings OVERALL FINAL ASSESSMENT OF THE BREAST COMPOSITION Breast Density Classification: B Description: The breasts are composed of scattered areas of fibroglandular density. This mammogram was read with the assistance of Angelika, an FDA-approved computer-aided detection system for mammog crow. Reported By Master Townsend MD on 10/12/19 1105 Signed By Master Townsend MD on 10/12/191109 Date Time CC: Master Townsend MD; Hung Brody MD Techn: BAKLE Trans Dt/Tm: Trans by: DT Prt Dt/Tm: : Total DLP = 0.00 mGy-cm : Total Radiation Dose = 0.0000 mSv Lifetime Dose: 12.1950 mSv Name Value Range Interpretation Code Description Data Maribell rce(s) Supporting Document(s) ID Date Data Source [id number] 10/02/2019 08:21:00 AM [facility] ([facility]) Name Value Range Interpretation Code Description Data Maribell rce(s) Supporting Document(s) Hemoglobin A1c/Hemoglobin.total in Blood 7.8 na Above high normal Hgba1c [facility] ([facility]) Note: Responsible Observer: AW ID Date Data Source [id number] 10/02/2019 08:21:00 AM EDT [facility] ([facility]) Name Value Range Interpretation Code Description Data Maribell rce(s) Supporting Document(s) Cholesterol [Moles/volume] in Pericardial fluid 141 mg/dl Cholesterol [facility] ([facility]) Note: Responsible Observer: AW Dir. LDL 60 mg/dl Dir. LDL [place] ([facility]) Note: Responsible Observer: AW HDL 38 mg/dl HDL [place] ([facility]) Note: Responsible Observer: AW Triglycerides 317 mg/dl Above high normal Triglycerides G [facility] ([facility]) Note: Responsible Observer: AW ID Date Data Source [id number] 10/02/2019 08:21:00 AM T [place] ([facility]) Name Value Range Interpretation Code Description Data Maribell rce(s) Supporting Document(s) Albumin [Mass/volume] in Blood by Bromocresol purple ( BCP) dye binding method 4.7 g/dl Albumin [facility] Note: Responsible Observer: AW Alkaline Phos 61 IU/L Alkaline Phos [facility] ([facility]) Note: Responsible Observer: AW ALT 37 IU/L ALT [facility] ([facility]) Note: Responsible Observer: AW AST 23 IU/L AST [facility] ([facility]) Note: Responsible Observer: AW Calcium [Moles/volume] in Urine collected for unspecified durati on 9.2 mg/dl Calcium [facility] [facility]) Note: Responsible Observer: AW Urea nitrogen [Moles/volume] in Blood 12 mg/dl Urea Nitrogen [place] ([facility]) Note: Responsible Observer: AW Chloride [Moles/volume] in Serum, Plasma or Blood 103 mmol/L Chloride [place] ([facility]) Note: Responsible Observer: AW Creatinine [Moles/volume] in Vitreous fluid 0.3 mg/dl Below low normal Creatinine [place] ([facility]) Note: Responsible Observer: AW CO2 24 mmol/L CO2 [place] ([facility]) Note: Responsible Observer: AW EGFR - AfricanAm > 60 N/A EGFR - AfricanAm [facility] Note: Responsible Observer: AW EGFR - Non AF AM > 60 N/A EGFR - Non AF AM GR [facility] ([facility]) Note: Responsible Observer: AW Glucose [Mass/volume] in Urine collected for unspecified duratio n 142 mg/dl Above high normal Glucose [place] ([facility]) Note: Responsible Observer: AW Sodium [Moles/volume] in Serum, Plasma or Blood 137 mmol/L Sodium [place] ([facility]) Note: Responsible Observer: AW Potassium [Mass/volume] in Blood 4.3 mmol/L Pot assium [place] ([facility]) Note: Responsible Observer: AW Total Protein 6 g/dl Total Protein [place] ([facility]) Note: Responsible Observer: AW Total Bilirubin 0.5 mg/dl Total [facility]) Note: Responsible Observer: AW ID Date Data Source [id number] 10/02/2019 08:21:00 AM EDT [place] ([facility]) Name Value Range Interpretation Code Description Data Maribell rce(s) Supporting Document(s) GRAN# 6.5 /mm3 GRAN# [place] ([facility]) Note: Responsible Observer: AW GRAN% 60.6 % GRAN% [place] ([facility]) Note: Responsible Observer: AW HCT 39.8 % HCT [place] ([facility]) Note: Responsible Observer: AW HGB 13.1 g/dl HGB [place] ([facility]) Note: Responsible Observer: AW LY% 32.7 % LY% [place] ([facility]) Note: Responsible Observer: AW LY# 3.5 /mm3 LY# [place] ([facility]) Note: Responsible Observer: AW MCH 29.2 pg MCH [place] ([facility]) Note: Responsible Observer: AW MCHC 33.0 G/DL MCHC [place] ([facility]) Note: Responsible Observer: AW MCV 88.5 um3 MCV [place] ([facility]) Note: Responsible Observer: AW MID# 0.7 /mm3 MID# [place] ([facility]) Note: Responsible Observer: AW MID% 6.7 % MID% [place] ([facility]) Note: Responsible Observer: AW MPV 11.3 um3 MPV [place] ([facility]) Note: Responsible Observer: AW PLT 275 /mm3 PLT [place] ([facility]) Note: Responsible Observer: AW RDW 15.8 % Above high normal RDW [place] ([facility]) Note: Responsible Observer: AW RBC 4.5 /mm3 RBC [place] ([facility]) Note: Responsible Observer: AW WBC 10.7 /mm3 Above high normal WBC [place] ([facility]) Note: Responsible Observer: AW ID Date Data Source [id number] 09/20/2019 04:16:05 PM [facility] INFORMATIONPatient MRN Name Date of Age Gend*PT [id number] MariuszNazia ribeiro 1970 49 years F ---PT Location Admission Date/Time Visit ID Attending Provider --- --- --- --- EPI ID CSN Admitting Provider [id number] ---Name: Nazia AvilaDOB: 1970Date: 09/20/19CIED Remote CheckImplanted Device 09/19/2019Device Tissue Specialist MedtronicDevice type Bi-Ventricular ICDMRI Conditional Device -Device was remotely interrogated and the following were evaluated:Battery statusSummary arrhythmia logsNew observationsFidelity of the EGM signalIntegrity of leads and lead impendence were reevaluatedConclusion:Normal ICD function.No significant changes continue to monitor.Signature: Tenisha Cisneros MD, [facility]iac Electrophysiology and Arrhythmia ServiceDate: September 20, 2019Time: 4:15 PMThis document or parts of this document, were dictated using Phylogy. A reasonable attempt at proofreading has been made to minimize errors.Please call with any questions or corrections. Name Value Range Interpretation Code Description Data Maribell rce(s) Supporting Document(s) ID Date Data Source [id number] 09/20/2019 04:16:05 PM EDT [facility] NT INFORMATIONPatient MRN Name Date of Age Gend*PT [id number] Nazia Avila 1970 49 years F ---PT Location Admission Date/Time Visit ID Attending Provider --- --- --- --- EPI ID CSN Admitting Provider [id number] ---Heart Failure Management ReportPatient has a history of dilated cardiomyopathy. According to this report,patient has not had VT/VF. There is not evidence of AT/AF. In regards toOptivol, patient has not crossed fluid threshold. Average ventricular responseat night is 60.Angel Smith document or parts of this document, were dictated using Phylogy. A reasonable attempt at proofreading has been made to minimize errors.Please call with any questions or corrections. Name Value Range Interpretation Code Description Data Maribell rce(s) Supporting Document(s) ID Date Data Source [id number] 06/20/2019 07:20:02 AM EST [facility] NT INFORMATIONPatient MRN Name Date of Age Gend*PT [id number] Nazia Avila 1970 49 years F ---PT Location Admission Date/Time Visit ID Attending Provider --- --- --- --- EPI ID CSN Admitting Provider [id number] ---Heart Failure Management ReportPatient has a history of dilated cardiomyopathy. According to this report,patient has not had VT/VF. There is not evidence of AT/AF. In regards toOptivol, patient has not crossed fluid threshold. Average ventricular responseat night is 60.Shaunna Ratliff NPThis document or parts of this document, were dictated using Phylogy. A reasonable attempt at proofreading has been made to minimize errors.Please call with any questions or corrections. Name Value Range Interpretation Code Description Data Maribell rce(s) Supporting Document(s) ID Date Data Source [id number] 06/20/2019 07:20:02 AM EST [facility] NT INFORMATIONPatient MRN Name Date of Age Gend*PT [id number] Nazia Avila 1970 49 years F ---PT Location Admission Date/Time Visit ID Attending Provider --- --- --- --- EPI ID CSN Admitting Provider [id number] ---Name: Nazia AvilaDOB: 1970Date: 06/20/19CIED Remote CheckImplanted Device 06/15/2019Device Tissue Specialist MedtronicDevice type Bi-Ventricular ICDMRI Conditional Device -Device was remotely interrogated and the following were evaluated:Battery statusSummary arrhythmia logsNew observationsFidelity of the EGM signalIntegrity of leads and lead impendence were reevaluatedConclusion:Normal ICD function.No significant changes continue to monitor.Signature: Tenisha Cisneros MD, [facility]Cardiac Electrophysiology and Arrhythmia ServiceDate: June 20, 2019Time: 7:19 AMThis document or parts of this document, were dictated using Phylogy. A reasonable attempt at proofreading has been made to minimize errors.Please call with any questions or corrections. Name Value Range Interpretation Code Description Data Maribell rce(s) Supporting Document(s) ID Date Data Source [id number] 05/25/2019 02:05:00 PM [facility] Name: NAZIA AVILA : 1970 Age: 48 MR#: [id number] Admit Date: 05/25/19 Provider: Khai Rodriguez MD Room #: Consulting Provider: Dictation Date: 05/25/19 ProgressNote Intake Vital Signs 05/25/19 14:07 Current Height 5 ft 1 in Current Weight 168 lb BMI 31.7 BP 140/86 Blood Pressure Location Lt brachial Position Sitting Pulse 84 Pulse Strength Normal Pulse Source Pulse Oximeter Temp 98.2 F Temp Source Oral Pulse Oximetry (%) 96 Oxygen Delivery Method room air Intake Visit Reasons: Hemorrhoids 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 Is patient in pain?: No Allergies alcohol [From Mastisol Liquid Adhesive] Allergy (Severe, Verified 08/25/18 09:46) Rash gum mastic [From Mastisol Liquid Adhesive] Allergy (Severe, Verified 08/25/18 09:46) Rash methyl salicylate [From Mastisol Liquid Adhesive] Allergy (Severe, Verified 08/25/18 09:46) Rash storax [From Mastisol Liquid Adhesive] Allergy (Severe, Verified 08/25/18 09:46) Rash clindamycin Allergy (Intermediate, Verified 08/25/18 09:46) Hives glimepiride [From Amaryl] Allergy (Intermediate, Verified 08/25/18 09:46) palpitations upset stomach fatigue Penicillins Allergy (Intermediate, Verified 08/25/18 09:46) Hives sertraline Allergy (Intermediate, Verified 08/25/18 09:46) Hives azithromycin [Azithromycin] Allergy (Unknown, Verified 08/25/18 09:46) Xerofoam Gauze Allergy (Mild, Uncoded 08/25/18 09:46) Erythema, Bullae steri-strips Adverse Reaction (Uncoded 08/25/18 09:46) HIV Testing Offer - ages 13-64 Requirement for HIV testing offer been met?: Declines today. Pretest education received and acknowledged [facility] Medical History Asthma Heart disease Hyperlipidemia Kidney stones Surgical History Appendectomy section Cholecystectomy History of - surgery History of - surgery History of gastric bypass History of hysterectomy kindey stone removal Presence of implantable cardioverter- defibrillator (ICD) Family History Mother Diabetes Heart disease Kidney disease Hypertension Father Heart disease Hyperlipidemia Hypertension Social History (Updated 05/25/19 @ 14:10 by Radha Esparza) D oes the Patient have a Healthcare Proxy: No Does Patient have a DNR?: No Does Patient have a Living Will?: No Advance Directives on File or in chart?: No marital status: Hx Recent Travel (where): No Smoking Status: Never smoker alcohol intake: current alcohol intake frequency: holidays/special occasions only HPI Additional HPI HPI Details: This 48-year-old female complains of perineal itching and burning for several weeks. The patient denies any bleeding, trauma, or other symptoms. The patient states that she thinks she has hemorrhoids, and now comes for surgical evaluation. Review of Systems Const All systems reviewed are unremarkable except as noted in HPI and below Eyes Reports system reviewed and no additional complaints, except as documented and Reports requires corrective lenses ENT Reports hearing loss (right ear) Card Reports system reviewed and no additional complaints, except as documented and Reports other (ICD) Resp Reports system reviewed and no additional complaints, except as documented GI Reports system reviewed and no additional complaints, except as documented and Reports other (hemorrhoids) Reports system reviewed and no additional complaints, except as documented and Reports dyspareunia Musc Reports system reviewed and no additional complaints, except as documented Skin/Breast Reports system reviewed and no additional complaints, except as documented Neuro Reports system reviewed and no additional complaints, except as documented Psych Reports system reviewed and no additional complaints, except as documented Endo Reports system reviewed and no additional complaints, except as documented Kvng/Lymph Reports system reviewed and no additional complaints, except as documented Aller/Immun Reports system reviewed and no additional complaints, except as documented Exam Recto-Vaginal: other (Perineal region reveals no pathology. There are no hemorrhoids, anal fissures, rectal tears. Anal skin tag appears normal.) Assessment Plan Assessment Plan (1) Hemorrhoids: Code(s): K64.9 - Unspecified hemorrhoids Additional Comments Additional Comments: Impression: Perineal itching of unknown etiology Plan: Patient advised to apply hydrocortisone cream to this area for 1 week, and return to office if no improvement. Dictated by: <Electronically signed by Khai Rodriguez MD> Khai Rodriguez MD 05/25/19 1835 Khai Rodriguez MD SIGNATURE DA Report Cosigners: D: EMY 05/25/19 1405 T: TIGRE 05/25/19 1405 CC: Name Value Range Interpretation Code Description Data Maribell rce(s) Supporting Document(s) Procedure Social History Code Duration Value Status Description Data Source(s ) Smoking 07/07/2020 12:00:00 AM EST Never Smoker completed Never S moker eCW1 ([facility]) Smoking 07/07/2020 12:00:00 AM EST Never Smoker completed Never S moker eCW1 ([facility]) Smoking 07/07/2020 12:00:00 AM EST Never Smoker completed Never S moker eCW1 ([facility]) Smoking 07/07/2020 12:00:00 AM EST Never Smoker completed Never S moker eCW1 ([facility]) 07/04/2020 02:58:23 PM EST Never smoker completed Never s [facility] Smoking 07/04/2020 02:58:00 PM EST Never smoker completed Never s [facility] Smoking 06/11/2020 12:00:00 AM EST Never Smoker completed Never S moker eCW1 ([facility]) Smoking 06/11/2020 12:00:00 AM EST Never Smoker completed Never S moker eCW1 ([facility]) Smoking 06/11/2020 12:00:00 AM EST Never Smoker completed Never S moker eCW1 ([facility]) Alcohol intake 05/13/2020 12:00:00 AM EST Current drinker of al cohol (finding) completed Current drinker of alcohol (finding) [facility] Tobacco use and exposure 05/13/2020 12:00:00 AM EST Never used co mpleted Never used [facility] Smoking 05/13/2020 12:00:00 AM EST Never smoker completed Never s [facility] Alcohol intake 05/05/2020 12:00:00 AM EST Current drinker of al cohol (finding) completed Current drinker of alcohol (finding) [facility] Alcohol intake 04/28/2020 12:00:00 AM EST Current drinker of al cohol (finding) completed Current drinker of alcohol (finding) [facility] Alcohol intake 04/14/2020 12:00:00 AM EST Current drinker of al cohol (finding) completed Current drinker of alcohol (finding) [facility] 02/26/2020 11:27:50 AM EDT No completed No [facility] 02/26/2020 11:27:50 AM EDT Yes completed Yes [facility] 02/26/2020 11:27:50 AM EDT No completed No [facility] 02/26/2020 11:27:50 AM EDT Yes completed Yes [facility] 02/26/2020 11:27:50 AM EDT Never smoker completed Never [facility] Smoking 02/26/2020 11:27:00 AM EDT Never smoker completed Never [facility] Smoking 12/10/2019 12:00:00 AM EDT Never Smoker completed Never S [facility] eCW1 ([facility]) Smoking 12/10/2019 12:00:00 AM EDT Never Smoker completed Never S [facility] eCW1 ([facility]) Alcohol intake 11/02/2019 12:00:00 AM EDT Yes completed [facility] Smoking 11/02/2019 12:00:00 AM EDT Never smoker completed Never s [facility] 05/25/2019 02:10:38 PM EST Never smoker completed Never [facility] 05/25/2019 02:10:38 PM EST Never smoker completed Never [facility] Smoking 05/25/2019 02:10:00 PM EST Never smoker completed Never [facility] Smoking 05/25/2019 01:10:00 PM EST Never smoker completed Never [facility] Vital Signs ID Date Data Source UNK Name Value Range Interpretation Code Description Data Source(s) Diastolic blood pressure 70 mm[Hg] 70 mm[Hg] eCW1 ([facility]) Systolic blood pressure 114 mm[Hg] 114 mm[Hg] e CW1 ([facility]) Respiratory rate 18 /min 18 /min eCW1 ([facility]) Heart rate 76 /min 76 /min eCW1 ([facility]) Body mass index (BMI) [Ratio] 30.83 kg/m2 30.83 kg/m2 eCW1 ([facility]) Body height 61 [in_i] 61 [in_i] eCW1 ([facility]) Body weight 163.2 [lb_av] 163.2 [lb_av] eCW1 ([facility]) Diastolic blood pressure 62 mm[Hg] 62 mm[Hg] eCW1 ([facility]) Systolic blood pressure 112 mm[Hg] 112 mm[Hg] e CW1 ([facility]) Respiratory rate 18 /min 18 /min eCW1 ([facility]) Heart rate 77 /min 77 /min eCW1 ([facility]) Body mass index (BMI) [Ratio] 30.87 kg/m2 30.87 kg/m2 eCW1 ([facility]) Body height 61 [in_i] 61 [in_i] eCW1 ([facility]) Body weight 163.4 [lb_av] 163.4 [lb_av] eCW1 ([facility]) Body surface area Derived from formula 1.74 m2 1.74 m2 [place] ([facility]) Body mass index (BMI) [Ratio] 31.0 kg/m2 31.0 k g/m2 [place] ([facility]) Body weight 164 [lb_av] 164 [lb_av] [place] ([facility]) Body height 61 [in_i] 61 [in_i] [place] ([facility]) Heart rate 83 /min 83 /min [place] ([facility]) Diastolic blood pressure 97 mm[Hg] 97 mm[Hg] [place] ([facility]) Systolic blood pressure 121 mm[Hg] 121 mm[Hg] [facility] ([facility]) Body height 61 [in_i] 61 [in_i] [place] ([facility]) Body temperature 98.7 [degF] 98.7 [degF] [facility] ([facility]) Respiratory rate 18 /min 18 /min [place] ([facility]) Diastolic blood pressure 70 mm[Hg] 70 mm[Hg] [place] ([facility]) Systolic blood pressure 100 mm[Hg] 100 mm[Hg] [facility] ([facility]) Body surface area Derived from formula 1.73 m2 1.73 m2 [place] ([facility]) Body mass index (BMI) [Ratio] 30.6 kg/m2 30.6 k g/m2 [place] ([facility]) Body weight 162 [lb_av] 162 [lb_av] [place] ([facility]) Body height 61 [in_i] 61 [in_i] [place] ([facility]) Respiratory rate 20 /min 20 /min [place] ([facility]) Heart rate 2 /min 2 /min [place] ([facility]) Diastolic blood pressure 64 mm[Hg] 64 mm[Hg] [place] ([facility]) Systolic blood pressure 118 mm[Hg] 118 mm[Hg] [facility] ([facility]) Diastolic blood pressure 85 mm[Hg] 85 mm[Hg] eCW1 ([facility]) Systolic blood pressure 120 mm[Hg] 120 mm[Hg] e CW1 ([facility]) Body temperature 99.1 [degF] 99.1 [degF] eCW1 ( [facility]) Respiratory rate 18 /min 18 /min eCW1 ([facility]) Heart rate 87 /min 87 /min eCW1 ([facility]) Body mass index (BMI) [Ratio] 31.93 kg/m2 31.93 kg/m2 eCW1 ([facility]) Body height 61 [in_i] 61 [in_i] eCW1 ([facility]) Body weight 169 [lb_av] 169 [lb_av] eCW1 ([facility]) Oxygen saturation in Arterial blood by Pulse oximetry 98 % 98 % [facility] Respiratory rate 16 /min 16 /min [facility] Body temperature 36.78 Brittaney 36.78 Brittaney [facility] Heart rate 68 /min 68 /min [facility] Diastolic blood pressure 65 mm[Hg] 65 mm[Hg] [facility] Systolic blood pressure 118 mm[Hg] 118 mm[Hg] S [facility] Body mass index (BMI) [Ratio] 31.55 kg/m2 31.55 kg/m2 [facility] Body weight 75.751 kg 75.751 kg [facility] Body height 154.9 cm 154.9 cm [facility] Body height 61 [in_i] 61 [in_i] [place] ([facility]) Heart rate 85 /min 85 /min [place] ([facility] [employer] [facility]) Diastolic blood pressure 92 mm[Hg] 92 mm[Hg] [place] ([facility]) Systolic blood pressure 122 mm[Hg] 122 mm[Hg] [facility] ([facility]) Body height 61 [in_i] 61 [in_i] [place] ([facility]) Body temperature 98.9 [degF] 98.9 [degF] [facility] ([facility]) Heart rate 86 /min 86 /min [place] ([facility]) Diastolic blood pressure 85 mm[Hg] 85 mm[Hg] [place] ([facility]) Systolic blood pressure 119 mm[Hg] 119 mm[Hg] [facility] ([facility]) Oxygen saturation in Arterial blood by Pulse oximetry 98 % 98 % [place] ([facility]) Body surface area Derived from formula 1.76 m2 1.76 m2 [place] ([facility]) Body mass index (BMI) [Ratio] 31.9 kg/m2 31.9 k g/m2 [place] ([facility]) Body weight 169 [lb_av] 169 [lb_av] [place] ([facility]) Body height 61 [in_i] 61 [in_i] [place] ([facility]) Body temperature 98 [degF] 98 [degF] [place] ([facility]) Respiratory rate 22 /min 22 /min [place] ([facility]) Heart rate 80 /min 80 /min [place] ([facility]) ID Date Data Source [id number] 06/26/2020 06:00:27 PM [facility] Name Value Range Interpretation Code Description Data Source(s) PREFERRED NAME [facility] PREFERRED NAME [facility] ID Date Data Source [id number] 05/20/2020 02:47:45 PM [facility] Name Value Range Interpretation Code Description Data Source(s) WEIGHT RECORDED 163 lb 163 lb [facility] PREFERRED NAME [facility] PREFERRED NAME [facility] ID Date Data Source [id number] 05/13/2020 03:44:52 PM [facility] Name Value Range Interpretation Code Description Data Source(s) WEIGHT RECORDED 163 lb 163 lb [facility] PREFERRED NAME [facility] PREFERRED NAME [facility] ID Date Data Source [id number] 05/05/2020 04:50:20 PM [facility] Name Value Range Interpretation Code Description Data Source(s) WEIGHT RECORDED 167.8 lb 167.8 lb [facility] PREFERRED NAME [facility] PREFERRED NAME [facility] ID Date Data Source [id number] 04/28/2020 03:18:26 PM [facility] Name Value Range Interpretation Code Description Data Source(s) PREFERRED NAME [facility] PREFERRED NAME [facility] ID Date Data Source [id number] 04/14/2020 07:42:19 PM [facility] Name Value Range Interpretation Code Description Data Source(s) WEIGHT RECORDED 167.2 lb 167.2 lb [facility] Patient Treatment Plan of Care Planned Activity Planned Date Details Description Data Source (s) Acetaminophen 325 MG / Oxycodone Hydrochloride 5 MG Or al Tablet [Percocet] 07/10/2020 12:00:00 AM EST eCW1 ([facility]) Pramipexole dihydrochloride 0.125 MG Oral Tablet 01/29/2020 12:00:0 0 AM [facility] Pramipexole dihydrochloride 0.125 MG Oral Tablet 01/24/2020 12:00:0 0 AM [facility]) Lisinopril 10 MG Oral Tablet 01/03/2020 12:00:00 AM [facility]) Lisinopril 10 MG Oral Tablet 12/28/2019 12:00:00 AM [facility]) potassium citrate 10 MEQ Extended Release Oral Tablet [Urocit-K] 12/28/2019 12:00:00 AM [facility]) Loperamide Hydrochloride 2 MG Oral Tablet 12/25/2019 12:00:00 AM [facility] alginic acid 200 MG / Calcium Carbonate 80 MG / magnesium trisilicate 20 MG / Sodium Bicarbonate 70 MG Oral Tablet 11/20/2019 12:00:00 AM [facility] potassium citrate 10 MEQ Extended Release Oral Tablet 11/20/2019 12:00:00 AM [facility] ospital Tamsulosin hydrochloride 0.4 MG Oral Capsule 11/20/2019 12:00:00 AM [facility] Prochlorperazine 10 MG Oral Tablet 11/09/2019 12:00:00 AM [facility] Albuterol Sulfate HFA 108 (90 Base) MCG/ ACT Inhalation Aerosol Solution (Proventil HFA) 11/06/2019 12:00:00 AM [facility] Metformin hydrochloride 500 MG Oral Tablet 11/06/2019 12:00:00 AM [facility] Rosuvastatin calcium 20 MG Oral Tablet 11/06/2019 12:00:00 AM [facility] Ondansetron 4 MG Disintegrating Oral Tablet 11/06/2019 12:00:00 AM [facility] 60 ACTUAT Fluticasone propionate 0.1 MG/ ACTUAT / salmeterol 0.05 MG/ACTUAT Dry Powder Inhaler [Advair] 10/11/2019 12:00:00 AM [facility]) 200 ACTUAT Albuterol 0.09 MG/ACTUAT Metered Dose Inhal er [Ventolin] 10/02/2019 12:00:00 AM [facility] ([facility]) 24 HR Metformin hydrochloride 500 MG Extended Release Oral Tablet 10/02/2019 12:00:00 AM [facility] ([facility]) Furosemide 20 MG Oral Tablet 09/17/2019 12:00:00 AM [facility] ([facility]) carvedilol 6.25 MG Oral Tablet 09/17/2019 12:00:00 AM [facility]) Lisinopril 10 MG Oral Tablet 09/12/2019 12:00:00 AM [facility] ([facility]) Levofloxacin 500 MG Oral Tablet [Levaquin] 08/17/2019 12:00:00 AM [facility]) Prednisone 20 MG Oral Tablet 08/17/2019 12:00:00 AM [facility]) 12 HR CHLORPHENIRAMINE POLISTIREX 1.6 MG /ML / HYDROCODONE POLISTIREX 2 MG/ML Extended Release Suspension 08/17/2019 12:00:00 AM [facility]) 24 HR Metformin hydrochloride 500 MG Extended Release Oral Tablet 07/31/2019 12:00:[address] [facility] ([facility]) Rosuvastatin calcium 20 MG Oral Tablet 07/24/2019 12:00:00 AM [facility]) 24 HR Metformin hydrochloride 500 MG Extended Release Oral Tablet 07/18/2019 12:00:[address] [facility] ([facility]) carvedilol 6.25 MG Oral Tablet 01/30/2019 12:00:00 AM [facility]) Furosemide 20 MG Oral Tablet 11/27/2018 12:00:00 AM [facility]) Lisinopril 10 MG Oral Tablet 11/27/2018 12:00:00 AM [facility]) Rosuvastatin calcium 20 MG Oral Tablet 11/27/2018 12:00:00 AM [facility]) 200 ACTUAT Albuterol 0.09 MG/ACTUAT Metered Dose Inhal er [Ventolin] 10/24/2018 12:00:00 AM [facility] ([facility]) ropinirole 1 MG Oral Tablet [Requip] 04/27/2018 12:00:00 AM [facility] ([facility]) Acetaminophen 325 MG / Hydrocodone Bitartrate 7.5 MG Oral Tablet [facility] Aspirin 325 MG Oral Tablet [facility] OMEPRAZOLE PO [facility] Liraglutide (ANAI MORALEZ) [facility]
[2020-07-21] MEDS ORDERED: LIDOCAINE 2% 100MG/5ML SDV (FOR ANES.) As Ordered ONE (13:18)
[2020-07-21] MEDS ORDERED: MIDAZOLAM INJ 2MG/2ML VIAL (J2250 PER 1MG) As Ordered ONE (13:18)
[2020-07-21] MEDS ORDERED: propofoL 200 MG/20 ML VIAL As Ordered ONE (13:18)
[2020-07-21] MEDS ORDERED: fentaNYL 100 MCG/2 ML INJECTION (J3010) As Ordered ONE (13:18)
[2020-07-21] MEDS ORDERED: dexameTHASONE 4 MG/ML 1ML VIAL (J1100 PER 1MG) As Ordered ONE (13:19)
[2020-07-21] MEDS ORDERED: ONDANSETRON 4MG/2ML VIAL As Ordered ONE (13:19)
[2020-07-21] MEDS ORDERED: CONRAY-60 60% 50ML VIAL (Q9961) As Ordered ONE (14:14)
[2020-07-21] MEDS ORDERED: ePHEDrine SULFATE 25 MG/5 ML(5MG/ML) SYRINGE As Ordered ONE (15:11)
[2020-07-21] MEDS ORDERED: ACETAMINOPHEN 1000MG 100ML IV BTL (OFIRMEV) (J0131 PER 10MG) As Ordered ONE (15:22)
--- NOTE | 2020-07-21 16:14 | ROOPDOC ---
[facility] Report Of Operation Report of Operation DATE OF PROCEDURE: 07/21/20 PREPROCEDURE DIAGNOSES: Right ureteral and renal calculi POSTPROCEDURE DIAGNOSES: Right ureteral and renal calculi PROCEDURE: Cystoscopy, right retrograde Ureteroscopic laser lithotripsy, stone extraction and stent insertion and x-ray interpretation SURGEON: Roderick Hi MD SAP PORTAL CONSULTANT: None ANESTHESIA: Gen. ESTIMATED BLOOD LOSS: Approximately less than 5 mL mL. COMPLICATIONS: None REMARKS: . PROCEDURE NOTE: Indication for operation. The patient had known right renal and ureteral calculi brought to the operating room for treatment since she cannot pass some spontaneously. DESCRIPTION OF PROCEDURE: The patient was placed on the table in the supine position, given general anesthesia, placed in lithotomy position, prepped with Betadine paint and draped in an aseptic manner. Timeout was then performed. A 22 Latvian cystoscope was then inserted into the urethral meatus and advanced under direct vision of a 30 lens to the bladder. The bladder appeared to be normal inspection. The right ureteral orifices and catheterized with a 5 Latvian Pollack catheter. Retrograde injection of 10 mL of Conray showed that they patient had a distal right ureteral calculus and some questionable filling defects in the renal pelvis. 2 wire guide to then passed into the right ureter and this was followed by a short semirigid ureteroscope. Stone was encountered at the UVJ and this could not be extracted because of its size. The strap in a basket and treated with laser lithotripsy. The larger fragments were extracted with the basket. The scope was then advanced up to the renal pelvis and some stones were encountered in a calyx. The scope was then exchanged for a flexible ureteroscope and this bone was then retrieved with the basket. The scope was then withdrawn under direct vision and one small stone was encountered and this also was extracted with a basket. The cystoscope was then backloaded over the safety wire and a 5 Latvian double-J stent was passed over this wire. A curled well in the renal pelvis and in the bladder when the wire was removed. The stone fragments were retrieved and sent to pathology. Fluoroscopy was used throughout the case to evaluate stone position, instrument placement and stent placement. RODERICK HI MD Jul 21, 2020 16:14
--- NOTE | 2020-07-21 16:17 | REP ---
INDICATION: RIGHT CYSTO, LASER LITHO, STENT. COMPARISON: CT 07/07/2020 TECHNIQUE: Two images from C-arm fluoroscopy provided for placement of internal ureteral stent are reviewed. FINDINGS: Initial image shows contrast in the lower right ureter and at the edge of the image at the level of the acetabulum there is a suspected filling defect. Contrast only goes up to level of L5. Second image shows a wire coiled overlying the expected position of the renal pelvis. Fluoroscopy time: 42 seconds. IMPRESSION: Status post placement of guidewire into the right renal pelvis. Limited two view exam. <Electronically signed by Gagan Buckley > 07/21/20 [id number]
[2020-07-21] MEDS ORDERED: METOCLOPRAMIDE INJ 10MG/2ML VIAL (J2765 PER 1) IV PRN (16:45)
[2020-07-21] MEDS ORDERED: fentaNYL 100 MCG/2 ML INJECTION (J3010) IV PRN (16:45)
[2020-07-21] MEDS ORDERED: PERCOCET 5MG/325MG TAB PO PRN (16:45)
[2020-07-21] MEDS ORDERED: NORCO, ANEXSIA 5/325MG TABLET (HYDROcodone/ACETAMINOPHEN) PO PRN (16:45)
[2020-07-21] MEDS ORDERED: ONDANSETRON 4MG/2ML VIAL IV PRN (16:45)
[2020-07-21] MEDS ORDERED: LR 1,000 ML IV SCH ×2 (16:45)
[2020-07-21 17:25] VITALS: BP 124/78
== END 2020-07-21 17:25 | disposition home or self-care (01) ==
LOC: M SDC 11:40
PROVIDERS: ATTEND Urology
DX: N20.1 Calculus of ureter (principal); I48.91 Unspecified atrial fibrillation; I11.0 Hypertensive heart disease with heart failure; I50.9 Heart failure, unspecified; E11.9 Type 2 diabetes mellitus without complications; E78.5 Hyperlipidemia, unspecified; J45.909 Unspecified asthma, uncomplicated; Z85.3 Personal history of malignant neoplasm of breast; Z92.21 Personal history of antineoplastic chemotherapy; Z92.3 Personal history of irradiation; Z88.0 Allergy status to penicillin; Z88.1 Allergy status to other antibiotic agents; Z88.8 Allergy status to other drugs, medicaments and biological substances
CPT/HCPCS: 52356; 74420; 82365; 88300; C1769; C1894; C2617; J0131; J0744; J1100; J2250; J2405; J3010; Q9961

== ENCOUNTER → 2020-10-11 | Outpatient (CLI) | payer BC ==
[~2020-10-11] MED LIST changes: -CIPROFLOXACIN 400 MG in IV 1 EA IV ONE; +HERC150I IV; -LR 1,000 ML IV ONE; +ONDA8TAB10 PO; +[UNRECOGNIZED DRUG - CODE] IV
== END ==
LOC: M LABSMTC 09:36
PROVIDERS: ATTEND Anesthesiology
DX: Z01.812 Encounter for preprocedural laboratory examination (principal); Z20.822 Contact with and (suspected) exposure to COVID-19

== ENCOUNTER 2020-10-16 12:50 | Day surgery (SDC) | payer BC ==
[~2020-10-16] VITALS: Ht 154.9 cm; Wt 73.5 kg
[~2020-10-16 12:50] MED LIST changes: +CONRAY-60 60% 50ML VIAL (Q9961) As Ordered ONE; +LR 1,000 ML IV ONE
[2020-10-16] MEDS ORDERED: VANCOMYCIN HCL 1,000 MG, VIAL MATE ADAPTER 1 EACH in NS 250 ML IV ONE (13:30)
[2020-10-16] MEDS ORDERED: VANCOMYCIN 1000MG/20ML VIAL As Ordered ONE (13:42)
[2020-10-16] MEDS: GENTAMICIN 80 MG in IV 1 EA IV ONE ×2 (13:52→15:29)
[2020-10-16] MEDS ORDERED: CONRAY-60 60% 50ML VIAL (Q9961) As Ordered ONE (15:33)
[2020-10-16] MEDS ORDERED: METOCLOPRAMIDE INJ 10MG/2ML VIAL (J2765 PER 1) As Ordered ONE (15:43)
[2020-10-16] MEDS ORDERED: MIDAZOLAM INJ 2MG/2ML VIAL (J2250 PER 1MG) As Ordered ONE (15:43)
[2020-10-16] MEDS ORDERED: ROCURONIUM BROMIDE 50 MG/5 ML VIAL As Ordered ONE (15:43)
[2020-10-16] MEDS ORDERED: LIDOCAINE 2% 100MG/5ML SDV (FOR ANES.) As Ordered ONE (15:43)
[2020-10-16] MEDS ORDERED: SUGAMMADEX SODIUM 500 MG/5 ML VIAL (BRIDION) As Ordered ONE (15:43)
[2020-10-16] MEDS ORDERED: propofoL 200 MG/20 ML VIAL As Ordered ONE (15:43)
[2020-10-16] MEDS ORDERED: fentaNYL 100 MCG/2 ML INJECTION (J3010) As Ordered ONE ×2 (15:43→15:44)
[2020-10-16] MEDS ORDERED: ONDANSETRON 4MG/2ML VIAL As Ordered ONE (15:43)
[2020-10-16] MEDS ORDERED: dexameTHASONE 4 MG/ML 1ML VIAL (J1100 PER 1MG) As Ordered ONE (15:43)
[2020-10-16] MEDS ORDERED: ePHEDrine SULFATE 25 MG/5 ML(5MG/ML) SYRINGE As Ordered ONE (15:48)
[2020-10-16] MEDS ORDERED: PHENYLephrine 500MCG 5ML (100MCG/ML) SYRINGE As Ordered ONE (15:48)
[2020-10-16] MEDS ORDERED: ACETAMINOPHEN 1000MG 100ML IV BTL (OFIRMEV) (J0131 PER 10MG) As Ordered ONE (15:48)
--- NOTE | 2020-10-16 16:49 | REP ---
INDICATION: BILATERAL STENT PLACEMENT TECHNIQUE: 3 KUB is were performed using a portable C-arm device in my absentia. 16 seconds of fluoroscopy time was provided Dr. Ariza for the exam. FINDINGS: Double pigtail stents are seen the proximal portion of each in the region of the renal pelvis and the distal portion of each in the region of the urinary bladder on the respective side. A small amount of radiographic contrast material is seen opacifying the renal collecting system bilaterally IMPRESSION: As above <Electronically signed by Russ Gordon > 10/16/20 0415
[2020-10-16] MEDS ORDERED: OXYC1TAB23 PO (17:02)
[2020-10-16] MEDS ORDERED: OXYB5TAB10 PO (17:02)
[2020-10-16] MEDS ORDERED: oxyCODONE 5MG TAB PO PRN (17:15)
[2020-10-16] MEDS ORDERED: ONDANSETRON 4MG/2ML VIAL IV PRN (17:15)
[2020-10-16] MEDS ORDERED: PERCOCET 5MG/325MG TAB PO PRN (17:15)
[2020-10-16] MEDS ORDERED: oxyBUTYnin 5 MG TAB PO PRN (17:15)
[2020-10-16] MEDS ORDERED: fentaNYL 100 MCG/2 ML INJECTION (J3010) IV PRN (17:15)
[2020-10-16] MEDS ORDERED: LR 1,000 ML IV SCH (17:15)
[2020-10-16 18:00] VITALS: BP 135/77
--- NOTE | 2020-10-17 08:20 | RO ---
OPERATIVE NOTE DATE OF OPERATION: 10/16/2020 PREOPERATIVE DIAGNOSIS: Kidney stones. POSTOPERATIVE DIAGNOSIS: Kidney stones. PROCEDURE: Cystoscopy, bilateral ureteroscopy and laser lithotripsy, basket extraction of stones, bilateral retrograde pyelograms with intraop interpretation of images, bilateral ureteral stent placement. SURGEON: Luis Ariza MD EMBOSSING MACHINE OPERATOR HELPER: None. ANESTHESIA: General. OPERATIVE INDICATIONS: This is a 50-year-old female with bilateral kidney stones who is brought to the operating room today for treatment. DESCRIPTION OF PROCEDURE: The patient was brought to the operating room and general anesthesia was induced. Prophylactic antibiotics were infused. She was placed in dorsal lithotomy position and prepped and draped in usual sterile fashion. Rigid cystoscope was inserted in urethral meatus and advanced to the bladder. Guidewire was advanced up the right collecting system. I then advanced an access sheath up the right collecting system. I went up the access sheath with flexible ureteroscope and within the right kidney in a mid pole calyx a collection of stones was seen. The stones measured up to about 6-7 mm in size. Some of these stones were able to be removed using a basket. Some of the other stones appeared to be attached to the renal papilla. I utilized 272 micron laser fiber to try to fragment these stones into smaller pieces and the majority were fragmented into smaller pieces that should be small enough to pass. Once done I examined the remaining calyces and no additional stones were seen. Retrograde pyelogram was performed and notable for mild right hydronephrosis, no extravasation. I then removed the ureteroscope along with the access sheath and no additional stones were seen inside the ureter. I utilized the guidewire to advance 6-Algerian x 22-32 cm JJ ureteral stent up the right collecting system. The wire was removed and there were adequate curls of the stent in right renal pelvis and in the bladder. At this point I advanced guidewire up the left collecting system. I advanced ureteral access sheath up left collecting system. I went up the access sheath with flexible ureteroscope and left kidney thoroughly examined. Inside a mid pole calyx approximately 8 mm stone was seen. I was able to grasp this stone with the basket and withdraw it. No additional stones were seen inside the left kidney. Retrograde pyelogram was performed and notable for mild left hydronephrosis with no extravasation. If then withdrew the ureteroscope over the access sheath and no additional stones were seen inside the ureter. I then utilized the guidewire to advance 6-Algerian x 22-32 cm JJ ureteral stent up the left collecting system. The wire was removed and adequate curls of stent in left renal pelvis and in the bladder. The bladder was emptied of all fluids. This marked the conclusion of the procedure. The patient was taken out of the dorsal lithotomy position, awakened from anesthesia and transported to the recovery room in stable condition. ESTIMATED BLOOD LOSS: 5 mL. COMPLICATIONS: None. SPECIMENS: Kidney stone fragments. PLAN: The patient will follow up in urology clinic in a few weeks for stent removal.
== END 2020-10-16 18:15 | disposition home or self-care (01) ==
LOC: M SDC 12:50
PROVIDERS: ATTEND Urology
DX: N20.0 Calculus of kidney (principal); C50.911 Malignant neoplasm of unspecified site of right female breast; E11.9 Type 2 diabetes mellitus without complications; E78.00 Pure hypercholesterolemia, unspecified; I11.0 Hypertensive heart disease with heart failure; I44.2 Atrioventricular block, complete; I47.2 Ventricular tachycardia; I48.91 Unspecified atrial fibrillation; I50.9 Heart failure, unspecified; J45.909 Unspecified asthma, uncomplicated; Z79.899 Other long term (current) drug therapy; Z88.0 Allergy status to penicillin; Z88.1 Allergy status to other antibiotic agents; Z88.8 Allergy status to other drugs, medicaments and biological substances; Z91.048 Other nonmedicinal substance allergy status; Z90.710 Acquired absence of both cervix and uterus; Z92.21 Personal history of antineoplastic chemotherapy; Z92.3 Personal history of irradiation; Z95.810 Presence of automatic (implantable) cardiac defibrillator; Z96.652 Presence of left artificial knee joint; Z98.84 Bariatric surgery status
CPT/HCPCS: 52356; 74420; 82365; 88300; C1769; C1894; C2617; J0131; J1100; J1580; J2250; J2370; J2405; J2765; J3010; J3370; Q9961